=== PATIENT | male | born 1955 | race African-American/Black ===

== ENCOUNTER 2024-12-20 08:18 | Outpatient (CLI) | payer MEDICARE, SELFPAY ==
--- OUTSIDE RECORDS SUMMARY | 2024-12-20 08:31 | XMS_ITS | Data Portability ---
Author Organization [facility] Address [address] [place] [address] Assessment Encounter Date Assessment Date Assessment LastModified by Organization Details LastModified Time 05/16/2024 05/16/2024 His weight loss is concerning. oajao Not available 05/16/2024 16:42:51 11/17/2024 11/17/2024 He will benefit from a walker with wheels and a seat to accomplish his ADLS in his home oajao Not available 11/17/2024 19:17:34 Plan of Treatment Reminders Order Date Submit Date Provider Last Modified By Organization Details Last Modified Time Details Appointments ANY 15 2024 09:00A Tino Castillo MD Not available Not available Not available Lab hepatitis C virus RNA, quant, PCR, serum or plasma 2022 023 DALLIN [facility], [address], [place], [address], 01/28/2023 19:08:52 TSH, ultra-sen sitive, serum 2023 024 DALLIN [facility], [address], [place], [address], 11/05/2024 08:28:13 unlisted lab - [id number] drug-scr 2023 024 [facility], [address], [place], [address], 12/16/2024 09:10:12 CBC w/ auto diff 2023 024 DALLIN [facility], [address], [place], [address], 11/05/2024 08:28:14 urinalysi s, dipstick 2023 024 divine Mojica, [address], [place], [address], 12/16/2024 09:09:59 CMP, serum or plasma 2023 024 DALLIN [facility]ighann, [address], [place], [address], 11/05/2024 08:28:12 lipid panel, serum 2023 024 DALLINALHAJI Mojica, [address], [place], [address], 11/05/2024 08:28:10 hepatitis C virus RNA, quant, PCR, serum or plasma 2023 024 [facility] [address], [place], [address], 12/19/2024 09:08:22 PSA, total, serum or plasma 2023 024 DALLIN Mojica, [address], [place], [address], 11/05/2024 08:28:16 TSH, ultra-sen sitive, serum 2024 025 DALLIN Mojica, [address], [place], [address], 11/18/2024 08:26:19 CBC w/ auto diff 2024 025 DALLIN Mojica, [address], [place], [address], 11/18/2024 08:26:20 basic metabolic 1998 panel, serum or plasma 2024 025 [facility], [address], [place], [address], 11/18/2024 08:26:18 cobalamin and folate panel, serum 2024 025 oajao [facility], [address], [place], [address], 12/16/2024 09:09:45 Referral pulmonolo gist referral - COPD 2024 025 [facility], [address] [facility], [address], [place], [address], 12/15/2024 13:47:57 cardiolog ist referral 2024 025 [facility], [address], [place], [address], 12/02/2024 10:08:48 orthopedi c surgeon referral 2024 025 [facility], [address] [facility], [place], [address], 12/15/2024 13:21:58 Procedures None recorded. Surgeries None recorded. Imaging US, liver - Chronic Hep C , s/p treatment 2022 023 [facility] ([facility]), [address] [place], [address], 09/08/2023 15:19:09 CT, abdomen + pelvis, w/ contrast - 27 lb weight loss 2023 024 [facility] ([facility] Sched[facility]), [address], [address], 06/03/2024 13:26:47 LDCT, chest, for lung cancer screening 2023 024 [facility] ([facility] Call Scheduling), [address] [place], [address], 06/03/2024 11:45:34 MRI, brain, w/o contrast - Balance impairmen t, recent fall 2024 025 [facility] (Imaging), [address] [place] [address], [phone], 12/10/2024 10:28:45 US, duplex, carotid artery - Chronic cerebral ischemia, old cerebral infarcts 2024 025 [facility] (Imaging), [address] [place] [address], [phone], 12/15/2024 11:37:52 XR, shoulder - Bilateral shoulder pain 2024 025 [facility] (Imaging), [address] [place] [address], [phone], 12/15/2024 11:45:07 Medication Orders albuterol sulfate HFA 90 mcg/actua tion aerosol inhaler 2022 023 [facility][id number], [address], [place], [id number], 12/17/2022 09:40:08 Debrox 6.5 % ear drops 2022 023 [facility], [address], [place], [id number], 01/27/2023 14:51:09 Viagra 100 mg tablet 2022 023 [facility], [address], [place], [id number], 01/26/2024 10:26:53 Symbicort 160 mcg-4.5 mcg/actua tion HFA aerosol inhaler 2023 024 oayulio [facility] #65511, [address], [place], [id number], 05/16/2024 16:38:37 albuterol sulfate HFA 90 mcg/actua tion aerosol inhaler 2023 024 [facility] #19175, [address], [place], [id number], 05/16/2024 16:00:42 Viagra 100 mg tablet 2023 024 [facility], [address], [place], [id number], 10/10/2024 16:27:00 nicotine 21 mg/24 hr daily transderm al patch 2023 025 [facility] #32484, [address], [place], [id number], 11/17/2024 15:02:46 nicotine 14 mg/24 hr daily transderm al patch 2023 025 [facility] #10009, [address], [place], [id number], 11/17/2024 15:02:40 nicotine 7 mg/24 hr daily transderm al patch 2023 025 [facility] #37815, [address], [place], [id number], 11/17/2024 15:02:40 prednison e 20 mg tablet 2024 025 [facility] #19500, [address], [place], [id number], 12/15/2024 10:51:48 Zithromax Z-Samm 250 mg tablet 2024 025 [facility] #05124, [address], [place], [id number], 12/15/2024 10:52:04 benzonata te 100 mg capsule 2024 025 [facility] #30725, [address], [place], [id number], 12/15/2024 10:51:31 budesonid e-formote rol HFA 160 mcg-4.5 mcg/actua tion aerosol inhaler 2024 025 [facility] #45853, [address], [place], [id number], 11/17/2024 15:25:04 albuterol sulfate 2.5 mg/3 mL (0.083 %) solution for nebulizat ion 2024 025 [facility] #95350, [address], [place], [id number], 11/17/2024 15:30:40 Incruse Ellipta 62.5 mcg/actua tion powder for inhalatio n 2024 025 [facility] #18231, [address], [place], [id number], 11/17/2024 15:33:16 albuterol sulfate HFA 90 mcg/actua tion aerosol inhaler 2024 025 [facility] #78421, [address], [place], [id number], 11/17/2024 19:10:26 Debrox 6.5 % ear drops 2024 025 [facility] #05110, [address], [place], [id number], 12/15/2024 11:21:15 rosuvasta tin 5 mg tablet 2024 025 [facility], [address] [place] [address], [id number], 12/15/2024 11:21:15 aspirin 81 mg tablet,de layed release 2024 025 [facility] #66025, [address] [place] [address], [id number], 12/15/2024 11:19:33 Incruse Ellipta 62.5 mcg/actua tion powder for inhalatio n 2024 025 [facility] #39673, [address] [place] [address], [id number], 12/15/2024 11:13:54 albuterol sulfate 2.5 mg/3 mL (0.083 %) solution for nebulizat ion 2024 025 [id number], [address] [place] [address], [id number], 12/15/2024 11:13:55 Patient TargetsNo targets recorded. Patient Instructions Encounter Date Encounter Id Patient Instructions Last Modified By Organization Details Last Modified Time 12/17/2022 [id number] Quitting Tobacco : Care Instructions oajao Not available 12/17/2022 09:44:57 chronic obstructive pulmonary disease (COPD): care instructions oajao Not available 12/17/2022 09:40:02 complete PFT w/ post bronchodilator spirometry* - Emphysema hdoverma Not available 03/18/2023 17:41:21 PFTS Albuterol, side effects were discussed Debrox Bivalent COVID vaccine in January 2023 GI as referred Smoking cessation Follow up in 6 weeks (Post PFTS) oajao Not available 12/17/2022 09:45:34 01/27/2023 [id number] Quitting Tobacco : Care Instructions oajao Not available 01/27/2023 14:57:38 GI as previously referred or please refer him to a different group. Liver US. Bivalent COVID booster. Labs Follow up in 6 months and PRN oajao Not available 01/27/2023 14:59:02 05/16/2024 [id number] chronic obstructive pulmonary disease (COPD): care instructions oajao Not available 05/16/2024 15:58:34 learning about copd and how to prevent lung infections oajao Not available 05/16/2024 15:58:[address] A&P LDCT Colonoscopy report from [facility] EGD and colonoscopy reports from the [place] Symbicort Continue Albuterol Nicotine patch Follow up in 4 weeks oajao Not available 05/16/2024 16:43:13 11/17/2024 [id number] complete PFT w/ post bronchodilator spirometry* ATHENAFAX Not available 12/15/2024 10:56:09 constipation: ca re instructions oajao Not available 11/17/2024 19:11:08 Labs (Old and ne w orders) PFTS Restart Symbicort Start Incruse Azithromycin MRI brain ER report from [facility] Walker Rollator Infection Prevention Practitioner to see ER if his symptoms worsen Colonoscopy report from [facility] Follow up in 4-6 weeks oajao Not available 11/17/2024 15:33:03 Detailed visit oajao Not available 0 11/17/2024 19:16:27 12/15/2024 [id number] shoulder pain: care instructions oajao Not available 12/15/2024 11:19:26 US carotids Colonoscopy report from [facility] Labs (New and as previously ordered on 05/16/2024) Start Rosuvastatin and Incruse Continue Aspirin Xrays Orthopedics Follow up in 6-8 weeks oajao Not available 12/15/2024 11:25:42 Reason for Referral Infection Prevention Practitioner Referral for C hronic obstructive pulmonary disease COPD COPD Referring Physician: Johnnie Castillo, Internal Medicine, Encounter Date: 11/17/2024 Embedded Engineer Referral for Ca lcification of coronary artery Coronary artery calcifications Referring Physician: Johnnie Castillo, Internal Medicine, Encounter Date: 11/17/2024 Orthopedic Surgeon Referral for Shoulder pain L>R shoulder pain Referring Physician: Johnnie Castillo, Internal Medicine, Encounter Date: 12/15/2024 Results Created Date Observation Date Name Description Value Unit Range Abnormal Flag Note LastModifiedBy Organization Detail LastModifiedTime 12/17/19 23 12/17/2022 LIPID PANEL cholesterol, total 130.9 mg/dL 140.0- 200.0 below low normal Not Available [facility] Department [address] [place] [address], [address], 12/18/2022 06:14:12/17/19 23 12/17/2022 LIPID PANEL triglyceride s 40 mg/dL <=150 Not Available [facility] Department [address] [place] [address], [address], 12/18/2022 06:14:12/17/19 23 12/17/2022 LIPID PANEL HDL cholesterol 67.2 mg/dL 40.0-1 00.0 Not Available [facility] Department [address] [place] [address], [address], 12/18/2022 06:14:12/17/19 23 12/17/2022 LIPID PANEL VLDL cholesterol nicole 8.00 mg/dL 5.00-4 0.00 Not Available [facility] Department [address] [place] [address], [address], 12/18/2022 06:14:12/17/1912/17/2022 LIPID PANEL LDL chol calc ([facility]) 53.7 Not Available [facility] Department [address] [place] [address], [address], 12/18/2022 06:14:12/17/1912/17/2022 COMP. METAB OLIC PANEL (14) glucose 85 mg/dL 65-99 ANION GP 16.0 mmol/ L N OSMOL 287.0 mOsM/ L N REFER ENCE RANGE : 275.0 -301. 0 Not Available [facility] Department [address] [place] [address], [address], 12/18/2022 06:14:12/17/19 23 12/17/2022 COMP. METAB OLIC PANEL (14) BUN 14 mg/dL 8-26 Not Available [facility] Department [address] [place], [address], 12/18/2022 06:14:12/17/19 23 12/17/2022 COMP. METAB OLIC PANEL (14) creatinine 0.87 mg/dL 0.50-1 .40 Not Available [facility] Department [address] [place], [address], 12/18/2022 06:14:12/17/19 23 12/17/2022 COMP. METAB OLIC PANEL (14) eGFR 94 mL/mi n/1.7 3 >=60 Not Available [facility] Department [address] [place] [address], [address], 12/18/2022 06:14:12/17/19 23 12/17/2022 COMP. METAB OLIC PANEL (14) BUN/creatini ne ratio 15.7 Not Available [facility] Department [address] [place], [address], 12/18/2022 06:14:12/17/19 23 12/17/2022 COMP. METAB OLIC PANEL (14) sodium 144.3 mmol/ L 136.0- 144.0 above high normal Not Available [facility] Department [address] [place], [address], 12/18/2022 06:14:12/17/19 23 12/17/2022 COMP. METAB OLIC PANEL (14) potassium 4.1 mmol/ L 3.5-5. 3 Not Available [facility] Department [address] [place], [address], 12/18/2022 06:14:12/17/19 23 12/17/2022 COMP. METAB OLIC PANEL (14) chloride 104 mmol/ L 101-11 1 Not Available [facility] Department [address] [place], [address], 12/18/2022 06:14:12/17/19 23 12/17/2022 COMP. METAB OLIC PANEL (14) carbon dioxide, total 28.1 mmol/ L 21.0-3 2.0 Not Available [facility] Department [address] [place], [address], 12/18/2022 06:14:12/17/19 23 12/17/2022 COMP. METAB OLIC PANEL (14) calcium 9.6 mg/dL 8.2-10 .0 Not Available [facility] Department [address] [place], [address], 12/18/2022 06:14:12/17/19 23 12/17/2022 COMP. METAB OLIC PANEL (14) protein, total 7.5 g/dL 6.7-8. 2 Not Available [facility] Department [address] [place], [address], 12/18/2022 06:14:12/17/19 23 12/17/2022 COMP. METAB OLIC PANEL (14) albumin 4.8 g/dL 3.5-5. 5 Not Available [facility] Department [address] [place], [address], 12/18/2022 06:14:12/17/19 23 12/17/2022 COMP. METAB OLIC PANEL (14) globulin, total 2.7 g/dL 1.5-4. 5 Not Available [facility] Department [address] [place], [address], 12/18/2022 06:14:12/17/19 23 12/17/2022 COMP. METAB OLIC PANEL (14) A/G ratio 1.8 Not Available [facility] Department [address] [place], [address], 12/18/2022 06:14:12/17/19 23 12/17/2022 COMP. METAB OLIC PANEL (14) bilirubin, total 0.6 mg/dL 0.0-1. 2 Not Available [facility] Department [address] [place], [address], 12/18/2022 06:14:12/17/19 23 12/17/2022 COMP. METAB OLIC PANEL (14) alkaline phosphatase 41.7 IU/L 42.0-1 21.0 below low normal Not Available [facility] Department [address] [place], [address], 12/18/2022 06:14:12/17/1912/17/2022 COMP. METAB OLIC PANEL (14) AST (SGOT) 18.5 U/L 10.0-4 2.0 Not Available [facility] Department [address] [place], [address], 12/18/2022 06:14:12/17/19 23 12/17/2022 COMP. METAB OLIC PANEL (14) ALT (SGPT) 14.3 U/L 10.0-6 0.0 Not Available [facility] Department [address] [place], [address], 12/18/2022 06:14:12/17/1912/17/2022 URINA LYSIS , ROUTI NE specific gravity 1.020 1.001- 1.035 Not Available [facility] Department [address] [place], [address], 12/18/2022 06:14:12/17/1912/17/2022 URINA LYSIS , ROUTI NE pH 7.5 5.0-7. 0 above high normal Not Available [facility] Department [address] [place], [address], 12/18/2022 06:14:12/17/1912/17/2022 URINA LYSIS , ROUTI NE urine-color YELLOW yellow Not Available [facility] Department [address], [place], [address], 12/18/2022 06:14:12/17/1912/17/2022 URINA LYSIS , ROUTI NE appearance CLEAR Not Available [facility] Department [address], [place], [address], 12/18/2022 06:14:12/17/19 23 12/17/2022 URINA LYSIS , ROUTI NE WBC esterase COMMEN T NEGAT KAITLYN Not Available [facility] Department [address], [place], [address], 12/18/2022 06:14:12/17/19 23 12/17/2022 URINA LYSIS , ROUTI NE protein COMMEN T NEGAT KAITLYN Not Available [facility] Department [address], [place], [address], 12/18/2022 06:14:12/17/19 23 12/17/2022 URINA LYSIS , ROUTI NE glucose COMMEN T NEGAT KAITLYN Not Available [facility] Department [address], [place], [address], 12/18/2022 06:14:12/17/1912/17/2022 URINA LYSIS , ROUTI NE ketones COMMEN T NEGAT KAITLYN Not Available [facility] Department [address], [place], [address], 12/18/2022 06:14:12/17/19 23 12/17/2022 URINA LYSIS , ROUTI NE occult blood COMMEN T NEGAT KAITLYN Not Available [facility] Department [address] [place], [address], 12/18/2022 06:14:12/17/19 23 12/17/2022 URINA LYSIS , ROUTI NE bilirubin COMMEN T NEGAT KAITLYN Not Available [facility] Department [address] [place], [address], 12/18/2022 06:14:12/17/1912/17/2022 URINA LYSIS , ROUTI NE urobilinogen ,semi-qn 0.2 eu/dL <=1.0 Not Available [facility] Department [address], [place], [address], 12/18/2022 06:14:12/17/1912/17/2022 URINA LYSIS , ROUTI NE nitrite, urine COMMEN T negati ve NEGAT KAITLYN Not Available [facility] Department [address] [place], [address], 12/18/2022 06:14:12/17/1912/17/2022 CBC WITH DIFFE RENTI AL/PL ATELE T WBC 7.1 K/uL 3.4-10 .8 Not Available [facility] Department [address] [facility], [place], [address], 12/18/2022 06:14:12/17/1912/17/2022 CBC WITH DIFFE RENTI AL/PL ATELE T RBC 4.6 M/uL 4.5-6. 3 Not Available [facility] Department [address] [facility], [place], [address], 12/18/2022 06:14:12/17/1912/17/2022 CBC WITH DIFFE RENTI AL/PL ATELE T hemoglobin 13.5 g/dL 13.5-1 7.5 Not Available [facility] Department [address] [place], [address], 12/18/2022 06:14:12/17/1912/17/2022 CBC WITH DIFFE RENTI AL/PL ATELE T hematocrit 41.8 % 40.0-5 2.0 Not Available [facility] Department [address] [place], [address], 12/18/2022 06:14:10 12/17/19 23 12/17/2022 CBC WITH DIFFE RENTI AL/PL ATELE T MCV 91 fL 80-95 Not Available [facility] Department [address] [place], [address], 12/18/2022 06:14:10 12/17/19 23 12/17/2022 CBC WITH DIFFE RENTI AL/PL ATELE T MCH 30 pg 27-32 Not Available [facility] Department [address] [place], [address], 12/18/2022 06:14:10 12/17/1912/17/2022 CBC WITH DIFFE RENTI AL/PL ATELE T MCHC 32 g/dL 32-36 Not Available [facility] Department [address] [place], [address], 12/18/2022 06:14:10 12/17/1912/17/2022 CBC WITH DIFFE RENTI AL/PL ATELE T RDW 18.3 % 11.5-1 4.5 above high normal Not Available [facility] Department [address] [place], [address], 12/18/2022 06:14:10 12/17/1912/17/2022 CBC WITH DIFFE RENTI AL/PL ATELE T platelets 217 K/uL 155-37 9 MPV 11.4 FL 8.9-1 2.7 N Not Available [facility] Department [address] [place], [address], 12/18/2022 06:14:10 12/17/1912/17/2022 CBC WITH DIFFE RENTI AL/PL ATELE T neutrophils 61.0 % 40.0-7 4.0 Not Available [facility] Department [address] [place], [address], 12/18/2022 06:14:10 12/17/1912/17/2022 CBC WITH DIFFE RENTI AL/PL ATELE T lymphs 26.4 % 14.0-4 6.0 Not Available [facility] Department [address] [place], [address], 12/18/2022 06:14:10 12/17/19 23 12/17/2022 CBC WITH DIFFE RENTI AL/PL ATELE T monocytes 8.8 % 4.0-12 .0 Not Available [facility] Department [address] [place], [address], 12/18/2022 06:14:10 12/17/1912/17/2022 CBC WITH DIFFE RENTI AL/PL ATELE T eos 2 % 0-5 Not Available [facility] Department [address] [place], [address], 12/18/2022 06:14:10 12/17/1912/17/2022 CBC WITH DIFFE RENTI AL/PL ATELE T basos 1.4 % 0.0-1. 0 above high normal Not Available [facility] Department [address] [place], [address], 12/18/2022 06:14:10 12/17/1912/17/2022 CBC WITH DIFFE RENTI AL/PL ATELE T neutrophils (absolute) 4.3 K/uL 1.4-7. 0 Not Available [facility] Department [address] [place] [address], [address], 12/18/2022 06:14:10 12/17/1912/17/2022 CBC WITH DIFFE RENTI AL/PL ATELE T lymphs (absolute) 1.9 K/uL 0.7-3. 1 Not Available [facility] Department [address] [place], [address], 12/18/2022 06:14:10 12/17/1912/17/2022 CBC WITH DIFFE RENTI AL/PL ATELE T monocytes(ab solute) 0.6 K/uL 0.1-0. 9 Not Available [facility] Department [address] [place], [address], 12/18/2022 06:14:10 12/17/1912/17/2022 CBC WITH DIFFE RENTI AL/PL ATELE T eos (absolute) 0.2 K/uL 0.0-0. 4 Not Available [facility] Department [address] [place], [address], 12/18/2022 06:14:10 12/17/1912/17/2022 CBC WITH DIFFE RENTI AL/PL ATELE T baso (absolute) 0.1 K/uL 0.0-0. 3 Not Available [facility] Department [address] [place], [address], 12/18/2022 06:14:10 12/17/1912/17/2022 CBC WITH DIFFE RENTI AL/PL ATELE T immature granulocytes 0.3 % Not Available [facility] Department [address] [place], [address], 12/18/2022 06:14:10 12/17/1912/17/2022 CBC WITH DIFFE RENTI AL/PL ATELE T immature grans (abs) 0.0 K/uL Not Available [facility] Department [address] [place], [address], 12/18/2022 06:14:10 12/17/1912/17/2022 CBC WITH DIFFE RENTI AL/PL ATELE T NRBC 0 % Not Available [facility] Department [address] [place], [address], 12/18/2022 06:14:10 12/17/1912/18/2022 HCV ANTIB WM hep C virus Ab >11.0 s/co_ ratio 0.0-0. 9 above high normal Negat kaitlyn: < 0.8 Indet ermin ate: 0.8 - 0.9 Posit kaitlyn: > 0.9 HCV antib wm alone does not diffe renti ate betwe en previ ous resol irma infec tion and activ e infec tion. The CDC and curre nt clini nicole guide lines recom mend that a posit kaitlyn HCV antib wm resul t be follo wed up with an HCV RNA test to suppo rt the diagn osis of acute HCV infec tion. [facility] offer s Hepat itis C Virus (HCV) RNA, Diagn osis, ROSAMARIA (5820 70) and Hepat itis C Virus (HCV) Antib wm with refle x to Quant itati ve Real- time PCR (4610 50). Not Available [facility] ([facility]) [address] [facility], [place], [address], 12/18/2022 08:16:09 12/17/19 23 12/18/2022 PROST ATE-S PECIF IC AG prostate specific Ag 1.5 NG/mL 0.0-4. 0 Janusz ECLIA metho dolog y. Accor ding to the Ameri can Urolo gical Assoc iatio n, Serum PSA shoul d decre ase and remai n at undet ectab le level s after radic al prost atect hadley. The AUA defin es bioch emica l recur rence as an initi al PSA value 0.2 ng/mL or great er follo wed by a subse quent confi rmato ry PSA value 0.2 ng/mL or great er. Value s obtai derrick with diffe rent assay metho ds or kits canno t be used inter mccullough nataly . Resul ts canno t be inter prete d as absol isiah evide nce of the prese nce or absen ce of otilia dubose se. Not Available [facility] ([facility]) [address] [facility], [place], [address], 12/18/2022 08:16:10 12/17/19 23 12/18/2022 HIV AB/P2 4 AG WITH REFLE X HIV Ab/P24 Ag screen NON REACTI VE nonrea ctive HIV Negat kaitlyn HIV-1 /HIV- 2 antib odies and HIV-1 p24 antig en were NOT detec jeanine. There is no labor atory evide nce of HIV infec tion. Not Available [facility] ([facility]) [address] [facility], [place], [address], 12/18/2022 08:16:11 12/17/19 23 12/17/2022 SLIDE REVIE W slide review COMMEN T RBCMO RP ABNOR MAL N PLATE LETS ELOY L N ANISO OCCAS IONAL N OVALC YT RARE N POIKC Y 1+ N TARCE LL 1+ N SCHCY TE RARE N ACANT HOCYT E(RUBIN NTHO) RARE N Not Available [facility] Department [address] [place], [address], 12/18/2022 06:14:08 01/28/20 23 01/27/2023 HCV RNA BY PCR, QN RFX MONTEZ test information: COMMEN T The quant itati ve range of this assay is 15 IU/mL to 100 sven on IU/mL . Not Available [facility] ([facility]) [address] [facility], [place], [address], 01/28/2023 19:08:52 01/28/20 23 01/28/2023 HCV RNA BY PCR, QN RFX MONTEZ hepatitis C quantitation HCV NOT DETECT ED Not Available [facility] ([facility]) [address] [facility], [place], [address], 01/28/2023 19:08:52 01/28/20 23 01/28/2023 HCV RNA BY PCR, QN RFX MONTEZ HCV log10 TNP log10 _IU/m L Unabl e to calcu late resul t since non-n umeri c resul t obtai derrick for compo nent test. Not Available [facility] ([facility]) [address] [facility], [place], [address], 01/28/2023 19:08:52 01/28/20 23 01/28/2023 HCV RNA BY PCR, QN RFX MONTEZ HCV genotype TNP Not indic ated Not Available [facility] ([facility]) [address] [facility], [place], [address], 01/28/2023 19:08:52 11/04/20 24 11/05/2024 LIPID PANEL cholesterol, total 134 mg/dL 100-19 9 Not Available [facility] ([facility]) [address] [place], [address], 11/05/2024 08:28:10 11/04/20 24 11/05/2024 LIPID PANEL triglyceride s 45 mg/dL 0-149 Not Available [facility] ([facility]) [address] [place], [address], 11/05/2024 08:28:10 11/04/20 24 11/05/2024 LIPID PANEL HDL cholesterol 58 mg/dL >39 Not Available [facility] ([facility]) [address] [place], [address], 11/05/2024 08:28:10 11/04/20 24 11/05/2024 LIPID PANEL VLDL cholesterol nicole 11 mg/dL 5-40 Not Available [facility] ([facility]) [address] [place], [address], 11/05/2024 08:28:10 11/04/20 24 11/05/2024 LIPID PANEL LDL chol calc ([facility]) 65 mg/dL 0-99 Not Available [facility] ([facility]) [address] [place], [address], 11/05/2024 08:28:10 11/04/20 24 11/05/2024 COMP. METAB OLIC PANEL (14) glucose 80 mg/dL 70-99 Not Available [facility] ([facility]) [address] [place], [address], 11/05/2024 08:28:12 11/04/20 24 11/05/2024 COMP. METAB OLIC PANEL (14) BUN 12 mg/dL 8-27 Not Available [facility] ([facility]) [address] [place], [address], 11/05/2024 08:28:12 11/04/20 24 11/05/2024 COMP. METAB OLIC PANEL (14) creatinine 0.89 mg/dL 0.76-1 .27 Not Available [facility] ([facility]) [address] [place], [address], 11/05/2024 08:28:12 11/04/20 24 11/05/2024 COMP. METAB OLIC PANEL (14) eGFR 93 mL/mi n/1.7 3 >59 Not Available [facility] ([facility]) [address] [place], [address], 11/05/2024 08:28:12 11/04/20 24 11/05/2024 COMP. METAB OLIC PANEL (14) BUN/creatini ne ratio 13 10-24 Not Available [facility] ([facility]) [address] [place], [address], 11/05/2024 08:28:12 11/04/20 24 11/05/2024 COMP. METAB OLIC PANEL (14) sodium 138 mmol/ L 134-14 4 Not Available [facility] ([facility]) [address] [place], [address], 11/05/2024 08:28:12 11/04/20 24 11/05/2024 COMP. METAB OLIC PANEL (14) potassium 4.2 mmol/ L 3.5-5. 2 Not Available [facility] ([facility]) [address] [place], [address], 11/05/2024 08:28:12 11/04/20 24 11/05/2024 COMP. METAB OLIC PANEL (14) chloride 97 mmol/ L 96-106 Not Available [facility] ([facility]) [address] [facility] [place], [address], 11/05/2024 08:28:12 11/04/20 24 11/05/2024 COMP. METAB OLIC PANEL (14) carbon dioxide, total 26 mmol/ L Not Available [facility] ([facility]) [address] [facility], [place], [address], 11/05/2024 08:28:12 11/04/20 24 11/05/2024 COMP. METAB OLIC PANEL (14) calcium 9.4 mg/dL 8.6-10 .2 Not Available [facility] ([facility]) [address] [place], [address], 11/05/2024 08:28:12 11/04/20 24 11/05/2024 COMP. METAB OLIC PANEL (14) protein, total 7.4 g/dL 6.0-8. 5 Not Available [facility] ([facility]) [address] [place], [address], 11/05/2024 08:28:12 11/04/20 24 11/05/2024 COMP. METAB OLIC PANEL (14) albumin 4.6 g/dL 3.9-4. 9 Not Available [facility] ([facility]) [address] [place], [address], 11/05/2024 08:28:12 11/04/20 24 11/05/2024 COMP. METAB OLIC PANEL (14) globulin, total 2.8 g/dL 1.5-4. 5 Not Available [facility] ([facility]) [address] [place], [address], 11/05/2024 08:28:12 11/04/20 24 11/05/2024 COMP. METAB OLIC PANEL (14) bilirubin, total 0.4 mg/dL 0.0-1. 2 Not Available [facility] ([facility]) [address] [place], [address], 11/05/2024 08:28:12 11/04/20 24 11/05/2024 COMP. METAB OLIC PANEL (14) alkaline phosphatase 49 IU/L 44-121 Not Available [facility] ([facility]) [address] [place], [address], 11/05/2024 08:28:12 11/04/20 24 11/05/2024 COMP. METAB OLIC PANEL (14) AST (SGOT) 29 IU/L 0-40 Not Available [facility] ([facility]) [address] [place], [address], 11/05/2024 08:28:12 11/04/20 24 11/05/2024 COMP. METAB OLIC PANEL (14) ALT (SGPT) 31 IU/L 0-44 Not Available [facility] ([facility]) [address] [facility], [place], [address], 11/05/2024 08:28:12 11/04/20 24 11/04/2024 UNABL E TO VOID unable to void COMMEN T Patie nt unabl e to void. Urine to be colle cted at a later date. Not Available [facility] ([facility]) [address] [facility], [place], [address], 11/05/2024 08:28:13 11/04/20 24 11/05/2024 TSH TSH 4.430 uIU/m L 0.450- 4.500 Not Available [facility] ([facility]) [address] [place], [address], 11/05/2024 08:28:13 11/04/20 24 11/05/2024 CBC WITH DIFFE RENTI AL/PL ATELE T WBC 8.9 x10e3 /uL 3.4-10 .8 Not Available [facility] ([facility]) [address] [place], [address], 11/05/2024 08:28:14 12/20/11/05/2024 CBC WITH DIFFE RENTI AL/PL ATELE T RBC 4.81 x10e6 /uL 4.14-5 .80 Not Available [facility] ([facility]) [address] [facility], [place], [address], 11/05/2024 08:28:14 11/04/20 24 11/05/2024 CBC WITH DIFFE RENTI AL/PL ATELE T hemoglobin 14.4 g/dL 13.0-1 7.7 Not Available [facility] ([facility]) [address] [place], [address], 11/05/2024 08:28:14 11/04/20 24 11/05/2024 CBC WITH DIFFE RENTI AL/PL ATELE T hematocrit 44.5 % 37.5-5 1.0 Not Available [facility] ([facility]) [address] [place], [address], 11/05/2024 08:28:14 11/04/20 24 11/05/2024 CBC WITH DIFFE RENTI AL/PL ATELE T MCV 93 fL 79-97 Not Available [facility] ([facility]) [address] [place], [address], 11/05/2024 08:28:14 11/04/20 24 11/05/2024 CBC WITH DIFFE RENTI AL/PL ATELE T MCH 29.9 pg 26.6-3 3.0 Not Available [facility] ([facility]) [address] [place], [address], 11/05/2024 08:28:14 11/04/20 24 11/05/2024 CBC WITH DIFFE RENTI AL/PL ATELE T MCHC 32.4 g/dL 31.5-3 5.7 Not Available [facility] ([facility]) [address] [place], [address], 11/05/2024 08:28:14 11/04/20 24 11/05/2024 CBC WITH DIFFE RENTI AL/PL ATELE T RDW 17.6 % 11.6-1 5.4 above high normal Not Available [facility] ([facility]) [address] [facility], [place], [address], 11/05/2024 08:28:14 11/04/20 24 11/05/2024 CBC WITH DIFFE RENTI AL/PL ATELE T platelets 253 x10e3 /uL 150-45 0 Not Available [facility] ([facility]) [address] [facility], [place], [address], 11/05/2024 08:28:14 11/04/20 24 11/05/2024 CBC WITH DIFFE RENTI AL/PL ATELE T neutrophils 53 % notest ab. Not Available [facility] ([facility]) [address] [facility], [place], [address], 11/05/2024 08:28:14 11/04/20 24 11/05/2024 CBC WITH DIFFE RENTI AL/PL ATELE T lymphs 30 % notest ab. Not Available [facility] ([facility]) [address] [facility], [place], [address], 11/05/2024 08:28:14 11/04/20 24 11/05/2024 CBC WITH DIFFE RENTI AL/PL ATELE T monocytes 8 % notest ab. Not Available [facility] ([facility]) [address] [facility], [place], [address], 11/05/2024 08:28:14 11/04/20 24 11/05/2024 CBC WITH DIFFE RENTI AL/PL ATELE T eos 6 % notest ab. Not Available [facility] ([facility]) [address] [facility], [place], [address], 11/05/2024 08:28:14 11/04/20 24 11/05/2024 CBC WITH DIFFE RENTI AL/PL ATELE T basos 2 % notest ab. Not Available [facility] ([facility]) [address] [facility], [place], [address], 11/05/2024 08:28:14 11/04/20 24 11/05/2024 CBC WITH DIFFE RENTI AL/PL ATELE T neutrophils (absolute) 4.9 x10e3 /uL 1.4-7. 0 Not Available [facility] ([facility]) [address] [facility], [place], [address], 11/05/2024 08:28:14 11/04/20 24 11/05/2024 CBC WITH DIFFE RENTI AL/PL ATELE T lymphs (absolute) 2.6 x10e3 /uL 0.7-3. 1 Not Available [facility] ([facility]) [address] [facility], [place], [address], 11/05/2024 08:28:14 11/04/20 24 11/05/2024 CBC WITH DIFFE RENTI AL/PL ATELE T monocytes(ab solute) 0.7 x10e3 /uL 0.1-0. 9 Not Available [facility] ([facility]) [address] [facility], [place], [address], 11/05/2024 08:28:14 11/04/20 24 11/05/2024 CBC WITH DIFFE RENTI AL/PL ATELE T eos (absolute) 0.5 x10e3 /uL 0.0-0. 4 above high normal Not Available [facility] ([facility]) [address] [place], [address], 11/05/2024 08:28:14 11/04/20 24 11/05/2024 CBC WITH DIFFE RENTI AL/PL ATELE T baso (absolute) 0.1 x10e3 /uL 0.0-0. 2 Not Available [facility] ([facility]) [address] [place], [address], 11/05/2024 08:28:14 11/04/20 24 11/05/2024 CBC WITH DIFFE RENTI AL/PL ATELE T immature granulocytes 1 % notest ab. Not Available [facility] ([facility]) [address] [facility], [place], [address], 11/05/2024 08:28:14 11/04/20 24 11/05/2024 CBC WITH DIFFE RENTI AL/PL ATELE T immature grans (abs) 0.1 x10e3 /uL 0.0-0. 1 Not Available [facility] ([facility]) [address] [facility], [place], [address], 11/05/2024 08:28:14 11/04/20 24 11/05/2024 PROST ATE-S PECIF IC AG prostate specific Ag 1.7 NG/mL 0.0-4. 0 Janusz ECLIA metho dolog y. Accor ding to the Ameri can [employer] g[employer] iatio n, Serum PSA shoul d decre ase and remai n at undet ectab le level s after radic al prost atect hadley. The AUA defin es bioch emica l recur rence as an initi al PSA value 0.2 ng/mL or great er follo wed by a subse quent confi rmato ry PSA value 0.2 ng/mL or great er. Value s obtai derrick with diffe rent assay metho ds or kits canno t be used inter mccullough eay . Resul ts canno t be inter prete d as absol isiah evide nce of the prese nce or absen ce of otilia dubose se. Not Available [facility] ([facility]) [address] [facility], [place], [address], 11/05/2024 08:28:16 11/17/1911/18/2024 BASIC METAB OLIC PANEL (7) glucose 78 mg/dL 70-99 Not Available [facility] ([facility]) [address] [facility], [place], [address], 11/18/2024 08:26:18 11/17/19 25 11/18/2024 BASIC METAB OLIC PANEL (7) BUN 16 mg/dL 8-27 Not Available [facility] ([facility]) [address] [place], [address], 11/18/2024 08:26:18 11/17/19 25 11/18/2024 BASIC METAB OLIC PANEL (7) creatinine 0.92 mg/dL 0.76-1 .27 Not Available [facility] ([facility]) [address] [place], [address], 11/18/2024 08:26:18 11/17/19 25 11/18/2024 BASIC METAB OLIC PANEL (7) eGFR 89 mL/mi n/1.7 3 >59 Not Available [facility] ([facility]) [address] [place], [address], 11/18/2024 08:26:18 11/17/19 25 11/18/2024 BASIC METAB OLIC PANEL (7) BUN/creatini ne ratio 17 10-24 Not Available [facility] ([facility]) [address] [place], [address], 11/18/2024 08:26:18 11/17/19 25 11/18/2024 BASIC METAB OLIC PANEL (7) sodium 144 mmol/ L 134-14 4 Not Available [facility] ([facility]) [address] [place], [address], 11/18/2024 08:26:18 11/17/19 25 11/18/2024 BASIC METAB OLIC PANEL (7) potassium 4.2 mmol/ L 3.5-5. 2 Not Available [facility] ([facility]) [address] [place], [address], 11/18/2024 08:26:18 11/17/19 25 11/18/2024 BASIC METAB OLIC PANEL (7) chloride 103 mmol/ L 96-106 Not Available [facility] ([facility]) [address] [place], [address], 11/18/2024 08:26:18 11/17/19 25 11/18/2024 BASIC METAB OLIC PANEL (7) carbon dioxide, total 26 mmol/ L 20-29 Not Available [facility] ([facility]) [address] [place], [address], 11/18/2024 08:26:18 11/17/19 25 11/18/2024 TSH TSH 2.430 uIU/m L 0.450- 4.500 Not Available [facility] ([facility]) [address] [place], [address], 11/18/2024 08:26:19 11/17/19 25 11/18/2024 CBC WITH DIFFE RENTI AL/PL ATELE T WBC 8.5 x10e3 /uL 3.4-10 .8 Not Available [facility] ([facility]) [address] [facility], [place], [address], 11/18/2024 08:26:20 11/17/19 25 11/18/2024 CBC WITH DIFFE RENTI AL/PL ATELE T RBC 4.49 x10e6 /uL 4.14-5 .80 Not Available [facility] ([facility]) [address] [place], [address], 11/18/2024 08:26:20 11/17/19 25 11/18/2024 CBC WITH DIFFE RENTI AL/PL ATELE T hemoglobin 13.5 g/dL 13.0-1 7.7 Not Available [facility] ([facility]) [address] [place], [address], 11/18/2024 08:26:20 11/17/19 25 11/18/2024 CBC WITH DIFFE RENTI AL/PL ATELE T hematocrit 40.5 % 37.5-5 1.0 Not Available [facility] ([facility]) [address] [place], [address], 11/18/2024 08:26:20 11/17/19 25 11/18/2024 CBC WITH DIFFE RENTI AL/PL ATELE T MCV 90 fL 79-97 Not Available [facility] ([facility]) [address] [facility], [place], [address], 11/18/2024 08:26:20 11/17/19 25 11/18/2024 CBC WITH DIFFE RENTI AL/PL ATELE T MCH 30.1 pg 26.6-3 3.0 Not Available [facility] ([facility]) [address] [place], [address], 11/18/2024 08:26:20 11/17/19 25 11/18/2024 CBC WITH DIFFE RENTI AL/PL ATELE T MCHC 33.3 g/dL 31.5-3 5.7 Not Available [facility] ([facility]) [address] [facility], [place], [address], 11/18/2024 08:26:20 11/17/19 25 11/18/2024 CBC WITH DIFFE RENTI AL/PL ATELE T RDW 17.4 % 11.6-1 5.4 above high normal Not Available [facility] ([facility]) [address] [place], [address], 11/18/2024 08:26:20 11/17/19 25 11/18/2024 CBC WITH DIFFE RENTI AL/PL ATELE T platelets 241 x10e3 /uL 150-45 0 Not Available [facility] ([facility]) [address] [place], [address], 11/18/2024 08:26:20 11/17/19 25 11/18/2024 CBC WITH DIFFE RENTI AL/PL ATELE T neutrophils 65 % notest ab. Not Available [facility] ([facility]) [address] [place], [address], 11/18/2024 08:26:20 11/17/19 25 11/18/2024 CBC WITH DIFFE RENTI AL/PL ATELE T lymphs 21 % notest ab. Not Available [facility] ([facility]) [address] [facility], [place], [address], 11/18/2024 08:26:20 11/17/19 25 11/18/2024 CBC WITH DIFFE RENTI AL/PL ATELE T monocytes 7 % notest ab. Not Available [facility] ([facility]) [address] [facility], [place], [address], 11/18/2024 08:26:20 11/17/19 25 11/18/2024 CBC WITH DIFFE RENTI AL/PL ATELE T eos 5 % notest ab. Not Available [facility] ([facility]) [address] [facility], [place], [address], 11/18/2024 08:26:20 11/17/19 25 11/18/2024 CBC WITH DIFFE RENTI AL/PL ATELE T basos 2 % notest ab. Not Available [facility] ([facility]) [address] [facility], [place], [address], 11/18/2024 08:26:20 11/17/19 25 11/18/2024 CBC WITH DIFFE RENTI AL/PL ATELE T neutrophils (absolute) 5.5 x10e3 /uL 1.4-7. 0 Not Available [facility] ([facility]) [address] [facility], [place], [address], 11/18/2024 08:26:20 11/17/19 25 11/18/2024 CBC WITH DIFFE RENTI AL/PL ATELE T lymphs (absolute) 1.8 x10e3 /uL 0.7-3. 1 Not Available [facility] ([facility]) [address] [facility], [place], [address], 11/18/2024 08:26:20 11/17/19 25 11/18/2024 CBC WITH DIFFE RENTI AL/PL ATELE T monocytes(ab solute) 0.6 x10e3 /uL 0.1-0. 9 Not Available [facility] ([facility]) [address] [facility], [place], [address], 11/18/2024 08:26:20 11/17/19 25 11/18/2024 CBC WITH DIFFE RENTI AL/PL ATELE T eos (absolute) 0.4 x10e3 /uL 0.0-0. 4 Not Available [facility] ([facility]) [address] [facility], [place], [address], 11/18/2024 08:26:20 11/17/19 25 11/18/2024 CBC WITH DIFFE RENTI AL/PL ATELE T baso (absolute) 0.1 x10e3 /uL 0.0-0. 2 Not Available [facility] ([facility]) [address] [facility], [place], [address], 11/18/2024 08:26:20 11/17/19 25 11/18/2024 CBC WITH DIFFE RENTI AL/PL ATELE T immature granulocytes 0 % notest ab. Not Available [facility] ([facility]) [address] [facility], [place], [address], 11/18/2024 08:26:20 11/17/19 25 11/18/2024 CBC WITH DIFFE RENTI AL/PL ATELE T immature grans (abs) 0.0 x10e3 /uL 0.0-0. 1 Not Available [facility] ([facility]) [address] [facility], [place], [address], 11/18/2024 08:26:20 12/13/19 23 12/12/2022 LDCT, chest , for lung cance r ruth jauregui No observ ation record ed. [facility] [address] [facility], [address], 01/27/2023 14:56:36 06/03/20 24 06/03/2024 LDCT, chest , for lung cance r scree shania No observ ation record ed. [facility] [address] [place], [address], 11/17/2024 14:53:15 06/03/20 24 06/03/2024 CT, abdom en + pelvi s, w/ contr ast No observ ation record ed. [facility] [address] [facility], [place], [address], 11/17/2024 14:53:15 12/10/19 25 12/10/2024 MRI, brain , w/o contr ast No observ ation record ed. [facility] [address], [place], [address], 12/19/2024 11:00:13 Result Notes None recorded. Problems Name Problem SNOMED Code Status Onset Date Resolution Date Notes Provider Name and Address Organization Details Recorded Time Impacted cerumen of bilateral ears 2524143661435 108 Active 2022 Johnnie Castillo MD Attn: Bob garner,[address] [place], [address], [facility] 3 19:07:35 Nicotine dependence 06094861 Active 2022 Johnnie Castillo MD Attn: Bob garner,[address] [facility], [place], [address], [facility] 3 19:07:48 Blind left eye 176824769 Active 2022 Johnnie Castillo MD Attn: Bob garner,[address] [facility], [place], [address], [facility] 3 19:08:12 History of head injury 003336249 Active 2022 Johnnie Castillo MD Attn: Bob garner,[address] [facility], [place], [address], [place] [facility] 3 19:08:13 Hearing loss 05893747 Active 2022 Johnnie Castillo MD Attn: Accountin g,[address] [facility], [place], [address], [place] [facility] 3 19:08:15 Primary erectile dysfunction 562302227 Active 2022 Johnnie Castillo MD Attn: Accountin g,[address] [facility], [place], [address], [place] [facility] 3 19:08:17 History of SARS-CoV-2 8991987366400 33758 Active 2022 Johnnie Castillo MD Attn: Accountin g,[address] [facility], [place], [address], [place] [facility] 3 19:08:39 Calcificati on of coronary artery 587089901 Active 2022 Johnnie Castillo MD Attn: Accountin g,[address] [facility], [place], [address], [place] [facility] 3 10:51:51 Hepatitis C antibody detected 443777694 Active 2022 Johnnie Castillo MD Attn: Accountin g,[address] [facility], [place], [address], [place] [facility] 3 14:48:59 Chronic hepatitis C 819607703 Active 2022 Johnnie Castillo MD Attn: Accountin g,[address] [facility], [place], [address], [place] [facility] 3 14:52:55 SARS-CoV-2 vaccination declined 9620622968 Active 2023 Johnnie Castillo MD Attn: Accountin g,[address] 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 Procedures Surgical History Date Name Laterality Status Provider Name and Address Organization Details Recorded Time Cerumen Removal completed Johnnie Castillo MD Attn: Accounting,[address] [facility], [place], [address], [facility] 12/02/2022 19:07:18 Imaging Results Imaging Date Name Status LastModified by Organiz ation Details LastModified Time 12/12/2022 LDCT, chest, for lung cancer screening completed [facility] [address] [place], [address], 01/27/2023 14:56:36 06/03/2024 LDCT, chest, for lung cancer screening completed [facility] [address] [place], [address], 11/17/2024 14:53:15 06/03/2024 CT, abdomen + pelvis, w/ contrast completed [facility] [address] [place], [address], 11/17/2024 14:53:15 12/10/2024 MRI, brain, w/o contrast completed [address] [place] [address], [address], 12/19/2024 11:00:13 Procedure Notes None recorded. Medical Equipment None Reported. Allergies Allergen ID Allergen Name Allergen Category Reaction Reaction Severity Criticality Documentation Date Start Date Code Code System Note Provider Name and Address Organization Details Recorded Time 900689 Product containin g penicilli n and antibioti c (product) medicatio n Not available Not available Not available 12/02/2022 25525 05 SNOMED Knot jeanine up my veins when I was a kid Not Available Not Available Not Available Medications Name Sig Start Date Stop Date Status Note LastModified by Organization Details LastModified Time nicotine 14 mg/24 hr daily transdermal patch Apply 1 patch every day by transderm al route as directed for 14 days. 11/17 completed Not Available Not Available Not Available clindamycin HCl 300 mg capsule TAKE ONE CAPSULE BY MOUTH EVERY 8 HOURS FOR 10 DAYS 03/16 completed Not Available Not Available Not Available albuterol sulfate 2.5 mg/3 mL (0.083 %) solution for nebulizatio n Inhale 3 mL 3 times a day by nebulizat ion route as needed for 30 days, for COPD. 2024 active Not Available Not Available Not Avai lable azithromyci n 250 mg tablet 12/15 completed Not Available Not Available Not Available ofloxacin 0.3 % eye drops INSTILL 1 DROP INTO EYE EVERY 2 HOURS WHILE AWAKE X2DAYS AND THEN 2 DROPS FOUR TIMES DAILY X5 DAYS 11/17 completed Not Available Not Available Not Available prednisone 20 mg tablet 12/15 completed Not Available Not Available Not Available Debrox 6.5 % ear drops INSTILL 5 DROPS INTO AFFECTED EAR(S) BY OTIC ROUTE 2 TIMES PER DAY 2024 active Not Available Not Available Not Avai lable aspirin 81 mg tablet,braxton yed release Take 1 tablet every day by oral route around the clock for 90 days, for Blood thinner. 2024 active Not Available Not Available Not Avai lable benzonatate 100 mg capsule Take 1 capsule 3 times a day by oral route as directed for 5 days, for Cough. 12/15 completed Not Available Not Available Not Available Viagra 100 mg tablet Take 0.5 tablets every day by oral route as needed for 30 days, for ED. 2023 active Not Available Not Available Not Avai lable albuterol sulfate HFA 90 mcg/actuati on aerosol inhaler Inhale 2 puffs every 6 hours by inhalatio n route as needed for 30 days, for Emphysema . active Not Available Not Available No t Available nicotine 7 mg/24 hr daily transdermal patch Apply 1 patch every day by transderm al route around the clock for 14 days. 11/17 completed Not Available Not Available Not Available rosuvastati n 5 mg tablet Take 1 tablet every day by oral route at bedtime for 90 days, for Prevent strokes. 2024 active Not Available Not Available Not Avai lable multivitami n active Not Available Not Available Not Available Symbicort 160 mcg-4.5 mcg/actuati on HFA aerosol inhaler Inhale 2 puffs twice a day by inhalatio n route as directed for 30 days, for Emphysema . 2024 active Not Available Not Available Not Avai lable Incruse Ellipta 62.5 mcg/actuati on powder for inhalation Inhale 1 puff every day by inhalatio n route as directed for 30 days, for COPD. 2024 active Not Available Not Available Not Avai lable Paxlovid 300 mg (150 mg x 2)-100 mg tablets in a dose pack TAKE 1 DOSE PACK BY MOUTH DIRECTED 12/02 completed Not Available Not Available Not Available Vitals Date Recorded Body height Body mass index (BMI) Body weight Oxygen saturation Oxygen saturation in Arterial blood by Pulse oximetry Respiratory rate Heart rate Systolic blood pressure Diastolic blood pressure Provider Name and Address Organization Details Last Updated DateTime 3 179.07 cm 22.1 kg/m2 15041.4 1 g 97 % 97 % 16 /min 72 /min 136 mm[Hg] 80 mm[Hg] Elizabeth Cannon MA [place] [facility] 3 09:31:05 Date Recorded Body height Body mass index (BMI) Body weight Heart rate Oxygen saturation Oxygen saturation in Arterial blood by Pulse oximetry Respiratory rate Systolic blood pressure Diastolic blood pressure Provider Name and Address Organization Details Last Updated DateTime 3 179.07 cm 23.1 kg/m2 15108.5 6 g 68 /min 97 % 97 % 16 /min 136 mm[Hg] 84 mm[Hg] Elizabeth Cannon MA [place] [facility] 3 14:40:19 Date Recorded Body height Body mass index (BMI) Body weight Heart rate Oxygen saturation Oxygen saturation in Arterial blood by Pulse oximetry Respiratory rate Body temperature Systolic blood pressure Diastolic blood pressure Provider Name and Address Organization Details Last Updated DateTime 4 179.07 cm 19.3 kg/m2 40846.7 2 g 78 /min 95 % 95 % 18 /min 98.4 [degF] 136 mm[Hg] 84 mm[Hg] Elizabeth Cannon [place] [facility] 4 15:46:06 Date Recorded Body height Body mass index (BMI) Body weight Heart rate Oxygen saturation Oxygen saturation in Arterial blood by Pulse oximetry Respiratory rate Systolic blood pressure Diastolic blood pressure Provider Name and Address Organization Details Last Updated DateTime 5 179.07 cm 21.4 kg/m2 68327.4 5 g 76 /min 96 % 96 % 18 /min 120 mm[Hg] 76 mm[Hg] Elizabeth Cannon MA [facility] 5 14:50:26 Date Recorded Body height Body mass index (BMI) Body weight Oxygen saturation Oxygen saturation in Arterial blood by Pulse oximetry Heart rate Respiratory rate Systolic blood pressure Diastolic blood pressure Provider Name and Address Organization Details Last Updated DateTime 5 179.07 cm 22.6 kg/m2 91423.7 8 g 98 % 98 % 66 /min 16 /min 116 mm[Hg] 80 mm[Hg] Elizabeth Cannon MA [facility] 5 10:53:36 Social History Question Answer Notes LastModified by Organizat ion Details LastModified Time Tobacco Smoking Status Former Smoker has not smoked for a month now Elizabeth Cannon MA null, [place] [facility] 11/17/2024 14:48:44 What Is Your Level Of Alcohol Consumption? Occasional Information not available 12/02/2022 How Many Years Have You Consumed Alcohol? 20 Information not available 05/16/2024 Are You Blind Or Do You Have Difficulty Seeing? No Information not available 12/02/2022 What Is Your Level Of Caffeine Consumption? Heavy Coffee Information not available 12/02/2022 Are You Deaf Or Do You Have Serious Difficulty Hearing? Yes Hard Of Hearing Information not available 12/02/2022 What Type Of Diet Are You Following? REGULAR Information not available 12/02/2022 What Was The Date Of Your Most Recent Tobacco Screening? 12/15/2024 Information not available 12/15/2024 What Is Your Current Pack Years? 30ormorepackye ars Information not available 01/27/2023 Do You Use Your Seat Belt Or Car Seat Routinely? Yes Information not available 12/02/2022 At What Age Did You Start Smoking Tobacco? 20 Information not available 12/02/2022 How Much Tobacco Do You Smoke? 1 PPD Information not available 05/16/2024 Has Tobacco Cessation Counseling Been Provided? Yes Information not available 12/02/2022 On What Date Was Tobacco Cessation Counseling Provided? 05/16/2024 Information not available 05/16/2024 How Many Years Have You Smoked Tobacco? 50 Information not available 12/02/2022 Do You Or Have You Ever Used Any Other Forms Of Tobacco Or Nicotine? No Information not available 01/27/2023 Sex: Unknown Functional Status Question Answer Note LastModified by Organization D etails LastModified Time Are you able to care for yourself? Yes Information n ot available 12/02/2022 Mental Status None recorded. Family History Nothing Reported. Medical History Condition Response Coronary Artery Disease N Other N High Blood Pressure N Atrial Fibrillation N Kidney or Bladder Problems N Thyroid Problems N GI Problems N Depression N COPD N Blood Clots N Skin Problems N Anemia N Heart Attack (MS) N Anxiety Disorder N Diabetes N Muscle, Joint, or Bone Problems N Seizures/Epilepsy N Acid Reflux (GERD) N Cancer N Stroke N Asthma N Allergies N High Cholesterol N Hepatitis N Liver Disease N Headaches N Heart Failure N Osteoporosis N Immunizations Vaccine Type Date Status Note Provider Nam e and Address Organization Details Recorded Time Tdap 3 completed Johnnie Castillo MD Attn: Accounting[address] [place], [address], [facility] 12/02/2022 18:54:59 Pneumococcal conjugate PCV20, polysaccharide [id number] conjugate, adjuvant, PF 3 completed Johnnie Castillo MD Attn: Accounting[address] [place], [address], [facility] 12/02/2022 18:54:59 Past Encounters Encounter ID Performer Location Encounter Start Date Encounter Closed Date Diagnosis/Indication Diagnosis SNOMED-CT Code Diagnosis ICD10 Code Diagnosis Note [id number] [facility] [address] [place] [id number] 0 12/02/2022 13:25:54 12/04/2022 09:05:24 Administration of diphtheria, pertussis, and tetanus vaccine 061846060 Z23 General ex amination of patient 153814653 Z00.01 Screening for malignant neoplasm of colon 074409328 Z12.11 Screening for malignant neoplasm of prostate 179696987 Z12.5 Administra tion of pneumococcal vaccine 13498060 Z23 Nicotine dependence 5629 4008 Z87.891 Impacted c erumen of bilateral ears 3494544063 623843 H61.23 Blind left eye 115782894 H54.62 History of head injury 792424042 Z87.828 Hearing loss 89749133 H9 1.92 Primary er ectile dysfunction 994319086 N52.9 History of SARS-CoV-2 29 26627544 42545296 Z86.16 Influenza vaccination declined 741017046 Z28.21 [id number] [facility] [address] [place] [address] [id number] 12/17/2022 08:32:18 12/22/2022 11:55:17 Pulmonary emphysema 13584429 J43.9 Impacted c erumen of bilateral ears 1168938528 939154 H61.23 Immunization advised 310 173331 Z71.9 Calcificat ion of coronary artery 713171739 I25.84 Nicotine dependence 5629 4008 Z87.891 History of SARS-CoV-2 29 64564686 10242938 Z86.16 10/2022 [id number] MD Ninfa Zarate (Adult Med) [address] [place] [address] [phone] 01/27/2023 14:28:09 01/28/2023 09:03:06 Chronic hepatitis C 565032392 B18.2 Immunization advised 310 868154 Z71.9 Influenza vaccination declined 676360932 Z28.21 Nicotine dependence 5629 4008 Z87.891 Primary er ectile dysfunction 131732963 N52.9 [id number] Johnnie Castillo MD [facility] (Adult Med) [address] [place] [id number] 05/16/2024 15:31:30 05/17/2024 10:15:30 Chronic hepatitis C 252599274 B18.2 Nicotine dependence 5629 4008 Z87.891 He should not smoke when the patch is on and he should take the patch off at bed time. General ex amination of patient 798509206 Z00.01 Chronic ob structive pulmonary disease 74833486 J44.9 Start Symbicort, he should rinse his mouth after each useContinu e Albuterol Unexplaine d weight loss 634391679 R63.4 NL PSA 2022LDCT 12/12/2022E [place] & [place] at the [place]?Colonos copy at [facility]? Screening for malignant neoplasm of prostate 276042153 Z12.5 Primary er ectile dysfunction 586936758 N52.9 SARS-CoV-2 vaccination declined 2437524465 Z28.21 [id number] Johnnie Castillo MD [facility] (Adult Med) [address] [place] [phone] 11/17/2024 14:31:38 11/21/2024 15:48:02 Unexplained weight loss 133069117 R63.4 He has gained back [address] A&P do not explain his weight lossColono scopy report needed OV 05/16/2024NL PSA 2022LDCT 12/12/2022[place] at [facility]? Chronic hepatitis C 1283 54838 B18.2 Labs Chronic ob structive pulmonary disease 89718454 J44.9 Restart SymbicortS tart IncruseAlb uterol PRN OV 05/16/2024St art Symbicort, he should rinse his mouth after each useContinu e Albuterol Acute exac erbation of chronic obstructive pulmonary disease 014430056 J44.1 Weakness present 8854547 07 M62.81 Impairment of balance 38 8987508 R26.89 History of fall 31863358 9 Z91.81 Calcificat ion of coronary artery 545411196 I25.84 He denies chest pain, but he has multiple RF with SOBOE Constipation 30809614 K5 9.00 [id number] Johnnie Castillo MD [facility] (Adult Med) [address] [place] [address] 12/15/2024 10:40:53 12/15/2024 11:36:36 Chronic cerebral ischemia 019068358 I67.82 Noted on the MRI.Discus sedContinu e AspirinSta rt Rosuvastat in, side effects were discussed including but not limited to MSK pain Chronic ob structive pulmonary disease 68108974 J44.9 Start Incruse as previously prescribed OV 12/15/2024R estart SymbicortS tart IncruseAlb uterol PRN OV 05/16/2024St art Symbicort, he should rinse his mouth after each useContinu e Albuterol Shoulder pain 72715096 M 25.519 History of cerebrovascular accident without residual deficits 358916379 Z86.73 Impacted c erumen of bilateral ears 7286477085 861227 H61.23 Numbness of finger 93857 6001 R20.0 Health Concerns Section Related Observation LastModified by Organization Detai ls LastModified Time None Recorded Concern Status LastModified by Organization Details LastModified Time None Recorded Advance Directives Directive None Recorded Payers Encounter Date Sequence Insurance Name Policy Number Policy Wang Covered Member ID Wang Member ID Guarantor Name 12/17/2022 1 [facility] (MEDICARE REPLACEMENT HMO) William Hackett [id number] William Hackett 01/27/2023 1 [facility] (MEDICARE REPLACEMENT HMO) William Hackett [id number] William Hackett 05/16/2024 2 [place]IC[place] REPLACEMENT PRIMARY) William Hackett [id number] William Hackett 05/16/2024 1 [place] William Hackett [id number] William Hackett 11/17/2024 2 [place]PLACEMENT [place] William Hackett [id number] William Hackett 11/17/2024 3 *SELF PAY* Mi atif Hackett 12/15/2024 2 [place]IC[place] REPLACEMENT [place]IMARY) William Hackett [id number] William Hackett 12/15/2024 1 [facility] (MEDICARE REPLACEMENT/AD VANTAGE - HMO) [id number] William Hackett [id number] William Hackett Notes Date Note Type Note Provider Name and Address Organization Details Recorded Time 12/17/2022 text/html DyspneaReported bypatient.Quality:dysp lio Severity:mild Duration:for 2 months Onset/Timing:daily Context:with activity Alleviating Factors:nothing gives relief Aggravating Factors:activity Associated Symptoms:no chest pain; no palpitations; no orthopnea; no PND; no fever; no chills; no dietary indiscretion; no sputum production; no hemoptysis; no weight gain; no dyspepsia; no decrease in exercise capacity; wheezing I don't breath as well as I used to since I had this COVID Johnnie Castillo MD Attn: Accounting[address] [place], [address], [facility] 12/17/2022 10:52:24 01/27/2023 text/html I had it, I too k that Monte[place] I had an appointment I kept calling, they won't answer the phone Mr Hackett is doing well, he is unable to get his colonoscopy scheduled. He was previously trated for Hep C. Johnnie Castillo MD Attn: Accounting,[address] [place], [address], [facility] 01/27/2023 19:18:44 05/16/2024 text/html Medicare Annual Wellness VisitReported bypatient.Diet and Nutrition:healthy diet Fracture Risk:no history of fractures; no recent explained fracture; no sudden unexplained fractures; no previous musculoskeletal injuries Physical Activity:exercises on a regular basis; recent increase in physical activity; good physical condition Depression Risk:never feels sad, empty, or tearful; no loss of interest in activities; no significant changes in weight; no sleep disturbances or insomnia; no agitation; no loss of energy; no feelings of worthlessness or guilt; no thoughts of suicide; no history of depression; no history of mood disorders Orientation:no disorientation to time; no disorientation to date; no disorientation to place Concentration and Memory:no decreased concentrating ability; no memory lapses or loss; does not forget words Speech/Motor difficulties:no speech difficulties; no difficulty expressing formulated concepts; no difficulty with fine manipulative tasks; no difficulty writing/copying; no slowed reaction time; does not knock things over when trying to pick them up Hearing:no loss of hearing Vision:worse both distance and near Activities of Daily Living:able to bathe with limited or no assistance; able to contol urination and bowels; able to dress with limited or no assistance; able to feed self with limited or no assistance; able to get out of chair or bed with limited or no assistance; able to groom with limited or no assistance; able to toilet with limited or no assistance Instrumental Activities of Daily Living:able to do house work with limited or no assistance; able to grocery shop with limited or no assistance; able to manage medications with limited or no assistance; able to manage money with limited or no assistance; able to prepare meals with limited or no assistance; able to use the phone with limited or no assistance Falls Risk Assessment:no frequent falls while walking; no fall in the past year; no fall since last visit; no dizziness/vertigo Home Safety:no unsafe olivia hazzards; no unsafe stairs; no unsafe gas appliances; working smoke/CO detectors; wears protective head gear for biking/high velocity; use of seatbelts; no vision or hearing loss while driving; no fire arms; has hand bars in the bathroom/shower; good lighting in the home Ever since June, I have to use that inhaler I be drinking more than I usually do, this summer heat got me Mr Hackett has no major complaints except the need to use his rescue inhaler more often. He denies any nausea, abdominal pain or vomiting and he had a colonoscopy at [facility] in the last 10 years and an [place] the [place]. He never had his US done and he admits to an increase in his alcohol use. He is very active and still does a significant amount of yard work. Johnnie Castillo MD Attn: Accounting,[address] [facility], [place], [address], [place] [facility] 05/16/2024 16:44:18 11/17/2024 text/html Here with his so n and daughter I had fell and injured my leg My breathing got worse I have a bowel movement once every three days My balance It was green Mr Hackett returns, for the last month he has been having difficulty breathing, he has had a cough, wheezing and SOB. His sputum was green but remains productive, and he has been to two different ERs lately. He fell injuring his left knee after becoming rather SOB on 10/17/2024, there was no improvement and went to a different ER on 10/21/2024. He is not worse but he is not back to his baseline and he complains of weakness, poor balance and MSK pain.He still has SOBOE, but he denies any chest pain, he has been without his Symbicort for a few months, as he was told by the pharmacist, that he could not get it filled. [place] [facility]20[facility] on 10/17/2024 He is constipated and has since stopped smoking, his last colonoscopy was at [facility], he is unsure about an EGD. Johnnie Castillo MD Attn: Accounting,[address] [place], [address], [facility] 11/17/2024 19:17:40 12/15/2024 text/html ShoulderReported bypatient.Hand Dominance:right Location:bilateral (L>R) Quality:aching Severity:moderate Duration:months Timing:chronic Context:cannot identify Alleviating Factors:position change Aggravating Factors:ROM Associated Symptoms:no weakness; no numbness; no tingling; no swelling; no redness; no warmth; no ecchymosis; no catching/locking; no popping/clicking; no buckling; no grinding; no instability; no radiation down arm; no drainage; no fever; no chills; no weight loss; no change in bowel/bladder habits Previous Surgery:none Prior Imaging:none Previous Injections:none Previous PT:none Work Related:no Here with his daughter and son. When I had my injury, I still have fluid leakage from my neck I got pain in my arm and numbness in my finger tips Mr Hackett was just seen by the front office coordinator, Dr Arvin Howe this morning. He complains of chronic bilateral shoulder pain. He is right handed and cannot recall any trauma, his symptoms are worse on the left side and he feels that it all started after his last admission. He also describes constant bilateral fingertip numbness. He has a history of a head injury while he was at work several years ago and he still has clear drainage from the right ear. Johnnie Castillo MD Attn: Accounting,[address] [facility], [place], [address], [facility] 12/15/2024 13:13:27
--- OUTSIDE RECORDS SUMMARY | 2024-12-20 08:31 | XMS_ITS | Continuity of Care Document ---
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 It does not include entries that were removed or entered in error. Problem Status Onset Date Problem Type Date of Resolution Comments Source Benign essential hypertension (SNOMED CT 3889485) Active Condition [facility] Closed fracture of phalanx or phalanges of hand (ICD-9-CM 816.00) Active Condition [facility] Cocaine-Related Disorder NOS Active Condition [facility] CONSTIPATION, unspecified (ICD-9-CM 564.00) Active Condition [facility] Elevated Liver Function Tests (ICD-9-CM 794.8) Active Condition [facility] FB IN POSTERIOR WALL Active Condition [facility] Hearing Loss, Partial * (ICD-9-CM 389.9) Active Condition [facility] Hepatitis C (SNOMED CT 72860901) Active Condition [facility] Hyperlipidemia (SNOMED CT 47016644) Active Condition [facility] Hypokalemia * (ICD-9-CM 276.8) Active Condition [facility] 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 [facility] Tobacco dependence, continuous (SNOMED CT 377235451) Active Condition [facility] Unresolved Active Condition [facility] Upper GI bleeding (ICD-9-CM 578.9) Active Condition [facility] Diagnosis: ICD-10-CM B34.9 Viral infection, unspecified Active Diagnosis [facility] Medications Combined list of outpatient medications from [facility] and [facility] facilities.Medications provided include 1) outpatient medications from the last 15 months, and 2) patient-reported medications. Medication Details Route Status Patient Instructions Prescription Expires Prescription Number Last Dispense Date Ordering Provider Order Date Order Qty Source ASCORBIC ACID 500MG TAB TAKE ONE TABLET BY MOUTH ONCE A DAY [facility] CYANOCOBALA MIN 1000MCG TAB TAKE ONE TABLET BY MOUTH ONCE A DAY [facility] GINKGO EXT 60MG TAB TAKE TWO TABLETS BY MOUTH ORAL ACTIVE [facility] GINSENG CAP/TAB TAKE 1 CAP/TAB BY MOUTH ORAL ACTIVE [facility] L-ARGININE 500MG TAB TAKE ONE TABLET BY MOUTH ONCE A DAY [facility]AL [facility] LYCOPENE CAP/TAB TAKE 1 CAP/TAB BY MOUTH ONCE A DAY [facility]AL [facility] MULTIVITAMI NS W/MINERALS CAP/TAB TAKE ONE TABLET BY MOUTH ONCE A DAY ORAL ACTIVE [facility]2008 [facility] SENNOSIDES 8.6MG TAB TAKE ONE TABLET BY MOUTH ONCE A DAY ORAL ACTIVE [facility] VITAMIN E 400UNT CAP TAKE 1 CAPSULE BY MOUTH ORAL ACTIVE [facility]2008 [facility] Allergies, Adverse Reactions, Alerts Combined list of allergies from [facility] facilities. It does not include entries that were removed or entered in error. Substance Category Reaction Severity Reaction type Status Date Reported Comments Source PENICILLIN Propensity to adverse reactions to drug (finding) active 8 [facility] Immunizations Combined list of available immunizations from the Department of Defense and [facility] facilities. Immunization Series Date Given Administered By Site Reaction Lot Number CVX Code Drug Piping Engineer Status Comments Source HEP A-HEP B 2008 104 complet ed [facility] HEP A-HEP B 2008 104 complet ed [facility] PNEUMOCOCCAL, UNSPECIFIED FORMULATION 2008 109 complet ed [facility] TDAP 2005 115 complet ed [facility] Results Combined list of recent chemistry, hematology and other laboratory results from [facility] and [facility], ranging from 15 months to all on record, depending upon the facility. Order Name Results Value Reference Range Date Interpretation Specimen Comments Source URINALYS IS W/ CX REFLEX (STL-PB) COLOR OF URINE Light-Ye llow 10/21 Specimen Type: URINE No comment entered. Ordering Provider: NIRANJAN WADE Report Released Date/Time: Oct 21, 2024 08:43 PM Reporting Lab: [place] [address] Performing Lab: [place] [phone] URINALYS IS W/ CX REFLEX (STL-PB) BILIRUBIN. TOTAL [PRESENCE] IN URINE BY TEST STRIP Negative mg/dL 10/21 Specimen Type: URINE No comment entered. Ordering Provider: NIRANJAN WADE Report Released Date/Time: Oct 21, 2024 08:43 PM Reporting Lab: [place] [phone] Performing Lab: [address] [phone] URINALYS IS W/ CX REFLEX (STL-PB) PH OF URINE BY TEST STRIP 7.0 5.0 - 8.0 10/21 Specimen Type: URINE No comment entered. Ordering Provider: NIRANJAN WADE Report Released Date/Time: Oct 21, 2024 08:43 PM Reporting Lab: [place] [phone] Performing Lab: [phone] URINALYS IS W/ CX REFLEX (STL-PB) LEUKOCYTES [#/AREA] IN URINE SEDIMENT BY MICROSCOPY HIGH POWER FIELD <1/[HPF] 0 - 5 10/21 Specimen Type: URINE No comment entered. Ordering Provider: NIRANJAN WADE Report Released Date/Time: Oct 21, 2024 08:43 PM Reporting Lab: [place] [phone] Performing Lab: [place] [phone] URINALYS IS W/ CX REFLEX (STL-PB) ERYTHROCYT ES [#/VOLUME] IN URINE SEDIMENT BY MICROSCOPY HIGH POWER FIELD 5 /[HPF] 0 - 5 10/21 Specimen Type: URINE No comment entered. Ordering Provider: NIRANJAN WADE Report Released Date/Time: Oct 21, 2024 08:43 PM Reporting Lab: [place] [address] Performing Lab: [place] [phone] URINALYS IS W/ CX REFLEX (STL-PB) APPEARANCE OF URINE Clear 10/21 Specimen Type: URINE No comment entered. Ordering Provider: NIRANJAN WADE Report Released Date/Time: Oct 21, 2024 08:43 PM Reporting Lab: [place] [phone] Performing Lab: [place] [phone] URINALYS IS W/ CX REFLEX (STL-PB) NITRITE [PRESENCE] IN URINE BY TEST STRIP Negative mg/dL 10/21 Specimen Type: URINE No comment entered. Ordering Provider: NIRANJAN WADE Report Released Date/Time: Oct 21, 2024 08:43 PM Reporting Lab: [place] [address] Performing Lab: [place] [phone] URINALYS IS W/ CX REFLEX (STL-PB) EPITHELIAL CELLS [#/AREA] IN URINE SEDIMENT BY MICROSCOPY LOW POWER FIELD <1/[HPF] 0 - 5 10/21 Specimen Type: URINE No comment entered. Ordering Provider: NIRANJAN WADE Report Released Date/Time: Oct 21, 2024 08:43 PM Reporting Lab: [place] [address] Performing Lab: [address] URINALYS IS W/ CX REFLEX (STL-PB) MUCUS [PRESENCE] IN URINE SEDIMENT BY LIGHT MICROSCOPY RARE/[LP F] 10/21 Specimen Type: URINE No comment entered. Ordering Provider: NIRANJAN WADE Report Released Date/Time: Oct 21, 2024 08:43 PM Reporting Lab: [place] [phone] Performing Lab: [phone] [place] [address] URINALYS IS W/ CX REFLEX (STL-PB) GLUCOSE [MASS/VOLU ME] IN URINE BY TEST STRIP Normalmg /dL 10/21 Specimen Type: URINE No comment entered. Ordering Provider: NIRANJAN WADE Report Released Date/Time: Oct 21, 2024 08:43 PM Reporting Lab: [place] [phone] Performing Lab: [phone] [place] [address] URINALYS IS W/ CX REFLEX (STL-PB) PROTEIN [MASS/VOLU ME] IN URINE BY TEST STRIP 20 mg/dL 10/21 H Specimen Type: URINE No comment entered. Ordering Provider: NIRANJAN WADE Report Released Date/Time: Oct 21, 2024 08:43 PM Reporting Lab: [place] [address] [place] [address] Performing Lab: [address] URINALYS IS W/ CX REFLEX (STL-PB) URN.UROBIL INOGEN Normalmg /dL 10/21 Specimen Type: URINE No comment entered. Ordering Provider: NIRANJAN WADE Report Released Date/Time: Oct 21, 2024 08:43 PM Reporting Lab: [place] [address] [place] [address] Performing Lab: [place] [address] URINALYS IS W/ CX REFLEX (STL-PB) HEMOGLOBIN [MASS/VOLU ME] IN URINE BY TEST STRIP Negative mg/dL 10/21 Specimen Type: URINE No comment entered. Ordering Provider: NIRANJAN WADE Report Released Date/Time: Oct 21, 2024 08:43 PM Reporting Lab: [place] [address] [place] [address] Performing Lab: [place] [address] [facility] [phone] URINALYS IS W/ CX REFLEX (STL-PB) KETONES [MASS/VOLU ME] IN URINE BY TEST STRIP Negative mg/dL 10/21 Specimen Type: URINE No comment entered. Ordering Provider: NIRANJAN WADE Report Released Date/Time: Oct 21, 2024 08:43 PM Reporting Lab: [place] [address] [place] [address] Performing Lab: [place] [phone] URINALYS IS W/ CX REFLEX (STL-PB) URN.LEUK.E ST. Negative mg/dL 10/21 Specimen Type: URINE No comment entered. Ordering Provider: NIRANJAN WADE Report Released Date/Time: Oct 21, 2024 08:43 PM Reporting Lab: [place] [address] Performing Lab: [address] URINALYS IS W/ CX REFLEX (STL-PB) SPECIFIC GRAVITY OF URINE 1.025 10/21 Specimen Type: URINE No comment entered. Ordering Provider: NIRANJAN WADE Report Released Date/Time: Oct 21, 2024 08:43 PM Reporting Lab: [place] [address] Performing Lab: [address] RESPIRAT ORY PCR PANEL ADENOVIRUS DNA [PRESENCE] IN NASOPHARYN X BY ROSAMARIA WITH NON-PROBE DETECTION Not Detected 10/21 Specimen Type: NASOPHARYNX Comment: The [employer] RP Panel combines nested multiplex PCR and DNA melting analysis for the simultaneou s qualitative detection and identificat ion of multiple respiratory viral and bacterial nucleic acids. A negative result does not preclude infection with the agent(s) tested and should not be used as the sole basis for treatment or other patient management decisions. Detection of organism target(s) does not imply that the correspondi ng organisms are infectious or are the causative agents for clinical symptoms. Results from this test must be correlated with the clinical history, epidemiolog ical data, and other data available to the clinician evaluating the patient. Shakeel VELASCO, ([phone]) Ordering Provider: NIRANJAN WADE Report Released Date/Time: Oct 21, 2024 08:00 PM Reporting Lab: [address] [place] [address] Performing Lab: [place] [phone] RESPIRAT ORY PCR PANEL HUMAN CORONAVIRU S HKU1 RNA [PRESENCE] IN NASOPHARYN X BY ROSAMARIA WITH NON-PROBE DETECTION Not Detected 10/21 Specimen Type: NASOPHARYNX Comment: The [employer] RP Panel combines nested multiplex PCR and DNA melting analysis for the simultaneou s qualitative detection and identificat ion of multiple respiratory viral and bacterial nucleic acids. A negative result does not preclude infection with the agent(s) tested and should not be used as the sole basis for treatment or other patient management decisions. Detection of organism target(s) does not imply that the correspondi ng organisms are infectious or are the causative agents for clinical symptoms. Results from this test must be correlated with the clinical history, epidemiolog ical data, and other data available to the clinician evaluating the patient. Cmune Deondre, ([phone]) Ordering Provider: NIRANJAN WADE Report Released Date/Time: Oct 21, 2024 08:00 PM Reporting Lab: [place] [address] Performing Lab: [address] RESPIRAT ORY PCR PANEL HUMAN CORONAVIRU S NL63 RNA [PRESENCE] IN NASOPHARYN X BY ROSAMARIA WITH NON-PROBE DETECTION Not Detected 10/21 Specimen Type: NASOPHARYNX Comment: The [employer] RP Panel combines nested multiplex PCR and DNA melting analysis for the simultaneou s qualitative detection and identificat ion of multiple respiratory viral and bacterial nucleic acids. A negative result does not preclude infection with the agent(s) tested and should not be used as the sole basis for treatment or other patient management decisions. Detection of organism target(s) does not imply that the correspondi ng organisms are infectious or are the causative agents for clinical symptoms. Results from this test must be correlated with the clinical history, epidemiolog ical data, and other data available to the clinician evaluating the patient. Cmune Deondre, ([phone]) Ordering Provider: NIRANJAN WADE Report Released Date/Time: Oct 21, 2024 08:00 PM Reporting Lab: [place] [address] [facility] [phone] Performing Lab: [place] [address] [facility] [address] [facility] RESPIRAT ORY PCR PANEL HUMAN CORONAVIRU S 229E RNA [PRESENCE] IN NASOPHARYN X BY ROSAMARIA WITH NON-PROBE DETECTION Not Detected 10/21 Specimen Type: NASOPHARYNX Comment: The [employer] RP Panel combines nested multiplex PCR and DNA melting analysis for the simultaneou s qualitative detection and identificat ion of multiple respiratory viral and bacterial nucleic acids. A negative result does not preclude infection with the agent(s) tested and should not be used as the sole basis for treatment or other patient management decisions. Detection of organism target(s) does not imply that the correspondi ng organisms are infectious or are the causative agents for clinical symptoms. Results from this test must be correlated with the clinical history, epidemiolog ical data, and other data available to the clinician evaluating the patient. Shakeel VELASCO, ([phone]) Ordering Provider: NIARNJAN WADE Report Released Date/Time: Oct 21, 2024 08:00 PM Reporting Lab: [place] [address] [facility] [address] Performing Lab: [address] [phone] [facility] RESPIRAT ORY PCR PANEL HUMAN CORONAVIRU S OC43 RNA [PRESENCE] IN NASOPHARYN X BY ROSAMARIA WITH NON-PROBE DETECTION Not Detected 10/21 Specimen Type: NASOPHARYNX Comment: The [employer] RP Panel combines nested multiplex PCR and DNA melting analysis for the simultaneou s qualitative detection and identificat ion of multiple respiratory viral and bacterial nucleic acids. A negative result does not preclude infection with the agent(s) tested and should not be used as the sole basis for treatment or other patient management decisions. Detection of organism target(s) does not imply that the correspondi ng organisms are infectious or are the causative agents for clinical symptoms. Results from this test must be correlated with the clinical history, epidemiolog ical data, and other data available to the clinician evaluating the patient. Nanomed PharameceuticalsShakeel Pace, ([phone]) Ordering Provider: NIRANJAN WADE Report Released Date/Time: Oct 21, 2024 08:00 PM Reporting Lab: [place] [address] [facility] [address] Performing Lab: [address] [phone] [facility] RESPIRAT ORY PCR PANEL HUMAN METAPNEUMO VIRUS RNA [PRESENCE] IN NASOPHARYN X BY ROSAMARIA WITH NON-PROBE DETECTION Not Detected 10/21 Specimen Type: NASOPHARYNX Comment: The [employer] RP Panel combines nested multiplex PCR and DNA melting analysis for the simultaneou s qualitative detection and identificat ion of multiple respiratory viral and bacterial nucleic acids. A negative result does not preclude infection with the agent(s) tested and should not be used as the sole basis for treatment or other patient management decisions. Detection of organism target(s) does not imply that the correspondi ng organisms are infectious or are the causative agents for clinical symptoms. Results from this test must be correlated with the clinical history, epidemiolog ical data, and other data available to the clinician evaluating the patient. Nanomed PharameceuticalsShakeel Pace, ([phone]) Ordering Provider: NIRANJAN WADE Report Released Date/Time: Oct 21, 2024 08:00 PM Reporting Lab: [address] [phone] Performing Lab: [place] [address] [facility] [address] [facility] RESPIRAT ORY PCR PANEL RHINOVIRUS +ENTEROVIR US RNA [PRESENCE] IN NASOPHARYN X BY ROSAMARIA WITH NON-PROBE DETECTION Not Detected 10/21 Specimen Type: NASOPHARYNX Comment: The [employer] RP Panel combines nested multiplex PCR and DNA melting analysis for the simultaneou s qualitative detection and identificat ion of multiple respiratory viral and bacterial nucleic acids. A negative result does not preclude infection with the agent(s) tested and should not be used as the sole basis for treatment or other patient management decisions. Detection of organism target(s) does not imply that the correspondi ng organisms are infectious or are the causative agents for clinical symptoms. Results from this test must be correlated with the clinical history, epidemiolog ical data, and other data available to the clinician evaluating the patient. [facility] [employer] Deondre, ([phone]) Ordering Provider: NIRANJAN WADE Report Released Date/Time: Oct 21, 2024 08:00 PM Reporting Lab: [facility] [address] [address] Performing Lab: [place] [address] [facility] [address] [facility] RESPIRAT ORY PCR PANEL INFLUENZA VIRUS A RNA [PRESENCE] IN NASOPHARYN X BY ROSAMARIA WITH NON-PROBE DETECTION Not Detected 10/21 Specimen Type: NASOPHARYNX Comment: The [employer] RP Panel combines nested multiplex PCR and DNA melting analysis for the simultaneou s qualitative detection and identificat ion of multiple respiratory viral and bacterial nucleic acids. A negative result does not preclude infection with the agent(s) tested and should not be used as the sole basis for treatment or other patient management decisions. Detection of organism target(s) does not imply that the correspondi ng organisms are infectious or are the causative agents for clinical symptoms. Results from this test must be correlated with the clinical history, epidemiolog ical data, and other data available to the clinician evaluating the patient. ScivantageCatherine Mendosa, ([phone]) Ordering Provider: NIRANJAN WADE Report Released Date/Time: Oct 21, 2024 08:00 PM Reporting Lab: [facility] [address] [address] Performing Lab: [facility] [address] [facility] [address] [facility] RESPIRAT ORY PCR PANEL INFLUENZA VIRUS B RNA [PRESENCE] IN NASOPHARYN X BY ROSAMARIA WITH NON-PROBE DETECTION Not Detected 10/21 Specimen Type: NASOPHARYNX Comment: The [employer] RP Panel combines nested multiplex PCR and DNA melting analysis for the simultaneou s qualitative detection and identificat ion of multiple respiratory viral and bacterial nucleic acids. A negative result does not preclude infection with the agent(s) tested and should not be used as the sole basis for treatment or other patient management decisions. Detection of organism target(s) does not imply that the correspondi ng organisms are infectious or are the causative agents for clinical symptoms. Results from this test must be correlated with the clinical history, epidemiolog ical data, and other data available to the clinician evaluating the patient. [employer], ([phone]) Ordering Provider: NIRANJAN WADE Report Released Date/Time: Oct 21, 2024 08:00 PM Reporting Lab: [place] [address] [facility] [address] Performing Lab: [place] [address] [facility] [address] [facility] RESPIRAT ORY PCR PANEL PARAINFLUE NZA VIRUS 1 RNA [PRESENCE] IN NASOPHARYN X BY ROSAMARIA WITH NON-PROBE DETECTION Not Detected 10/21 Specimen Type: NASOPHARYNX Comment: The [employer] RP Panel combines nested multiplex PCR and DNA melting analysis for the simultaneou s qualitative detection and identificat ion of multiple respiratory viral and bacterial nucleic acids. A negative result does not preclude infection with the agent(s) tested and should not be used as the sole basis for treatment or other patient management decisions. Detection of organism target(s) does not imply that the correspondi ng organisms are infectious or are the causative agents for clinical symptoms. Results from this test must be correlated with the clinical history, epidemiolog ical data, and other data available to the clinician evaluating the patient. Cmune Deondre, ([phone]) Ordering Provider: NIRANJAN WADE Report Released Date/Time: Oct 21, 2024 08:00 PM Reporting Lab: [facility] [address] [address] Performing Lab: [place] [address] [facility] [address] [facility] RESPIRAT ORY PCR PANEL PARAINFLUE NZA VIRUS 2 RNA [PRESENCE] IN NASOPHARYN X BY ROSAMARIA WITH NON-PROBE DETECTION Not Detected 10/21 Specimen Type: NASOPHARYNX Comment: The [employer] RP Panel combines nested multiplex PCR and DNA melting analysis for the simultaneou s qualitative detection and identificat ion of multiple respiratory viral and bacterial nucleic acids. A negative result does not preclude infection with the agent(s) tested and should not be used as the sole basis for treatment or other patient management decisions. Detection of organism target(s) does not imply that the correspondi ng organisms are infectious or are the causative agents for clinical symptoms. Results from this test must be correlated with the clinical history, epidemiolog ical data, and other data available to the clinician evaluating the patient. VitasoftShakeel LEWIS, ([phone]) Ordering Provider: NIRANJAN WADE Report Released Date/Time: Oct 21, 2024 08:00 PM Reporting Lab: [place] [address] Performing Lab: [address] [phone] [facility] RESPIRAT ORY PCR PANEL PARAINFLUE NZA VIRUS 3 RNA [PRESENCE] IN NASOPHARYN X BY ROSAMARIA WITH NON-PROBE DETECTION Not Detected 10/21 Specimen Type: NASOPHARYNX Comment: The [employer] RP Panel combines nested multiplex PCR and DNA melting analysis for the simultaneou s qualitative detection and identificat ion of multiple respiratory viral and bacterial nucleic acids. A negative result does not preclude infection with the agent(s) tested and should not be used as the sole basis for treatment or other patient management decisions. Detection of organism target(s) does not imply that the correspondi ng organisms are infectious or are the causative agents for clinical symptoms. Results from this test must be correlated with the clinical history, epidemiolog ical data, and other data available to the clinician evaluating the patient. VitasoftShakeel LEWIS, ([phone]) Ordering Provider: NIRANJAN WADE Report Released Date/Time: Oct 21, 2024 08:00 PM Reporting Lab: [address] [address] Performing Lab: [address] [address] [facility] RESPIRAT ORY PCR PANEL PARAINFLUE NZA VIRUS 4 RNA [PRESENCE] IN NASOPHARYN X BY ROSAMARIA WITH NON-PROBE DETECTION Not Detected 10/21 Specimen Type: NASOPHARYNX Comment: The [employer] RP Panel combines nested multiplex PCR and DNA melting analysis for the simultaneou s qualitative detection and identificat ion of multiple respiratory viral and bacterial nucleic acids. A negative result does not preclude infection with the agent(s) tested and should not be used as the sole basis for treatment or other patient management decisions. Detection of organism target(s) does not imply that the correspondi ng organisms are infectious or are the causative agents for clinical symptoms. Results from this test must be correlated with the clinical history, epidemiolog ical data, and other data available to the clinician evaluating the patient. Cmun[facility] Deondre, ([phone]) Ordering Provider: NIRANJAN WADE Report Released Date/Time: Oct 21, 2024 08:00 PM Reporting Lab: [place] [phone] Performing Lab: [place] [id number] RESPIRAT ORY PCR PANEL RESPIRATOR Y SYNCYTIAL VIRUS RNA [PRESENCE] IN NASOPHARYN X BY ROSAMARIA WITH NON-PROBE DETECTION Not Detected 10/21 Specimen Type: NASOPHARYNX Comment: The FilmArray RP Panel combines nested multiplex PCR and DNA melting analysis for the simultaneou s qualitative detection and identificat ion of multiple respiratory viral and bacterial nucleic acids. A negative result does not preclude infection with the agent(s) tested and should not be used as the sole basis for treatment or other patient management decisions. Detection of organism target(s) does not imply that the correspondi ng organisms are infectious or are the causative agents for clinical symptoms. Results from this test must be correlated with the clinical history, epidemiolog ical data, and other data available to the clinician evaluating the patient. [facility] [employer] Deondre, ([phone]) Ordering Provider: NIRANJAN WADE Report Released Date/Time: Oct 21, 2024 08:00 PM Reporting Lab: [place] [address] [facility] [phone] Performing Lab: [place] [address] [facility] [phone] [facility] RESPIRAT ORY PCR PANEL BORDETELLA PERTUSSIS. PERTUSSIS TOXIN PROMOTER REGION [PRESENCE] IN NASOPHARYN X BY ROSAMARIA WITH NON-PROBE DETECTION Not Detected 10/21 Specimen Type: NASOPHARYNX Comment: The UpOutArray RP Panel combines nested multiplex PCR and DNA melting analysis for the simultaneou s qualitative detection and identificat ion of multiple respiratory viral and bacterial nucleic acids. A negative result does not preclude infection with the agent(s) tested and should not be used as the sole basis for treatment or other patient management decisions. Detection of organism target(s) does not imply that the correspondi ng organisms are infectious or are the causative agents for clinical symptoms. Results from this test must be correlated with the clinical history, epidemiolog ical data, and other data available to the clinician evaluating the patient. [facility], ([phone]) Ordering Provider: NIRANJAN WADE Report Released Date/Time: Oct 21, 2024 08:00 PM Reporting Lab: [place] [address] [facility] [phone] Performing Lab: [place] [address] [facility] [phone] [facility] RESPIRAT ORY PCR PANEL CHLAMYDOPH ADRIEN PNEUMONIAE DNA [PRESENCE] IN NASOPHARYN X BY ROSAMARIA WITH NON-PROBE DETECTION Not Detected 10/21 Specimen Type: NASOPHARYNX Comment: The UpOutArray RP Panel combines nested multiplex PCR and DNA melting analysis for the simultaneou s qualitative detection and identificat ion of multiple respiratory viral and bacterial nucleic acids. A negative result does not preclude infection with the agent(s) tested and should not be used as the sole basis for treatment or other patient management decisions. Detection of organism target(s) does not imply that the correspondi ng organisms are infectious or are the causative agents for clinical symptoms. Results from this test must be correlated with the clinical history, epidemiolog ical data, and other data available to the clinician evaluating the patient. [employer] Deondre, ([phone]) Ordering Provider: NIRANJAN WADE Report Released Date/Time: Oct 21, 2024 08:00 PM Reporting Lab: [facility] [address] [facility] [phone] Performing Lab: [facility] [address] [place] [phone] [facility] RESPIRAT ORY PCR PANEL MYCOPLASMA PNEUMONIAE DNA [PRESENCE] IN NASOPHARYN X BY ROSAMARIA WITH NON-PROBE DETECTION Not Detected 10/21 Specimen Type: NASOPHARYNX Comment: The FilmArray RP Panel combines nested multiplex PCR and DNA melting analysis for the simultaneou s qualitative detection and identificat ion of multiple respiratory viral and bacterial nucleic acids. A negative result does not preclude infection with the agent(s) tested and should not be used as the sole basis for treatment or other patient management decisions. Detection of organism target(s) does not imply that the correspondi ng organisms are infectious or are the causative agents for clinical symptoms. Results from this test must be correlated with the clinical history, epidemiolog ical data, and other data available to the clinician evaluating the patient. [facility] Deondre, ([phone]) Ordering Provider: NIRANJAN WADE Report Released Date/Time: Oct 21, 2024 08:00 PM Reporting Lab: [address] [phone] Performing Lab: [address] [phone] [facility] RESPIRAT ORY PCR PANEL BORDETELLA PARAPERTUS SIS [id number] DNA [PRESENCE] IN NASOPHARYN X BY ROSAMARIA WITH NON-PROBE DETECTION Not Detected 10/21 Specimen Type: NASOPHARYNX Comment: The FilmArray RP Panel combines nested multiplex PCR and DNA melting analysis for the simultaneou s qualitative detection and identificat ion of multiple respiratory viral and bacterial nucleic acids. A negative result does not preclude infection with the agent(s) tested and should not be used as the sole basis for treatment or other patient management decisions. Detection of organism target(s) does not imply that the correspondi ng organisms are infectious or are the causative agents for clinical symptoms. Results from this test must be correlated with the clinical history, epidemiolog ical data, and other data available to the clinician evaluating the patient. Shakeel VELASCO, ([phone]) Ordering Provider: NIRANJAN WADE Report Released Date/Time: Oct 21, 2024 08:00 PM Reporting Lab: [facility] [address] [facility] [phone] Performing Lab: [facility] [address] [facility] [phone] [facility] RESPIRAT ORY PCR PANEL SARS-COV-2 (COVID-19) RNA [PRESENCE] IN NASOPHARYN X BY ROSAMARIA WITH NON-PROBE DETECTION Not Detected 10/21 Specimen Type: NASOPHARYNX Comment: The [employer] RP Panel combines nested multiplex PCR and DNA melting analysis for the simultaneou s qualitative detection and identificat ion of multiple respiratory viral and bacterial nucleic acids. A negative result does not preclude infection with the agent(s) tested and should not be used as the sole basis for treatment or other patient management decisions. Detection of organism target(s) does not imply that the correspondi ng organisms are infectious or are the causative agents for clinical symptoms. Results from this test must be correlated with the clinical history, epidemiolog ical data, and other data available to the clinician evaluating the patient. Shakeel VELASCO, ([phone]) Ordering Provider: NIRANJAN WADE Report Released Date/Time: Oct 21, 2024 08:00 PM Reporting Lab: [facility] [address] [facility] [phone] Performing Lab: [facility] [address] [facility] [address] [facility] Vital Signs Combined list of inpatient and outpatient Vital Signs from Department of Defense and Veterans Affairs, ranging from 12 months to all on record, depending upon the facility. Vital Sign Value Date Comments Source SYSTOLIC BLOOD PRESSURE 195 10/21/2024 18:26:00 [facility] DIASTOLIC BLOOD PRESSURE 91 10/21/2024 18:26:00 [facility] PAIN 8 10/21/2024 18:26:00 [facility] TEMPERATURE 98 10/21/2024 18:26:00 [facility] PULSE 59 10/21/2024 18:26:00 [facility] RESPIRATION 17 10/21/2024 18:26:00 [facility] Encounters Combined list of: 1) Encounters from Department of Veterans Affairs facilities going back up to thelast 18 months. 2) Encounters from the Department of [facility] facilities going back up to 280 months. Location Location Details Encounter Type Encounter Number Reason For Visit Attending Provider ADM Date DC Date Status Disposition Source [facility] Outpatient Encounter [id number] 07/14 [facility] N [facility] Outpatient Encounter [id number] [facility] ED K 10/21 [facility] EMERGENCY DEPT VISIT MOD MDM [id number] Diagnos is: ICD-10- CM B34.9 Viral infecti on, unspeci fied
[place], ED K 10/21 [facility] N [facility] Outpatient Encounter [id number] [facility] ED K 10/21 [facility] Social History Combined list of available smoking, tobacco, and other social history from Department of [facility] and [facility] facilities. Social History Type Response Date Comment Sourc e Tobacco smoking status NHIS TOBACCO OFFERRED PT MEDS (PROVIDER) 04/29/2017 [facility] History of tobacco use CURRENT TOBACCO USER 04/29/2017 [facility] History of tobacco use TOBACCO OFFERRED PT MEDS (PROVIDER) 10/25/2009 [facility] History of tobacco use CURRENT TOBACCO USER 12/25/2008 Melisa Hawk [facility] History of tobacco use TOBACCO OFFERED STOP [facility]MOKING CLINIC 12/10/2008 [facility] History of tobacco use CURRENT TOBACCO USER 12/05/2008 Melisa Hawk [facility]
--- OUTSIDE RECORDS SUMMARY | 2024-12-20 08:32 | XMS_ITS | Data Portability ---
Author Organization [place] - [employer], Main Office Address [address] [place] [address] Assessment Encounter Date Assessment Date Assessment LastModified by Organization Details LastModified Time 12/15/2024 12/15/2024 Assessment: Nicotine smoke: 2 ppd [id number] = 80 pack years Cough Dyspnea Bibasilar atelectasis BLL bronchiectasis Plan: The following were reviewed and explained to the patient: primary care/referral note Chest CT 12/12/22 emphysema, bibasilar atelectasis, BLL bronchiectasis Chest CT 06/03/24 emphysema, bibasilar atelectasis Incentive spirometer x 5 minutes every 2 hours while awake to reverse and prevent further atelectasis. Cough/Dyspnea workup will be done as follows: Respiratory allergen panel for [facility] Serum IgE Serum total IgG, IgG1, IgG2, IgG3, IgG4 Mlkge-[id number]-rcvlybfxan n phenotype and level TB stimulated gamma interferon B-type natriuretic peptide (BNP) Eosinophil count Complete pulmonary function testing (PFT) Advised to continue not to smoke. Minimize Albuterol nebs as needed. Continue Albuterol HFA as needed. Continue Symbicort HFA 160/4.5 mcg 2 puffs BID. Gargle after use. Incruse Ellipta 62.5 mcg 1 puff daily. He has not started this yet. The patient does not know how to accurately administer the inhalers. Today, the patient was shown how to take these medications. The proper technique for delivering these medications was instructed. The patient expressed a clear understanding and demonstrated back how to use these medications. Without the proper technique, the patient will not reap the benefits of these medications as the contents will not reach the lower airways as intended to be. Adherence to therapy is advocated. Nonadherence may lead to treatment failure, further progression of the condition, and other complications. Hospitals admissions are often the result of individuals not taking prescription medications accurately. Alternatively, greater adherence to medication regimens have shown to lower rates of hospitalization and decrease total medical costs in patients with chronic medical conditions. Advocated influenza vaccination annually and pneumonia vaccination SRINIVASA. Advocated weight loss through diet and exercise. Patient's ideal body weight according to height and gender is up to Encouraged patient to adjust caloric intake to maintain/achieve ideal body weight, emphasizing on fruits, vegetables, whole grains, and fat-free or low-fat products. These include lean meats, poultry, fish, beans, eggs, and nuts and foods that are low in saturated fats, trans-fats, cholesterol, salt (sodium), and glycemic index. Stressed the importance of regular exercise up to the patient's capacity limits. In this case, we recommend 20 min daily walking, 2 days a week of resistance training. Patient to monitor BP daily and bring records to PCP for further management. Follow-up: 1 week after PFT [facility] Not available 12/15/2024 10:04:01 Plan of Treatment Reminders Order Date Submit Date Provider Last Modified By Organization Details Last Modified Time Details Appointments None recorded. Lab alpha-1-ant itrypsin (aat) phenotype, serum [address] (Lab), [address] [place], [address], 5 10:04:08 BNP (B-type natriuretic peptide), serum or [facility] [address] [place], [address], 5 16:16:26 ige, total, serum [address] (Lab), [address] [place], [address], 5 10:04:09 tb (M tuberculosi s), ifn-gamma sanjay, blood [address] (Lab), [address] [place], [address], 5 10:04:08 igg subclasses 1+2+3+4, serum [address] (Lab), [address] [place], [address], 5 10:04:09 respiratory allergen panel, [facility] A, serum [address] (Lab), [address] [place], [address], 5 10:04:09 respiratory allergen panel - [facility] b [address] (Lab), [address] [place], [address], 5 10:04:09 eosinophils , quant, blood [address] (Lab), [address] [place], [address], 5 10:04:09 Referral None recorded. Procedures None recorded. Surgeries None recorded. Imaging None recorded. Medication Orders None recorded. Patient TargetsNo targets recorded. Patient Instructions Encounter Date Encounter Id Patient Instructions Last Modified By Organization Details Last Modified Time 12/15/2024 [id number] complete PFT w/ post bronchodilator spirometry* - Please call patient to schedule. [facility]SI [id number] per [facility] payor portal, ref #[id number]. [facility] Not available 12/19/2024 17:05:26 Reason for Referral None Reported. Results Created Date Observation Date Name Description Value Unit Range Abnormal Flag Note LastModifiedBy Organization Detail LastModifiedTime 12/12/19 25 06/03/2024 LDCT, chest , for lung cance r scree shania No observ ation record ed. [facility] Not Available 2024 13:17:28 12/12/19 25 12/12/2022 LDCT, chest , for lung cance r scree shania No observ ation record ed. [facility] Not Available 2024 11:34:56 Result Notes None recorded. 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 Procedures Surgical History None recorded. Imaging Results Imaging Date Name Status LastModified by Organiz ation Details LastModified Time 06/03/2024 LDCT, chest, for lung cancer screening completed Information not available 12/12/2024 13:17:28 12/12/2022 LDCT, chest, for lung cancer screening completed [facility] Information not available 12/12/2024 11:34:56 Procedure Notes None recorded. Medical Equipment None Reported. Allergies Allergen ID Allergen Name Allergen Category Reaction Reaction Severity Criticality Documentation Date Start Date Code Code System Note Provider Name and Address Organization Details Recorded Time 45628 Product containin g penicilli n and antibioti c (product) medicatio n Not available Not available Not available 12/09/2024 69545 05 SNOMED Arvin Howe MD [address] [address], [place], [address], [facility] [employer] [facility] [employer] 5 14:53:48 Medications Name Sig Start Date Stop Date Status Note LastModified by Organization Details LastModified Time albuterol sulfate 2.5 mg/3 mL (0.083 %) solution for nebulizatio n USE 3 ML VIA NEBULIZER THREE TIMES DAILY NEEDED FOR COPD active Not Available Not Available No t Available azithromyci n 250 mg tablet 12/15 completed Not Available Not Available Not Available ofloxacin 0.3 % eye drops INSTILL 1 DROP INTO EYE EVERY 2 HOURS WHILE AWAKE X2DAYS AND THEN 2 DROPS FOUR TIMES DAILY X5 DAYS 12/15 completed Not Available Not Available Not Available prednisone 20 mg tablet TAKE 2 TABLETS BY MOUTH EVERY DAY AROUND THE CLOCK FOR 5 DAYS FOR COPD FLARE 12/15 completed Not Available Not Available Not Available sildenafil 100 mg tablet Take 1 TABLET BY MOUTH 1 HOUR PRIOR TO SEXUAL ACTIVITY DIRECTED, NOT TO EXCEED 1 IN 24 HOURS. active Not Available Not Available No t Available benzonatate 100 mg capsule TAKE 1 CAPSULE BY MOUTH THREE TIMES DAILY FOR 5 DAYS DIRECTED FOR COUGH 12/15 completed Not Available Not Available Not Available albuterol sulfate HFA 90 mcg/actuati on aerosol inhaler INHALE 2 PUFFS BY MOUTH EVERY 6 HOURS NEEDED active Not Available Not Available No t Available Symbicort 160 mcg-4.5 mcg/actuati on HFA aerosol inhaler INHALE 2 PUFFS BY MOUTH TWICE DAILY DIRECTED FOR COPD active Not Available Not Available No t Available Incruse Ellipta 62.5 mcg/actuati on powder for inhalation INHALE 1 PUFF BY MOUTH ONCE DAILY active Not Available Not Available No t Available Vitals Date Recorded Body weight Body mass index (BMI) Body height Body temperature Heart rate Oxygen saturation Oxygen saturation in Arterial blood by Pulse oximetry Systolic blood pressure Diastolic blood pressure Provider Name and Address Organization Details Last Updated DateTime 34933.3 7 g 21.8 kg/m2 182.88 cm 97.3 [degF] 64 /min 95 % 95 % 120 mm[Hg] 68 mm[Hg] Neema Morrell MA [employer] 09:32:35 Date Recorded Heart rate Respiratory rate Provider N shaun and Address Organization Details Last Updated DateTime 12/15/2024 64 /min 15 /min Arvin Howe MD [address] [facility], [facility] [address], [place], [address], [employer] [facility] [employer] 12/15/2024 09:47:10 Social History Question Answer Notes LastModified by Organizat ion Details LastModified Time Tobacco Smoking Status Former Smoker Neema Morrell MA null, [employer] 12/15/2024 09:27:45 What Is Your Level Of Alcohol Consumption? None Information not available 12/15/2024 What Is Your Level Of Caffeine Consumption? Moderate Information not available 12/15/2024 In The 14 Days Before Symptom Onset, Have You Had Close Contact With A Laboratory-confirm ed COVID-19 While That Case Was Ill? No Information n ot available 12/15/2024 In The 14 Days Before Symptom Onset, Have You Had Close Contact With A Person Who Is Under Investigation For COVID-19 While That Person Was Ill? No Information not available 12/15/2024 Are You Currently Employed? No Information not available 12/15/2024 Do You Have An Electrostatic Air Filter? Yes Information not available 12/15/2024 When Did You Quit Smoking? 1-5yearssince lastcigarette Information not available 12/15/2024 Do You Have A Humidifier? No Information not available 12/15/2024 Do You Have Moisture Problems In Your Home? No Information not available 12/15/2024 What Was The Date Of Your Most Recent Tobacco Screening? 12/15/2024 Information not available 12/15/2024 Do You Have Any Pets? Yes Information not available 12/15/2024 Do You Use Your Seat Belt Or Car Seat Routinely? Yes Information not available 12/15/2024 Do You Have Smoke And Carbon Monoxide Detectors In Your Home? Yes Information not available 12/15/2024 Are You Passively Exposed To Smoke? Yes Information no t available 12/15/2024 Do You Feel Stressed (tense, Restless, Nervous, Or Anxious, Or Unable To Sleep At Night)? [id number] Information not available 12/15/2024 Do You Use Any Illicit Or Recreational Drugs? No Information not available 12/15/2024 Do You Use Sunscreen Routinely? No Information not available 12/15/2024 Have You Recently Traveled Abroad? No Information not available 12/15/2024 Sex: Unknown Functional Status None recorded. Mental Status None recorded. Family History Relationship Description Onset Age of this Age Resolved Age Notes LastModified by Organization Details LastModified Time Father Tuberculosis Not availab le 12/15/2024 10:09:59 Son Obesity Not available 10:11:03 Son Diabetes mellitus Not available 2024 10:11:11 Daughter Diabetes mellitus Not available 2024 10:11:28 Medical History No medical history recorded. Past Encounters Encounter ID Performer Location Encounter Start Date Encounter Closed Date Diagnosis/Indication Diagnosis SNOMED-CT Code Diagnosis ICD10 Code Diagnosis Note [id number] Arvin Howe MD [facility] [address] [place] [address] 12/15/2024 08:55:41 12/15/2024 10:45:20 Dyspnea on exertion 68698289 R06.09 R05.3 D89.9 T78.40XA [employer] 24868575 J98 .11 Health Concerns Section Related Observation LastModified by Organization Detai ls LastModified Time None Recorded Concern Status LastModified by Organization Details LastModified Time None Recorded Advance Directives Directive None Recorded Payers Encounter Date Sequence Insurance Name Policy Number Policy Wang Covered Member ID Wang Member ID Guarantor Name 12/15/2024 2 MEDICAID-[place]: [facility] William Hackett [id number] William Hackett 12/15/2024 1 [facility] (MEDICARE REPLACEMENT/A DVANTAGE - PPO) [id number] William Hackett [id number] William Hackett Notes Date Note Type Note Provider Name and Address Organization Details Recorded Time text/html Primary care/Referring provider: Jhonnie Castillo MD CC: I alternate between my Symbicort HFA and my albuterol HFA. Patient is here to go over shortness of breath evaluation/management. Initial development of shortness of breath: uration of shortness of breath: 1 yearCondition of shortness of breath: stableTiming of shortness of breath: noneFrequency: up to 3 times a dayLimits activities: yesAggravating factors: walking, foot pedaling exerciseAlleviating factors: rest Modified Medical [employer] [place] (mMRC) Dyspnea Scale - Grade 2Grade 0 ? I only get breathless with strenuous exercise? .Grade 1 ? I get short of breath when hurrying on the level or walking up a slight hill? .Grade 2 ? I walk slower than people of the same age on the level because of breathlessness or have to stop for breath when walking at my own pace on the level? .Grade 3 ? I stop for breath after walking about 100 yards or after a few minutes on the level? .Grade 4 ? I am too breathless to leave the house? or ? I am breathless when dressing? . Treatment history: Albuterol nebs as needed since lbuterol HFA as needed since 2023 Symbicort HFA 160/4.5 mcg 2 puffs BID since 2023 Incruse Ellipta 62.5 mcg 1 puff daily not filled yet Other symptoms:Drooling: noDysarthria: noNeck pain: noOdynophagia: noDysphagia: noWeak mastication: noFacial weakness: noNasal speech: noProtruding tongue: noProductive cough: noWheezing: yesChest tightness: yesOrthopnea: 3-pillow habit due to neck painFrequent throat clearing or swallowing: noPalpitations: noHeartburn: noEdema: no Environmental exposures:Nicotine smoke: 2 ppd 4394-6605 = 80 pack yearsPaint: noDye: noDust mites: yesMold: yesDamp basement: noWood burning stove: noAnimal dander: dogsCockroaches: noPollen: yesArsenic: noAsbestos: noBeryllium: noCadmium: noChromium: noCoal smoke: noDiesel fumes: noNickel: noSilica: noSoot: no EPWORTH SLEEPINESS SCALE (ESS) CHANCE OF DOZING SCORE0 = would never doze1 = slight chance of dozing2 = moderate chance of dozing3 = high chance of dozing SITUATION AND CHANCE OF DOZINGSitting and reading - 1Watching television - 3Sitting inactive in a public place (e.g. a theater or meeting) - 0As a passenger in a car for an hour without a break - 0Lying down to rest in the afternoon when circumstances permit - 3Sitting and talking to someone - 0Sitting quietly after lunch without alcohol - 0In a car, while stopped for a few minutes in the traffic - 0TOTAL SCORE 7Subjectively, patient has a slight chance of dozing. Arvin Howe MD [address] [place] [address] [place], [address], [place] - [facility] 12/15/2024 11:55:27
--- OUTSIDE RECORDS SUMMARY | 2024-12-20 08:32 | XMS_ITS | CONTINUITY OF CARE DOCUMENT ---
Author Name yesica robert Address Unknown Organization [facility] Address [address] [place] [address] Phone [phone] Care Team Providers Care [employer] Services Supervisor Name Role Phone Dave PAZ, Jose Unavailable [phone] ANISH CHIU MD Unavailable INSURANCE PROVIDERS Payer name Policy type / Coverage type [place] red green party ID AARP MEDICARE ADVANTAGE ([facility] COMPLETE PPO) Other [id number]
--- NOTE | 2024-12-20 17:54 | WPDPFTINT ---
PFT Procedure Performed PFT Procedure Performed Spirometry with Pre/Post Bronchodilator Plethysmography (Lung Vol) Diffusing Cap (DLCO) Flow Vol Loop PFT Interpretation This is a pulmonary function test with pre and post-bronchodilator spirometry, plethysmography and diffusing capacity. The test was performed and results interpreted in accordance with the 2019 and 2005 ATS/ERS Task Force guidelines respectively using the Global Lung Function Initiative-2012 reference equations. Patient demonstrated good effort and cooperation. Reproducibility criteria were met. The quality of the pre bronchodilator spirometry maneuver was Grade A and post bronchodilator spirometry maneuver was Grade A. Findings: Spirometry: There is decreased maximal expiratory airflow at all lung volumes with concave expiratory flow tracing. The contour the inspiratory flow tracing is normal. The pre bronchodilator FVC is 3.26 L, 85% predicted. The pre bronchodilator FEV1 is 1.47 L, 50% predicted. The pre bronchodilator FEV1: FVC ratio is 45%. The post bronchodilator FVC is 3.68 L, representing a 13% increase. The post bronchodilator FEV1 is 1.60 L, representing a 9% increase. The post bronchodilator FEV1: FVC ratio is 43%. Plethysmography: The total lung capacity is 7.51 L, 115% predicted. The functional residual capacity is 5.13 L, 139% predicted. The residual volume is 4.23 L, 178% predicted. The residual volume: Total lung capacity ratio is 56%. Diffusing capacity: The diffusing capacity unadjusted for hemoglobin and carboxyhemoglobin is 13.4, 50% predicted. The diffusing capacity adjusted for alveolar volume is 2.81, 74% predicted. Impression: There is a moderately severe obstructive abnormality. There is significant improvement after inhaling a single dose of albuterol. The increase in residual volume to total lung volume ratio is consistent with hyperinflation from an obstructive abnormality. The diffusing capacity unadjusted for hemoglobin and carboxyhemoglobin is moderately decreased and normalizes when adjusted for alveolar volume. There are no prior studies for comparison
== END 2024-12-20 08:19 | disposition home or self-care (01) ==
PROVIDERS: PCP Internal Medicine Infectious Disease; Visit Provider Internal Medicine Infectious Disease
DX: J44.9 Chronic obstructive pulmonary disease, unspecified (principal); R94.2 Abnormal results of pulmonary function studies
CPT/HCPCS: 94060; 94726; 94729

== ENCOUNTER 2025-03-02 19:03 | Inpatient (IN) | payer MEDICARE, MEDICAID, SELFPAY ==
[2025-03-02] VITALS (19 sets, daily range): BP systolic 117–164; BP diastolic 66–97; PULSE 65–87; RESP 16–30; TEMP 36.6–36.9; O2SAT 97–100; BMI 21.3
--- NOTE | ~2025-03-02 | US_ITS ---
EXAMINATION: US carotid duplex BI DATE: 03/06/2025 16:53 INDICATION: Dizziness TECHNIQUE: Grayscale, color Doppler, and pulsed Doppler images of the cervical carotid arteries were obtained. The degree of vessel stenosis is placed in one of the following categories: normal, <50%, 5 0-69%, >=70% but less than near-occlusion, near-occlusion, or total occlusion. Note that percent sten osis relative to normal distal artery lumen diameter is indirectly measured from velocity measurement s as described by Greg, et al. Radiology 2003; 229:[id number]. COMPARISON: None. FINDINGS: RIGHT: The right common carotid artery (CCA) peak systolic velocity (PSV) is 106 cm/s. The right internal ca rotid artery (ICA) PSV is 92 cm/s. The right ICA end-diastolic velocity (EDV) is 32 cm/s. The right I CA/CCA PSV ratio is 0.9. Grayscale and color Doppler images yield an estimate of <50% diameter reduct ion from plaque in the ICA. The external carotid artery (ECA) PSV is 113 cm/s. There is antegrade lito w in the right vertebral artery. LEFT: The left CCA PSV is 98 cm/s. The left ICA PSV is 162 cm/s. The left ICA EDV is 32 cm/s. The left ICA/ CCA PSV ratio is 1.7. Grayscale and color Doppler images yield an estimate of 50-69% diameter reducti on from plaque in the ICA. The ECA PSV is 103 cm/s. There is antegrade flow in the left vertebral art reuben. IMPRESSION: 1. <50% stenosis in the right internal carotid artery. 2. 50-69% stenosis in the left internal carotid artery. 3. Cardiac arrhythmia is present. Correlate with EKG. Reviewed, dictated and finalized at location A.
--- NOTE | ~2025-03-02 | XR_ITS ---
XR shoulder LT min 2V 03/05/2025 13:09 Indication: Left shoulder pain Procedure: 3 views left shoulder Comparison: No prior studies for comparison. Findings: There is moderate-severe glenohumeral joint osteoarthritis. No fracture, subluxation or dis location. Normal mineralization. Impression: 1: Moderate-severe left glenohumeral joint osteoarthritis. Reviewed, dictated and finalized at location A. Impression: 1: Moderate-severe left glenohumeral joint osteoarthritis.
--- NOTE | ~2025-03-02 | CT_ITS ---
CT diagnostic chest wo con Ordering provider: John Arce MD History: 69 years Male with . Abnormal chest x-ray . Comparison: None. Technique: CT chest without IV contrast.Radiation reduction technique utilized. The dose-length produ ct was 254.48 mGy-cm. FINDINGS: VISUALIZED THORACIC INLET: Normal. MEDIASTINUM: Aorta/coronary arteries: Mild atheromatous disease. Ascending aorta measuring 3.6 cm. Heart/other: The heart is not enlarged. Lymph nodes: No mediastinal or hilar adenopathy. LUNGS: Emphysematous changes of the lungs. Minimal fibrotic changes in the right lung base with bronc hiectasis and atelectatic changes. Subsegmental atelectasis in the left lung base. No pulmonary nodul es or masses. No infiltrates or effusions. No pneumothorax. VISUALIZED UPPER ABDOMEN: the visualized upper abdomen is normal. MUSCULOSKELETAL: Soft tissues: The superficial soft tissues are normal. Bones: Age appropriate degenerative changes of the spine. IMPRESSION: 1. No acute cardiopulmonary pathology. 2. Emphysematous changes of the lungs. 3. Atelectatic changes with bronchiectasis in the right lung base medially. Reviewed, dictated and finalized at location A.
--- NOTE | ~2025-03-02 | XR_ITS ---
XR chest 1V portable Ordering provider: Bob Sanders MD History: 69 years Male with . sob . Comparison: None. FINDINGS: MEDIASTINUM: The cardiac silhouette is not enlarged. LUNGS: No infiltrates, effusions or pneumothorax. OTHER: No free air under the diaphragm. Prominent interstitial thickening. pneumonitis versus fibroti c changes cannot be excluded. Follow-up and clinical correlation advised. IMPRESSION: Prominent interstitial thickening bilaterally which may indicate pneumonitis. Fibrotic changes are no t excluded. Reviewed, dictated and finalized at location A. IMPRESSION: Prominent interstitial thickening bilaterally which may indicate pneumonitis. F ibrotic changes are not excluded.
--- NOTE | ~2025-03-02 | XR_ITS ---
XR_CERV2-3V_CR 03/05/2025 13:09 Indication: Neck pain. Left arm pain. No trauma. Procedure: 3 views cervical spine Comparison: No prior studies for comparison. Findings: There is disc narrowing at C4-5, C5-6 and C6-7. There is multilevel facet hypertrophy. Lung apices are normal. Odontoid process is unremarkable soft tissue swelling. There is wedge-shaped appe arance to C5 and C6, likely chronic. Impression: 1: Severe cervical spondylosis. Reviewed, dictated and finalized at location A. Impression: 1: Severe cervical spondylosis.
--- NOTE | 2025-03-02 19:16 | ECG_ITS ---
Test Date: 2025-03-02 19:14:14 Measurements Intervals Beecher Rate: 81 P: 77 PA: 136 QRS: 58 QRSD: 82 T: 32 QT: 337 QTc: 393 Interpretive Statements SINUS RHYTHM LEFT VENTRICULAR HYPERTROPHY WITH ST-T CHANGE BORDERLINE ST-T WAVE ABNORMALITY- INF/HIGH LAT LEADS BASELINE ARTIFACT- I, II, III, AVR, AVL, AVF, V1-V6 BORDERLINE ECG No previous ECG available for comparison Electronically Signed On 03-02-2025 20:05:11 CDT by Rudolph Burgos D.O.
[2025-03-02 19:33] LABS: Basophils Absolute Auto 0.1 K/mm3 (0.0-0.1); Basophils Percent Auto 0.7 % (0.2-1.2); Eosinophils Absolute Auto 0.2 K/mm3 (0-0.3); Eosinophils Percent Auto 1.1 % (0-4.4); Hematocrit 41.5 % (42.0-52.0); Hemoglobin 13.1 g/dL (14.0-18.0); Immature Granulocyte Absolute 0.08 K/mm3 (0.00-0.031); Immature Granulocyte Percent A 0.6 % (0-0.5); Lymphocytes Absolute Auto 2.28 K/mm3 (0.9-3.2); Lymphocytes Percent Auto 16.2 % (18.3-44.2); Mean Corpuscular HGB Conc 31.6 g/dl (32-36); Mean Corpuscular Hemoglobin 28.9 pg (26-34); Mean Corpuscular Volume 91.6 fl (80-100); Mean Platelet Volume 10.4 fl (7.4-10.4); Monocytes Absolute Auto 0.9 K/mm3 (0.1-0.6); Monocytes Percent Auto 6.6 % (2.6-8.5); Neutrophils Absolute Auto 10.5 K/mm3 (1.3-6.7); Neutrophils Percent Auto 74.8 % (45.5-73.1); Nucleated Red Blood Cells Perc 0.2 % (0.0-0.2); Platelet Count Result 234 k/mm3 (150-375); Red Blood Count 4.53 M/mm3 (4.6-6.20); Red Cell Distribution Width 22.5 % (11.5-14.5)
[2025-03-02 19:45] LABS: Alanine Aminotransferase 24 U/L (6-50); Albumin Level 5.1 g/dL (3.5-5.1); Alkaline Phosphatase 53 U/L (38-126); Anion Gap 11 mmol/L (4-12); Aspartate Amino Transferase 26 U/L (17-59); Bilirubin,Total 0.6 mg/dL (0.2-1.3); Blood Urea Nitrogen 21 mg/dL (9-20); Calcium 9.1 mg/dL (8.4-10.2); Carbon Dioxide 29 mmol/L (22-30); Chloride 102 mmol/L (98-107); Estimated CRCL calculation 86 ml/min; Estimated Glomerular Filt Rate > 60; Glucose 149 mg/dL (65-110); Potassium 3.6 mmol/L (3.4-5.0); Sodium 142 mmol/L (137-145)
[2025-03-02 19:55] LABS: Anisocytosis 1+; Ovalocytes 1+; Platelet Estimate Adequate (Adequate); Schistocytes None Seen; Target Cells 1+
--- OUTSIDE RECORDS SUMMARY | 2025-03-02 19:55 | XMS_ITS | Referral Summary ---
Author Organization [facility] at the [facility] Address [address] [place], [place] [address] Care Team Providers Care Stack Supervisor Name Role Phone Johnnie Castillo MD Primary Care Provider Encounters Date Type Department Care Team Description 02/08/2025 9:03 AM CDT - 02/08/2025 11:59 PM CDT Hospital Encounter [facility] [address] [place] [id number] Cerebral ischemia Discharge Disposition: Discharge to home or self care from Last 3 Months Social History Tobacco Use Types Packs/Day Years Used Date Smoking Tobacco: Never Assessed Sex and Gender Information Value Date Recorded Sex Assigned at Not on file Legal Sex Male 4:20 PM [employer] Gender Identity Not on file Sexual Orientation Not on file Plan of Treatment Not on file Procedures Procedure Name Priority Date/Time Associated Diagnosis Comments US CAROTIDS DUPLEX BILATERAL Schedule Routine, Read Routine (OP Routine) 02/08/2025 9:35 AM CDT Cerebral ischemia from Last 3 Months Results * US Carotids Duplex Bilateral (02/08/2025 9:35 AM CDT) Anatomical Region Laterality Modality Vascular Bilateral Ultrasound 02/10/2025 10:0 4 PM CDT Narrative 02/10/2025 10:05 PM CDT EXAM DESCRIPTION: US CAROTIDS DUPLEX BILATERAL REASON FOR STUDY: Cerebral ischemia. TECHNIQUE: Grullon scale, color Doppler and spectral Doppler imaging were performed. Velocity criteria are extrapolated from diameter as defined by the Society of Radiologists in Ultrasound Consensus Conference. All velocity measurements are in cm/sec. COMPARISON: None available. FINDINGS: Right: Atherosclerotic plaque at the carotid bifurcation and proximal cervical internal carotid artery. Distal CCA Peak Systolic Velocity: 90 Distal CCA End Diastolic Velocity: 17 Peak ICA Systolic Velocity: 116 ICA End Diastolic Velocity: 12 Peak ICA/CCA Systolic Ratio: 1.3 Right Vertebral Artery: Antegrade direction of flow. Left: Atherosclerotic plaque at the carotid bifurcation and proximal cervical internal carotid artery. Distal CCA Peak Systolic Velocity: 77 Distal CCA End Diastolic Velocity: 18 Peak ICA Systolic Velocity: 107 ICA End Diastolic Velocity: 29 Peak ICA/CCA Systolic Ratio: 1.4 Left Vertebral Artery: Antegrade direction of flow. IMPRESSION: Velocities correspond to a less than 50 percent diameter stenosis of the right ICA. Velocities correspond to a less than 50 percent diameter stenosis of the left ICA. Antegrade direction of flow of the bilateral vertebral arteries. Note made of cardiac arrhythmia. REFERENCE: Consensus Panel Grullon-Scale and Doppler US Criteria for Diagnosis of ICA Stenosis. No stenosis: ICA PSV <125*, 0 percent plaque, ICA/CCA PSV Ratio <2.0, ICA EDV <40*. <50 percent stenosis: ICA PSV <125*, <50 percent plaque, ICA/CCA PSV Ratio <2.0, ICA EDV <40*. 50-69 percent stenosis: ICA PSV 125-230*, >=50 percent plaque, ICA/CCA PSV Ratio 2.0-4.0, ICA EDV 40-100*. >=70 percent but less than near occlusion >230, >=50 percent plaque, ICA/CAA PSV Ratio >4.0, ICA EDV >100*. *cm/sec Plaque estimate (diameter reduction) with grullon-scale and color Doppler US. RSNA 2003 THIS IS AN ELECTRONICALLY VERIFIED FINAL REPORT 02/10/2025 10:05 PM - Electronically signed by Sesar Coombs D.O. AP: MILIND Report ID: [id number] Reading Location: [id number] Procedure Note Sesar Coombs, DO - 02/10/2025 EXAM DESCRIPTION: US CAROTIDS DUPLEX BILATERAL REASON FOR STUDY: Cerebral ischemia. TECHNIQUE: Grullon scale, color Doppler and spectral Doppler imaging were performed. Velocity criteria are extrapolated from diameter as defined bythe Society of Radiologists in Ultrasound Consensus Conference. All velocity measurements are in cm/sec. COMPARISON: None available. FINDINGS: Right: Atherosclerotic plaque at the carotid bifurcation and proximal cervical internal carotid artery. Distal CCA Peak Systolic Velocity: 90 Distal CCA End Diastolic Velocity: 17 Peak ICA Systolic Velocity: 116 ICA End Diastolic Velocity: 12 Peak ICA/CCA Systolic Ratio: 1.3 Right Vertebral Artery: Antegrade direction of flow. Left: Atherosclerotic plaque at the carotid bifurcation and proximalcervical internal carotid artery. Distal CCA Peak Systolic Velocity: 77 Distal CCA End Diastolic Velocity: 18 Peak ICA Systolic Velocity: 107 ICA End Diastolic Velocity: 29 Peak ICA/CCA Systolic Ratio: 1.4 Left Vertebral Artery: Antegrade direction of flow. IMPRESSION: Velocities correspond to a less than 50 percent diameter stenosis ofthe right ICA. Velocities correspond to a less than 50 percent diameter stenosis ofthe left ICA. Antegrade direction of flow of the bilateral vertebral arteries. Note made of cardiac arrhythmia. REFERENCE: Consensus Panel Grullon-Scale and Doppler US Criteria forDiagnosis of ICA Stenosis. No stenosis: ICA PSV <125*, 0 percent plaque, ICA/CCA PSV Ratio <2.0, ICAEDV <40*. <50 percent stenosis: ICA PSV <125*, <50 percent plaque, ICA/CCA PSV Ratio <2.0, ICA EDV <40*. 50-69 percent stenosis: ICA PSV 125-230*, >=50 percent plaque, ICA/CCA PSV Ratio 2.0-4.0, ICA EDV 40-100*. >=70 percent but less than near occlusion >230, >=50 percent plaque,ICA/CAA PSV Ratio >4.0, ICA EDV >100*. *cm/sec Plaque estimate (diameter reduction) with grullon-scale and color DopplerUS. RSNA 2002 THIS IS AN ELECTRONICALLY VERIFIED FINAL REPORT 02/10/2025 10:05 PM - Electronically signed by Sesar Coombs D.O. AP: MILIND Report ID: [id number] Reading Location: [place] [address] us Johnnie Castillo MD IM US PROCEDURES Final Result from Last 3 Months Insurance [facility] MEDICARE ADVANTAGE IDPA Care Teams Stack Supervisor Relationship Specialty Start Date End Date Johnnie Castillo MD [address] [place] [id number] PCP - General Internal Medicine 01/03/25
--- OUTSIDE RECORDS SUMMARY | 2025-03-02 19:55 | XMS_ITS | Clinical Summary ---
Author Organization [facility] at the [facility] Address [address] [place] [address] Care Team Providers Care Rehabilitation Services Manager Name Role Phone Johnnie Castillo MD Primary Care Provider Encounters Date Type Department Care Team Description 02/08/2025 9:03 AM CDT - 02/08/2025 11:59 PM CDT Hospital Encounter [facility] [address] [place] [id number] Cerebral ischemia Discharge Disposition: Discharge to home or self care from Last 3 Months Social History Tobacco Use Types Packs/Day Years Used Date Smoking Tobacco: Never Assessed Sex and Gender Information Value Date Recorded Sex Assigned at Not on file Legal Sex Male 4:20 PM [employer] Gender Identity Not on file Sexual Orientation Not on file Plan of Treatment Health Maintenance Due Date Last Done Comments Colon Cancer Screening-Colonoscopy 1954 Depression Screening 1954 Fall Risk Assessment 1954 Hepatitis C Screening 1954 Prostate Cancer Screening-PSA 1954 Zoster Vaccine (1 of 2) 2004 Abdominal Aortic Aneurysm (AAA) Screen 2019 Well Visit 65+ 2019 Influenza Vaccine (Season Ended) 2025 DTaP/Tdap/Td Vaccine (3 - Td or Tdap) 12/02/2032, 05/22/2006 Hepatitis B Screening Completed 04/11/2009, 009 Pneumococcal vaccine 65+ Completed 12/02/2022, 0407/2009 Procedures Procedure Name Priority Date/Time Associated Diagnosis [...] with grullon-scale and color Doppler US. RSNA 2002 THIS IS AN ELECTRONICALLY VERIFIED FINAL REPORT 02/10/2025 10:05 PM - Electronically signed by Sesar Coombs D.O. AP: MILIND Report ID: [id number] Reading Location: [place] [address] Procedure Note Sesar Coombs, DO - 02/10/2025 [...] Sesar Coombs D.O. AP: MILIND Report ID: [id number] Reading Location: [place] [address] us Johnnie Castillo MD G US PROCEDURES Final Result from Last 3 Months Insurance [facility] MEDICARE ADVANT[employer] [facility] MED[facility] Address: [address] [address] [place] [address] IDPA Care Teams Rehabilitation Services Manager Relationship Specialty Start Date End Date Johnnie Castillo MD [address] [place] [id number] PCP - General Internal Medicine 01/03/25
[2025-03-02 19:56] LABS: Alveolar/Arterial O2 Gradient 68.9 mmHg; Carboxyhemoglobin 0.7 % THb (0-2.0); Fractional Inspired Oxygen 25 %; HCO3 ABG 26.2 mEq/l (22.0-26.0); Methemoglobin ABG 0.3 %THb (0-1.5); Oxygen Content ABG 16.6 %vol (16.0-22.0); PCO2 ABG 48.8 mmHg (35.0-45.0); PO2 ABG 51.4 mmHg (80.0-100.0); PO2 FiO2 Ratio Arterial Blood 2.06 %; Reduced Hemoglobin 16.4 %THb (0-5.0); Total Hemoglobin 14.3 g/dL (12.0-18.0); pH ABG 7.348 (7.350-7.450)
--- OUTSIDE RECORDS SUMMARY | 2025-03-02 19:56 | XMS_ITS | Data Portability ---
Author Organization [facility] CHRISTINESoumya Address [address] [place] [address] Assessment Encounter Date Assessment Date Assessment LastModified [...] Modified Time Details Appointments ANY 15 2024 02:15P Tino Castillo MD Not available Not available Not available Lab cobalamin and folate panel, serum 2024 025 [facility], [address], [place], [address], 12/16/2024 09:09:45 TSH, ultra-sen sitive, serum 2024 025 [place] [facility], [address], [place], [address], 11/18/2024 08:26:19 CBC w/ auto diff 2024 025 [place] [facility], [address], [place], [address], 11/18/2024 08:26:20 basic metabolic 1998 panel, serum or plasma 2024 025 [place] [facility], [address], [place], [address], 11/18/2024 08:26:18 TSH, ultra-sen sitive, serum 2023 024 [facility], [address], [place], [address], 11/05/2024 08:28:13 unlisted lab - [id number] 5 drug-scr 2023 024 [facility], [address], [place], [address], 12/16/2024 09:10:12 CBC w/ auto diff 2023 024 [facility], [address], [place], [address], 11/05/2024 08:28:14 urinalysi s, dipstick 2023 024 [facility], [address], [place], [address], 12/16/2024 09:09:59 CMP, serum or plasma 2023 024 [facility], [address], [place], [address], 11/05/2024 08:28:12 lipid panel, serum 2023 024 [facility], [address], [place], [address], 11/05/2024 08:28:10 hepatitis C virus RNA, quant, PCR, serum or plasma 2023 024 [facility], [address], [place], [address], 12/19/2024 09:08:22 PSA, total, serum or plasma 2023 024 [place] [facility], [address], [place], [address], 11/05/2024 08:28:16 hepatitis C virus RNA, quant, PCR, serum or plasma 2022 023 [place] [facility], [address], [place], [address], 01/28/2023 19:08:52 Referral orthopedi c surgeon referral 2024 025 [facility], [address] [facility], [place], [address], 01/09/2025 12:20:28 pulmonolo gist referral - COPD 2024 025 [facility], [address] [facility], [place], [address], 12/15/2024 13:47:57 cardiolog ist referral [address] [facility], [address] [facility], [address], [place], [address], 03/01/2025 08:47:22 Procedures None recorded. Surgeries None recorded. 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 Dept[facility] [address] [facility] , [place], [address], 02/11/2025 08:10:30 XR, shoulder - Bilateral shoulder pain 2024 025 [facility] (Imaging), [address], [place], [address], 02/22/2025 17:26:20 MRI, brain, w/o contrast - Balance impairmen t, recent fall 2024 025 [facility] (Imaging), [address], [place], [address], 12/10/2024 10:28:45 CT, abdomen + pelvis, w/ contrast - 27 lb weight loss 2023 024 [facility] ([facility]), [address] [place], [address], 06/03/2024 13:26:47 LDCT, chest, for lung cancer screening 2023 024 [facility] ([facility]), [address] [place], [address], 06/03/2024 11:45:34 US, liver - Chronic Hep C , s/p treatment 2022 023 [facility] ([facility]), [address] [place], [address], 09/08/2023 15:19:09 Medication Orders Viagra 100 mg tablet 2024 025 [place] [facility], [address], [place], [id number], 02/14/2025 10:52:42 atorvasta tin 10 mg tablet 2024 025 [facility]19, [address], [place], [id number], 02/14/2025 10:25:27 Debrox 6.5 % ear drops 2024 025 [facility] #86971, [address], [place], [id number], 02/14/2025 10:56:19 rosuvasta tin 5 mg tablet 2024 025 [facility] #80231, [address], [place], [id number], 02/14/2025 10:26:01 aspirin 81 mg tablet,de layed release 2024 025 [facility] #56222, [address], [place], [id number], 12/15/2024 11:19:33 Incruse Ellipta 62.5 mcg/actua tion powder for inhalatio n 2024 025 [facility] #15858, [address], [place], [id number], 12/15/2024 11:13:54 albuterol sulfate 2.5 mg/3 mL (0.083 %) solution for nebulizat ion 2024 025 [facility] #36322, [address], [place], [id number], 12/15/2024 11:13:55 prednison e 20 mg tablet 2024 025 [facility] #05505, [address], [place], [id number], 12/15/2024 10:51:48 Zithromax Z-Samm 250 mg tablet 2024 025 [facility] #81834, [address], [place], [id number], 12/15/2024 10:52:04 benzonata te 100 mg capsule 2024 025 [facility] #77798, [address], [place], [id number], 12/15/2024 10:51:31 budesonid e-formote rol HFA 160 mcg-4.5 mcg/actua tion aerosol inhaler 2024 025 [facility] #59917, [address], [place], [id number], 11/17/2024 15:25:04 albuterol sulfate 2.5 mg/3 mL (0.083 %) solution for nebulizat ion 2024 025 [facility] #41165, [address], [place], [id number], 11/17/2024 15:30:40 Incruse Ellipta 62.5 mcg/actua tion powder for inhalatio n 2024 025 [facility] #56191, [address], [place], [id number], 11/17/2024 15:33:16 albuterol sulfate HFA 90 mcg/actua tion aerosol inhaler 2024 025 [facility] #31242, [address], [place], [id number], 11/17/2024 19:10:26 Symbicort 160 mcg-4.5 mcg/actua tion HFA aerosol inhaler 2023 024 oajao [facility]28727, [address], [place], [id number], 05/16/2024 16:38:37 albuterol sulfate HFA 90 mcg/actua tion aerosol inhaler 2023 024 [facility] #74091, [address], [place], [id number], 05/16/2024 16:00:42 Viagra 100 mg tablet 2023 024 [facility], [address] [place] [address], [id number], 10/10/2024 16:27:00 nicotine 21 mg/24 hr daily transderm al patch 2023 025 [facility] #57468, [address], [place], [id number], 11/17/2024 15:02:46 nicotine 14 mg/24 hr daily transderm al patch 2023 025 [facility] #50916, [address], [place], [id number], 11/17/2024 15:02:40 nicotine 7 mg/24 hr daily transderm al patch 2023 025 [facility] #00194, [address] [place] [address], [id number], 11/17/2024 15:02:40 Viagra 100 mg tablet 2022 023 [facility], [address] [place] [address], [id number], 01/26/2024 10:26:53 Patient TargetsNo targets recorded. Patient Instructions Encounter Date Encounter Id Patient Instructions Last Modified By Organization Details Last Modified Time 01/27/2023 [id number] Quitting Tobacco : Care Instructions oajao Not available 01/27/2023 14:57:38 GI as previously referred or please refer him to a different group. Liver US. Bivalent COVID booster. Labs Follow up in 6 months and PRN oajao Not available 01/27/2023 14:59:02 05/16/2024 [id number] chronic obstructive pulmonary disease (COPD): care instructions oajao Not available 05/16/2024 15:58:34 learning about copd and how to prevent lung infections oajao Not available 05/16/2024 15:58:[address] A&P LDCT Colonoscopy report from [facility] Symbicort Continue Albuterol Nicotine patch Follow up in 4 weeks oajao Not available 05/16/2024 16:43:13 11/17/2024 [id number] complete PFT w/ post bronchodilator spirometry* [place] Not available 12/20/2024 20:30:25 constipation: ca re instructions oajao Not available 11/17/2024 19:11:08 Labs (Old and ne w orders) PFTS Restart Symbicort Start Incruse Azithromycin MRI brain ER report from [facility] Ivan Rothman [employer] [facility] to see ER if his symptoms worsen Colonoscopy report from [facility] Follow up in 4-6 weeks oajao Not available 11/17/2024 15:33:03 Detailed visit oajao Not available 0 11/17/2024 19:16:27 12/15/2024 [id number] shoulder pain: care instructions oajao Not available 12/15/2024 11:19:26 US carotids Colonoscopy report from [facility] Labs (New and as previously ordered on 05/16/2024) Start Rosuvastatin and Incruse Continue Aspirin Xrays Orthopedics Follow up in 6-8 weeks oajao Not available 12/15/2024 11:25:42 02/14/2025 [id number] B12 QOD Atorvastatin CXR Follow up in 6 months and PRN oajao Not available 02/14/2025 10:27:22 Reason for Referral [facility] Referral for C hronic obstructive pulmonary disease COPD COPD Referring Physician: Johnnie Castillo, Internal Medicine, Encounter Date: 11/17/2024 Pad Tufter Referral for Ca lcification of coronary artery Coronary artery calcifications Referring Physician: Johnnie Castillo, Internal Medicine, Encounter Date: 11/17/2024 Orthopedic Surgeon Referral for Shoulder pain L>R shoulder pain Referring Physician: Johnnie Castillo, Internal Medicine, Encounter Date: 12/15/2024 Results Created Date Observation Date Name Description Value Unit Range Abnormal Flag Note LastModifiedBy Organization Detail LastModifiedTime 01/28/2001/27/2023 HCV RNA BY PCR, QN RFX MONTEZ test information: COMMEN T The quant itati ve range of this assay is 15 IU/mL to 100 sevn on IU/mL . Not Available [facility] ([facility]) [address], [place], [address], 01/28/2023 19:08:52 01/28/20 23 01/28/2023 HCV RNA BY PCR, QN RFX MONTEZ hepatitis C quantitation HCV NOT DETECT ED Not Available [facility] ([facility]) [address], [place], [place], [address], 01/28/2023 19:08:52 01/28/20 23 01/28/2023 HCV RNA BY PCR, QN RFX MONTEZ HCV log10 TNP log10 _IU/m L Unabl e to calcu late resul t since non-n umeri c resul t obtai derrick for compo nent test. Not Available [facility] ([facility]) [address], [place], [place], [address], 01/28/2023 19:08:52 01/28/20 23 01/28/2023 HCV RNA BY PCR, QN RFX MONTEZ HCV genotype TNP Not indic ated Not Available [facility] ([facility]) [address], [place], [place], [address], 01/28/2023 19:08:52 11/04/20 24 11/05/2024 LIPID PANEL cholesterol, total 134 mg/dL 100-19 9 Not Available [facility] ([facility]) [address], [place], [place], [address], 11/05/2024 08:28:10 11/04/20 24 11/05/2024 LIPID PANEL triglyceride s 45 mg/dL 0-149 Not Available [facility] ([facility]) [address], [place], [place], [address], 11/05/2024 08:28:10 11/04/20 24 11/05/2024 LIPID PANEL HDL cholesterol 58 mg/dL >39 Not Available [facility]) [address] [place], [address], 11/05/2024 08:28:10 11/04/20 24 11/05/2024 LIPID PANEL VLDL cholesterol nicole 11 mg/dL 5-40 Not Available [facility]) [address], [place], [place], [address], 11/05/2024 08:28:10 11/04/20 24 11/05/2024 LIPID PANEL LDL chol calc ([facility]) 65 mg/dL 0-99 Not Available [facility]) [address] [place], [address], 11/05/2024 08:28:10 11/04/20 24 11/05/2024 COMP. METAB OLIC PANEL (14) glucose 80 mg/dL 70-99 Not Available [facility] ([facility]) [address] [place], [address], 11/05/2024 08:28:12 11/04/20 24 11/05/2024 COMP. METAB OLIC PANEL (14) BUN 12 mg/dL 8-27 Not Available [facility] ([facility]) [address] [place], [address], 11/05/2024 08:28:12 11/04/20 24 11/05/2024 COMP. METAB OLIC PANEL (14) creatinine 0.89 mg/dL 0.76-1 .27 Not Available [facility] ([facility]) [address] [place], [address], 11/05/2024 08:28:12 11/04/20 24 11/05/2024 COMP. METAB OLIC PANEL (14) eGFR 93 mL/mi n/1.7 3 >59 Not Available [facility] ([facility]) [address] [facility] [place], [address], 11/05/2024 08:28:12 11/04/20 24 11/05/2024 COMP. METAB OLIC PANEL (14) BUN/creatini ne ratio 13 10-24 Not Available [facility] ([facility]) [address], [place], [place], [address], 11/05/2024 08:28:12 11/04/20 24 11/05/2024 COMP. METAB OLIC PANEL (14) sodium 138 mmol/ L 134-14 4 Not Available [facility] ([facility]) [address], [place], [place], [address], 11/05/2024 08:28:12 11/04/20 24 11/05/2024 COMP. METAB OLIC PANEL (14) potassium 4.2 mmol/ L 3.5-5. 2 Not Available [facility] ([facility]) [address], [place], [place], [address], 11/05/2024 08:28:12 11/04/20 24 11/05/2024 COMP. METAB OLIC PANEL (14) chloride 97 mmol/ L 96-106 Not Available [facility] ([facility]) [address], [place], [place], [address], 11/05/2024 08:28:12 11/04/20 24 11/05/2024 COMP. METAB OLIC PANEL (14) carbon dioxide, total 26 mmol/ L 20-29 Not Available [facility] ([facility]) [address], [place], [place], [address], 11/05/2024 08:28:12 11/04/20 24 11/05/2024 COMP. METAB OLIC PANEL (14) calcium 9.4 mg/dL 8.6-10 .2 Not Available [facility] ([facility]) [address], [place], [place], [address], 11/05/2024 08:28:12 11/04/20 24 11/05/2024 COMP. METAB OLIC PANEL (14) protein, total 7.4 g/dL 6.0-8. 5 Not Available [facility] ([facility]) [address], [place], [place], [address], 11/05/2024 08:28:12 11/04/20 24 11/05/2024 COMP. METAB OLIC PANEL (14) albumin 4.6 g/dL 3.9-4. 9 Not Available [facility] ([facility]) [address], [place], [place], [address], 11/05/2024 08:28:12 11/04/20 24 11/05/2024 COMP. METAB OLIC PANEL (14) globulin, total 2.8 g/dL 1.5-4. 5 Not Available [facility] ([facility]) [address], [place], [place], [address], 11/05/2024 08:28:12 11/04/20 24 11/05/2024 COMP. METAB OLIC PANEL (14) bilirubin, total 0.4 mg/dL 0.0-1. 2 Not Available [facility] ([facility]) [address], [place], [place], [address], 11/05/2024 08:28:12 11/04/20 24 11/05/2024 COMP. METAB OLIC PANEL (14) alkaline phosphatase 49 IU/L 44-121 Not Available [facility]) [address], [place], [place], [address], 11/05/2024 08:28:12 11/04/20 24 11/05/2024 COMP. METAB OLIC PANEL (14) AST (SGOT) 29 IU/L 0-40 Not Available [facility] ([facility]) [address], [place], [place], [address], 11/05/2024 08:28:12 11/04/20 24 11/05/2024 COMP. METAB OLIC PANEL (14) ALT (SGPT) 31 IU/L 0-44 Not Available [facility] ([facility]) [address], [place], [place], [address], 11/05/2024 08:28:12 11/04/20 24 11/04/2024 UNABL E TO VOID unable to void COMMEN T Patie nt unabl e to void. Urine to be colle cted at a later date. Not Available [facility] ([facility]) [address], [place], [place], [address], 11/05/2024 08:28:13 11/04/2011/05/2024 TSH TSH 4.430 uIU/m L 0.450- 4.500 Not Available [facility] ([facility]) [address] [place], [address], 11/05/2024 08:28:13 11/04/20 24 11/05/2024 CBC WITH DIFFE RENTI AL/PL ATELE T WBC 8.9 x10e3 /uL 3.4-10 .8 Not Available [facility] ([facility]) [address] [place], [address], 11/05/2024 08:28:14 11/04/20 24 11/05/2024 CBC WITH DIFFE RENTI AL/PL ATELE T RBC 4.81 x10e6 /uL 4.14-5 .80 Not Available [facility] ([facility]) [address] [place], [address], 11/05/2024 08:28:14 11/04/20 24 11/05/2024 CBC WITH DIFFE RENTI AL/PL ATELE T hemoglobin 14.4 g/dL 13.0-1 7.7 Not Available [facility] ([facility]) [address] [place], [address], 11/05/2024 08:28:14 11/04/20 24 11/05/2024 CBC WITH DIFFE RENTI AL/PL ATELE T hematocrit 44.5 % 37.5-5 1.0 Not Available [facility] ([facility]) [address] [place], [address], 11/05/2024 08:28:14 11/04/20 24 11/05/2024 CBC WITH DIFFE RENTI AL/PL ATELE T MCV 93 fL 79-97 Not Available [facility] ([facility]) [address] [place], [address], 11/05/2024 08:28:14 11/04/20 24 11/05/2024 CBC WITH DIFFE RENTI AL/PL ATELE T MCH 29.9 pg 26.6-3 3.0 Not Available [facility] ([facility]) [address] [place], [address], 11/05/2024 08:28:14 11/04/20 24 11/05/2024 CBC WITH DIFFE RENTI AL/PL ATELE T MCHC 32.4 g/dL 31.5-3 5.7 Not Available [facility] ([facility]) [address] [place], [address], 11/05/2024 08:28:14 11/04/20 24 11/05/2024 CBC WITH DIFFE RENTI AL/PL ATELE T RDW 17.6 % 11.6-1 5.4 above high normal Not Available [facility] ([facility]) [address] [place], [address], 11/05/2024 08:28:14 11/04/20 24 11/05/2024 CBC WITH DIFFE RENTI AL/PL ATELE T platelets 253 x10e3 /uL 150-45 0 Not Available [facility] ([facility]) [address] [place], [address], 11/05/2024 08:28:14 11/04/20 24 11/05/2024 CBC WITH DIFFE RENTI AL/PL ATELE T neutrophils 53 % notest ab. Not Available [facility] ([facility]) [address], [place], [place], [address], 11/05/2024 08:28:14 11/04/20 24 11/05/2024 CBC WITH DIFFE RENTI AL/PL ATELE T lymphs 30 % notest ab. Not Available [facility] ([facility]) [address], [place], [place], [address], 11/05/2024 08:28:14 11/04/20 24 11/05/2024 CBC WITH DIFFE RENTI AL/PL ATELE T monocytes 8 % notest ab. Not Available [facility] ([facility]) [address], [place], [place], [address], 11/05/2024 08:28:14 11/04/20 24 11/05/2024 CBC WITH DIFFE RENTI AL/PL ATELE T eos 6 % notest ab. Not Available [facility] ([facility]) [address], [place], [place], [address], 11/05/2024 08:28:14 11/04/20 24 11/05/2024 CBC WITH DIFFE RENTI AL/PL ATELE T basos 2 % notest ab. Not Available [facility] ([facility]) [address], [place], [place], [address], 11/05/2024 08:28:14 11/04/20 24 11/05/2024 CBC WITH DIFFE RENTI AL/PL ATELE T neutrophils (absolute) 4.9 x10e3 /uL 1.4-7. 0 Not Available [facility] ([facility]) [address], [place], [place], [address], 11/05/2024 08:28:14 11/04/20 24 11/05/2024 CBC WITH DIFFE RENTI AL/PL ATELE T lymphs (absolute) 2.6 x10e3 /uL 0.7-3. 1 Not Available [facility] ([facility]) [address], [place], [place], [address], 11/05/2024 08:28:14 11/04/20 24 11/05/2024 CBC WITH DIFFE RENTI AL/PL ATELE T monocytes(ab solute) 0.7 x10e3 /uL 0.1-0. 9 Not Available [facility] ([facility]) [address], [place], [place], [address], 11/05/2024 08:28:14 11/04/20 24 11/05/2024 CBC WITH DIFFE RENTI AL/PL ATELE T eos (absolute) 0.5 x10e3 /uL 0.0-0. 4 above high normal Not Available [facility] ([facility]) [address], [place], [place], [address], 11/05/2024 08:28:14 11/04/20 24 11/05/2024 CBC WITH DIFFE RENTI AL/PL ATELE T baso (absolute) 0.1 x10e3 /uL 0.0-0. 2 Not Available [facility] ([facility]) [address], [place], [place], [address], 11/05/2024 08:28:14 11/04/20 24 11/05/2024 CBC WITH DIFFE RENTI AL/PL ATELE T immature granulocytes 1 % notest ab. Not Available [facility] ([facility]) [address], [place], [place], [address], 11/05/2024 08:28:14 11/04/20 24 11/05/2024 CBC WITH DIFFE RENTI AL/PL ATELE T immature grans (abs) 0.1 x10e3 /uL 0.0-0. 1 Not Available [facility] ([facility]) [address], [place], [place], [address], 11/05/2024 08:28:14 11/04/20 24 11/05/2024 PROST ATE-S [...] kits canno t be used inter mccullough ealori . Resul ts canno t be inter prete d as absol isiah evide nce of the prese nce or absen ce of otilia dubose se. Not Available [facility] ([facility]) [address] [place], [address], 11/05/2024 08:28:16 11/17/19 25 11/18/2024 BASIC METAB OLIC PANEL (7) glucose 78 mg/dL 70-99 Not Available [facility] ([facility]) [address] [place], [address], 11/18/2024 08:26:18 11/17/19 25 11/18/2024 BASIC METAB OLIC PANEL (7) BUN 16 mg/dL 8-27 Not Available [facility] ([facility]) [address] [place], [address], 11/18/2024 08:26:18 11/17/19 25 11/18/2024 BASIC METAB OLIC PANEL (7) creatinine 0.92 mg/dL 0.76-1 .27 Not Available [facility] ([facility]) [address] [place], [address], 11/18/2024 08:26:18 11/17/19 25 11/18/2024 BASIC METAB OLIC PANEL (7) eGFR 89 mL/mi n/1.7 3 >59 Not Available [facility] ([facility]) [address] [place], [address], 11/18/2024 08:26:18 11/17/19 25 11/18/2024 BASIC METAB OLIC PANEL (7) BUN/creatini ne ratio 17 10-24 Not Available [facility] ([facility]) [address] [place], [address], 11/18/2024 08:26:18 11/17/19 25 11/18/2024 BASIC METAB OLIC PANEL (7) sodium 144 mmol/ L 134-14 4 Not Available [facility] ([facility]) [address], [place], [address], 11/18/2024 08:26:18 11/17/19 25 11/18/2024 BASIC METAB OLIC PANEL (7) potassium 4.2 mmol/ L 3.5-5. 2 Not Available [facility] ([facility]) [address] [place], [address], 11/18/2024 08:26:18 11/17/19 25 11/18/2024 BASIC METAB OLIC PANEL (7) chloride 103 mmol/ L 96-106 Not Available [facility] ([facility]) [address], [place], [address], 11/18/2024 08:26:18 11/17/19 25 11/18/2024 BASIC METAB OLIC PANEL (7) carbon dioxide, total 26 mmol/ L 20-29 Not Available [facility] ([facility]) [address], [place], [address], 11/18/2024 08:26:18 11/17/19 25 11/18/2024 TSH TSH 2.430 uIU/m L 0.450- 4.500 Not Available [facility] ([facility]) [address], [place], [address], 11/18/2024 08:26:19 11/17/19 25 11/18/2024 CBC WITH DIFFE RENTI AL/PL ATELE T WBC 8.5 x10e3 /uL 3.4-10 .8 Not Available [facility] ([facility]) [address], [place], [place], [address], 11/18/2024 08:26:20 11/17/19 25 11/18/2024 CBC WITH DIFFE RENTI AL/PL ATELE T RBC 4.49 x10e6 /uL 4.14-5 .80 Not Available [facility] ([facility]) [address] [place], [address], 11/18/2024 08:26:20 11/17/19 25 11/18/2024 CBC WITH DIFFE RENTI AL/PL ATELE T hemoglobin 13.5 g/dL 13.0-1 7.7 Not Available [facility] ([facility]) [address], [place], [place], [address], 11/18/2024 08:26:20 11/17/19 25 11/18/2024 CBC WITH DIFFE RENTI AL/PL ATELE T hematocrit 40.5 % 37.5-5 1.0 Not Available [facility] ([facility]) [address] [place], [address], 11/18/2024 08:26:20 11/17/19 25 11/18/2024 CBC WITH DIFFE RENTI AL/PL ATELE T MCV 90 fL 79-97 Not Available [facility] ([facility]) [address] [place], [address], 11/18/2024 08:26:20 11/17/19 25 11/18/2024 CBC WITH DIFFE RENTI AL/PL ATELE T MCH 30.1 pg 26.6-3 3.0 Not Available [facility] ([facility]) [address] [place], [address], 11/18/2024 08:26:20 11/17/19 25 11/18/2024 CBC WITH DIFFE RENTI AL/PL ATELE T MCHC 33.3 g/dL 31.5-3 5.7 Not Available [facility] ([facility]) [address], [place], [place], [address], 11/18/2024 08:26:20 11/17/19 25 11/18/2024 CBC WITH DIFFE RENTI AL/PL ATELE T RDW 17.4 % 11.6-1 5.4 above high normal Not Available [facility] ([facility]) [address], [place], [place], [address], 11/18/2024 08:26:20 11/17/19 25 11/18/2024 CBC WITH DIFFE RENTI AL/PL ATELE T platelets 241 x10e3 /uL 150-45 0 Not Available [facility] ([facility]) [address], [place], [place], [address], 11/18/2024 08:26:20 11/17/19 25 11/18/2024 CBC WITH DIFFE RENTI AL/PL ATELE T neutrophils 65 % notest ab. Not Available [facility] ([facility]) [address], [place], [place], [address], 11/18/2024 08:26:20 11/17/19 25 11/18/2024 CBC WITH DIFFE RENTI AL/PL ATELE T lymphs 21 % notest ab. Not Available [facility] ([facility]) [address], [place], [place], [address], 11/18/2024 08:26:20 11/17/19 25 11/18/2024 CBC WITH DIFFE RENTI AL/PL ATELE T monocytes 7 % notest ab. Not Available [facility] ([facility]) [address], [place], [place], [address], 11/18/2024 08:26:20 11/17/19 25 11/18/2024 CBC WITH DIFFE RENTI AL/PL ATELE T eos 5 % notest ab. Not Available [facility] ([facility]) [address] [place], [address], 11/18/2024 08:26:20 11/17/19 25 11/18/2024 CBC WITH DIFFE RENTI AL/PL ATELE T basos 2 % notest ab. Not Available [facility] ([facility]) [address], [place], [place], [address], 11/18/2024 08:26:20 11/17/19 25 11/18/2024 CBC WITH DIFFE RENTI AL/PL ATELE T neutrophils (absolute) 5.5 x10e3 /uL 1.4-7. 0 Not Available [facility] ([facility]) [address] [place], [address], 11/18/2024 08:26:20 11/17/19 25 11/18/2024 CBC WITH DIFFE RENTI AL/PL ATELE T lymphs (absolute) 1.8 x10e3 /uL 0.7-3. 1 Not Available [facility] ([facility]) [address] [place], [address], 11/18/2024 08:26:20 11/17/19 25 11/18/2024 CBC WITH DIFFE RENTI AL/PL ATELE T monocytes(ab solute) 0.6 x10e3 /uL 0.1-0. 9 Not Available [facility] ([facility]) [address] [place], [address], 11/18/2024 08:26:20 11/17/19 25 11/18/2024 CBC WITH DIFFE RENTI AL/PL ATELE T eos (absolute) 0.4 x10e3 /uL 0.0-0. 4 Not Available [facility] ([facility]) [address] [place], [address], 11/18/2024 08:26:20 11/17/19 25 11/18/2024 CBC WITH DIFFE RENTI AL/PL ATELE T baso (absolute) 0.1 x10e3 /uL 0.0-0. 2 Not Available [facility] ([facility]) [address], [place], [place], [address], 11/18/2024 08:26:20 11/17/19 25 11/18/2024 CBC WITH DIFFE RENTI AL/PL ATELE T immature granulocytes 0 % notest ab. Not Available [facility] ([facility]) [address], [place], [place], [address], 11/18/2024 08:26:20 11/17/19 25 11/18/2024 CBC WITH DIFFE RENTI AL/PL ATELE T immature grans (abs) 0.0 x10e3 /uL 0.0-0. 1 Not Available [facility] ([facility]) [address], [place], [place], [address], 11/18/2024 08:26:20 12/15/19 25 12/15/2024 Drugs ident ified in Urine by Scree n metho d amphetamines [presence] in urine NEGATI VE normal Not Available Not Available 21:07:55 12/15/19 25 12/15/2024 Drugs ident ified in Urine by Scree n metho d barbiturates [presence] in urine NEGATI VE normal Not Available Not Available 21:07:55 12/15/19 25 12/15/2024 Drugs ident ified in Urine by Scree n metho d benzodiazepi rosi [presence] in urine NEGATI VE normal Not Available Not Available 21:07:55 12/15/19 25 12/15/2024 Drugs ident ified in Urine by Scree n metho d cocaine [presence] in urine NEGATI VE normal Not Available Not Available 21:07:55 12/15/19 25 12/15/2024 Drugs ident ified in Urine by Scree n metho d fentanyl NEGATI VE normal Not Available Not Available 21:07:55 12/15/19 25 12/15/2024 Drugs ident ified in Urine by Scree n metho d methadone [presence] in urine NEGATI VE normal Not Available Not Available 21:07:55 12/15/19 25 12/15/2024 Drugs ident ified in Urine by Scree n metho d opiates [presence] in urine NEGATI VE normal Not Available Not Available 21:07:55 12/15/19 25 12/15/2024 Drugs ident ified in Urine by Scree n metho d oxycodone [presence] in urine NEGATI VE normal Not Available Not Available 21:07:55 12/15/19 25 12/15/2024 Drugs ident ified in Urine by Scree n metho d phencyclidin e [presence] in urine NEGATI VE normal Not Available Not Available 21:07:55 12/15/19 25 12/15/2024 Drugs ident ified in Urine by Scree n metho d cannabinoids [presence] in urine NEGATI VE normal Not Available Not Available 21:07:55 12/15/19 25 12/15/2024 Folat e [Mass /volu me] in Serum or Plasm a folate [mass/volume ] in serum or plasma 19.7 NG/mL low: 2.76NG /mLhig h: 20NG/m L normal Not Available Not Available 01/01/2025 21:07:55 12/15/19 25 12/15/2024 Cobal lozano (Aruna min B12) [Mass /volu me] in Serum or Plasm a cobalamin (vitamin B12) [mass/volume ] in serum or plasma 950 pg/mL low: 239pg/ mLhigh : 931pg/ mL high Not Available Not Available 01/01/2025 21:07:55 12/15/19 25 12/15/2024 Natri ureti c pepti de B [Mass /volu me] in Blood natriuretic peptide B [mass/volume ] in blood &LT;5. 0 low: 4pg/mL high: 125pg/ mL normal Not Available Not Available 01/01/2025 21:07:55 12/15/19 25 12/15/2024 Urina lysis dipst ick W Refle x Micro scopi c panel - Urine color of urine by auto COLOR OF URINE normal Not Available Not Available 21:07:55 12/15/19 25 12/15/2024 Urina lysis dipst ick W Refle x Micro scopi c panel - Urine appearance of urine URINE SPECIM EN normal Not Available Not Available 21:07:55 12/15/19 25 12/15/2024 Urina lysis dipst ick W Refle x Micro scopi c panel - Urine specific gravity of urine by test strip 1.025 1 low: 1.001h igh: 1.03 normal Not Available Not Available 01/01/2025 21:07:55 12/15/19 25 12/15/2024 Urina lysis dipst ick W Refle x Micro scopi c panel - Urine pH of urine by test strip 5 pH_un its low: 5pH unitsh igh: 9pH units normal Not Available Not Available 01/01/2025 21:07:55 12/15/19 25 12/15/2024 Urina lysis dipst ick W Refle x Micro scopi c panel - Urine leukocytes [#/volume] in urine by test strip LEUKOC YTE ESTERA SE MEASUR EMENT text: negati ve normal Not Available Not Available 01/01/2025 21:07:55 12/15/19 25 12/15/2024 Urina lysis dipst ick W Refle x Micro scopi c panel - Urine nitrite [presence] in urine by test strip LABORA TORY TEST FINDIN G text: negati ve normal Not Available Not Available 01/01/2025 21:07:55 12/15/19 25 12/15/2024 Urina lysis dipst ick W Refle x Micro scopi c panel - Urine protein [mass/volume ] in urine by test strip URINE FINDIN G text: negati ve normal Not Available Not Available 01/01/2025 21:07:55 12/15/19 25 12/15/2024 Urina lysis dipst ick W Refle x Micro scopi c panel - Urine glucose [moles/volum e] in urine by test strip LABORA TORY TEST FINDIN G text: normal normal Not Available Not Available 01/01/2025 21:07:55 12/15/19 25 12/15/2024 Urina lysis dipst ick W Refle x Micro scopi c panel - Urine ketones [moles/volum e] in urine by test strip LABORA TORY TEST FINDIN G text: negati ve normal Not Available Not Available 01/01/2025 21:07:55 12/15/19 25 12/15/2024 Urina lysis dipst ick W Refle x Micro scopi c panel - Urine urobilinogen [mass/volume ] in urine by test strip UROBIL INOGEN MEASUR EMENT, URINE text: normal normal Not Available Not Available 01/01/2025 21:07:55 12/15/19 25 12/15/2024 Urina lysis dipst ick W Refle x Micro scopi c panel - Urine bilirubin.to randy [mass/volume ] in urine by test strip URINE DIPSTI CK FOR BILIRU BIN text: negati ve normal Not Available Not Available 01/01/2025 21:07:55 12/15/19 25 12/15/2024 Urina lysis dipst ick W Refle x Micro scopi c panel - Urine erythrocytes [#/volume] in urine by test strip URINE DIPSTI CK FOR BLOOD text: negati ve normal Not Available Not Available 01/01/2025 21:07:55 12/15/19 25 12/15/2024 Urina lysis dipst ick W Refle x Micro scopi c panel - Urine leukocytes [#/area] in urine sediment by automated count LEUKOC YTES IN URINE low: 0/[hpf ]high: 8/[hpf ] normal Not Available Not Available 01/01/2025 21:07:55 12/15/19 25 12/15/2024 Urina lysis dipst ick W Refle x Micro scopi c panel - Urine erythrocytes [#/area] in urine sediment by automated count BLOOD IN URINE low: 0/[hpf ]high: 4/[hpf ] normal Not Available Not Available 01/01/2025 21:07:55 12/15/19 25 12/15/2024 Urina lysis dipst ick W Refle x Micro scopi c panel - Urine bacteria [presence] in urine by automated URINE FINDIN G normal Not Available Not Available 21:07:55 12/15/19 25 12/15/2024 Urina lysis dipst ick W Refle x Micro scopi c panel - Urine mucus [#/area] in urine sediment by automated count URINE FINDIN G Not Available Not Available 21:07:55 12/15/19 25 12/15/2024 Urina lysis dipst ick W Refle x Micro scopi c panel - Urine epithelial cells.squ[place] us [#/area] in urine sediment by automated count URINE FINDIN G Not Available Not Available 21:07:55 12/15/19 25 12/15/2024 Eosin ophil s [#/vo lume] in Blood eosinophils [#/volume] in blood 0.29 10*3/ uL low: 010*3/ uLhigh : 0.4510 *3/uL normal Not Available Not Available 01/01/2025 21:07:55 12/15/19 25 12/15/2024 IgG and IgG subcl ass panel [Mass /volu me] - Serum IgG [mass/volume ] in serum or plasma 1264 mg/dL text: 603-16 13 normal Not Available Not Available 01/01/2025 21:07:55 12/15/19 25 12/15/2024 IgG and IgG subcl ass panel [Mass /volu me] - Serum IgG subclass 1 [mass/volume ] in serum 655 mg/dL text: 248-81 0 normal Not Available Not Available 01/01/2025 21:07:55 12/15/19 25 12/15/2024 IgG and IgG subcl ass panel [Mass /volu me] - Serum IgG subclass 2 [mass/volume ] in serum 409 mg/dL text: 130-55 5 normal Not Available Not Available 01/01/2025 21:07:55 12/15/19 25 12/15/2024 IgG and IgG subcl ass panel [Mass /volu me] - Serum IgG subclass 3 [mass/volume ] in serum 96 mg/dL text: 15-102 normal Not Available Not Available 01/01/2025 21:07:55 12/15/19 25 12/15/2024 IgG and IgG subcl ass panel [Mass /volu me] - Serum IgG subclass 4 [mass/volume ] in serum 23 mg/dL text: 2-96 normal Not Available Not Available 01/01/2025 21:07:55 12/15/19 25 12/15/2024 Mycob acter ium tuber culos is stimu lated gamma inter feron [Inte rpret ation ] in Blood Quali tativ e referral lab test results COMMEN T normal Not Available Not Available 21:07:55 12/15/19 25 12/15/2024 Mycob acter ium tuber culos is stimu lated gamma inter feron [Inte rpret ation ] in Blood Quali tativ e service comment COMMEN T normal Not Available Not Available 21:07:55 12/15/19 25 12/15/2024 Mycob acter ium tuber culos is stimu lated gamma inter feron [Inte rpret ation ] in Blood Quali tativ e mycobacteriu m tuberculosis stimulated gamma interferon release by cd4+ T-cells [units/volum e] in blood 2.26 IU/mL normal Not Available Not Available 01/01/2025 21:07:55 12/15/19 25 12/15/2024 Mycob acter ium tuber culos is stimu lated gamma inter feron [Inte rpret ation ] in Blood Quali tativ e mycobacteriu m tuberculosis stimulated gamma interferon release by cd4+ and cd8+ T-cells [units/volum e] in blood 2.34 IU/mL normal Not Available Not Available 01/01/2025 21:07:55 12/15/19 25 12/15/2024 Mycob acter ium tuber culos is stimu lated gamma inter feron [Inte rpret ation ] in Blood Quali tativ e gamma interferon background [units/volum e] in blood by immunoassay 0.03 IU/mL normal Not Available Not Available 01/01/2025 21:07:55 12/15/19 25 12/15/2024 Mycob acter ium tuber culos is stimu lated gamma inter feron [Inte rpret ation ] in Blood Quali tativ e mitogen stimulated gamma interferon [units/volum e] in blood &GT;10 .00 normal Not Available Not Available 21:07:55 12/15/19 25 12/15/2024 Mycob acter ium tuber culos is stimu lated gamma inter feron [Inte rpret ation ] in Blood Quali tativ e mycobacteriu m tuberculosis stimulated gamma interferon [interpretat ion] in blood qualitative POSITI VE text: negati ve Not Available Not Available 01/01/2025 21:07:55 12/15/19 25 12/15/2024 Respi rator y aller gen panel , [facility] - Serum referral lab test results COMMEN T normal Not Available Not Available 21:07:55 12/15/19 25 12/15/2024 Respi rator y aller gen panel , [facility] - Serum house dust mite IgE Ab [units/volum e] in serum 0.12 kU/L text: class 0/I Not Available Not Available 01/01/2025 21:07:55 12/15/19 25 12/15/2024 Respi rator y aller gen panel , [facility] - Serum haitian house dust mite IgE Ab [units/volum e] in serum 0.1 kU/L text: class 0/I Not Available Not Available 01/01/2025 21:07:55 12/15/19 25 12/15/2024 Respi rator y aller gen panel , [facility] - Serum CAT dander IgE Ab [units/volum e] in serum &LT;0. 10 text: class 0 normal Not Available Not Available 01/01/2025 21:07:55 12/15/19 25 12/15/2024 Respi rator y aller gen panel , [facility] - Serum dog dander IgE Ab [units/volum e] in serum &LT;0. 10 text: class 0 normal Not Available Not Available 01/01/2025 21:07:55 12/15/19 25 12/15/2024 Respi rator y aller gen panel , [facility] - Serum cockroach IgE Ab [units/volum e] in serum 0.22 kU/L text: class 0/I Not Available Not Available 01/01/2025 21:07:55 12/15/19 25 12/15/2024 Respi rator y aller gen panel , [facility] - Serum bermuda grass IgE Ab [units/volum e] in serum &LT;0. 10 text: class 0 normal Not Available Not Available 01/01/2025 21:07:55 12/15/19 25 12/15/2024 Respi rator y aller gen panel , [facility] - Serum rui IgE Ab [units/volum e] in serum &LT;0. 10 text: class 0 normal Not Available Not Available 01/01/2025 21:07:55 12/15/19 25 12/15/2024 Respi rator y aller gen panel , [facility] - Serum penicillium notatum IgE Ab [units/volum e] in serum &LT;0. 10 text: class 0 normal Not Available Not Available 01/01/2025 21:07:55 12/15/19 25 12/15/2024 Respi rator y aller gen panel , [facility] - Serum cladosporium herbarum IgE Ab [units/volum e] in serum &LT;0. 10 text: class 0 normal Not Available Not Available 01/01/2025 21:07:55 12/15/19 25 12/15/2024 Respi rator y aller gen panel , [facility] - Serum aspergillus fumigatus IgE Ab [units/volum e] in serum &LT;0. 10 text: class 0 normal Not Available Not Available 01/01/2025 21:07:55 12/15/19 25 12/15/2024 Respi rator y aller gen panel , [facility] - Serum alternaria alternata IgE Ab [units/volum e] in serum &LT;0. 10 text: class 0 normal Not Available Not Available 01/01/2025 21:07:55 12/15/19 25 12/15/2024 Respi rator y aller gen panel , [facility] - Serum boxelder IgE Ab [units/volum e] in serum &LT;0. 10 text: class 0 normal Not Available Not Available 01/01/2025 21:07:55 12/15/19 25 12/15/2024 Respi rator y aller gen panel , [facility] - Serum mountain juniper IgE Ab [units/volum e] in serum &LT;0. 10 text: class 0 normal Not Available Not Available 01/01/2025 21:07:55 12/15/19 25 12/15/2024 Respi rator y aller gen panel , [facility] - Serum white oak IgE Ab [units/volum e] in serum &LT;0. 10 text: class 0 normal Not Available Not Available 01/01/2025 21:07:55 12/15/19 25 12/15/2024 Respi rator y aller gen panel , [facility] - Serum white elm IgE Ab [units/volum e] in serum &LT;0. 10 text: class 0 normal Not Available Not Available 01/01/2025 21:07:55 12/15/19 25 12/15/2024 Respi rator y aller gen panel , [facility] - Serum quezada plane IgE Ab [units/volum e] in serum &LT;0. 10 text: class 0 normal Not Available Not Available 01/01/2025 21:07:55 12/15/19 25 12/15/2024 Respi rator y aller gen panel , [facility] - Serum cottonwood IgE Ab [units/volum e] in serum &LT;0. 10 text: class 0 normal Not Available Not Available 01/01/2025 21:07:55 12/15/19 25 12/15/2024 Respi rator y aller gen panel , [facility] - Serum white bev IgE Ab [units/volum e] in serum &LT;0. 10 text: class 0 normal Not Available Not Available 01/01/2025 21:07:55 12/15/19 25 12/15/2024 Respi rator y aller gen panel , [facility] - Serum walnut IgE Ab [units/volum e] in serum &LT;0. 10 text: class 0 normal Not Available Not Available 01/01/2025 21:07:55 12/15/19 25 12/15/2024 Respi rator y aller gen panel , [facility] - Serum pecan or hickory tree IgE Ab [units/volum e] in serum &LT;0. 10 text: class 0 normal Not Available Not Available 01/01/2025 21:07:55 12/15/19 25 12/15/2024 Respi rator y aller gen panel , [facility] - Serum white mulberry IgE Ab [units/volum e] in serum &LT;0. 10 text: class 0 normal Not Available Not Available 01/01/2025 21:07:55 12/15/19 25 12/15/2024 Respi rator y aller gen panel , [facility] - Serum common ragweed IgE Ab [units/volum e] in serum &LT;0. 10 text: class 0 normal Not Available Not Available 01/01/2025 21:07:55 12/15/19 25 12/15/2024 Respi rator y aller gen panel , [facility] - Serum saltwort IgE Ab [units/volum e] in serum &LT;0. 10 text: class 0 normal Not Available Not Available 01/01/2025 21:07:55 12/15/19 25 12/15/2024 Respi rator y aller gen panel , [facility] - Serum common pigweed IgE Ab [units/volum e] in serum &LT;0. 10 text: class 0 normal Not Available Not Available 01/01/2025 21:07:55 12/15/19 25 12/15/2024 Respi rator y aller gen panel , [facility] - Serum rough jimenez elder IgE Ab [units/volum e] in serum &LT;0. 10 text: class 0 normal Not Available Not Available 01/01/2025 21:07:55 12/15/19 25 12/15/2024 Respi rator y aller gen panel , [facility] - Serum mouse urine proteins IgE Ab [units/volum e] in serum &LT;0. 10 text: class 0 normal Not Available Not Available 01/01/2025 21:07:55 12/15/19 25 12/15/2024 Respi rator y aller gen panel , [facility] - Serum IgE [units/volum e] in serum or plasma 169 IU/mL text: 6-495 normal Not Available Not Available 01/01/2025 21:07:55 12/15/19 25 12/15/2024 Alpha 1 antit rypsi n pheno type [Inte rpret ation ] in Serum or Plasm a alpha 1 antitrypsin [mass/volume ] in serum or plasma 110 mg/dL text: 101-18 7 normal Not Available Not Available 01/01/2025 21:07:55 12/15/19 25 12/15/2024 Alpha 1 antit rypsi n pheno type [Inte rpret ation ] in Serum or Plasm a alpha 1 antitrypsin phenotype [identifier] in serum or plasma by immunofixati on MM normal Not Available Not Available 12/17 21:07:55 12/15/19 25 12/15/2024 Hepat itis C virus RNA [Unit s/vol ume] (guille l load) in Serum or Plasm a by ROSAMARIA with probe detec tion hepatitis C virus RNA [units/volum e] (viral load) in serum or plasma by ROSAMARIA with probe detection COMMEN T normal Not Available Not Available 21:07:55 12/15/19 25 12/15/2024 Hepat itis C virus RNA [Unit s/vol ume] (guille l load) in Serum or Plasm a by ROSAMARIA with probe detec tion hepatitis C virus RNA [log units/volume ] (viral load) in serum or plasma by ROSAMARIA with probe detection normal Not Available Not Available 21:07:55 12/15/19 25 12/15/2024 Hepat itis C virus RNA [Unit s/vol ume] (guille l load) in Serum or Plasm a by ROSAMARIA with probe detec tion referral lab test results COMMEN T normal Not Available Not Available 21:07:55 06/03/20 24 06/03/2024 LDCT, chest , for lung cance r scree shania No observ ation record ed. [facility] [address], [place], [address], 11/17/2024 14:53:15 06/03/20 24 06/03/2024 CT, abdom en + pelvi s, w/ contr ast No observ ation record ed. [facility] [address], [place], [address], 11/17/2024 14:53:15 12/10/19 25 12/10/2024 MRI, brain , w/o contr ast No observ ation record ed. [address], [place], [address], 12/19/2024 11:00:13 12/20/19 25 12/20/2024 compl ete PFT w/ post [facility] hodil ator tony metry * No observ ation record ed. [address], [place], [address], 02/14/2025 10:17:09 01/28/20 25 01/22/2025 oxime try monit oring overn ight No observ ation record ed. [facility] [address], [place], [address], 02/14/2025 10:17:09 02/11/20 25 02/08/2025 US, sabine x, carot id arter y No observ ation record ed. [facility] [address] [facility] , [place], [address], 02/27/2025 18:05:03 Result Notes None recorded. Problems Name Problem SNOMED Code Status Onset Date Resolution Date Notes Provider Name and Address Organization Details Recorded Time Impacted cerumen of bilateral ears 6056373849987 108 Active 2022 Johnnie Castillo MD Attn: Bob g,[address] [facility], [place], [address], [facility] 3 19:07:35 Nicotine dependence 56792305 Active 2022 Johnnie Castillo MD Attn: Bob garner,[address] [facility], [place], [address], [place] [facility] 3 19:07:48 Blind left eye 765580742 Active 2022 Johnnie Castillo MD Attn: Bob garner,[address] [place], [address], [place] [facility] 3 19:08:12 History of head injury 598470544 Active 2022 Johnnie Castillo MD Attn: Bob garner,[address] [place], [address], [place] [facility] 3 19:08:13 Hearing loss 88985717 Active 2022 Johnnie Castillo MD Attn: Bob garner,[address] [place], [address], [place] [facility] 3 19:08:15 Primary erectile dysfunction 416404702 Active 2022 Johnnie Castillo MD Attn: Bob garner,[address] [place], [address], [place] [facility] 3 19:08:17 History of SARS-CoV-2 3505591377037 59794 Active 2022 Johnnie Castillo MD Attn: Bob garner,[address] [place], [address], [place] [facility] 3 19:08:39 Calcificati on of coronary artery 447163999 Active 2022 Johnnie Castillo MD Attn: Bob g,[address] [place], [address], [place] [facility] 3 10:51:51 Hepatitis C antibody detected 403785058 Active 2022 Johnnie Castillo MD Attn: Bob garner,[address] [place], [address], [place] [facility] 3 14:48:59 Chronic hepatitis C 393330199 Active 2022 Johnnie Castillo MD Attn: Bob garner,[address] [facility], [place], [address], [place] [facility] 3 14:52:55 SARS-CoV-2 vaccination declined 2815033369 Active 2023 Johnnie Castillo MD Attn: Bob garner,[address] [facility], [place], [address], [place] [facility] 4 16:17:19 Chronic cerebral ischemia 475727226 Active 2024 Johnnie Castillo MD Attn: Bob garner,[address] [facility], [place], [address], [place] [facility] 5 10:57:26 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 Procedures Surgical History Date Name Laterality Status Provider Name and Address Organization Details Recorded Time 3 Cerumen Removal completed Johnnie Castillo MD Attn: Accounting,[address] [facility], [place], [address], [place] [facility] 12/02/2022 19:07:18 Imaging Results Imaging Date Name Status LastModified by Organization Details LastModified Time 06/03/2024 LDCT, chest, for lung cancer screening completed [facility] [address] [place], [address], 11/17/2024 14:53:15 06/03/2024 CT, abdomen + pelvis, w/ contrast completed [facility] [address] [place], [address], 11/17/2024 14:53:15 12/10/2024 MRI, brain, w/o contrast completed [facility] [address] [facility] [address], [place], [address], 12/19/2024 11:00:13 12/20/2024 complete PFT w/ post bronchodilator spirometry* completed [facility] [address] [facility] [address], [place], [address], 02/14/2025 10:17:09 01/22/2025 oximetry monitoring overnight completed [facility] [address], [place], [address], 02/14/2025 10:17:09 02/08/2025 US, duplex, carotid artery active [address] , [place], [address], 02/27/2025 18:05:03 Procedure Notes None recorded. Medical Equipment None Reported. Allergies Allergen ID Allergen Name Allergen Category Reaction Reaction Severity Criticality Documentation Date Start Date Code Code System Note Provider Name and Address Organization Details Recorded Time 645416 Product containin g penicilli n (product) medicatio n Not available Not available Not available 12/02/2022 31948 8001 SNOMED Knot jeanine up my veins when [...] Not Available Not Available No t Available atorvastati n 10 mg tablet TAKE 1 TABLET BY MOUTH EVERY DAY AT BEDTIME active Not Available Not Available No t Available azithromyci n 250 mg tablet 12/15 completed Not Available Not Available Not Available ofloxacin 0.3 % eye drops INSTILL 1 DROP INTO EYE EVERY 2 HOURS WHILE AWAKE X2DAYS AND THEN 2 DROPS FOUR TIMES DAILY X5 DAYS 11/17 completed Not Available Not Available Not Available meloxicam 15 mg tablet TAKE 1 TABLET BY MOUTH EVERY DAY active Not Available Not Available No t Available prednisone 20 mg tablet 12/15 completed Not Available Not Available Not Available Debrox 6.5 % ear drops INSTILL 5 DROPS INTO AFFECTED EAR(S) BY OTIC ROUTE 2 TIMES PER DAY 02/14 completed Not Available Not Available Not Available aspirin 81 mg tablet,braxton yed release TAKE 1 TABLET BY MOUTH EVERY DAY AROUND THE CLOCK FOR BLOOD THINNER active Not Available Not Available No t Available sildenafil 100 mg tablet TAKE 1/2 TABLET BY MOUTH EVERY DAY NEEDED FOR ERECTILE DYSFUNCTI ON active Not Available Not Available No t Available benzonatate 100 mg capsule Take 1 capsule [...] Not Available rosuvastati n 5 mg tablet TAKE 1 TABLET BY MOUTH EVERY NIGHT AT BEDTIME 02/14 completed Not Available Not Available Not Available Vitamin C active Not Available Not Jessica ilable Not Available arginine (L-arginine ) active Not Available Not Available Not Available ginseng active Not Available Not Avail able Not Available vitamin E active Not Available Not Jessica ilable Not Available [place] 3 active Not Available Not Avail able Not Available multivitami n active Not Available Not Available Not Available Ginkoba active Not Available Not Avail able Not Available Symbicort 160 mcg-4.5 mcg/actuati on HFA aerosol inhaler INHALE 2 PUFFS BY MOUTH TWICE DAILY active Not Available Not Available No t Available Prostate Health active Not Available Not Available Not Available Incruse Ellipta 62.5 mcg/actuati on powder for inhalation INHALE 1 PUFF BY MOUTH ONCE DAILY active Not Available Not Available No t Available B12 Active 1,000 mcg chewable tablet Take by oral route. active Not Available Not Available No t Available Paxlovid 300 mg (150 mg x 2)-100 [...] Updated DateTime 3 179.07 cm 23.1 kg/m2 49108.5 6 g 68 /min 97 % 97 % 16 /min 136 mm[Hg] 84 mm[Hg] Elizabeth Cannon MA [facility] 3 14:40:19 Date Recorded Body height Body mass index (BMI) Body weight Heart rate Oxygen saturation Oxygen saturation in Arterial blood by Pulse oximetry Respiratory rate Body temperature Systolic blood pressure Diastolic blood pressure Provider Name and Address Organization Details Last Updated DateTime 4 179.07 cm 19.3 kg/m2 19564.7 2 g 78 /min 95 % 95 % 18 /min 98.4 [degF] 136 mm[Hg] 84 mm[Hg] Elizabeth Cannon MA [facility] SIF 4 15:46:06 Date Recorded Body height Body mass index (BMI) Body weight Heart rate Oxygen saturation Oxygen saturation in Arterial blood by Pulse oximetry Respiratory rate Systolic blood pressure Diastolic blood pressure Provider Name and Address Organization Details Last Updated DateTime 5 179.07 cm 21.4 kg/m2 48887.4 5 g 76 /min 96 % 96 % 18 /min 120 mm[Hg] 76 mm[Hg] Elizabeth Cannon MA ID - SIF 5 14:50:26 Date Recorded Body height Body mass index (BMI) Body weight Oxygen saturation Oxygen saturation in Arterial blood by Pulse oximetry Heart rate Respiratory rate Systolic blood pressure Diastolic blood pressure Provider Name and Address Organization Details Last Updated DateTime 5 179.07 cm 22.6 kg/m2 60892.7 8 g 98 % 98 % 66 /min 16 /min 116 mm[Hg] 80 mm[Hg] Elizabeth Cannon MA [facility] SI 5 10:53:36 Date Recorded Body height Body mass index (BMI) Body weight Oxygen saturation Oxygen saturation in Arterial blood by Pulse oximetry Heart rate Body temperature Systolic blood pressure Diastolic blood pressure Provider Name and Address Organization Details Last Updated DateTime 5 179.07 cm 23.3 kg/m2 14976.0 2 g 97 % 97 % 60 /min 97.8 [degF] 140 mm[Hg] 80 mm[Hg] Elizabeth Cannon MA [facility] SI 5 10:05:28 Social History Question Answer Notes LastModified by [employer] ion Details LastModified Time Tobacco Smoking Status Former Smoker has not smoked for a month now Elizabeth Cannon MA [facility], [facility] 11/17/2024 14:48:44 What Is Your Level [...] Date Of Your Most Recent Tobacco Screening? 02/14/2025 Information not available 02/14/2025 What Is Your Current Pack Years? 30ormorepackye [...] Response Coronary Artery Disease N Other N Atrial Fibrillation N High Blood Pressure N Kidney or Bladder Problems N Thyroid Problems N GI Problems N Depression N COPD N Blood Clots N Skin Problems N Anemia N Heart Attack (PA) N Anxiety Disorder N Diabetes N Muscle, [...] completed Johnnie Castillo MD Attn: Accounting,[address] [place], [address], [facility] 12/02/2022 18:54:59 Pneumococcal conjugate PCV20, polysaccharide [id number] conjugate, adjuvant, PF 3 completed Johnnie Castillo MD Attn: Accounting,[address] [place], [address], [facility] 12/02/2022 18:54:59 Past Encounters Encounter ID Performer Location Encounter Start Date Encounter Closed Date Diagnosis/Indication Diagnosis SNOMED-CT Code Diagnosis ICD10 Code Diagnosis Note [id number] Johnnie Castillo MD [facility] (Adult Med) [address] [place] [address] [id number] 12/02/2022 13:25:54 12/04/2022 09:05:24 Administration of diphtheria, pertussis, and tetanus vaccine 522240002 Z23 General ex amination of patient 666138658 Z00.01 Screening for malignant neoplasm of colon 405562610 Z12.11 Screening for malignant neoplasm of prostate 972706233 Z12.5 Administra tion of pneumococcal vaccine 49301180 Z23 Nicotine dependence 5629 4008 Z87.891 Impacted c erumen of bilateral ears 1475858430 482632 H61.23 Blind left eye 262300718 H54.62 History of head injury 429909908 Z87.828 Hearing loss 01841188 H9 1.92 Primary er ectile dysfunction 867303153 N52.9 History of SARS-CoV-2 29 35484039 81120464 Z86.16 Influenza vaccination declined 434827409 Z28.21 [id number] MD Ninfa Zarate (Adult Med) [address] [place] [address] [id number] 12/17/2022 08:32:18 12/22/2022 11:55:17 Pulmonary emphysema 48865194 J43.9 Impacted c erumen of bilateral ears 4001092222 358530 H61.23 Immunization advised 310 495258 Z71.9 Calcificat ion of coronary artery 211003931 I25.84 Nicotine dependence 5629 4008 Z87.891 History of SARS-CoV-2 29 36618285 85277192 Z86.16 10/2022 [id number] MD Ninfa Zarate (Adult Med) [address] [place] [address] [id number] 01/27/2023 14:28:09 01/28/2023 09:03:06 Chronic hepatitis C 779054844 B18.2 Immunization advised 310 615366 Z71.9 Influenza vaccination declined 951640701 Z28.21 Nicotine dependence 5629 4008 Z87.891 Primary er ectile dysfunction 332910568 N52.9 [id number] MD Ninfa Zarate (Adult Med) [address] [place] [address] [id number] 05/16/2024 15:31:30 05/17/2024 10:15:30 Chronic hepatitis C 177434896 B18.2 Nicotine dependence 5629 4008 Z87.891 He should not smoke when the patch is on and he should take the patch off at bed time. General ex amination of patient 429646341 Z00.01 Chronic ob structive pulmonary disease 42998583 J44.9 Start Symbicort, he should rinse his mouth after each useContinu e Albuterol Unexplaine d weight loss 193838349 R63.4 NL PSA 2022LDCT 12/12/2022E [facility] & [facility]?Colonos copy at [facility]? Screening for malignant neoplasm of prostate 270227492 Z12.5 Primary er ectile dysfunction 676837509 N52.9 SARS-CoV-2 vaccination declined 4724499595 Z28.21 [id number] MD Ninfa Zarate (Adult Med) [address] [place] [address] [id number] 11/17/2024 14:31:38 11/21/2024 15:48:02 Unexplained weight loss 184364978 R63.4 He has gained back [address] A&P do not explain his weight lossColono scopy report needed OV 05/16/2024NL PSA 2022LDCT 12/12/2022E [facility] & [facility]?Colonos copy at [facility]? Chronic hepatitis C 1283 88153 B18.2 Labs Chronic ob structive pulmonary disease 23666499 J44.9 Restart SymbicortS tart IncruseAlb uterol PRN OV 05/16/2024St art Symbicort, he should rinse his mouth after each useContinu e Albuterol Acute exac erbation of chronic obstructive pulmonary disease 697446100 J44.1 Weakness present 4951537 07 M62.81 Impairment of balance 38 5996423 R26.89 History of fall 21446921 9 Z91.81 Calcificat ion of coronary artery 108680610 I25.84 He denies chest pain, but he has multiple RF with SOBOE Constipation 33961323 K5 9.00 [id number] [facility] [address] [place] [address] [id number] 12/15/2024 10:40:53 12/21/2024 11:08:30 Chronic cerebral ischemia 968934188 I67.82 Noted on the MRI.Discus sedContinu e AspirinSta rt Rosuvastat in, side effects were discussed including but not limited to MSK pain Chronic ob structive pulmonary disease 16895781 J44.9 Start Incruse as previously prescribed OV 12/15/2024R estart SymbicortS tart IncruseAlb uterol PRN OV 05/16/2024St art Symbicort, he should rinse his mouth after each useContinu e Albuterol Shoulder pain 71832634 M 25.519 History of cerebrovascular accident without residual deficits 671990959 Z86.73 Impacted c erumen of bilateral ears 6127982594 596855 H61.23 Numbness of finger 74355 6001 R20.0 [id number] MD Ninfa Zarate (Adult Med) [address] [place] [address] [id number] 02/14/2025 09:50:48 02/16/2025 10:59:13 Body mass index 20-24 - normal 881104003 Z68.23 History of cerebrovascular accident without residual deficits 345961468 Z86.73 Try Atorvastat in, side effects were discussed Primary er ectile dysfunction 861702033 N52.9 Nonspecifi c tuberculin test reaction 391608432 R76.12 Health Concerns Section Related Observation LastModified by Organization Detai ls LastModified Time None Recorded Concern Status LastModified by Organization Details LastModified Time None Recorded Advance Directives Directive None Recorded Payers Encounter Date Sequence Insurance Name Policy Number Policy Wang Covered Member ID Wang Member ID Guarantor Name 01/27/2023 1 [facility] (MEDICARE REPLACEMENT HMO) William Hackett [id number] William Hackett 05/16/2024 2 [place] MEDIC[place]PLACEMENT [place]IMARY) William Hackett [id number] William Hackett 05/16/2024 1 [place] William Hackett [id number] William Hackett 11/17/2024 2 [place]) William Hackett [id number] William Hackett 11/17/2024 3 *SELF PAY* Mi atif Hackett 12/15/2024 2 [place]IC[place]PLACEMENT [place]) William Hackett [id number] William Hackett 12/15/2024 1 [facility] (MEDICARE REPLACEMENT/AD VANTAGE - HMO) [id number] William Hackett [id number] William Hackett 02/14/2025 2 [place] MEDIC[place] REPLACEMENT [place]IMARY) William Hackett [id number] William Hackett 02/14/2025 1 [facility] (MEDICARE REPLACEMENT/AD VANTAGE - HMO) [id number] William Hackett [id number] William Hackett Notes Date Note Type Note Provider Name and Address Organization Details Recorded Time 01/27/2023 text/html I had it, I too k that Paulo had an appointmentI kept calling, they won't answer the phone Mr Hackett is doing well, he is unable to get his colonoscopy scheduled. He was previously trated for Hep C. Johnnie Castillo MD Attn: Accounting,[address] [facility], [place], [address], [facility] 01/27/2023 19:18:44 05/16/2024 text/html Medicare Annual Wellness [...] since June, I have to use that inhalerI be drinking more than I usually do, this summer heat got me Mr Hackett has no major complaints except the need to use his rescue inhaler more often. He denies any nausea, abdominal pain or vomiting and he had a colonoscopy at [facility] in the last 10 years and an EGD [facility] the [facility]. He never had his US done and he admits to an increase in his alcohol use. He is very active and still does a significant amount of yard work. Johnnie Castillo MD Attn: Accounting,[address] [place], [address], [facility] 05/16/2024 16:44:18 11/17/2024 text/html Here with his so n and daughter I had fell and injured my legMy breathing got worseI have a bowel movement once every three daysMy balanceIt was green Mr Hackett returns, for the [...] that he could not get it filled. [facility]2024[facility] on 10/17/2024 He is constipated and has since stopped smoking, his last colonoscopy was at [facility], he is unsure about an EGD. Johnnie Castillo MD Attn: Accounting, [facility], [place], [address], [facility] 11/17/2024 19:17:40 12/15/2024 text/html ShoulderReported bypatient.Hand Dominance:right [...] I still have fluid leakage from my neckI got pain in my arm and numbness in my finger tips Mr Hackett was just seen by the creative intern, Dr Arvin Howe this morning. He complains [...] ear. Johnnie Castillo MD Attn: Accounting,[address] [facility], [place], [address], [facility] 12/15/2024 13:13:27 02/14/2025 text/html Here with his so n. That Crestor I cannot take it The Crestor made him constipated, gave him chest pain and a headache.In the interim, he has been following up with the creative intern and neurosurgeon. Johnnie Castillo MD Attn: Accounting, [address] [facility], [place], [address], [facility] 02/14/2025 10:58:56
--- OUTSIDE RECORDS SUMMARY | 2025-03-02 19:56 | XMS_ITS | CONTINUITY OF CARE DOCUMENT ---
Author Name cleoalexis cleoalexis Address Unknown Organization [facility] Address [address] [place] [address] Phone [phone] Care Team Providers Care Drapery Seamstress Name Role Phone Jose Acosta MD Unavailable [phone] ANISH CHIU MD Unavailable ANISH CHIU MD Unavailable PROBLEMS Condition Status Date Provider Notes COPD active Mckenzie Ventimiglia [employer] Hepatitis C, chronic active Mckenzie Ventimig mary [employer] Nicotine dependence active Mckenzie Ventimigl ia [employer] INS[employer] Shortness of breath active Mckenzie Ventimigl ia [employer] INS[employer]OR Elevated blood pressure active Mckenzie Venti miglia [employer] INSPECTOR Dizziness active Mckenzie Ventimiglia [employer] INSPECTOR ENCOUNTERS Date Type Provider Location Encounter Diag nosis - In-person encounter Office Visit Jose Acosta MD [facility] COPDHepatitis C, chronicNicotine dependenceShortness of breathElevated blood pressureDizziness VITAL SIGNS Date Observation Value Provider Body Mass Index (Ratio) 22.65 kg/m2 Kera Acosta MD blood pressure, diastolic 89 mm[Hg] Lina Price blood pressure, systolic 153 mm[Hg] Aurea Price oxygen saturation, oximetry 92 % Damaris Price pulse rate 72 /min Damaris Albert respiratory rate E&M 12 /min Damaris Price weight E&M 167 [lb_av] Damaris Albert height E&M 72 [in_i] Damaris Price blood pressure, cuff size regular Lina andrade Price ALLERGIES Allergy Name Onset Date Reaction Criticality Status PENICILLIN High Criticality active HISTORY OF MEDICATION USE Medication Status Instructions Dates Provider Indications Com ments aspirin 81 mg tablet,delayed release (DR/EC) active TAKE 1 TABLET BY MOUTH EVERY DAY AROUND THE CLOCK FOR BLOOD THINNER Damaris Price albuterol sulfate 90 mcg/actuation HFA aerosol inhaler active Damaris Price sildenafil 100 mg tablet active Take 1 TABLET BY MOUTH 1 HOUR PRIOR TO SEXUAL ACTIVITY DIRECTED, NOT TO EXCEED 1 IN 24 HOURS. Damaris Price azithromycin 250 mg tablet completed Take 1 tablet by mouth as directed Take 2 tablets on day one and then take one tablet daily x 4 days Dispense one Z-Pack - Mckenzie Hutnmiglia [facility] Incruse Ellipta 62.5 mcg/actuation blister with device active 1 puff as directed as needed as directed Damaris Price meloxicam 15 mg tablet active 1 tablet by mouth once a day Damaris Price Symbicort 160-4.5 mcg/actuation HFA aerosol inhaler active 1 puff as directed as needed as directed Damaris Price SOCIAL HISTORY Date Observation Value Provider personal history of marijuana use no Mckenzie Ventimiglia [facility] drug use no Mckenzie Ventimig mary [employer] INSPECTOR alcohol use no Mckenzie Ventimig mary [employer]AND INSPECTOR cigarette use yes Mckenzie Ventimi glia [employer]AND INSPECTOR smoking status Former smoker Mckenzie Venti miglia [facility] INSURANCE PROVIDERS Payer name Policy type / Coverage type Gans red democrat ID [facility] ADVANTAGE PLAN 2 (HMO-POS) Medicare [id number] ADVANCE DIRECTIVES Name Date DISCUSSED - NO DECISION MADE TREATMENT PLAN Date Name Performer Cardiology: H is updated medication list for this problem includes: Albuterol Sulfate 90 Mcg/actuation Hfa Aerosol Inhaler (Albuterol sulfate) Incruse Ellipta 62.5 Mcg/actuation Blister With Device (Umeclidinium) ..... 1 puff as directed as needed as directed Symbicort 160-4.5 Mcg/actuation Hfa Aerosol Inhaler (Budesonide-formoterol) ..... 1 puff as directed as needed as directed Mckenzie Mondragon [facility] Cardiology:continued cessation e ncouraged Mckenziesilvana Mondragon [facility] Cardiology:He notes dizziness with standing P er daughter had MRI of head and were told he has 'mini strokes' W ill do carotid duplex to r/o stenosis Mckenzie Giancarlo [facility] Cardiology:Elevated in office today h ave asked patient to monitor BP at home and bring readings to his upcoming follow up visit Mckenziesilvana Mondragon [facility] Cardiology:He notes SOB with minimal activity most likely r/t COPD W e will however, do echo to r/o any LV dysfunction or WMA H is updated medication list for this problem includes: Aspirin 81 Mg Tablet,delayed Release (dr/ec) (Aspirin) ..... Take 1 tablet by mouth every day around the clock for blood thinner Mckenzie Giancarlo [facility] Date Name Carotid Duplex Bilat eral Complete Echo
--- OUTSIDE RECORDS SUMMARY | 2025-03-02 19:56 | XMS_ITS | Continuity of Care Document ---
Author Name [facility] Organization [facility] Care Team Providers Care Pharmacy Aide Name Role Phone [facility] Unavailable Unavailable Problems Combined list of problems from Department of [facility] and [facility] facilities. It does not include entries that were removed or entered in error. Problem Status Onset Date Problem Type Date of Resolution Comments Source Benign essential hypertension (SNOMED CT 8015879) Active Condition [facility] Closed fracture of phalanx or phalanges of hand (ICD-9-CM 816.00) Active Condition [facility] Cocaine-Related Disorder NOS Active Condition [facility] CONSTIPATION, unspecified (ICD-9-CM 564.00) Active Condition [facility] Elevated Liver Function Tests (ICD-9-CM 794.8) Active Condition [facility] FB IN POSTERIOR WALL Active Condition 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 Tobacco dependence, continuous (SNOMED CT 401140037) Active Condition [facility] Unresolved Active Condition [facility] Upper GI bleeding (ICD-9-CM 578.9) Active Condition [facility] Diagnosis: ICD-10-CM B34.9 Viral infection, unspecified Active Diagnosis [facility] Medications Combined list of outpatient medications from [facility] and [facility] facilities.Medications provided include 1) outpatient medications from the last 15 months, and 2) patient-reported medications. Medication Details Route Status Patient Instructions Prescription Expires Prescription Number Last Dispense Date Ordering Provider Order Date Order Qty Source ASCORBIC ACID 500MG TAB TAKE ONE TABLET BY MOUTH ONCE A DAY [facility] CYANOCOBALA MIN 1000MCG TAB TAKE ONE TABLET BY MOUTH ONCE A DAY [facility] GINKGO EXT 60MG TAB TAKE TWO TABLETS BY MOUTH [facility] GINSENG CAP/TAB TAKE 1 CAP/TAB BY MOUTH [facility] L-ARGININE 500MG TAB TAKE ONE TABLET BY MOUTH ONCE A DAY [facility] LYCOPENE CAP/TAB TAKE 1 CAP/TAB BY MOUTH ONCE A DAY [facility] MULTIVITAMI NS W/MINERALS CAP/TAB TAKE ONE TABLET BY MOUTH ONCE A DAY [facility] SENNOSIDES 8.6MG TAB TAKE ONE TABLET BY MOUTH ONCE A DAY [facility] VITAMIN E 400UNT CAP TAKE 1 CAPSULE BY MOUTH [facility] Allergies, Adverse Reactions, Alerts Combined list of allergies from Department of [facility] and [facility] facilities. It does not include entries that were removed or entered in error. Substance Category Reaction Severity Reaction type Status Date Reported Comments Source PENICILLIN Propensity to adverse reactions to drug (finding) active 8 [facility] Immunizations Combined list of available immunizations from the Department of Defense and Veterans Affairs facilities. Immunization Series Date Given Administered By Site Reaction Lot Number CVX Code Drug Plumbing Manager Status Comments Source HEP A-HEP B 2008 104 complet ed [facility] HEP A-HEP B 2008 104 complet [facility] PNEUMOCOCCAL, UNSPECIFIED FORMULATION 2008 109 complet ed [facility] TDAP 2005 115 complet ed [facility] Results Combined list of recent [...] Oct 21, 2024 08:43 PM Reporting Lab: [place] [address] Performing Lab: [place] [phone] URINALYS IS W/ CX REFLEX (STL-PB) BILIRUBIN. TOTAL [PRESENCE] IN URINE BY TEST STRIP Negative mg/dL 10/21 Specimen Type: URINE No comment entered. Ordering Provider: NIRANJAN WADE Report Released Date/Time: Oct 21, 2024 08:43 PM Reporting Lab: [place] [phone] Performing Lab: [address] [phone] URINALYS IS W/ CX REFLEX (STL-PB) PH OF URINE BY TEST STRIP 7.0 5.0 - 8.0 10/21 Specimen Type: URINE No comment entered. Ordering Provider: NIRANJAN WADE Report Released Date/Time: Oct 21, 2024 08:43 PM Reporting Lab: [place] [phone] Performing Lab: [address] [phone] URINALYS IS W/ CX REFLEX (STL-PB) LEUKOCYTES [#/AREA] IN URINE SEDIMENT BY MICROSCOPY HIGH POWER FIELD <1/[HPF] 0 - 5 10/21 Specimen Type: URINE No comment entered. Ordering Provider: NIRANJAN WADE Report Released Date/Time: Oct 21, 2024 08:43 PM Reporting Lab: [place] [phone] Performing Lab: [place] [phone] URINALYS IS W/ CX REFLEX (STL-PB) ERYTHROCYT ES [#/VOLUME] IN URINE SEDIMENT BY MICROSCOPY HIGH POWER FIELD 5 /[HPF] 0 - 5 10/21 Specimen Type: URINE No comment entered. Ordering Provider: NIRANJAN WADE Report Released Date/Time: Oct 21, 2024 08:43 PM Reporting Lab: [place] [address] Performing Lab: [place] [phone] URINALYS IS W/ CX REFLEX (STL-PB) APPEARANCE OF URINE Clear 10/21 Specimen Type: URINE No comment entered. Ordering Provider: NIRANJAN WADE Report Released Date/Time: Oct 21, 2024 08:43 PM Reporting Lab: [place] [phone] Performing Lab: [place] [phone] URINALYS IS W/ CX REFLEX (STL-PB) NITRITE [PRESENCE] IN URINE BY TEST STRIP Negative mg/dL 10/21 Specimen Type: URINE No comment entered. Ordering Provider: NIRANJAN WADE Report Released Date/Time: Oct 21, 2024 08:43 PM Reporting Lab: [place] [address] Performing Lab: [place] [phone] URINALYS IS W/ CX REFLEX (STL-PB) EPITHELIAL CELLS [#/AREA] IN URINE SEDIMENT BY MICROSCOPY LOW POWER FIELD <1/[HPF] 0 - 5 10/21 Specimen Type: URINE No comment entered. Ordering Provider: NIRANJAN WADE Report Released Date/Time: Oct 21, 2024 08:43 PM Reporting Lab: [place] [address] Performing Lab: [address] URINALYS IS W/ CX REFLEX (STL-PB) MUCUS [PRESENCE] IN URINE SEDIMENT BY LIGHT MICROSCOPY RARE/[LP F] 10/21 Specimen Type: URINE No comment entered. Ordering Provider: NIRANJAN WADE Report Released Date/Time: Oct 21, 2024 08:43 PM Reporting Lab: [place] [phone] Performing Lab: [phone] [place] [address] URINALYS IS W/ CX REFLEX (STL-PB) GLUCOSE [MASS/VOLU ME] IN URINE BY TEST STRIP Normalmg /dL 10/21 Specimen Type: URINE No comment entered. Ordering Provider: NIRANJAN WADE Report Released Date/Time: Oct 21, 2024 08:43 PM Reporting Lab: [place] [phone] Performing Lab: [phone] [place] [address] URINALYS IS W/ CX REFLEX (STL-PB) PROTEIN [MASS/VOLU ME] IN URINE BY TEST STRIP 20 mg/dL 10/21 H Specimen Type: URINE No comment entered. Ordering Provider: NIRANJAN WADE Report Released Date/Time: Oct 21, 2024 08:43 PM Reporting Lab: [place] [address] [place] [address] Performing Lab: [address] URINALYS IS W/ CX REFLEX (STL-PB) URN.UROBIL INOGEN Normalmg /dL 10/21 Specimen Type: URINE No comment entered. Ordering Provider: NIRANJAN WADE Report Released Date/Time: Oct 21, 2024 08:43 PM Reporting Lab: [place] [address] [place] [address] Performing Lab: [place] [address] URINALYS IS W/ CX REFLEX (STL-PB) HEMOGLOBIN [MASS/VOLU ME] IN URINE BY TEST STRIP Negative mg/dL 10/21 Specimen Type: URINE No comment entered. Ordering Provider: NIRANJAN WADE Report Released Date/Time: Oct 21, 2024 08:43 PM Reporting Lab: [place] [address] [place] [address] Performing Lab: [place] [address] [facility] [phone] URINALYS IS W/ CX REFLEX (STL-PB) KETONES [MASS/VOLU ME] IN URINE BY TEST STRIP Negative mg/dL 10/21 Specimen Type: URINE No comment entered. Ordering Provider: NIRANJAN WADE Report Released Date/Time: Oct 21, 2024 08:43 PM Reporting Lab: [place] [address] [place] [address] Performing Lab: [place] [phone] URINALYS IS W/ CX REFLEX (STL-PB) URN.LEUK.E ST. Negative mg/dL 10/21 Specimen Type: URINE No comment entered. Ordering Provider: NIRANJAN WADE Report Released Date/Time: Oct 21, 2024 08:43 PM Reporting Lab: [place] [address] Performing Lab: [address] URINALYS IS W/ CX REFLEX (STL-PB) SPECIFIC GRAVITY OF URINE 1.025 10/21 Specimen Type: URINE No comment entered. Ordering Provider: NIRANJAN WADE Report Released Date/Time: Oct 21, 2024 08:43 PM Reporting Lab: [place] [address] Performing Lab: [address] RESPIRAT ORY PCR PANEL ADENOVIRUS DNA [PRESENCE] IN NASOPHARYN X BY ROSAMARIA WITH NON-PROBE DETECTION Not Detected 10/21 Specimen Type: NASOPHARYNX Comment: [employer] RP Panel combines nested multiplex PCR and [...] the clinician evaluating the patient. Shakeel VELASCO, ([phone]) Ordering Provider: NIRANJAN WADE Report Released Date/Time: Oct 21, 2024 08:00 PM Reporting Lab: [address] [place] [address] Performing Lab: [place] [phone] RESPIRAT ORY PCR PANEL HUMAN CORONAVIRU [...] available to the clinician evaluating the patient. [employer] Deondre, ([phone]) Ordering Provider: NIRANJAN WADE Report Released Date/Time: Oct 21, 2024 08:00 PM Reporting Lab: [place] [address] Performing Lab: [address] RESPIRAT ORY PCR PANEL HUMAN CORONAVIRU [...] available to the clinician evaluating the patient. [employer] Deondre, ([phone]) Ordering Provider: NIRANJAN WADE Report Released Date/Time: Oct 21, 2024 08:00 PM Reporting Lab: [place] [address] [facility] [address] Performing Lab: [place] [address] [facility] [address] [facility] RESPIRAT ORY PCR PANEL HUMAN CORONAVIRU S [...] the clinician evaluating the patient. Shakeel VELASCO, (170) Ordering Provider: NIRANJAN WADE Report Released Date/Time: Oct 21, 2024 08:00 PM Reporting Lab: [place] [address] [facility] [address] Performing Lab: [address] [address] [facility] RESPIRAT ORY PCR PANEL HUMAN CORONAVIRU S [...] available to the clinician evaluating the patient. Pretty SimpleShakeel Pace, ([phone]) Ordering Provider: NIRANJAN WADE Report Released Date/Time: Oct 21, 2024 08:00 PM Reporting Lab: [place] [address] [facility] [address] Performing Lab: [address] [phone] [facility] RESPIRAT ORY PCR PANEL HUMAN METAPNEUMO VIRUS [...] available to the clinician evaluating the patient. [employer] SimpleShakeel Pace, ([phone]) Ordering Provider: NIRANJAN WADE Report Released Date/Time: Oct 21, 2024 08:00 PM Reporting Lab: [address] [address] Performing Lab: [place] [address] [facility] [address] [facility] RESPIRAT ORY PCR PANEL RHINOVIRUS +ENTEROVIR US [...] available to the clinician evaluating the patient. [employer] Deondre, ([phone]) Ordering Provider: NIRANJAN WADE Report Released Date/Time: Oct 21, 2024 08:00 PM Reporting Lab: [facility] [address] [facility] [address] Performing Lab: [place] [address] [facility] [address] [facility] RESPIRAT ORY PCR PANEL INFLUENZA VIRUS A RNA [PRESENCE] IN NASOPHARYN X BY ROSAMARIA WITH NON-PROBE DETECTION Not Detected 10/21 Specimen Type: NASOPHARYNX Comment: [employer] RP Panel combines nested multiplex PCR and [...] available to the clinician evaluating the patient. Mc4Catherine Mendosa, ([phone]) Ordering Provider: NIRANJAN WADE Report Released Date/Time: Oct 21, 2024 08:00 PM Reporting Lab: [facility] [address] [facility] [address] Performing Lab: [facility] [address] [facility] [address] [facility] RESPIRAT ORY PCR PANEL INFLUENZA VIRUS B RNA [PRESENCE] IN NASOPHARYN X BY ROSAMARIA WITH NON-PROBE DETECTION Not Detected 10/21 Specimen Type: NASOPHARYNX Comment: [employer] RP Panel combines nested multiplex PCR and [...] available to the clinician evaluating the patient. [employer] Limitedsusu, ([phone]) Ordering Provider: NIRANJAN WADE Report Released Date/Time: Oct 21, 2024 08:00 PM Reporting Lab: [place] [address] [facility] [address] Performing Lab: [place] [address] [facility] [address] [facility] RESPIRAT ORY PCR PANEL PARAINFLUE NZA VIRUS 1 RNA [PRESENCE] IN NASOPHARYN X BY ROSAMARIA WITH NON-PROBE DETECTION Not Detected 10/21 Specimen Type: NASOPHARYNX Comment: [employer] RP Panel combines nested multiplex PCR and [...] available to the clinician evaluating the patient. [employer] Deondre, ([phone]) Ordering Provider: NIRANJAN WADE Report Released Date/Time: Oct 21, 2024 08:00 PM Reporting Lab: [facility] [address] [facility] [address] Performing Lab: [place] [address] [facility] [address] [facility] RESPIRAT ORY PCR PANEL PARAINFLUE NZA VIRUS [...] available to the clinician evaluating the patient. Secure SoftwareShakeel LEWIS, (453) Ordering Provider: NIRANJAN WADE Report Released Date/Time: Oct 21, 2024 08:00 PM Reporting Lab: [place] [address] Performing Lab: [address] [phone] [facility] RESPIRAT ORY PCR PANEL PARAINFLUE [...] available to the clinician evaluating the patient. Secure SoftwareShakeel LEWIS, (362) Ordering Provider: NIRANJAN WADE Report Released Date/Time: Oct 21, 2024 08:00 PM Reporting Lab: [address] [address] Performing Lab: [address] [address] [facility] RESPIRAT ORY PCR PANEL [place] NZA VIRUS [...] available to the clinician evaluating the patient. [employer] Deondre, (297) Ordering Provider: NIRANJAN WADE Report Released Date/Time: Oct 21, 2024 08:00 PM Reporting Lab: [place] [phone] Performing Lab: [place] [phone] RESPIRAT ORY PCR PANEL RESPIRATOR Y [...] available to the clinician evaluating the patient. [employer] Deondre, ([phone]) Ordering Provider: NIRANJAN WADE Report Released Date/Time: Oct 21, 2024 08:00 PM Reporting Lab: [place] [address] [facility] [address] Performing Lab: [place] [address] [facility] [address] [facility] RESPIRAT ORY PCR PANEL BORDETELLA PERTUSSIS. PERTUSSIS TOXIN PROMOTER REGION [PRESENCE] IN NASOPHARYN X BY ROSAMARIA WITH NON-PROBE DETECTION Not Detected 10/21 Specimen Type: NASOPHARYNX Comment: [employer] RP Panel combines nested multiplex PCR and [...] available to the clinician evaluating the patient. [employer] [facility], (295) Ordering Provider: NIRANJAN WADE Report Released Date/Time: Oct 21, 2024 08:00 PM Reporting Lab: [place] [address] [facility] [address] Performing Lab: [place] [address] [facility] [address] [facility] RESPIRAT ORY PCR PANEL CHLAMYDOPH ADRIEN PNEUMONIAE DNA [PRESENCE] IN NASOPHARYN X BY ROSAMARIA WITH NON-PROBE DETECTION Not Detected 10/21 Specimen Type: NASOPHARYNX Comment: [employer] RP Panel combines nested multiplex PCR and [...] available to the clinician evaluating the patient. [employer] Deondre, (711) Ordering Provider: NIRANJAN WADE Report Released Date/Time: Oct 21, 2024 08:00 PM Reporting Lab: [facility] [address] [facility] [address] Performing Lab: [facility] [address] [place] [address] [facility] RESPIRAT ORY PCR PANEL MYCOPLASMA PNEUMONIAE DNA [...] available to the clinician evaluating the patient. [employer] Deondre, ([phone]) Ordering Provider: NIRANJAN WADE Report Released Date/Time: Oct 21, 2024 08:00 PM Reporting Lab: [address] [address] Performing Lab: [address] [address] [facility] RESPIRAT ORY PCR PANEL BORDETELLA PARAPERTUS SIS [id number] DNA [PRESENCE] IN NASOPHARYN X BY ROSAMARIA [...] the clinician evaluating the patient. Shakeel VELASCO, ([phone]) Ordering Provider: NIRANJAN WADE Report Released Date/Time: Oct 21, 2024 08:00 PM Reporting Lab: [facility] [address] [facility] [address] Performing Lab: [facility] [address] [facility] [address] [facility] RESPIRAT ORY PCR PANEL SARS-COV-2 (COVID-19) RNA [PRESENCE] IN NASOPHARYN X BY ROSAMARIA WITH NON-PROBE DETECTION Not Detected 10/21 Specimen Type: NASOPHARYNX Comment: [employer] RP Panel combines nested multiplex PCR and [...] the clinician evaluating the patient. Shakeel VELASCO, ([phone]) Ordering Provider: NIRANJAN WADE Report Released Date/Time: Oct 21, 2024 08:00 PM Reporting Lab: [facility] [address] [facility] [address] Performing Lab: [facility] [address] [facility] [address] [facility] Vital Signs Combined list of inpatient and outpatient Vital Signs from Department of Defense and Veterans Affairs, ranging from 12 months to all on record, depending upon the facility. Vital Sign Value Date Comments Source SYSTOLIC BLOOD PRESSURE 195 10/21/2024 18:26:00 [facility] DIASTOLIC BLOOD PRESSURE 91 10/21/2024 18:26:00 [facility] PAIN 8 10/21/2024 18:26:00 [facility] TEMPERATURE 98 10/21/2024 18:26:00 [facility] PULSE 59 10/21/2024 18:26:00 [facility] RESPIRATION 17 10/21/2024 18:26:00 [facility] Encounters Combined list of: 1) Encounters from Department of Veterans Affairs facilities going backup to the last 18 months, not all [place] inpatient encounters are included; 2) Encounters from the Department of [facility] facilities going backup to 280 months. Location Location Details Encounter Type Encounter Number Reason For Visit Attending Provider ADM Date DC Date Status Disposition Source [facility] Outpatient Encounter [id number] [facility] Outpatient Encounter [id number] [place] ED K 10/21 [facility] EMERGENCY DEPT VISIT MOD MDM [id number] Diagnos is: ICD-10- CM B34.9 Viral infecti on, unspeci fied TRA[place],SY ED K 10/21 [facility] Outpatient Encounter [id number] [place] ED K 10/21 [facility] Social History Combined list of available smoking, tobacco, and other social history from Department of [facility] and [facility] facilities. Social History Type Response Date Comment Sourc e Tobacco smoking status NHIS TOBACCO OFFERRED PT MEDS (PROVIDER) 04/29/2017 [facility] History of tobacco use CURRENT TOBACCO USER 04/29/2017 [facility] History of tobacco use TOBACCO OFFERRED PT MEDS (PROVIDER) 10/25/2009 [facility] History of tobacco use CURRENT TOBACCO USER 12/25/2008 [facility] History of tobacco use TOBACCO OFFERED [facility]MOKING [facility] 12/10/2008 [facility] History of tobacco use CURRENT TOBACCO USER 12/05/2008 [facility]
--- OUTSIDE RECORDS SUMMARY | 2025-03-02 19:56 | XMS_ITS | Data Portability ---
Author Organization [place] [facility], Main Office Address [address] [place] [address] Care Team Providers Care Distance Education Director Name Role Phone JOHNNIE CHIU Primary Care Provider JOHNNIE CHIU Referring Provider Assessment Encounter Date Assessment Date Assessment LastModified by Organization Details LastModified Time 12/15/2024 12/15/2024 Assessment: Nicotine smoke: 2 ppd [id number] = 80 pack years Cough Dyspnea Bibasilar [...] done as follows: Respiratory allergen panel for [facility] Serum IgE Serum total IgG, IgG1, IgG2, IgG3, IgG4 Xmilf-1-workwpfuvc n phenotype and level TB stimulated gamma [...] further management. Follow-up: 1 week after PFT Not available 12/15/2024 10:04:01 01/09/2025 01/09/2025 69-year-old male presents for evaluation of his bilateral shoulders. This has been going on for several months, getting progressively worse over the past month. He has difficulty with lifting his left arm. He also reports numbness and tingling radiating into the hands and fingers on both sides. He currently rates the pain 7/10. He has not had any treatments yet. Review of systems per patient questionnaire Physical exam: He has positive Spurling's which recreates his numbness and tingling symptoms. his right shoulder does not bother him much today, his left shoulder is his main issue. He has tenderness over the anterolateral shoulder. He can actively elevate to 100 , passive to 140. Positive Neer and De Luna. He has weakness with resisted elevation. X-rays of the shoulders were reviewed, demonstrating moderate degenerative changes with joint space narrowing, osteophytes, sclerosis bilaterally. He has subacromial spurring and AC hypertrophy bilaterally. We discussed that he has a component of cervical radiculopathy in addition to his shoulder issues. We will send him for a spine referral. With regards to the shoulder we will begin with a course of conservative management with physical therapy and anti-inflammatorie s. We will see him back after the course of treatment. At that point, if he is having persistent symptoms we do a cortisone injection for the shoulder. He is in agreement with the plan. [email or web address] Not available 01/09/2025 12:17:29 Plan of Treatment Reminders Order Date Submit Date Provider Last Modified By Organization Details Last Modified Time Details Appointments Any 10 2024 01:00P Tino Garcia NP Not available Not available Not available Lab alpha-1-a ntitrypsi n (aat) phenotype , serum 2024 025 [facility] (Lab), [address] [place], [address], 01/01/2025 15:29:32 BNP (B-type natriuret ic peptide), serum or plasma 2024 025 [facility] (Lab), [address] [place], [address], 12/15/2024 16:16:26 ige, total, serum 2024 025 [facility] (Lab), [address] [place], [address], 01/04/2025 13:23:56 tb (M tuberculo sis), ifn-gamma sanjay, blood 2024 025 [facility] (Lab), [address] [place], [address], 01/04/2025 13:23:[address] 1+2+3+4, serum 2024 025 [facility] (Lab), [address] [place], [address], 01/04/2025 13:23:57 respirato ry allergen panel, [facility] A, serum 2024 025 [facility] (Lab), [address] [place], [address], 12/21/2024 14:05:23 respirato ry allergen panel - [facility] b 2024 025 [facility] (Lab), [address] [place], [address], 01/04/2025 13:23:57 eosinophi ls, quant, blood 2024 025 [facility] (Lab), [address] [place], [address], 01/04/2025 13:23:57 Referral physical therapist referral - Please contact pt to schedule apt for Pola shoulder. Thanks 2024 [facility] (Outpatient Physical Therapy), [address], [place], [address], 01/09/2025 14:55:23 orthopedi c spine surgeon referral - C-spine 2024 DALLIN Traore MD, [address] [facility] [address], [place], [address], 01/31/2025 16:50:34 Procedures None recorded. Surgeries None recorded. Imaging XR, shoulder, 2 or more view 2024 025 [facility], [address], [place], [address], 01/09/2025 12:50:07 Medication Orders Mobic 15 mg tablet 2024 025 [email or web address] [id number], [address], [place], [id number], 01/09/2025 10:57:01 Patient TargetsNo targets recorded. Patient Instructions Encounter Date Encounter Id Patient Instructions Last Modified By Organization Details Last Modified Time 12/15/2024 [id number] complete PFT w/ post bronchodilator spirometry* - Please call patient to schedule. DAYSI [id number] per [facility] payor portal, ref #[id number]. [email or web address] Not available 01/25/2025 15:43:53 Reason for Referral Physical Therapist Referral for Bilateral shoulder osteoarthritis Pola Shoulders Please contact pt to schedule apt for Pola shoulder. Thanks Referring Physician: [place], Orthopedic Surgery, Encounter Date: 01/09/2025 Orthopedic Spine Surgeon Ref erral for Bilateral shoulder osteoarthritis c-spine C-spine Referring Physician: [place], Orthopedic Surgery, Encounter Date: 01/09/2025 Results Created Date Observation Date Name Description Value Unit Range Abnormal Flag Note LastModifiedBy Organization Detail LastModifiedTime 12/12/19 25 06/03/2024 LDCT, chest , for lung cance r scree shania No observ ation record ed. Not Available 2024 13:17:28 12/12/19 25 12/12/2022 LDCT, chest , for lung cance r scree shania No observ ation record ed. BARCODE Not Available 2024 11:34:56 01/09/20 XR, shoul roshan, 2 or more view No observ ation record ed. [email or web address] [facility] [address] [facility], [place], [address], 01/09/2025 10:17:03 Result Notes None recorded. Problems Name Problem SNOMED Code Status Onset Date Resolution Date Notes Provider Name and Address Organization Details Recorded Time Atelectasis 76887774 Active 2024 Arvin Howe MD [address] [facility], [facility] [address], [place], [address], [employer] 5 09:10:20 Pain of right shoulder joint 2085063096261 9100 Active 2024 LANA Singh null, [employer] 5 10:16:16 Pain of left shoulder joint 5194169618052 9109 Active 2024 LANA Singh, [facility] 5 10:16:22 Bilateral shoulder osteoarthri tis 2699606480275 08 Active 2024 LANA Singh null, [facility] 5 10:16:56 Cervical radiculopat hy 22563722 Active 2024 New Dumont MD [address] [facility] [address], [place], [address] [place] [address] [facility] 12:16:59 Notes:[facility] Lab data 12/15/24 multiple environmental allergies, (+) Quantiferon TB Gold Medical History: Right Concepcion's palsy Left blindness Bilateral tinnitus L>R hearing loss COVID infection 11/2022 Rhinitis to multiple environmental allergens IgE 169 IU/mL Eosinophils 290/uL (+) Quantiferon TB Gold AAT PiMM 110 mg% Bibasilar atelectasis BLL bronchiectasis Chronic Hepatitis C ED Procedure History: Skull fracturte repair 1981 Left eye surgery 1981 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 Procedures Surgical History None recorded. Imaging Results Imaging Date Name Status LastModified by Organiz ation Details LastModified Time 06/03/2024 LDCT, chest, for lung cancer screening completed Information not available 12/12/2024 13:17:28 12/12/2022 LDCT, chest, for lung cancer screening completed BARCODE Information not available 12/12/2024 11:34:56 01/09/2025 XR, shoulder, 2 or more view completed [email or web address] [facility] [address] [place] [address], [place], [address], 01/09/2025 10:17:03 Procedure Notes None recorded. Medical Equipment None Reported. Allergies Allergen ID Allergen Name Allergen Category Reaction Reaction Severity Criticality Documentation Date Start Date Code Code System Note Provider Name and Address Organization Details Recorded Time 77545 Product containin g penicilli n (product) medicatio n Not available Not available Not available 12/09/2024 64257 8001 SNOMED Arvin Howe MD [address] [facility] [address], [place], [address] [place] [facility] 14:53:48 Medications Name Sig Start Date Stop [...] No t Available prednisone 20 mg tablet TAKE 2 TABLETS BY MOUTH EVERY DAY AROUND THE CLOCK FOR 5 DAYS FOR COPD FLARE 12/15 completed Not Available Not Available Not Available aspirin 81 mg tablet,braxton yed release TAKE 1 TABLET BY MOUTH EVERY DAY AROUND THE CLOCK FOR BLOOD THINNER active Not Available Not Available No t Available sildenafil 100 mg tablet Take 1 [...] Not Available Not Available No t Available rosuvastati n 5 mg tablet TAKE 1 TABLET BY MOUTH EVERY NIGHT AT BEDTIME active Not Available Not Available [...] and Address Organization Details Last Updated DateTime 29255.3 7 g 21.8 kg/m2 182.88 cm 97.3 [degF] 64 /min 95 % 95 % 120 mm[Hg] 68 mm[Hg] Neema Morrell MA [facility] [employer] [facility] 09:32:35 Date Recorded Heart rate Respiratory rate Provider N tita and Address Organization Details Last Updated DateTime 12/15/2024 64 /min 15 /min Arvin Howe MD [address] [facility], [facility] [address], [place], [address], [facility] [employer] [facility] 12/15/2024 09:47:10 Date Recorded Body height Body mass index (BMI) Body weight Pain severity - 0-10 verbal numeric rating [Score] - Reported Provider Name and Address Organization Details Last Updated DateTime 01/09/2025 182.88 cm 21.8 kg/m2 01472.37 g 6 Lyla Araya Fransico [facility] [employer] [facility] 01/09/2025 10:13:27 Social History Question Answer Notes LastModified by Organizat ion Details LastModified Time Tobacco Smoking Status Former Smoker Neema Morrell MA null, [facility] [employer] [facility] 12/15/2024 09:27:45 What Is Your Level Of [...] Date Of Your Most Recent Tobacco Screening? 01/09/2025 Information not available 01/09/2025 Do You Have Any Pets? Yes Information [...] Anxious, Or Unable To Sleep At Night)? [id number] Information not available 12/15/2024 Do You Use [...] mellitus Not available 2024 10:11:28 Medical History Condition Response LUNG DISEASE/DISORDER Y COPD Y STROKE/TIA Y Past Encounters Encounter ID Performer Location Encounter Start Date Encounter Closed Date Diagnosis/Indication Diagnosis SNOMED-CT Code Diagnosis ICD10 Code Diagnosis Note [id number] Arvin Howe MD [facility] [address] [address] 12/15/2024 08:55:41 12/15/2024 10:45:20 Dyspnea on exertion 59413508 R06.09 R05.3 D89.9 T78.40XA [employer] 27412894 J98 .11 [id number] New Dumont MD [facility] [address] [place] [address] 01/09/2025 09:49:31 01/09/2025 10:52:56 Pain of right shoulder joint 7757567744 3229085 M25.511 Pain of le ft shoulder joint 8502258476 2080218 M25.512 Bilateral shoulder osteoarthritis 2851463717 84488 M25.519 Cervical radiculopathy 83507738 M54.12 Health Concerns Section Related Observation LastModified by Organization Detai ls LastModified Time None Recorded Concern Status LastModified by Organization Details LastModified Time None Recorded Advance Directives Directive None Recorded Payers Encounter Date Sequence Insurance Name Policy Number Policy Wang Covered Member ID Wang Member ID Guarantor Name 12/15/2024 2 [place] [facility] PUBLIC AID William Hackett [id number] William Hackett 12/15/2024 1 [facility] (MEDICARE REPLACEMENT/A DVANTAGE - PPO) [id number] William Hackett [id number] William Hackett 01/09/2025 2 [place] [facility] OF PUBLIC AID William Hackett [id number] William Hackett 01/09/2025 1 [facility] (MEDICARE REPLACEMENT/A DVANTAGE - PPO) [id number] William Hackett [id number] William Hackett Notes Date Note Type Note Provider Name and Address Organization Details Recorded Time text/html Primary care/Referring provider: Johnnie Chiu MD CC: I alternate between my Symbicort HFA and my albuterol HFA. Patient is here to go over shortness of breath evaluation/management. Initial development of shortness of breath: uration of shortness of breath: 1 yearCondition of shortness of breath: stableTiming of shortness of breath: noneFrequency: up to 3 times a dayLimits activities: yesAggravating factors: walking, foot pedaling exerciseAlleviating factors: rest Modified [employer] (mMRC) Dyspnea Scale - Grade 2Grade 0 I only get breathless with strenuous exercise .Grade 1 I get short of breath when hurrying on the level or walking up a slight hill .Grade 2 I walk slower than people of the same age on the level because of breathlessness or have to stop for breath when walking at my own pace on the level .Grade 3 I stop for breath after walking about 100 yards or after a few minutes on the level .Grade 4 I am too breathless to leave the house or I am breathless when dressing . Treatment history: Albuterol nebs as needed [...] noEdema: no Environmental exposures:Nicotine smoke: 2 ppd [phone] = 80 pack yearsPaint: noDye: noDust mites: [...] slight chance of dozing. Arvin Howe MD [address] [place] [address], [place] [address], [place], [address], [facility] [employer] [facility] 12/15/2024 11:55:27
[2025-03-02 20:00] LABS: Oxygen Saturation ABG 84.3 % (95.0-100.0); Oxyhemoglobin 82.6 % THb (90.0-100.0)
[2025-03-02 20:01] LABS: Device BIPAP; Modified Allen's Test Pass; Site Drawn LEFT RADIAL
[2025-03-02 20:02] LABS: Expiratory Pressure 6 cmH2O; Inspiratory Pressure 12 cmH2O
--- NOTE | 2025-03-02 20:28 | ED.GENADULT ---
HPI - General Adult General Chief complaint: Shortness of Breath/Dyspnea Stated complaint: shortness of breath Time Seen by Provider: 03/02/25 19:16 History of Present Illness HPI narrative: Patient is a 6-year-old male who presents to the emergency department this evening complaining of shortness of breath. Patient presents via EMS and states that he woke up short of breath. Does have a history of COPD and does use inhalers at home. Per EMS report, patient was satting 82% on room air. Respiratory rate 40 breaths per minute. Patient does not use any home oxygen. He received 2 DuoNebs and 125 mg of IV Solu-Medrol. Patient also received 2 g of IV magnesium with improvement of his breathing. He was placed on BiPAP and was brought to our facility for further evaluation. Upon arrival, patient is speaking in full sentences, states that he feels much better after being placed on the BiPAP, alert and oriented to person, place, time and situation and denies any symptoms including any chest pain. Patient also denies any recent illness, fevers or chills. Related Data Home Medications ?Medication ?Instructions ?Recorded ?Confirmed ?Last Taken ?Type albuterol sulfate 2.5 mg/3 mL 2.5 mg inhalation Q4-6H PRN 01/26/25 01/26/25 Unknown History (0.083 %) solution for nebulization albuterol sulfate 90 mcg/actuation 1 inh inhalation Q4H PRN 01/26/25 01/26/25 Unknown History aerosol inhaler (Ventolin HFA) aspirin 81 mg tablet,delayed 81 mg PO DAILY 01/26/25 01/26/25 Unknown History release (Adult Aspirin Regimen) budesonide-formoterol HFA 160 2 puff inhalation Q12H 01/26/25 01/26/25 Unknown History mcg-4.5 mcg/actuation aerosol inhaler (Symbicort) meloxicam 15 mg tablet 15 mg PO DAILY 01/26/25 01/26/25 Unknown History rosuvastatin 5 mg tablet 5 mg PO DAILY 01/26/25 01/26/25 Unknown History sildenafil 100 mg tablet (Viagra) 100 mg PO DAILY PRN 01/26/25 01/26/25 Unknown History umeclidinium 62.5 mcg/actuation 1 inh inhalation DAILY 01/26/25 01/26/25 Unknown History blister powder for inhalation (Incruse Ellipta) Allergies Allergy/AdvReac Type Severity Reaction Status Date / Time Penicillins Allergy Mild Unknown Verified 01/26/25 09:04 Review of Systems Review of Systems: All systems are reviewed and are negative unless stated otherwise in the HPI. [facility] Past Medical History Medical History TIA (transient ischemic attack) Lung disease COPD (chronic obstructive pulmonary disease) Mild bibasilar atelectasis Erectile dysfunction Chronic hepatitis Hearing loss Bilateral tinnitus Blind left eye Right-sided Concepcion's palsy Surgical History Surgical History History of cranioplasty Social History Social History Smoking packs per day: 3 Smoking cigarettes per day: 60.0 Years smoked: 50 Smoking pack-years: 150.00 Smoking status: Former smoker Smoking end date: 07/15/24 Alcohol intake: former Substance use: former Do You Feel Safe in your Home?: Yes Lack of Transportation: No Lack of Food: Never True Current Housing: I Have Housing Concerned About Future Housing: No Difficulty Paying Gas/Electric Bills: No Difficulty Paying for Meds: No Currently Unemployed: YES Education: High School Diploma/GED Difficulty w/ Childcare or Family Care: No Exam Narrative: General: Alert, awake, afebrile, in no acute distress. HEENT: PERRL, no rhinorrhea, no post nasal drip, oropharynx clear. Neck: Trachea midline, no JVD, no lymphadenopathy. Cardiovascular: Regular rate and rhythm, no murmurs, rubs or gallops, no peripheral edema. Respiratory: Diminished breath sounds bilaterally with decreased air movement, tachypnea, mild respiratory distress. Abdomen: Soft, nontender, nondistended, no rebound, no guarding, no peritoneal signs. Musculoskeletal: No joint swelling or deformity, normal muscle tone. Skin: No rashes or petechia, no signs of infection. Psychiatric: Alert and oriented, normal behavior and judgment for situation. Neurological: Alert and oriented to person, place, and time. Follows all commands. No focal deficits, speech is clear and fluent. Course Vital Signs Vital signs: Vital Signs Temperature 98.5 F 03/02/25 19:01 Pulse Rate 86 03/02/25 19:01 Respiratory Rate 30 H 03/02/25 19:01 Blood Pressure 164/97 H 03/02/25 19:01 Pulse Oximetry 100 03/02/25 19:01 Oxygen Delivery BiPAP 03/02/25 19:01 Temperature 98.5 F 03/02/25 19:01 Pulse Rate 72 03/02/25 20:46 Respiratory Rate 17 03/02/25 20:46 Blood Pressure 117/79 03/02/25 20:46 Pulse Oximetry 97 03/02/25 20:46 Oxygen Delivery BiPAP 03/02/25 19:25 Fraction of Inspired Oxygen 40 03/02/25 19:13 Medical Decision Making MDM Narrative Medical decision making narrative: The patient was evaluated by myself in the emergency department. History is obtained from patient who is an independent historian and physical exam was performed. External medical records were reviewed at this time. IV was established and pertinent tests were ordered. Patient was administered an hour long DuoNeb breathing treatment. EKG was obtained which revealed sinus rhythm rate of 81 beats per minute, no evidence of acute ischemia. EKG was independently interpreted by me and is currently pending official cardiology read. Laboratory results obtained revealing a leukocytosis of 14, otherwise unremarkable. Venous blood gas was obtained revealing a pH of 7.34, CO2 of 48.8, PO2 of 51.4, bicarb 26.2, O2 saturation of 84.3, Oxy hemoglobin 80 2.6%. Imaging studies obtained included CXR which was independently interpreted by me revealin. Prominent interstitial thickening bilaterally which may indicate pneumonitis. Fibrotic changes are not excluded. At this time, patient was started on IV antibiotics with Rocephin and azithromycin to cover him for pneumonia. Differential diagnosis considerations include COPD exacerbation, infectious process such as pneumonia, acute viral syndrome. Comorbidities impacting this visit include history of COPD. I have evaluated and discussed social determinants of health with the patient that could potentially impact subsequent diagnosis and treatment plans. On repeat assessment of the patient, reevaluation revealed that the patient is doing well and is in no acute distress. Patient symptoms have improved since he arrived to our emergency department. Repeat vital signs were all reviewed and noted to be stable. Differential diagnosis and treatment plan were discussed with the patient at bedside. Patient agrees with discussion and after shared medical decision making agrees with admission. All questions were answered to the patient's satisfaction. Case was discussed with the on-call hospitalist Dr. Reddy at 2100 who accepted admission. Vital Signs Vital Signs: Vital Signs Temperature 98.5 F 03/02/25 19:01 Pulse Rate 86 03/02/25 19:01 Respiratory Rate 30 H 03/02/25 19:01 Blood Pressure 164/97 H 03/02/25 19:01 Pulse Oximetry 100 03/02/25 19:01 Oxygen Delivery BiPAP 03/02/25 19:01 Temperature 98.5 F 03/02/25 19:01 Pulse Rate 72 03/02/25 20:46 Respiratory Rate 17 03/02/25 20:46 Blood Pressure 117/79 03/02/25 20:46 Pulse Oximetry 97 03/02/25 20:46 Oxygen Delivery BiPAP 03/02/25 19:25 Fraction of Inspired Oxygen 40 03/02/25 19:13 Lab Data 03/02/25 19:27 03/02/25 19:27 Labs: Lab Results 03/02/25 03/02/25 Range/Units 19:27 19:51 WBC 14.0 H (4.5-10.0) K/mm3 RBC 4.53 L (4.6-6.20) M/mm3 Hgb 13.1 L (14.0-18.0) g/dL Hct 41.5 L (42.0-52.0) % MCV 91.6 (80-100) fl MCH 28.9 (26-34) pg MCHC 31.6 L (32-36) g/dl RDW 22.5 H (11.5-14.5) % Plt Count 234 (150-375) k/mm3 MPV 10.4 (7.4-10.4) fl Immature Gran % (Auto) 0.6 H (0-0.5) % Neut % (Auto) 74.8 H (45.5-73.1) % Lymph % (Auto) 16.2 L (18.3-44.2) % [place] % (Auto) 6.6 (2.6-8.5) % Eos % (Auto) 1.1 (0-4.4) % Baso % (Auto) 0.7 (0.2-1.2) % Lymph # (Auto) 2.28 (0.9-3.2) K/mm3 [place] # (Auto) 0.9 H (0.1-0.6) K/mm3 Eos # (Auto) 0.2 (0-0.3) K/mm3 Baso # (Auto) 0.1 (0.0-0.1) K/mm3 Abs Immat Gran (auto) 0.08 H (0.00-0.031) K/mm3 Absolute Neuts (auto) 10.5 H (1.3-6.7) K/mm3 Absolute Nucleated RBC 0.030 H (0.0-0.012) K/mm3 Band Neutrophils % Not Reportable Nucleated RBC % 0.2 (0.0-0.2) % Platelet Estimate Adequate (Adequate) Anisocytosis 1+ Target Cells 1+ Ovalocytes 1+ Schistocytes None seen Methemoglobin 0.3 (0-1.5) %THb Expiratory Pressure 6 cmH2O Inspiratory Pressure 12 cmH2O Sodium 142 (137-145) mmol/L Potassium 3.6 (3.4-5.0) mmol/L Chloride 102 (98-107) mmol/L Carbon Dioxide 29 (22-30) mmol/L Anion Gap 11 (4-12) mmol/L BUN 21 H (9-20) mg/dL Creatinine 0.76 (0.7-1.3) mg/dL Estim Creat Clear Calc 86 ml/min Estimated GFR > 60 (59 - ) Glucose 149 H (65-110) mg/dL Calcium 9.1 (8.4-10.2) mg/dL Total Bilirubin 0.6 (0.2-1.3) mg/dL AST 26 (17-59) U/L ALT 24 (6-50) U/L Alkaline Phosphatase 53 (38-126) U/L Total Protein 8.0 (6.3-8.2) g/dL Albumin 5.1 (3.5-5.1) g/dL ABG Data ABG results: 03/02/25 19:51 Puncture Site Left radial ABG pH 7.348 L ABG pCO2 48.8 H ABG pO2 51.4 L ABG PO2/FiO2 Ratio 2.06 ABG HCO3 26.2 H ABG O2 Saturation 84.3 L* ABG O2 Content 16.6 ABG Base Excess 0.0 A-a Gradient 68.9 Oxyhemoglobin 82.6 L* Carboxyhemoglobin 0.7 Reduced Hemoglobin 16.4 H Total Hemoglobin 14.3 O2 Delivery Device Bipap O2 Liters/Min [employer] 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 FiO2 25 Discharge Plan Discharge Clinical Impression: Acute hypoxic respiratory failure, COPD exacerbation Patient Disposition: Still a Patient Condition: Improved Patient Language: Croatian Prescriptions: No Action albuterol sulfate 2.5 mg /3 mL (0.083 %) solution for nebulization 2.5 mg inhalation Q4-6H PRN albuterol sulfate [Ventolin HFA] 90 mcg/actuation HFA aerosol inhaler 1 inh inhalation Q4H PRN aspirin [Adult Aspirin Regimen] 81 mg tablet,delayed release (DR/EC) 81 mg PO DAILY Incruse Ellipta 62.5 mcg/actuation blister with device 1 inh inhalation DAILY meloxicam 15 mg tablet 15 mg PO DAILY rosuvastatin 5 mg tablet 5 mg PO DAILY sildenafil [Viagra] 100 mg tablet 100 mg PO DAILY PRN Rx Instructions: administer 30 minutes to 4 hours before activity budesonide-formoterol [Symbicort] 160-4.5 mcg/actuation HFA aerosol inhaler 2 puff inhalation Q12H Follow-up/Referrals: Jonathan,Jessica Blair [Primary Care Provider] - Time of Disposition: 20:36
[2025-03-02] MEDS: ALBUTEROL SULFATE NEB 2.5 MG/3 ML INH 10 MG INHALATION (20:45)
[2025-03-02] MEDS: IPRATROPIUM BR 0.02% INH SOLN 0.5 MG/2.5 ML VIAL 2 MG INHALATION (20:45)
--- NOTE | 2025-03-02 21:14 | PC.NURSE ---
BEULAH from Dr. Sanders on no need for blood cultures prior to antibiotic administration.
[2025-03-02] MEDS: AZITHROMYCIN 500 MG/NS 250 ML 500 MG/250 ML BAG 250 MG IVPB (21:48)
--- NOTE | 2025-03-02 22:50 | ADMGEN ---
This patient, William Hackett, was admitted to IMU Room 213-01. Patient/family oriented to hospital policies and general routines including ID bracelet, bed and alarms, visiting hours, pain management, procedures, bathroom and other care routines, personal items, smoking policy, room service/diet, and visiting hours. Information on how to activate the Rapid Response Team has been discussed. Patient/Family are encouraged to report perceived risks to care and to ask questions if they do not understand what they are told or what they should do.
[2025-03-03] VITALS (24 sets, daily range): BP systolic 139–164; BP diastolic 75–92; PULSE 67–105; RESP 18–23; TEMP 36.9–37.1; O2SAT 93–99
--- NOTE | 2025-03-03 07:41 | P.HP_ITS ---
H&P: HPI History of Present Illness Date/Time: 03/03/25 07:41 Chief Complaint: Shortness of breath Narrative: Patient is a 69-year-old male who presents to the emergency department this evening complaining of shortness of breath. Patient presents via EMS and states that he woke up short of breath. Does have a history of COPD and does use inhalers at home. Per EMS report, patient was satting 82% on room air. Respiratory rate 40 breaths per minute. Patient does not use any home oxygen. He received 2 DuoNebs and 125 mg of IV Solu-Medrol. Patient also received 2 g of IV magnesium with improvement of his breathing. He was placed on BiPAP and was brought to our facility for further evaluation. Upon arrival, patient is speaking in full sentences, states that he feels much better after being placed on the BiPAP, alert and oriented to person, place, time and situation and denies any symptoms including any chest pain. Patient also denies any recent illness, fevers or chills. On ED evaluation he was afebrile blood pressure mildly elevated mildly tachypneic SpO2 100% on BiPAP. EKG with sinus rhythm and no acute ST-T changes. Laboratory workup revealed WBC of 14 K hemoglobin 13.1 platelet of 234 Chem panel was unremarkable. ABG 7.34/48/51/26 Chest x-ray showed prominent interstitial thickening bilaterally which may indicate pneumonitis. Fibrotic changes are not excluded. Patient has been placed on ceftriaxone azithromycin and admitted for further treatment Review of Systems Review of Systems: - CONSTITUTIONAL: Denies weight loss, fe bonnie and chills. - HEENT: Denies changes in vision and he aring - RESPIRATORY: Reports SOB and cough. - CV: Denies palpitations and CP. - GI: Denies abdominal pain, nausea, vom iting and diarrhea. - : Denies dysuria and urinary frequen cy. - MSK: Denies myalgia and joint pain. - SKIN: Denies rash and pruritus. - NEUROLOGICAL: Denies headache and sync ope. - PSYCHIATRIC: Denies recent changes in mood. Denies anxiety and depression. PMFSH Past Medical History Medical History TIA (transient ischemic attack) Lung disease COPD (chronic obstructive pulmonary disease) Mild bibasilar atelectasis Erectile dysfunction Chronic hepatitis Hearing loss Bilateral tinnitus Blind left eye Right-sided Concepcion's palsy Surgical History Surgical History History of cranioplasty Social History Social History Smoking packs per day: 3 Smoking cigarettes per day: 60.0 Years smoked: 50 Smoking pack-years: 150.00 Smoking status: Former smoker Smoking end date: 07/15/24 Alcohol intake: never Substance use: never Substance use type: does not use Do You Feel Safe in your Home?: Yes Lack of Transportation: No Lack of Food: Never True Current Housing: I Have Housing Concerned About Future Housing: No Difficulty Paying Gas/Electric Bills: No Difficulty Paying for Meds: No Currently Unemployed: No Education: High School Diploma/GED Difficulty w/ Childcare or Family Care: No Spiritual care concerns: No Meds Home Medications and Allergies Home Medications ?Medication ?Instructions ?Recorded ?Confirmed ?Type albuterol sulfate 2.5 mg/3 mL 2.5 mg inhalation Q4-6H PRN 01/26/25 03/02/25 History (0.083 %) solution for nebulization shortness of breath or wheezing albuterol sulfate 90 mcg/actuation 1 inh inhalation Q4H PRN shortness 01/26/25 03/02/25 History aerosol inhaler (Ventolin HFA) of breath or wheezing aspirin 81 mg tablet,delayed 81 mg PO DAILY 01/26/25 03/02/25 History release (Adult Aspirin Regimen) budesonide-formoterol HFA 160 2 puff inhalation Q12H 01/26/25 03/02/25 History mcg-4.5 mcg/actuation aerosol inhaler (Symbicort) meloxicam 15 mg tablet 15 mg PO DAILY 01/26/25 03/02/25 History sildenafil 100 mg tablet (Viagra) 100 mg PO DAILY PRN erectile 01/26/25 03/02/25 History dysfunction umeclidinium 62.5 mcg/actuation 1 inh inhalation DAILY 01/26/25 03/02/25 History blister powder for inhalation (Incruse Ellipta) atorvastatin 10 mg tablet 10 mg PO QPM 03/02/25 03/02/25 History Allergies Allergy/AdvReac Type Severity Reaction Status Date / Time Penicillins Allergy Mild Unknown Verified 03/02/25 21:18 atorvastatin AdvReac Intermediate Palpitation Verified 03/02/25 21:18 s Vital Signs Vital Signs - 24 hr 03/02/25 19:01 03/02/25 19:13 03/02/25 19:15 Temperature 98.5 F Pulse Rate 86 82 Respiratory Rate 30 H 24 H Blood Pressure 164/97 H 159/89 H Pulse Oximetry 100 100 100 Oxygen Delivery BiPAP BiPAP Fraction of Inspired Oxygen 40 03/02/25 19:25 03/02/25 19:45 03/02/25 19:57 Temperature Pulse Rate 80 77 76 Respiratory Rate 23 H 23 H 19 Blood Pressure 138/97 H Pulse Oximetry 99 99 99 Oxygen Delivery BiPAP Fraction of Inspired Oxygen 03/02/25 20:01 03/02/25 20:16 03/02/25 20:31 Temperature Pulse Rate 73 70 82 Respiratory Rate 16 18 22 H Blood Pressure 118/77 121/78 127/83 Pulse Oximetry 99 97 99 Oxygen Delivery Fraction of Inspired Oxygen 03/02/25 20:46 03/02/25 21:00 03/02/25 21:01 Temperature Pulse Rate 72 65 65 Respiratory Rate 17 18 19 Blood Pressure 117/79 132/76 Pulse Oximetry 97 99 99 Oxygen Delivery Fraction of Inspired Oxygen 03/02/25 21:15 03/02/25 21:47 03/02/25 22:01 Temperature Pulse Rate 75 79 81 Respiratory Rate 26 H 22 H Blood Pressure 128/66 129/82 Pulse Oximetry 100 98 Oxygen Delivery Fraction of Inspired Oxygen 03/02/25 22:15 03/02/25 22:45 03/02/25 23:19 Temperature 97.8 F Pulse Rate 80 87 67 Respiratory Rate 25 H 23 H 26 H Blood Pressure 133/94 H Pulse Oximetry 98 98 100 Oxygen Delivery BiPAP Fraction of Inspired Oxygen 03/02/25 23:36 03/02/25 23:36 03/03/25 02:00 Temperature Pulse Rate 68 68 70 Respiratory Rate 24 H Blood Pressure Pulse Oximetry 100 Oxygen Delivery BiPAP Fraction of Inspired Oxygen 03/03/25 02:10 03/03/25 04:00 03/03/25 04:00 Temperature 98.7 F Pulse Rate 72 70 71 Respiratory Rate 19 23 H 23 H Blood Pressure 139/75 Pulse Oximetry 99 93 96 Oxygen Delivery BiPAP BiPAP Fraction of Inspired Oxygen 40 03/03/25 04:00 03/03/25 05:26 Temperature Pulse Rate 71 74 Respiratory Rate Blood Pressure Pulse Oximetry Oxygen Delivery Fraction of Inspired Oxygen Exam Narrative: General: Alert, awake, afebrile, in no acute distress. HEENT: PERRL, no rhinorrhea, no post nasal drip, oropharynx clear. Neck: Trachea midline, no JVD, no lymphadenopathy. Cardiovascular: Regular rate and rhythm, no murmurs, rubs or gallops, no peripheral edema. Respiratory: Diminished breath sounds bilaterally with decreased air movement, no wheezes Abdomen: Soft, nontender, nondistended, no rebound, no guarding, no peritoneal signs. Musculoskeletal: No joint swelling or deformity, normal muscle tone. Skin: No rashes or petechia, no signs of infection. Psychiatric: Alert and oriented, normal behavior and judgment for situation. Neurological: Alert and oriented to person, place, and time. Follows all commands. No focal deficits, speech is clear and fluent. H&P: Results Labs Labs: Short CBC 03/02/25 Range/Units 19:27 WBC 14.0 H (4.5-10.0) K/mm3 Hgb 13.1 L (14.0-18.0) g/dL Hct 41.5 L (42.0-52.0) % Plt Count 234 (150-375) k/mm3 BMP 03/02/25 19:27 Sodium 142 Potassium 3.6 Chloride 102 Carbon Dioxide 29 BUN 21 H Creatinine 0.76 Glucose 149 H Calcium 9.1 Liver Function 03/02/25 Range/Units 19:27 Total Bilirubin 0.6 (0.2-1.3) mg/dL AST 26 (17-59) U/L ALT 24 (6-50) U/L Alkaline Phosphatase 53 (38-126) U/L Albumin 5.1 (3.5-5.1) g/dL Assessment and Plan Assessment and plan (1) Acute hypoxic respiratory failure: Code(s): J96.01 - Acute respiratory failure with hypoxia Status: Acute (2) COPD exacerbation: Code(s): J44.1 - Chronic obstructive pulmonary disease with (acute) exacerbation Status: Acute (3) Cervical spondylosis: Code(s): M47.812 - Spondylosis without myelopathy or radiculopathy, cervical region Status: Acute Plan Patient is a 69-year-old male who presents to the emergency department this evening complaining of shortness of breath. Patient presents via EMS and states that he woke up short of breath. Does have a history of COPD and does use inhalers at home. Per EMS report, patient was satting 82% on room air. Respiratory rate 40 breaths per minute. Patient does not use any home oxygen. He received 2 DuoNebs and 125 mg of IV Solu-Medrol. Patient also received 2 g of IV magnesium with improvement of his breathing. He was placed on BiPAP and was brought to our facility for further evaluation. Upon arrival, patient is speaking in full sentences, states that he feels much better after being placed on the BiPAP, alert and oriented to person, place, time and situation and denies any symptoms including any chest pain. Patient also denies any recent illness, fevers or chills. On ED evaluation he was afebrile blood pressure mildly elevated mildly tachypneic SpO2 100% on BiPAP. EKG with sinus rhythm and no acute ST-T changes. Laboratory workup revealed WBC of 14 K hemoglobin 13.1 platelet of 234 Chem panel was unremarkable. ABG 7.34/48/51/26 Chest x-ray showed prominent interstitial thickening bilaterally which may indicate pneumonitis. Fibrotic changes are not excluded. Patient has been placed on ceftriaxone azithromycin and admitted for further treatment Acute hypoxic respiratory failure needing BiPAP Possible COPD exacerbation start Solu-Medrol and DuoNeb scheduled Prominent interstitial thickening bilaterally possible pneumonitis on ceftriaxone and azithromycin. Will get CT chest to further evaluate these findings. Hypertension Hyperlipidemia Moderate COPD History of TIA Chronic hepatitis Right-sided Concepcion's palsy History of cranioplasty DVT prophylaxis Lovenox Code status full code Hospitalist [facility] Advance Care Plan I have confirmed that the patient's Advanced Care Plan is present, code status is documented, or surrogate decision maker is listed in patient medical record.: Yes Medication Reconciliation I have utilized all available resources to obtain, update and review the patients current medications (includes all prescriptions, OTC, herbals, cannabis, and nutritional supplements).: Yes
[2025-03-03] MEDS: ALBUTEROL SULFATE NEB 2.5 MG/3 ML INH INHALATION (08:23)
[2025-03-03] MEDS: UMECLIDINIUM BROMIDE 62.5 MCG ELLIPTA 1 PUFF INHALATION (08:28)
[2025-03-03] MEDS: FLUTICASONE/SALMETEROL 115-21 MCG INHALER 1 PUFF 2 PUFF INHALATION ×2 (08:29→21:18)
[2025-03-03] MEDS: ASPIRIN 81 MG ENTERIC TABLET PO (08:54)
[2025-03-03] MEDS: MELOXICAM 7.5 MG TABLET 15 MG PO (08:54)
--- NOTE | 2025-03-03 10:14 | PC.NURSE ---
On 03/03/25, the student, [Sandrine Rodriguez], provided care and completed [facility] documentation on this patient. I have reviewed the student's documentation and agree with the findings.
[2025-03-03] MEDS: IPRATROPIUM 0.5 MG/ALBUTEROL SULFATE 2.5 MG AMPUL.NEB 3 ML INHALATION ×2 (13:30→21:17)
[2025-03-03] MEDS: methylPREDNISolone SOD SUCC 125 MG VIAL 40 MG IV PUSH ×2 (13:54→20:50)
[2025-03-03 13:55] LABS: Troponin I < 0.012 ng/mL (0.000-0.034)
[2025-03-03] MEDS: ATORVASTATIN 10 MG TABLET PO (17:52)
[2025-03-03] MEDS: AZITHROMYCIN 500 MG/NS 250 ML 500 MG/250 ML BAG 250 MG IVPB (20:51)
[2025-03-04] VITALS (20 sets, daily range): BP systolic 130–147; BP diastolic 78–96; PULSE 70–89; RESP 16–24; TEMP 36.8–37; O2SAT 95–100
[2025-03-04] MEDS: IPRATROPIUM 0.5 MG/ALBUTEROL SULFATE 2.5 MG AMPUL.NEB 3 ML INHALATION ×4 (02:09→19:49)
[2025-03-04 04:31] LABS: Basophils Percent Auto 0.3 % (0.2-1.2); Hematocrit 35.9 % (42.0-52.0); Hemoglobin 11.5 g/dL (14.0-18.0); Immature Granulocyte Absolute 0.05 K/mm3 (0.00-0.031); Immature Granulocyte Percent A 0.5 % (0-0.5); Lymphocytes Absolute Auto 0.63 K/mm3 (0.9-3.2); Lymphocytes Percent Auto 6.7 % (18.3-44.2); Mean Corpuscular Volume 90.4 fl (80-100); Mean Platelet Volume 10.6 fl (7.4-10.4); Monocytes Absolute Auto 0.3 K/mm3 (0.1-0.6); Monocytes Percent Auto 3.4 % (2.6-8.5); Neutrophils Absolute Auto 8.3 K/mm3 (1.3-6.7); Neutrophils Percent Auto 89.1 % (45.5-73.1); Nucleated Red Blood Cells Perc 0.4 % (0.0-0.2); Platelet Count Result 206 k/mm3 (150-375); Red Blood Count 3.97 M/mm3 (4.6-6.20); White Blood Count 9.4 K/mm3 (4.5-10.0)
[2025-03-04 04:41] LABS: Alanine Aminotransferase 22 U/L (6-50); Albumin Level 4.4 g/dL (3.5-5.1); Alkaline Phosphatase 37 U/L (38-126); Anion Gap 12 mmol/L (4-12); Aspartate Amino Transferase 23 U/L (17-59); Bilirubin,Total 0.6 mg/dL (0.2-1.3); Blood Urea Nitrogen 22 mg/dL (9-20); Calcium 8.7 mg/dL (8.4-10.2); Carbon Dioxide 24 mmol/L (22-30); Chloride 105 mmol/L (98-107); Estimated CRCL calculation 93 ml/min; Estimated Glomerular Filt Rate > 60; Glucose 127 mg/dL (65-110); Magnesium 1.9 mg/dL (1.6-2.3); Potassium 3.8 mmol/L (3.4-5.0); Sodium 141 mmol/L (137-145)
[2025-03-04] MEDS: methylPREDNISolone SOD SUCC 125 MG VIAL 40 MG IV PUSH (05:30)
[2025-03-04] MEDS: FLUTICASONE/SALMETEROL 115-21 MCG INHALER 1 PUFF 2 PUFF INHALATION ×2 (08:24→19:52)
[2025-03-04] MEDS: UMECLIDINIUM BROMIDE 62.5 MCG ELLIPTA 1 PUFF INHALATION (08:24)
[2025-03-04] MEDS: ASPIRIN 81 MG ENTERIC TABLET PO (08:34)
[2025-03-04] MEDS: MELOXICAM 7.5 MG TABLET 15 MG PO (08:35)
--- NOTE | 2025-03-04 13:45 | PM.IMPN ---
Progress Note: A&P Assessment and Plan (1) Acute hypoxic respiratory failure: Code(s): J96.01 - Acute respiratory failure with hypoxia Status: Acute (2) COPD exacerbation: Code(s): J44.1 - Chronic obstructive pulmonary disease with (acute) exacerbation Status: Acute (3) Cervical spondylosis: Code(s): M47.812 - Spondylosis without myelopathy or radiculopathy, cervical region Status: Acute Plan Patient is a 69-year-old male who presents to the emergency department this evening complaining of shortness of breath. Patient presents via EMS and states that he woke up short of breath. Does have a history of COPD and does use inhalers at home. Per EMS report, patient was satting 82% on room air. Respiratory rate 40 breaths per minute. Patient does not use any home oxygen. He received 2 DuoNebs and 125 mg of IV Solu-Medrol. Patient also received 2 g of IV magnesium with improvement of his breathing. He was placed on BiPAP and was brought to our facility for further evaluation. Upon arrival, patient is speaking in full sentences, states that he feels much better after being placed on the BiPAP, alert and oriented to person, place, time and situation and denies any symptoms including any chest pain. Patient also denies any recent illness, fevers or chills. On ED evaluation he was afebrile blood pressure mildly elevated mildly tachypneic SpO2 100% on BiPAP. EKG with sinus rhythm and no acute ST-T changes. Laboratory workup revealed WBC of 14 K hemoglobin 13.1 platelet of 234 Chem panel was unremarkable. ABG 7.34/48/51/26 Chest x-ray showed prominent interstitial thickening bilaterally which may indicate pneumonitis. Fibrotic changes are not excluded. Patient has been placed on ceftriaxone azithromycin and admitted for further treatment Acute hypoxic respiratory failure needing BiPAP. Will stop BiPAP Possible COPD exacerbation start Solu-Medrol and DuoNeb scheduled. Switched to oral prednisone Prominent interstitial thickening bilaterally possible pneumonitis on ceftriaxone and azithromycin. Will get CT chest to further evaluate these findings which is still pending Hypertension Hyperlipidemia Moderate COPD History of TIA Chronic hepatitis Right-sided Concepcion's palsy History of cranioplasty DVT prophylaxis Lovenox Code status full code Subjective Date/time seen: 03/04/25 13:45 Interval history: Feels better. Use BiPAP overnight. Getting breathing treatment. CT chest still pending. Review of Systems Review of Systems: All systems reviewed & are unremarkable except as noted in HPI and below Exam Narrative: General: Alert, awake, afebrile, in no acute distress. HEENT: PERRL, no rhinorrhea, no post nasal drip, oropharynx clear. Neck: Trachea midline, no JVD, no lymphadenopathy. Cardiovascular: Regular rate and rhythm, no murmurs, rubs or gallops, no peripheral edema. Respiratory: Diminished breath sounds bilaterally with decreased air movement, no wheezes Abdomen: Soft, nontender, nondistended, no rebound, no guarding, no peritoneal signs. Musculoskeletal: No joint swelling or deformity, normal muscle tone. Skin: No rashes or petechia, no signs of infection. Psychiatric: Alert and oriented, normal behavior and judgment for situation. Neurological: Alert and oriented to person, place, and time. Follows all commands. No focal deficits, speech is clear and fluent. Objective Data Vital Signs Vital Signs: Vital Signs - 24 hr 03/03/25 14:00 03/03/25 16:00 03/03/25 16:00 Temperature Pulse Rate 85 105 H Respiratory Rate Blood Pressure Pulse Oximetry 98 Oxygen Delivery Room Air Fraction of Inspired Oxygen 03/03/25 16:02 03/03/25 18:00 03/03/25 19:22 Temperature 98.4 F 98.5 F Pulse Rate 80 79 79 Respiratory Rate 20 20 Blood Pressure 164/86 H 158/91 H Pulse Oximetry 97 98 Oxygen Delivery Fraction of Inspired Oxygen 03/03/25 20:00 03/03/25 20:00 03/03/25 21:21 Temperature Pulse Rate 84 84 Respiratory Rate 20 Blood Pressure Pulse Oximetry 98 96 Oxygen Delivery Room Air Autopap Fraction of Inspired Oxygen 40 03/03/25 21:21 03/03/25 21:30 03/03/25 22:00 Temperature Pulse Rate 76 77 88 Respiratory Rate 18 18 Blood Pressure Pulse Oximetry Oxygen Delivery Fraction of Inspired Oxygen 03/04/25 00:00 03/04/25 00:00 03/04/25 00:00 Temperature 98.3 F Pulse Rate 81 84 84 Respiratory Rate 18 18 Blood Pressure 130/78 Pulse Oximetry 100 100 Oxygen Delivery Autopap Fraction of Inspired Oxygen 40 03/04/25 00:25 03/04/25 02:00 03/04/25 02:10 Temperature Pulse Rate 82 80 Respiratory Rate 21 H 20 Blood Pressure Pulse Oximetry 96 Oxygen Delivery BiPAP BiPAP Fraction of Inspired Oxygen 03/04/25 02:12 03/04/25 03:45 03/04/25 03:45 Temperature Pulse Rate 80 82 82 Respiratory Rate 20 20 Blood Pressure Pulse Oximetry 96 Oxygen Delivery BiPAP Fraction of Inspired Oxygen 40 03/04/25 04:00 03/04/25 05:45 03/04/25 07:54 Temperature 98.3 F 98.2 F Pulse Rate 77 74 71 Respiratory Rate 24 H 20 Blood Pressure 139/96 H 141/86 H Pulse Oximetry 100 100 Oxygen Delivery Fraction of Inspired Oxygen 03/04/25 08:00 03/04/25 08:00 03/04/25 08:25 Temperature Pulse Rate 80 Respiratory Rate Blood Pressure Pulse Oximetry 95 Oxygen Delivery Room Air Room Air Fraction of Inspired Oxygen 03/04/25 08:25 03/04/25 10:00 03/04/25 11:38 Temperature 98.4 F Pulse Rate 85 77 89 Respiratory Rate 16 16 Blood Pressure 146/88 H Pulse Oximetry 98 Oxygen Delivery Fraction of Inspired Oxygen 03/04/25 12:00 03/04/25 12:00 Temperature Pulse Rate 84 Respiratory Rate Blood Pressure Pulse Oximetry Oxygen Delivery Room Air Fraction of Inspired Oxygen Intake/Output Intake/Output: Intake & Output 03/01/25 03/02/25 03/03/25 03/04/25 23:59 23:59 23:59 23:59 Intake Total 300 1480 390 Output Total 550 650 Balance 300 930 -260 Meds/Results Medications: Active Medications Generic Name Dose Route Start Last Admin Trade Name Freq PRN Reason Stop Dose Admin Albuterol 2.5 mg 03/03/25 08:02 03/03/25 08:23 Albuterol Sulfate Neb 2.5 Mg/3 Ml Inh INHALATION 2.5 mg Q4-6H PRN Administration shortness of breath or wheezing Albuterol/Ipratropium 3 ml 03/03/25 14:00 03/04/25 08:24 Ipratropium 0.5 Mg/Albuterol Sulfate 2.5 Mg Ampul.Neb 3 Ml INHALATION 3 ml Q6HRT PAGE Administration Aspirin 81 mg 03/03/25 09:00 03/04/25 08:34 Aspirin 81 Mg Enteric Tablet PO 81 mg DAILY PAGE Administration Atorvastatin Calcium 10 mg 03/03/25 18:00 03/03/25 17:52 Atorvastatin 10 Mg Tablet PO 10 mg QPM PAGE Administration Ceftriaxone Sodium 1 gm in 50 mls @ 100 mls/hr 03/03/25 21:00 03/03/25 21:20 Rocephin 1 Gm/Ns 50 Ml IVPB Infused Q24H PAGE Infusion Azithromycin 500 mg in 250 mls @ 250 mls/hr 03/03/25 22:00 03/03/25 21:50 Zithromax IVPB Infused Q24H PAGE Infusion Meloxicam 15 mg 03/03/25 09:00 03/04/25 08:35 Meloxicam 7.5 Mg Tablet PO 15 mg QAM PAGE Administration Methylprednisolone Sodium Succinate 40 mg 03/03/25 14:00 03/04/25 05:30 Methylprednisolone Sod Succ 125 Mg Vial IV PUSH 40 mg Q8HR PAGE Administration Fluticasone/Salmeterol 2 puff 03/03/25 20:00 03/04/25 08:24 Fluticasone/Salmeterol 115-21 Mcg Inhaler 1 Puff INHALATION 2 puff Q12HRT PAGE Administration Umeclidinium [place] 1 puff 03/03/25 09:00 03/04/25 08:24 Umeclidinium [place] 62.5 Mcg Ellipta INHALATION 1 puff DAILY PAGE Administration Radiology Results: ITS Impressions Chest X-Ray 03/02/25 19:54 IMPRESSION: Prominent interstitial thickening bilaterally which may indicate pneumonitis. Fibrotic changes are not excluded. Labs Labs: Laboratory Results - last 24 hr 03/03/25 03/04/25 13:29 03:56 WBC 9.4 RBC 3.97 L Hgb 11.5 L Hct 35.9 L MCV 90.4 MCH 29.0 MCHC 32.0 RDW 22.0 H Plt Count 206 MPV 10.6 H Immature Gran % (Auto) 0.5 Neut % (Auto) 89.1 H Lymph % (Auto) 6.7 L [place] % (Auto) 3.4 Eos % (Auto) 0.0 Baso % (Auto) 0.3 Lymph # (Auto) 0.63 L [place] # (Auto) 0.3 Eos # (Auto) 0.0 Baso # (Auto) 0.0 Abs Immat Gran (auto) 0.05 H Absolute Neuts (auto) 8.3 H Absolute Nucleated RBC 0.040 H Nucleated RBC % 0.4 H Sodium 141 Potassium 3.8 Chloride 105 Carbon Dioxide 24 Anion Gap 12 BUN 22 H Creatinine 0.66 L Estim Creat Clear Calc 93 Estimated GFR > 60 Glucose 127 H Calcium 8.7 Magnesium 1.9 Total Bilirubin 0.6 AST 23 ALT 22 Alkaline Phosphatase 37 L Troponin I < 0.012 Total Protein 7.0 Albumin 4.4
[2025-03-04 15:51] LABS: Influenza A QL RT-PCR Negative (Negative); Influenza B QL RT-PCR Negative (Negative); RSV RNA, RT-PCR Negative (Negative); SARS-CoV-2 RNA PCR Negative (Negative)
[2025-03-04] MEDS: ATORVASTATIN 10 MG TABLET PO (17:35)
[2025-03-04] MEDS: AZITHROMYCIN 500 MG/NS 250 ML 500 MG/250 ML BAG 250 MG IVPB (21:58)
[2025-03-05] VITALS (13 sets, daily range): BP systolic 125–152; BP diastolic 72–82; PULSE 66–122; RESP 12–20; TEMP 36.5–36.9; O2SAT 96–100
[2025-03-05] MEDS: IPRATROPIUM 0.5 MG/ALBUTEROL SULFATE 2.5 MG AMPUL.NEB 3 ML INHALATION ×4 (01:32→19:51)
[2025-03-05 06:07] LABS: Basophils Absolute Auto 0.1 K/mm3 (0.0-0.1); Basophils Percent Auto 0.8 % (0.2-1.2); Eosinophils Absolute Auto 0.1 K/mm3 (0-0.3); Eosinophils Percent Auto 0.6 % (0-4.4); Hematocrit 36.2 % (42.0-52.0); Hemoglobin 11.9 g/dL (14.0-18.0); Immature Granulocyte Absolute 0.03 K/mm3 (0.00-0.031); Immature Granulocyte Percent A 0.3 % (0-0.5); Lymphocytes Absolute Auto 2.69 K/mm3 (0.9-3.2); Lymphocytes Percent Auto 31.1 % (18.3-44.2); Mean Corpuscular HGB Conc 32.9 g/dl (32-36); Mean Corpuscular Volume 88.3 fl (80-100); Mean Platelet Volume 10.2 fl (7.4-10.4); Monocytes Absolute Auto 0.8 K/mm3 (0.1-0.6); Monocytes Percent Auto 9.5 % (2.6-8.5); Neutrophils Percent Auto 57.7 % (45.5-73.1); Nucleated Red Blood Cells Perc 0.2 % (0.0-0.2); Platelet Count Result 205 k/mm3 (150-375); Red Cell Distribution Width 21.9 % (11.5-14.5); White Blood Count 8.7 K/mm3 (4.5-10.0)
[2025-03-05 06:17] LABS: Alanine Aminotransferase 23 U/L (6-50); Alkaline Phosphatase 36 U/L (38-126); Anion Gap 9 mmol/L (4-12); Aspartate Amino Transferase 25 U/L (17-59); Bilirubin,Total 0.7 mg/dL (0.2-1.3); Blood Urea Nitrogen 21 mg/dL (9-20); Calcium 8.5 mg/dL (8.4-10.2); Carbon Dioxide 30 mmol/L (22-30); Chloride 103 mmol/L (98-107); Estimated CRCL calculation 85 ml/min; Estimated Glomerular Filt Rate > 60; Glucose 83 mg/dL (65-110); Potassium 3.3 mmol/L (3.4-5.0); Sodium 142 mmol/L (137-145)
[2025-03-05] MEDS: predniSONE 20 MG TABLET 40 MG PO (08:17)
[2025-03-05] MEDS: MELOXICAM 7.5 MG TABLET 15 MG PO (08:17)
[2025-03-05] MEDS: FLUTICASONE/SALMETEROL 115-21 MCG INHALER 1 PUFF 2 PUFF INHALATION ×2 (08:17→19:52)
[2025-03-05] MEDS: ASPIRIN 81 MG ENTERIC TABLET PO (08:17)
[2025-03-05] MEDS: UMECLIDINIUM BROMIDE 62.5 MCG ELLIPTA 1 PUFF INHALATION (08:24)
--- NOTE | 2025-03-05 08:44 | PCRCNOTE ---
RT answered patient's call light. Pt states he can't catch his breath despite just having his 2 inhalers and neb tx. RT assessed patient and breathsounds posterior are left side diminished with slight coarseness and right side coarse. SpO2 on room air was 96% with HR at 83 and RR 28. RT called DEEPALI Muñoz in room and BP was taken as well which was 172/141. RN is currently on the phone with Dr. Arce.
--- NOTE | 2025-03-05 08:48 | ECG_ITS ---
Test Date: 2025-03-05 09:00:15 Measurements Intervals [place] Rate: 96 P: 68 CA: 138 QRS: 44 QRSD: 77 T: 92 QT: 324 QTc: 410 Interpretive Statements SINUS RHYTHM WITH SINUS ARRHYTHMIA POSSIBLE LEFT ATRIAL ENLARGEMENT EARLY PRECORDIAL R/S TRANSITION LEFT VENTRICULAR HYPERTROPHY AND ST-T CHANGE BORDERLINE ST-T WAVE ABNORMALITY- INFERIOR LEADS BASELINE ARTIFACT- I, II, III, AVR, AVL, AVF, V1-V6 BORDERLINE ECG Compared to ECG 03/02/2025 19:14:14 No significant changes Electronically Signed On 03-05-2025 11:50:07 CDT by Rudolph Burgos D.O.
[2025-03-05] MEDS: MORPHINE SULFATE (*CRX) 2 MG/ML INJ IV PUSH (08:59)
[2025-03-05 09:44] LABS: Troponin I < 0.012 ng/mL (0.000-0.034)
[2025-03-05] MEDS: POTASSIUM CHLORIDE 20 MEQ ER TABLET 40 MEQ PO (10:14)
--- NOTE | 2025-03-05 12:42 | PM.IMPN ---
Progress Note: A&P Assessment and Plan (1) Acute hypoxic respiratory failure: Code(s): J96.01 - Acute respiratory failure with hypoxia Status: Acute (2) COPD exacerbation: Code(s): J44.1 - Chronic obstructive pulmonary disease with (acute) exacerbation Status: Acute (3) Cervical spondylosis: Code(s): M47.812 - Spondylosis without myelopathy or radiculopathy, cervical region Status: Acute Plan Patient is a 69-year-old male who presents to the emergency department this evening complaining of shortness of breath. Patient presents via EMS and states that he woke up short of breath. Does have a history of COPD and does use inhalers at home. Per EMS report, patient was satting 82% on room air. Respiratory rate 40 breaths per minute. Patient does not use any home oxygen. He received 2 DuoNebs and 125 mg of IV Solu-Medrol. Patient also received 2 g of IV magnesium with improvement of his breathing. He was placed on BiPAP and was brought to our facility for further evaluation. Upon arrival, patient is speaking in full sentences, states that he feels much better after being placed on the BiPAP, alert and oriented to person, place, time and situation and denies any symptoms including any chest pain. Patient also denies any recent illness, fevers or chills. On ED evaluation he was afebrile blood pressure mildly elevated mildly tachypneic SpO2 100% on BiPAP. EKG with sinus rhythm and no acute ST-T changes. Laboratory workup revealed WBC of 14 K hemoglobin 13.1 platelet of 234 Chem panel was unremarkable. ABG 7.34/48/51/26 Chest x-ray showed prominent interstitial thickening bilaterally which may indicate pneumonitis. Fibrotic changes are not excluded. Patient has been placed on ceftriaxone azithromycin and admitted for further treatment Acute hypoxic respiratory failure needing BiPAP. Will stop BiPAP Possible COPD exacerbation start Solu-Medrol and DuoNeb scheduled. Switched to oral prednisone Prominent interstitial thickening bilaterally possible pneumonitis on ceftriaxone and azithromycin. CT chest with findings of COPD with no pneumonia. Left shoulder pain that radiates down left arm. Will get shoulder x-ray and neck x-ray. Suspect this related to neck or shoulder problem. EKG with nonspecific ST-T changes unchanged from prior EKGs. Initial troponin was negative. Will do serial. Will also get echocardiogram Hypertension Hyperlipidemia Moderate COPD History of TIA Chronic hepatitis Right-sided Concepcion's palsy History of cranioplasty DVT prophylaxis Lovenox Code status full code Subjective Date/time seen: 03/05/25 12:42 Interval history: No overnight events however this morning he started having pain and is shoulder in the back area that radiated down his right with left arm. Also felt short of breath at the same time. No wheezing or hypoxia EKG with nonspecific ST-T changes unchanged from previous. Troponin was negative. Review of Systems Review of Systems: All systems reviewed & are unremarkable except as noted in HPI and below Exam Narrative: General: Alert, awake, afebrile, in no acute distress. HEENT: PERRL, no rhinorrhea, no post nasal drip, oropharynx clear. Neck: Trachea midline, no JVD, no lymphadenopathy. Cardiovascular: Regular rate and rhythm, no murmurs, rubs or gallops, no peripheral edema. Respiratory: Diminished breath sounds bilaterally with decreased air movement, no wheezes Abdomen: Soft, nontender, nondistended, no rebound, no guarding, no peritoneal signs. Musculoskeletal: No joint swelling or deformity, normal muscle tone. Restricted range of motion on left shoulder tender to touch no erythema or swelling noted. Skin: No rashes or petechia, no signs of infection. Psychiatric: Alert and oriented, normal behavior and judgment for situation. Neurological: Alert and oriented to person, place, and time. Follows all commands. No focal deficits, speech is clear and fluent. Objective Data Vital Signs Vital Signs: Vital Signs - 24 hr 03/04/25 14:25 03/04/25 14:32 03/04/25 14:50 Temperature Pulse Rate 86 70 Respiratory Rate 16 16 Blood Pressure Pulse Oximetry Oxygen Delivery Room Air Fraction of Inspired Oxygen 03/04/25 16:00 03/04/25 19:49 03/04/25 19:49 Temperature Pulse Rate 70 71 Respiratory Rate 16 16 Blood Pressure Pulse Oximetry 98 95 Oxygen Delivery Room Air Room Air Fraction of Inspired Oxygen 40 21 03/04/25 20:01 03/04/25 21:05 03/05/25 01:32 Temperature 98.6 F Pulse Rate 70 74 80 Respiratory Rate 16 16 16 Blood Pressure 147/82 H Pulse Oximetry 100 Oxygen Delivery Fraction of Inspired Oxygen 03/05/25 01:41 03/05/25 05:30 03/05/25 08:04 Temperature 98.4 F Pulse Rate 77 70 Respiratory Rate 16 16 Blood Pressure 127/80 Pulse Oximetry 96 96 Oxygen Delivery Room Air Fraction of Inspired Oxygen 21 03/05/25 08:04 03/05/25 08:17 03/05/25 09:00 Temperature Pulse Rate 100 98 86 Respiratory Rate 20 20 Blood Pressure 125/72 Pulse Oximetry 98 Oxygen Delivery Fraction of Inspired Oxygen 03/05/25 09:00 Temperature Pulse Rate Respiratory Rate Blood Pressure Pulse Oximetry Oxygen Delivery Room Air Fraction of Inspired Oxygen Intake/Output Intake/Output: Intake & Output 03/02/25 03/03/25 03/04/25 03/05/25 23:59 23:59 23:59 23:59 Intake Total 300 1480 1180 340 Output Total 550 650 400 Balance 300 930 530 -60 Meds/Results Medications: Active Medications Generic Name Dose Route Start Last Admin Trade Name Freq PRN Reason Stop Dose Admin Albuterol 2.5 mg 03/03/25 08:02 03/03/25 08:23 Albuterol Sulfate Neb 2.5 Mg/3 Ml Inh INHALATION 2.5 mg Q4-6H PRN Administration shortness of breath or wheezing Albuterol/Ipratropium 3 ml 03/03/25 14:00 03/05/25 08:04 Ipratropium 0.5 Mg/Albuterol Sulfate 2.5 Mg Ampul.Neb 3 Ml INHALATION 3 ml Q6HRT PAGE Administration Aspirin 81 mg 03/03/25 09:00 03/05/25 08:17 Aspirin 81 Mg Enteric Tablet PO 81 mg DAILY PAGE Administration Atorvastatin Calcium 10 mg 03/03/25 18:00 03/04/25 17:35 Atorvastatin 10 Mg Tablet PO 10 mg QPM PAGE Administration Ceftriaxone Sodium 1 gm in 50 mls @ 100 mls/hr 03/03/25 21:00 03/04/25 21:24 Rocephin 1 Gm/Ns 50 Ml IVPB 100 mls/hr Q24H PAGE Administration Azithromycin 500 mg in 250 mls @ 250 mls/hr 03/03/25 22:00 03/04/25 21:58 Zithromax IVPB 250 mls/hr Q24H PAGE Administration Meloxicam 15 mg 03/03/25 09:00 03/05/25 08:17 Meloxicam 7.5 Mg Tablet PO 15 mg QAM PAGE Administration Prednisone 40 mg 03/05/25 08:00 03/05/25 08:17 Prednisone 20 Mg Tablet PO 40 mg DAILY@0800 PAGE Administration Fluticasone/Salmeterol 2 puff 03/03/25 20:00 03/05/25 08:17 Fluticasone/Salmeterol 115-21 Mcg Inhaler 1 Puff INHALATION 2 puff Q12HRT PAGE Administration Umeclidinium [place] 1 puff 03/03/25 09:00 03/05/25 08:24 Umeclidinium [place] 62.5 Mcg Ellipta INHALATION 1 puff DAILY PAGE Administration Radiology Results: ITS Impressions Chest X-Ray 03/02/25 19:54 IMPRESSION: Prominent interstitial thickening bilaterally which may indicate pneumonitis. Fibrotic changes are not excluded. Chest CT 03/04/25 19:39 IMPRESSION: 1. No acute cardiopulmonary pathology. 2. Emphysematous changes of the lungs. 3. Atelectatic changes with bronchiectasis in the right lung base medially. Labs Labs: Laboratory Results - last 24 hr 03/04/25 03/05/25 03/05/25 15:07 05:43 09:18 WBC 8.7 RBC 4.10 L Hgb 11.9 L Hct 36.2 L MCV 88.3 MCH 29.0 MCHC 32.9 RDW 21.9 H Plt Count 205 MPV 10.2 Immature Gran % (Auto) 0.3 Neut % (Auto) 57.7 Lymph % (Auto) 31.1 [place] % (Auto) 9.5 H Eos % (Auto) 0.6 Baso % (Auto) 0.8 Lymph # (Auto) 2.69 [place] # (Auto) 0.8 H Eos # (Auto) 0.1 Baso # (Auto) 0.1 Abs Immat Gran (auto) 0.03 Absolute Neuts (auto) 5.0 Absolute Nucleated RBC 0.020 H Nucleated RBC % 0.2 Sodium 142 Potassium 3.3 L Chloride 103 Carbon Dioxide 30 Anion Gap 9 BUN 21 H Creatinine 0.76 Estim Creat Clear Calc 85 Estimated GFR > 60 Glucose 83 Calcium 8.5 Magnesium 2.0 Total Bilirubin 0.7 AST 25 ALT 23 Alkaline Phosphatase 36 L Troponin I < 0.012 Total Protein 7.0 Albumin 4.0 Influenza A (RT-PCR) Negative Influenza B (RT-PCR) Negative RSV (RT-PCR) Negative SARS-CoV-2 RNA (RT-PCR) Negative
[2025-03-05 13:35] LABS: Troponin I < 0.012 ng/mL (0.000-0.034)
[2025-03-05 16:43] LABS: Troponin I < 0.012 ng/mL (0.000-0.034)
[2025-03-05] MEDS: ATORVASTATIN 10 MG TABLET PO (17:11)
[2025-03-05] MEDS: AZITHROMYCIN 500 MG/NS 250 ML 500 MG/250 ML BAG 250 MG IVPB (21:19)
[2025-03-06] VITALS (11 sets, daily range): BP systolic 135–148; BP diastolic 81–90; PULSE 69–86; RESP 16–20; TEMP 36.7–37.1; O2SAT 95–100
--- NOTE | 2025-03-06 | ECHO_ITS ---
Patient Info Name: William Hackett Age: 69 years : 1955 Gender: Male Ht: 73 in Wt: 167 lbs BSA: 1.97 m2 HR: 72 bpm BP: 135 / 90 mmHg Heart Rhythm: Sinus Rhythm Technical Quality: Fair Exam Date: 03/06/2025 2:02 PM Exam Location: Echo Lab Patient Status: Inpatient Admit Date: 03/02/2025 Staff Ordering Physician: John Arce MD Technology Sales Specialist: Sheron Shah RDCS Attending Provider: Alyssa Reddy DO Exam Type: CA echo dop color flow w con Study Info Indications R07.9 - Chest pain, unspecified Complete two-dimensional, color flow and Doppler transthoracic echocardiogram is performed with contrast to opacify the left ventricle and to improve the deliniation of the left ventricle endocardial borders. Contrast/Agitated Saline Contrast/Ag. Saline: Definity Amount: 2.00 ml Administered By: Sheron Shah RDCS Existing IV Access: Yes IV Access Condition: patent with no signs of infiltration Summary 1. Left ventricular chamber dimension is normal. 2. Left ventricular systolic function is normal, estimated at 60-65%. 3. There is mildly increased left ventricular wall thickness. 4. The left ventricular diastolic function is grade I diastolic dysfunction. 5. Right ventricular systolic function is normal. 6. No significant valvular disease. Left Ventricle Left ventricular chamber dimension is normal. Left ventricular systolic function is normal, estimated at 60-65%. There is mildly increased left ventricular wall thickness. The left ventricular diastolic function is grade I diastolic dysfunction. Right Ventricle Right ventricular chamber dimension is normal. Right ventricular systolic function is normal. Left Atria Left atrial chamber dimension is normal. Right Atria Right atrial chamber dimension is normal. Atrial Septum Intact interatrial septum visualized by color flow imaging. Aortic Valve There is no aortic valve stenosis. There is no aortic valve regurgitation. Pulmonic Valve The pulmonic valve is not well visualized. Mitral Valve There is trace mitral valve regurgitation. Tricuspid Valve There is trace tricuspid valve regurgitation. Pericardium/Pleural The pericardium appears epicardial fat pad. There is no pericardial effusion. Inferior Vena Cava Inferior vena cava is not well visualized. Aorta The aortic root size at the sinus of Valsalva is normal. Left Ventricular Outflow Tract Name Value Normal LVOT 2D LVOT Diameter 1.98 cm LVOT Doppler LVOT Peak Gradient 3 mmHg LVOT Mean Gradient 1 mmHg LVOT VTI 17.58 cm LVOT VTI/AV VTI Ratio 0.65 LVOT Stroke Volume 54.33 ml LVOT CO 3.77 l/min LVOT CI 1.91 L/min/m2 Mitral Valve Name Value Normal MV Doppler MV Decel Br[place] 229.25 cm/s2 MV PHT 0 s MV Area (PHT) 3.19 cm2 4.00-5.00 MV Diastolic Function MV E Peak Velocity 54.60 cm/s MV A Peak Velocity 61.97 cm/s MV E/A 0.88 MV Decel Time 0 s MV Annular TDI MV E/e' (Septal) 7.14 <=8.00 MV E/e' (Lateral) 5.00 <=8.00 MV E/e' (Average) 6.07 Aortic Valve Name Value Normal AV Doppler AV Peak Velocity 191.10 cm/s AV Peak Gradient 15 mmHg AV Mean Gradient 7 mmHg AV VTI 27.26 cm AV Area (Cont Eq VTI) 1.99 cm2 >=3.00 AV Area (Cont Eq Robert) 1.37 cm2 AV Regurgitation 2D LVOT Area 3.09 cm2 Ventricles Name Value Normal LV Dimensions 2D/MM IVS Diastolic Thickness (2D) 1.06 cm 0.60-1.00 LVID Diastole (2D) 4.95 cm 4.20-5.80 LVIW Diastolic Thickness (2D) 0.93 cm 0.60-1.00 LVID Systole (2D) 2.89 cm 2.50-4.00 LVOT Diameter 1.98 cm LV Mass (2D Cubed) 178.01 g 88.00-224.00 LV Mass Index (2D Cubed) 0.01 g/cm2 0.00-0.01 Relative Wall Thickness (2D) 0.38 LV Fractional Shortening/Ejection Fraction 2D/MM LV Fractional Shortening (2D) 42 % 25-43 LV EF (2D Teicholz) 72 % 52-72 LV Diastolic Volume (4C MOD) 67.60 ml LV EF (4C MOD) 70 % LV Diastolic Volume (2C MOD) 34.51 ml LV EF (2C MOD) 62 % LV Diastolic Volume (BP MOD) 51.05 ml 62.00-150.00 LV Diastolic Volume Index (BP MOD) 0.03 l/m2 0.03-0.07 LV Systolic Volume (BP MOD) 16.95 ml 21.00-61.00 LV Systolic Volume Index (BP MOD) 0.01 l/m2 0.01-0.03 LV EF (BP MOD) 67 % 52-72 LV Diastolic Length (4C) 7.86 cm LV Systolic Length (4C) 6.42 cm LV Stroke Volume (4C MOD) 47.58 ml Atria Name Value Normal LA Dimensions LA Volume (4C A-L) 41.63 ml LA Volume (BP A-L) 49.94 ml RA Dimensions RA Area (4C) 14.80 cm2 <=18.00 Report Signatures
[2025-03-06] MEDS: IPRATROPIUM 0.5 MG/ALBUTEROL SULFATE 2.5 MG AMPUL.NEB 3 ML INHALATION ×4 (01:54→19:45)
[2025-03-06 06:08] LABS: Basophils Absolute Auto 0.1 K/mm3 (0.0-0.1); Basophils Percent Auto 0.7 % (0.2-1.2); Eosinophils Absolute Auto 0.1 K/mm3 (0-0.3); Eosinophils Percent Auto 0.7 % (0-4.4); Hematocrit 34.8 % (42.0-52.0); Hemoglobin 11.4 g/dL (14.0-18.0); Immature Granulocyte Absolute 0.05 K/mm3 (0.00-0.031); Immature Granulocyte Percent A 0.6 % (0-0.5); Lymphocytes Absolute Auto 2.84 K/mm3 (0.9-3.2); Mean Corpuscular HGB Conc 32.8 g/dl (32-36); Mean Corpuscular Hemoglobin 29.1 pg (26-34); Mean Corpuscular Volume 88.8 fl (80-100); Mean Platelet Volume 9.5 fl (7.4-10.4); Monocytes Absolute Auto 0.8 K/mm3 (0.1-0.6); Monocytes Percent Auto 8.8 % (2.6-8.5); Neutrophils Absolute Auto 5.1 K/mm3 (1.3-6.7); Neutrophils Percent Auto 57.2 % (45.5-73.1); Platelet Count Result 196 k/mm3 (150-375); Red Blood Count 3.92 M/mm3 (4.6-6.20); Red Cell Distribution Width 22.1 % (11.5-14.5); White Blood Count 8.9 K/mm3 (4.5-10.0)
[2025-03-06 06:13] LABS: Alanine Aminotransferase 30 U/L (6-50); Albumin Level 3.7 g/dL (3.5-5.1); Alkaline Phosphatase 40 U/L (38-126); Anion Gap 6 mmol/L (4-12); Aspartate Amino Transferase 25 U/L (17-59); Bilirubin,Total 0.5 mg/dL (0.2-1.3); Blood Urea Nitrogen 17 mg/dL (9-20); Calcium 8.2 mg/dL (8.4-10.2); Carbon Dioxide 29 mmol/L (22-30); Chloride 105 mmol/L (98-107); Estimated CRCL calculation 95 ml/min; Estimated Glomerular Filt Rate > 60; Glucose 89 mg/dL (65-110); Magnesium 2.1 mg/dL (1.6-2.3); Potassium 3.3 mmol/L (3.4-5.0); Sodium 140 mmol/L (137-145)
[2025-03-06] MEDS: ASPIRIN 81 MG ENTERIC TABLET PO (08:15)
[2025-03-06] MEDS: MELOXICAM 7.5 MG TABLET 15 MG PO (08:15)
[2025-03-06] MEDS: predniSONE 20 MG TABLET 40 MG PO (08:16)
[2025-03-06] MEDS: UMECLIDINIUM BROMIDE 62.5 MCG ELLIPTA 1 PUFF INHALATION (08:24)
[2025-03-06] MEDS: FLUTICASONE/SALMETEROL 115-21 MCG INHALER 1 PUFF 2 PUFF INHALATION ×2 (08:25→19:45)
--- NOTE | 2025-03-06 11:26 | PM.IMPN ---
Progress Note: A&P Assessment and Plan (1) Acute hypoxic respiratory failure: Code(s): J96.01 - Acute respiratory failure with hypoxia Status: Acute (2) COPD exacerbation: Code(s): J44.1 - Chronic obstructive pulmonary disease with (acute) exacerbation Status: Acute (3) Cervical spondylosis: Code(s): M47.812 - Spondylosis without myelopathy or radiculopathy, cervical region Status: Acute Plan Patient is a 69-year-old male who presents to the emergency department this evening complaining of shortness of breath. Patient presents via EMS and states that he woke up short of breath. Does have a history of COPD and does use inhalers at home. Per EMS report, patient was satting 82% on room air. Respiratory rate 40 breaths per minute. Patient does not use any home oxygen. He received 2 DuoNebs and 125 mg of IV Solu-Medrol. Patient also received 2 g of IV magnesium with improvement of his breathing. He was placed on BiPAP and was brought to our facility for further evaluation. Upon arrival, patient is speaking in full sentences, states that he feels much better after being placed on the BiPAP, alert and oriented to person, place, time and situation and denies any symptoms including any chest pain. Patient also denies any recent illness, fevers or chills. On ED evaluation he was afebrile blood pressure mildly elevated mildly tachypneic SpO2 100% on BiPAP. EKG with sinus rhythm and no acute ST-T changes. Laboratory workup revealed WBC of 14 K hemoglobin 13.1 platelet of 234 Chem panel was unremarkable. ABG 7.34/48/51/26 Chest x-ray showed prominent interstitial thickening bilaterally which may indicate pneumonitis. Fibrotic changes are not excluded. Patient has been placed on ceftriaxone azithromycin and admitted for further treatment Acute hypoxic respiratory failure needing BiPAP. Will stop BiPAP Possible COPD exacerbation start Solu-Medrol and DuoNeb scheduled. Switched to oral prednisone Prominent interstitial thickening bilaterally possible pneumonitis on ceftriaxone and azithromycin. CT chest with findings of COPD with no pneumonia. Left shoulder pain that radiates down left arm. X-ray with severe shoulder arthritis also has severe cervical spondylosis.. Suspect this related to neck or shoulder problem. EKG with nonspecific ST-T changes unchanged from prior EKGs. Initial troponin was negative. Serial negative. Echo pending Intermittent dizziness carotid Doppler ordered Hypertension Hyperlipidemia Moderate COPD History of TIA Chronic hepatitis Right-sided Concepcion's palsy History of cranioplasty DVT prophylaxis Lovenox Code status full code Subjective Date/time seen: 03/06/25 11:26 Interval history: No overnight events. Left arm pain is better. He reports chronic problem that starts from neck. X-ray findings reviewed with the patient. Review of Systems Review of Systems: All systems reviewed & are unremarkable except as noted in HPI and below Exam Narrative: General: Alert, awake, afebrile, in no acute distress. HEENT: PERRL, no rhinorrhea, no post nasal drip, oropharynx clear. Neck: Trachea midline, no JVD, no lymphadenopathy. Cardiovascular: Regular rate and rhythm, no murmurs, rubs or gallops, no peripheral edema. Respiratory: Diminished breath sounds bilaterally with decreased air movement, no wheezes Abdomen: Soft, nontender, nondistended, no rebound, no guarding, no peritoneal signs. Musculoskeletal: No joint swelling or deformity, normal muscle tone. Restricted range of motion on left shoulder tender to touch no erythema or swelling noted. Skin: No rashes or petechia, no signs of infection. Psychiatric: Alert and oriented, normal behavior and judgment for situation. Neurological: Alert and oriented to person, place, and time. Follows all commands. No focal deficits, speech is clear and fluent. Objective Data Vital Signs Vital Signs: Vital Signs - 24 hr 03/05/25 14:00 03/05/25 14:47 03/05/25 14:47 Temperature 97.7 F Pulse Rate 79 67 Respiratory Rate 18 20 Blood Pressure 137/81 Pulse Oximetry 98 97 Oxygen Delivery Room Air Fraction of Inspired Oxygen 03/05/25 14:54 03/05/25 19:51 03/05/25 20:06 Temperature Pulse Rate 72 66 66 Respiratory Rate 20 12 12 Blood Pressure Pulse Oximetry Oxygen Delivery Fraction of Inspired Oxygen 03/05/25 20:33 03/05/25 21:07 03/06/25 01:54 Temperature 97.9 F Pulse Rate 122 H 69 Respiratory Rate 16 16 Blood Pressure 152/82 H Pulse Oximetry 96 100 Oxygen Delivery Room Air Fraction of Inspired Oxygen 03/06/25 02:04 03/06/25 05:45 03/06/25 08:00 Temperature 98.0 F Pulse Rate 69 72 Respiratory Rate 16 18 Blood Pressure 135/90 Pulse Oximetry 98 Oxygen Delivery Room Air Fraction of Inspired Oxygen 03/06/25 08:26 03/06/25 08:26 03/06/25 08:36 Temperature Pulse Rate 86 72 Respiratory Rate 20 20 Blood Pressure Pulse Oximetry 98 Oxygen Delivery Room Air Fraction of Inspired Oxygen Intake/Output Intake/Output: Intake & Output 03/03/25 03/04/25 03/05/25 03/06/25 23:59 23:59 23:59 23:59 Intake Total 1480 1480 820 400 Output Total 550 650 400 600 Balance 930 830 420 -200 Meds/Results Medications: Active Medications Generic Name Dose Route Start Last Admin Trade Name Freq PRN Reason Stop Dose Admin Albuterol 2.5 mg 03/03/25 08:02 03/03/25 08:23 Albuterol Sulfate Neb 2.5 Mg/3 Ml Inh INHALATION 2.5 mg Q4-6H PRN Administration shortness of breath or wheezing Albuterol/Ipratropium 3 ml 03/03/25 14:00 03/06/25 08:24 Ipratropium 0.5 Mg/Albuterol Sulfate 2.5 Mg Ampul.Neb 3 Ml INHALATION 3 ml Q6HRT PAGE Administration Aspirin 81 mg 03/03/25 09:00 03/06/25 08:15 Aspirin 81 Mg Enteric Tablet PO 81 mg DAILY PAGE Administration Atorvastatin Calcium 10 mg 03/03/25 18:00 03/05/25 17:11 Atorvastatin 10 Mg Tablet PO 10 mg QPM PAGE Administration Ceftriaxone Sodium 1 gm in 50 mls @ 100 mls/hr 03/03/25 21:00 03/05/25 20:33 Rocephin 1 Gm/Ns 50 Ml IVPB 100 mls/hr Q24H PAGE Administration Azithromycin 500 mg in 250 mls @ 250 mls/hr 03/03/25 22:00 03/05/25 21:19 Zithromax IVPB 250 mls/hr Q24H PAGE Administration Meloxicam 15 mg 03/03/25 09:00 03/06/25 08:15 Meloxicam 7.5 Mg Tablet PO 15 mg QAM PAGE Administration Perflutren Lipid Microsphere 0 ml 03/05/25 12:44 Perflutren Lipid Microspheres 1.5 Ml Vial Diluted To 10 Ml Total Volume IV PUSH 03/08/25 12:44 ONCE PRN adequate visualization Protocol Prednisone 40 mg 03/05/25 08:00 03/06/25 08:16 Prednisone 20 Mg Tablet PO 40 mg DAILY@0800 PAGE Administration Fluticasone/Salmeterol 2 puff 03/03/25 20:00 03/05/25 19:52 Fluticasone/Salmeterol 115-21 Mcg Inhaler 1 Puff INHALATION 2 puff Q12HRT PAGE Administration Umeclidinium [place] 1 puff 03/03/25 09:00 03/06/25 08:24 Umeclidinium [place] 62.5 Mcg Ellipta INHALATION 1 puff DAILY PAGE Administration Radiology Results: ITS Impressions Chest X-Ray 03/02/25 19:54 IMPRESSION: Prominent interstitial thickening bilaterally which may indicate pneumonitis. Fibrotic changes are not excluded. Chest CT 03/04/25 19:39 IMPRESSION: 1. No acute cardiopulmonary pathology. 2. Emphysematous changes of the lungs. 3. Atelectatic changes with bronchiectasis in the right lung base medially. Shoulder X-Ray 03/05/25 13:30 Impression: 1: Moderate-severe left glenohumeral joint osteoarthritis. Cervical Spine X-Ray 03/05/25 13:31 Impression: 1: Severe cervical spondylosis. Labs Labs: Laboratory Results - last 24 hr 03/05/25 03/05/25 03/06/25 13:09 15:58 05:36 WBC 8.9 RBC 3.92 L Hgb 11.4 L Hct 34.8 L MCV 88.8 MCH 29.1 MCHC 32.8 RDW 22.1 H Plt Count 196 MPV 9.5 Immature Gran % (Auto) 0.6 H Neut % (Auto) 57.2 Lymph % (Auto) 32.0 [place] % (Auto) 8.8 H Eos % (Auto) 0.7 Baso % (Auto) 0.7 Lymph # (Auto) 2.84 [place] # (Auto) 0.8 H Eos # (Auto) 0.1 Baso # (Auto) 0.1 Abs Immat Gran (auto) 0.05 H Absolute Neuts (auto) 5.1 Absolute Nucleated RBC 0.000 Nucleated RBC % 0.0 Sodium 140 Potassium 3.3 L Chloride 105 Carbon Dioxide 29 Anion Gap 6 BUN 17 Creatinine 0.67 L Estim Creat Clear Calc 95 Estimated GFR > 60 Glucose 89 Calcium 8.2 L Magnesium 2.1 Total Bilirubin 0.5 AST 25 ALT 30 Alkaline Phosphatase 40 Troponin I < 0.012 < 0.012 Total Protein 6.0 L Albumin 3.7
[2025-03-06] MEDS: POTASSIUM CHLORIDE 20 MEQ ER TABLET 40 MEQ PO (12:14)
[2025-03-06] MEDS: PERFLUTREN LIPID MICROSPHERES 1.5 ML VIAL DILUTED TO 10 ML TOTAL VOLUME IV PUSH (14:19)
--- NOTE | 2025-03-06 15:44 | IVDEFINITY ---
Prior to administration of IV Definity the patient was educated on the risks and benefits of the imaging enhancing agent including potential adverse side effects. The patient verbalized understanding. Allergies were verified. No exclusion criteria were identified and at least one of the following inclusion criteria were met: 1) physician request, 2) patient technically difficult to image (per the [place] [employer] guidelines of two or more segments not discernable within the apical view), or 3) questionable left ventricular function. ?
[2025-03-06] MEDS: ATORVASTATIN 10 MG TABLET PO (17:32)
[2025-03-06] MEDS: cefuroxime axetiL 250 MG TABLET 500 MG PO (20:42)
[2025-03-06] MEDS: AZITHROMYCIN 250 MG TABLET 500 MG PO (20:42)
[2025-03-07 02:29] VITALS: PULSE 81; RESP 20
[2025-03-07] MEDS: IPRATROPIUM 0.5 MG/ALBUTEROL SULFATE 2.5 MG AMPUL.NEB 3 ML INHALATION ×2 (02:29→07:47)
[2025-03-07 02:35] VITALS: PULSE 69; RESP 20
[2025-03-07 05:54] VITALS: BP 147/80; PULSE 76; RESP 14; TEMP 36.9; O2SAT 96
[2025-03-07 07:47] VITALS: PULSE 78; RESP 20; O2SAT 95
[2025-03-07] MEDS: FLUTICASONE/SALMETEROL 115-21 MCG INHALER 1 PUFF 2 PUFF INHALATION (07:47)
[2025-03-07] MEDS: UMECLIDINIUM BROMIDE 62.5 MCG ELLIPTA 1 PUFF INHALATION (07:47)
[2025-03-07 08:01] VITALS: PULSE 70; RESP 20
[2025-03-07] MEDS: MELOXICAM 7.5 MG TABLET 15 MG PO (08:27)
[2025-03-07] MEDS: ASPIRIN 81 MG ENTERIC TABLET PO (08:27)
[2025-03-07] MEDS: cefuroxime axetiL 250 MG TABLET 500 MG PO (08:27)
[2025-03-07] MEDS: predniSONE 20 MG TABLET 40 MG PO (08:27)
--- NOTE | 2025-03-07 13:01 | P.DS_ITS ---
DS: Admitting Diagnosis Discharge Date 03/07/2025 Admitting Diagnosis Shortness of breath DS: Discharge Diagnosis Discharge Diagnosis (1) Acute hypoxic respiratory failure: Code(s): J96.01 - Acute respiratory failure with hypoxia Status: Acute (2) COPD exacerbation: Code(s): J44.1 - Chronic obstructive pulmonary disease with (acute) exacerbation Status: Acute (3) Cervical spondylosis: Code(s): M47.812 - Spondylosis without myelopathy or radiculopathy, cervical region Status: Acute DS: Summary Hospital Course Hospital Course: Patient is a 69-year-old male who presents to the emergency department this evening complaining of shortness of breath. Patient presents via EMS and states that he woke up short of breath. Does have a history of COPD and does use inhalers at home. Per EMS report, patient was satting 82% on room air. Respiratory rate 40 breaths per minute. Patient does not use any home oxygen. He received 2 DuoNebs and 125 mg of IV Solu-Medrol. Patient also received 2 g of IV magnesium with improvement of his breathing. He was placed on BiPAP and was brought to our facility for further evaluation. Upon arrival, patient is speaking in full sentences, states that he feels much better after being placed on the BiPAP, alert and oriented to person, place, time and situation and denies any symptoms including any chest pain. Patient also denies any recent illness, fevers or chills. On ED evaluation he was afebrile blood pressure mildly elevated mildly tachypneic SpO2 100% on BiPAP. EKG with sinus rhythm and no acute ST-T changes. Laboratory workup revealed WBC of 14 K hemoglobin 13.1 platelet of 234 Chem panel was unremarkable. ABG 7.34/48/51/26 Chest x-ray showed prominent interstitial thickening bilaterally which may indicate pneumonitis. Fibrotic changes are not excluded. Patient has been placed on ceftriaxone azithromycin and admitted for further treatment Acute hypoxic respiratory failure needing BiPAP. Subsequently BiPAP was tapered off Possible COPD exacerbation start Solu-Medrol and DuoNeb scheduled. Switched to oral prednisone and finish 5 days course at discharge Prominent interstitial thickening bilaterally possible pneumonitis on ceftriaxone and azithromycin. CT chest with findings of COPD with no pneumonia. Finished antibiotics course during the hospital stay. Left shoulder pain that radiates down left arm. X-ray with severe shoulder arthritis also has severe cervical spondylosis.. Suspect this related to neck or shoulder problem. EKG with nonspecific ST-T changes unchanged from prior EKGs. Initial troponin was negative. Serial negative. Echo with noral ef and no valvular abnormalities. Grade 1 diastolic dysfunction Intermittent dizziness carotid Doppler with 50-69% stenosis in left internal carotid artery less than 50% in right internal carotid artery continue aspirin and statin Hypertension Hyperlipidemia Moderate COPD History of TIA Chronic hepatitis Right-sided Concepcion's palsy History of cranioplasty DVT prophylaxis Lovenox Code status full code Time Spent with Patient Time attestation: Total time spent providing and/or coordinating discharge services: 35 minutes Exam Narrative: General: Alert, awake, afebrile, in no acute distress. HEENT: PERRL, no rhinorrhea, no post nasal drip, oropharynx clear. Neck: Trachea midline, no JVD, no lymphadenopathy. Cardiovascular: Regular rate and rhythm, no murmurs, rubs or gallops, no peripheral edema. Respiratory: Diminished breath sounds bilaterally with decreased air movement, no wheezes Abdomen: Soft, nontender, nondistended, no rebound, no guarding, no peritoneal signs. Musculoskeletal: No joint swelling or deformity, normal muscle tone. Restricted range of motion on left shoulder tender to touch no erythema or swelling noted. Skin: No rashes or petechia, no signs of infection. Psychiatric: Alert and oriented, normal behavior and judgment for situation. Neurological: Alert and oriented to person, place, and time. Follows all commands. No focal deficits, speech is clear and fluent. DS: Data Data Completed and Pending Completed studies during hospitalization: Exam Type: CA echo dop color flow w con Study Info Indications R07.9 - Chest pain, unspecified Complete two-dimensional, color flow and Doppler transthoracic echocardiogram is performed with contrast to opacify the left ventricle and to improve the deliniation of the left ventricle endocardial borders. Contrast/Agitated Saline Contrast/Ag. Saline: Definity Amount: 2.00 ml Administered By: Sheron Shah RDCS Existing IV Access: Yes IV Access Condition: patent with no signs of infiltration Summary 1. Left ventricular chamber dimension is normal. 2. Left ventricular systolic function is normal, estimated at 60-65%. 3. There is mildly increased left ventricular wall thickness. 4. The left ventricular diastolic function is grade I diastolic dysfunction. 5. Right ventricular systolic function is normal. 6. No significant valvular disease. Left Ventricle Left ventricular chamber dimension is normal. Left ventricular systolic function is normal, estimated at 60-65%. There is mildly increased left ventricular wall thickness. The left ventricular diastolic function is grade I diastolic dysfunction. Right Ventricle Right ventricular chamber dimension is normal. Right ventricular systolic function is normal. Left Atria Left atrial chamber dimension is normal. Right Atria Right atrial chamber dimension is normal. Atrial Septum Intact interatrial septum visualized by color flow imaging. Aortic Valve There is no aortic valve stenosis. There is no aortic valve regurgitation. Pulmonic Valve The pulmonic valve is not well visualized. Mitral Valve There is trace mitral valve regurgitation. Tricuspid Valve There is trace tricuspid valve regurgitation. Pericardium/Pleural The pericardium appears epicardial fat pad. There is no pericardial effusion. Inferior Vena Cava Inferior vena cava is not well visualized. Aorta The aortic root size at the sinus of Valsalva is normal. Imaging Radiologist's impression: ITS Impressions Chest X-Ray 03/02/25 19:54 IMPRESSION: Prominent interstitial thickening bilaterally which may indicate pneumonitis. Fibrotic changes are not excluded. Chest CT 03/04/25 19:39 IMPRESSION: 1. No acute cardiopulmonary pathology. 2. Emphysematous changes of the lungs. 3. Atelectatic changes with bronchiectasis in the right lung base medially. Shoulder X-Ray 03/05/25 13:30 Impression: 1: Moderate-severe left glenohumeral joint osteoarthritis. Cervical Spine X-Ray 03/05/25 13:31 Impression: 1: Severe cervical spondylosis. Carotid Doppler Study 03/06/25 17:04 IMPRESSION: 1. <50% stenosis in the right internal carotid artery. 2. 50-69% stenosis in the left internal carotid artery. 3. Cardiac arrhythmia is present. Correlate with EKG. Discharge Plan Discharge Attending physician on discharge: John Arce Discharging Clinician: John Arce Anticipated Discharge Date/Time: 03/07/25 13:59 Patient Disposition: Home Activity: as tolerated Diet: heart healthy Patient Instructions: Antibiotic Form, COPD (Chronic Obstructive Pulmonary Disease) (GEN) Patient Language: Mauritian Stand Alone Forms: General Discharge Information Follow-up/Referrals: Kobi,Jessica Blair [Primary Care Provider] - 1 Week Discharge Medications: New prednisone 20 mg Tablet 40 mg PO DAILY@0800 Qty: 6 0RF Continued albuterol sulfate 2.5 mg /3 mL (0.083 %) solution for nebulization 2.5 mg inhalation Q4-6H PRN (Reason: shortness of breath or wheezing) albuterol sulfate [Ventolin HFA] 90 mcg/actuation HFA aerosol inhaler 1 inh inhalation Q4H PRN (Reason: shortness of breath or wheezing) aspirin [Adult Aspirin Regimen] 81 mg tablet,delayed release (DR/EC) 81 mg PO DAILY Incruse Ellipta 62.5 mcg/actuation blister with device 1 inh inhalation DAILY meloxicam 15 mg tablet 15 mg PO DAILY sildenafil [Viagra] 100 mg tablet 100 mg PO DAILY PRN (Reason: erectile dysfunction) Rx Instructions: administer 30 minutes to 4 hours before activity budesonide-formoterol [Symbicort] 160-4.5 mcg/actuation HFA aerosol inhaler 2 puff inhalation Q12H atorvastatin 10 mg tablet 10 mg PO QPM Date of admission: 03/02/25 21:04 Primary Care Provider: KobiJohnnie Admitting Provider: Alyssa Reddy Attending physician on admission: Alyssa Reddy Condition: Improved
[2025-03-07 13:59] VITALS: BP 145/80; PULSE 73; RESP 18; TEMP 37.3; O2SAT 100
--- NOTE | 2025-03-07 17:34 | PC.NURSE ---
All charting was done by BAO Morton. I have reviewed and agree with charting.
== END 2025-03-07 17:15 | disposition home or self-care (01) | DRG 192 ==
LOC: ANHED 20:36 → ANHIMU 22:06 → ANH3MEDSUR 03-06 16:43 → ANHIMU 03-09 11:38
PROVIDERS: Admitting Provider Internal Medicine; Emergency Provider Emergency Medicine; PCP Internal Medicine Infectious Disease; Visit Provider Internal Medicine
DX: J44.1 Chronic obstructive pulmonary disease with (acute) exacerbation (principal); M47.812 Spondylosis without myelopathy or radiculopathy, cervical region; J98.4 Other disorders of lung; E78.5 Hyperlipidemia, unspecified; K73.9 Chronic hepatitis, unspecified; M19.012 Primary osteoarthritis, left shoulder; I10 Essential (primary) hypertension; Z86.73 Personal history of transient ischemic attack (TIA), and cerebral infarction without residual deficits; Z87.891 Personal history of nicotine dependence
CPT/HCPCS: 36415; 36600; 71045; 71250; 72040; 73030; 80053; 82375; 82805; 83050; 83735; 84484; 85018; 85025; 87637; 93005; 93880; 94002; 94003; 94640; 99285; A9270; C8929; J0456; J0696; J2270; J2919; J7512; Q9957

== ENCOUNTER 2025-06-01 13:00 | Outpatient (RCR) | payer MEDICARE, MEDICAID, SELFPAY ==
--- NOTE | 2025-03-31 13:31 | OPREHPOC ---
Outpatient Therapy Plan of Care This is a Multidisciplinary Plan of Care that may contain components documented by all disciplines (PT, OT, and ST.) PT Problem 1 PT Problem #1 Knowledge Deficit PT Goal 1 Goal / Goal Update *independent with HEP Target Visit 8 PT Problem 2 PT Problem #2 Impaired Flexibility PT Goal 1 Goal / Goal Update increase shoulder active ROM to improve use of UE for self care tasks: R shoulder: 1* flexion 90' 2* abduction 80' 3* IR- reach behind back, palm to waist 4* ER- reach behind head, palm to back of head L shoulder 5* flexion 90' 6* abduction 80' 7* IR- reach behind back, palm to waist 8* ER- reach behind head, palm to back of head cervical rotation 9* R 45' 10* L 55' Target Visit 8 PT Problem 3 PT Problem #3 Impaired Strength PT Goal 1 Goal / Goal Update *increase strength of UE's, pt able to lift 5 reps through available ROM, in sitting: R shoulder 1* flexion 2* abduction 3* IR 4* ER L shoulder 5* flexion 6* abduction 7* IR 8* ER Target Visit 8
--- NOTE | 2025-03-31 13:31 | PTOPEVAL1 ---
Assessment and note entered by Belén Eason, PT Evaluation Information Assessment Status Evaluation ICD-10 Condition Codes (PT) Cervicalgia M54.2,Pain in right shoulder M25.511, Pain in left shoulder M25.512 Onset about 1 year ago Subjective Information gradual increase in pain, have history of shoulder and neck pain; x ray of L shoulder - moderate to severe arthritis ; cervical- spondylosis R handed; have not had any PT treatment activity: live with daughter due to not able to do home things; is able to do dressing and bathing- hard to reach his back and harder to bathe and dress; use cane or wheeled walker due to leg pain and weakness; does not go out into community for dr appt only; does not drive; Reported Pain Level Pain Score 8: Self Report Additional Pain Score Comments pain stays 8/10 in neck and both shoulders; R shoulder pain anterior and posterior shoulder;L shoulder over anterior,lateral and posterior shoulder; bilateral cervical and upper traps areas radicular pain into both arms, L > R, to all fingertips & thumb- constant cannot get head comfortable, use pillow and move around a lot; is not a good sleeper, past 20 years, sleep only 2 hours at time; take meloxicam; has not used heat- instruct on heating pad 10-15 minutes Assessment PT Clinical Summary William has the diagnosis of bilateral shoulder pain and cervical pain. Radicular pain into both UE to fingers. He reports problems with bathing, reaching to back and doing home tasks--lives with his daughter due to decrease in ability to care for himself. Quick DASH rating of 75% limitation in activity level. xray of cervical and L shoulder with moderate to severe changes. History includes head injury with head crushed and cranioplasty, with numbness L side of face. Uses cane for walking due to leg weakness. With the evaluation: decreased ROM and strength of both shoulders with poor posture of neck and shoulders; spasms and tightness over neck and both shoulders L>R; Skilled PT services are indicated for modalities for cervical and shoulder pain, therapeutic exercises to increase cervical and shoulder ROM and strength with education for HEP and posture/ body mechanics. Plan of Care Interventions Electrical Stimulation,Hot Pack/Cold Pack,Manual Therapy,Neuro Re-education,Patient/Caregiver Education,Therapeutic Activities,Therapeutic Exercise,Ultrasound,Other Other Interventions taping PT Services Indicated Yes Treatment Frequency and 1-2x/wk for 8 visits Duration These treatments will address the objective and functional deficits as defined above. The patient will be advanced safely and appropriately in order for the patient to progress towards his/her prior level of function. Additional exercises will be introduced and as well as a comprehensive home exercise program upon discharge, if needed, ?to ensure carryover of functional gains achieved in the clinic. This treatment plan has been reviewed and agreement upon by the patient.
--- NOTE | 2025-04-26 14:12 | OPREHPOC ---
Outpatient Therapy Plan of Care This is a Multidisciplinary Plan of Care that may contain components documented by all disciplines (PT, OT, and ST.) PT Problem 1 PT Problem #1 Knowledge Deficit PT Goal 1 Goal / Goal Update *independent with HEP 04-26-25 progress goal met continue to progress HEP and education Target Visit 16 PT Problem 2 PT Problem #2 Impaired Flexibility PT Goal 1 Goal / Goal Update increase shoulder active ROM to improve use of UE for self care tasks: R shoulder: 1* flexion 90' 2* abduction 80' 3* IR- reach behind back, palm to waist 4* ER- reach behind head, palm to back of head L shoulder 5* flexion 90' 6* abduction 80' 7* IR- reach behind back, palm to waist 8* ER- reach behind head, palm to back of head cervical rotation 9* R 45' 10* L 55' 04-26-25 progress goals1,2,3,9,10 met Target Visit 8 Progress Partially Met PT Goal 2 Goal / Goal Update 04-26-25 NEW GOALS: active R shoulder ROM: 1* flexion 120' 2* IR- reach behind back, palm to above waist active L shoulder ROM 3* flexion 95' 4* IR- reach behind back, palm to above waist cervical rotation active 5* R 65' 6* L 75' Target Visit 16 PT Problem 3 PT Problem #3 Impaired Strength PT Goal 1 Goal / Goal Update *increase strength of UE's, pt able to lift 5 reps through available ROM, in sitting: R shoulder 1* flexion 2* abduction 3* IR 4* ER L shoulder 5* flexion 6* abduction 7* IR 8* ER 04-26-25 progress goals met Target Visit 8 Progress Met PT Goal 2 Goal / Goal Update 04-26-25 NEW GOALS: 5 reps with hand weight 1* R shoulder flexion to 90' with 4# 2* L shoulder flexion to 90' with 3# Target Visit 16 PT Problem 4 PT Problem #4 Pain PT Goal 1 Goal / Goal Update 6-11-25 progress NEW GOAL: 1* pain rating at worst of shoulders and neck 02/23 Target Visit 16
--- NOTE | 2025-04-26 14:12 | PTOPPROG ---
Assessment and note entered by Belén Eason, PT Assessment Status Progress ICD-10 Condition Codes (PT) Cervicalgia M54.2,Pain in right shoulder M25.511, Pain in left shoulder M25.512 Onset about 1 year ago Subjective Information shoulders are better, not hurting as much and are stronger; want to continue with more threapy to get shoulders and neck better. PAIN: range in the past week-- staying 5/10 in both shoulders; neck also hurts. Assessment PT Clinical Summary William has received 8 PT sessions. Compared to the initial evaluation, he has improved in all areas: pain rating from staying all the time at 8 to 5/10; self assessment with Quick DASH from 75% to 64% limitation in activity level; increased ROM of R and L shoulder flexion, abduction, IR and ER motions and cervical rotation to R and L; Continues to have pain with all shoulder motions; cervical pain increases only with the extension motion. Continues to have muscle tightness and spasms over R and L cervical-thoracic and anterior shoulders. Education for HEP and posture. The goals were partially achieved. Continue PT treatment. Plan of Care Interventions Electrical Stimulation,Hot Pack/Cold Pack,Manual Therapy,Neuro Re-education,Patient/Caregiver Education,Therapeutic Activities,Therapeutic Exercise,Ultrasound,Other Other Interventions taping PT Services Indicated Yes Treatment Frequency and 1-2x/wk for 8 visits Duration These treatments will address the objective and functional deficits as defined above. The patient will be advanced safely and appropriately in order for the patient to progress towards his/her prior level of function. Additional exercises will be introduced and as well as a comprehensive home exercise program upon discharge, if needed, ?to ensure carryover of functional gains achieved in the clinic. This treatment plan has been reviewed and agreement upon by the patient.
--- NOTE | 2025-06-01 13:56 | OPREHPOC ---
Outpatient Therapy Plan of Care This is a Multidisciplinary Plan of Care that may contain components documented by all disciplines (PT, OT, and ST.) PT Problem 1 PT Problem #1 Knowledge Deficit PT Goal 1 Goal / Goal Update *independent with HEP Target Visit 16 Progress Met PT Problem 2 PT Problem #2 Impaired Flexibility PT Goal 1 Goal / Goal Update increase shoulder active ROM to improve use of UE for self care tasks: R shoulder: 1* flexion 90' 2* abduction 80' 3* IR- reach behind back, palm to waist 4* ER- reach behind head, palm to back of head L shoulder 5* flexion 90' 6* abduction 80' 7* IR- reach behind back, palm to waist 8* ER- reach behind head, palm to back of head cervical rotation 9* R 45' 10* L 55' Target Visit 8 Progress Met PT Goal 2 Goal / Goal Update 04-26-25 NEW GOALS: active R shoulder ROM: 1* flexion 120' 2* IR- reach behind back, palm to above waist active L shoulder ROM 3* flexion 95' 4* IR- reach behind back, palm to above waist cervical rotation active 5* R 65' 6* L 75' Target Visit 16 Progress Met PT Problem 3 PT Problem #3 Impaired Strength PT Goal 1 Goal / Goal Update *increase strength of UE's, pt able to lift 5 reps through available ROM, in sitting: R shoulder 1* flexion 2* abduction 3* IR 4* ER L shoulder 5* flexion 6* abduction 7* IR 8* ER Target Visit 8 Progress Met PT Goal 2 Goal / Goal Update 04-26-25 NEW GOALS: 5 reps with hand weight 1* R shoulder flexion to 90' with 4# 2* L shoulder flexion to 90' with 3# Target Visit 16 Progress Met PT Problem 4 PT Problem #4 Pain PT Goal 1 Goal / Goal Update 04-26-25 progress NEW GOAL: 1* pain rating at worst of shoulders and neck 02/23 Target Visit 16 Progress Met
--- NOTE | 2025-06-01 13:56 | PTOPDC ---
Assessment and note entered by Mynor Deras, PT Evaluation Information Assessment Status Discharge ICD-10 Condition Codes (PT) Cervicalgia M54.2,Pain in right shoulder M25.511, Pain in left shoulder M25.512 Onset about 1 year ago Subjective Information Patient reports overall that he feels he has seen functional improvement in shoulder motion and strength Still limited by stiffness which he attributes to arthritis. Feels comfortable with HEP and would like to be discharged at this time. Reported Pain Level Pain Score 2: Self Report Assessment PT Clinical Summary Patient has shown function improvement in ROM and strength of shoulders. He demonstrates understanding of exercises to continue to promote functional and will continue to perform them indecently. Suitable for discharge at this time. Plan of Care PT Services Indicated Yes
== END 2025-06-01 16:19 | disposition home or self-care (01) ==
LOC: ANHPT 13:00
PROVIDERS: PCP Internal Medicine Infectious Disease; Visit Provider Nurse Practitioner Family
DX: M25.519 Pain in unspecified shoulder (principal)
CPT/HCPCS: 97110; 97112; 97140; 97162; 97530

== ENCOUNTER 2025-09-12 13:33 | Outpatient (CLI) | payer MEDICARE, MEDICAID, SELFPAY ==
--- NOTE | 2025-09-12 15:00 | NEURO_ITS ---
Impression: # Complains of numbness of hands. ? 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 ? # Evolving bilateral Carpal Tunnel Syndrome. ? # Normal needle/EMG exam. Nerve Conduction Studies ?Stim Site NR Peak (ms) P-T Amp (?V) Site1 Site2 Delta-P (ms) Dist (cm) Robert (m/s) Left Median Anti Sensory (2-3nd Digit) Wrist ? 3.3 17.5 Wrist 2-3nd Digit 3.3 14.0 42 Wrist ? 3.5 17.2 Wrist 2-3nd Digit 3.3 14.0 42 Right Median Anti Sensory (2-3nd Digit) Wrist ? 4.2 15.4 Wrist 2-3nd Digit 4.2 14.0 33 Wrist ? 4.1 15.7 Wrist 2-3nd Digit 4.2 14.0 33 Left Radial Anti Sensory (Base 1st Digit) Wrist ? 2.4 14.9 Wrist Base 1st Digit 2.4 0.0 Right Radial Anti Sensory (Base 1st Digit) Wrist ? 3.0 24.3 Wrist Base 1st Digit 3.0 0.0 Left Ulnar Anti Sensory (5th Digit) Wrist ? 3.8 5.8 Wrist 5th Digit 3.8 14.0 37 Right Ulnar Anti Sensory (5th Digit) Wrist ? 4.1 11.5 Wrist 5th Digit 4.1 14.0 34 ?Stim Site NR Onset (ms) O-P Amp (mV) Site1 Site2 Delta-0 (ms) Dist (cm) Robert (m/s) Left Median Motor (Abd Poll Brev) Wrist ? 4.2 8.0 Elbow Wrist 5.4 28.0 52 Elbow ? 9.6 4.4 Right Median Motor (Abd Poll Brev) Wrist ? 4.5 7.0 Elbow Wrist 6.0 30.0 50 Elbow ? 10.5 6.2 Left Ulnar Motor (Abd Dig Minimi) Wrist ? 3.4 4.0 A Elbow Wrist 5.7 28.0 49 A Elbow ? 9.1 3.3 B Elbow Wrist 4.8 24.0 50 B Elbow ? 8.2 2.4 Right Ulnar Motor (Abd Dig Minimi) Wrist ? 3.4 5.9 A Elbow Wrist 6.4 32.0 50 A Elbow ? 9.8 5.0 B Elbow Wrist 5.0 26.0 52 B Elbow ? 8.4 5.3 F Wave Studies ?NR F-Lat (ms) L-R F-Lat (ms) Left Median (Mrkrs) (Abd Poll Brev) ? 30.61 1.31 Right Median (Mrkrs) (Abd Poll Brev) ? 29.30 1.31 Left Ulnar (Mrkrs) (Abd Dig Min) ? 33.16 1.46 Right Ulnar (Mrkrs) (Abd Dig Min) ? 34.62 1.46 Electromyography ?Side Muscle Nerve Root Ins Act Fibs Amp Dur Recrt Comment Right 1stDorInt Ulnar C8-T1 Nml Nml Nml Nml Nml Right Ext Indicis Radial (Post Int) C7-8 Nml Nml Nml Nml Nml Right Ext Digitorum Radial (Post Int) C7-8 Nml Nml Nml Nml Nml Right BrachioRad Radial C5-6 Nml Nml Nml Nml Nml Right PronatorTeres Median C6-7 Nml Nml Nml Nml Nml Right Abd Poll Brev Median C8-T1 Nml Nml Nml Nml Nml Right ABD Dig Min Ulnar C8-T1 Nml Nml Nml Nml Nml Right FlexPolLong Median (Ant Int) C7-8 Nml Nml Nml Nml Nml Right Abd Poll Long Radial (Post Int) C7-8 Nml Nml Nml Nml Nml Left 1stDorInt Ulnar C8-T1 Nml Nml Nml Nml Nml Left Ext Indicis Radial (Post Int) C7-8 Nml Nml Nml Nml Nml Left Ext Digitorum Radial (Post Int) C7-8 Nml Nml Nml Nml Nml Left BrachioRad Radial C5-6 Nml Nml Nml Nml Nml Left PronatorTeres Median C6-7 Nml Nml Nml Nml Nml Left Abd Poll Brev Median C8-T1 Nml Nml Nml Nml Nml Left ABD Dig Min Ulnar C8-T1 Nml Nml Nml Nml Nml Left FlexPolLong Median (Ant Int) C7-8 Nml Nml Nml Nml Nml Left Abd Poll Long Radial (Post Int) C7-8 Nml Nml Nml Nml Nml
--- OUTSIDE RECORDS SUMMARY | 2025-09-12 15:35 | XMS_ITS | Clinical Summary ---
Author Organization [facility] at the [facility] Address [address] [place] [address] Care Team Providers Care Finisher Plate Name Role Phone Johnnie Castillo MD Primary Care Provider Social History Tobacco Use Types Packs/Day Years Used Date Smoking Tobacco: Never Assessed Sex and Gender Information Value Date Recorded Sex Assigned at Not on file Legal Sex Male 4:20 PM [employer] Gender Identity Not on file Sexual Orientation Not on file Plan of Treatment Health Maintenance Due Date Last Done Comments Colon Cancer Screening-Colonoscopy 1954 Depression Screening 1954 Fall Risk Assessment 1954 Hepatitis C Screening 1954 Prostate Cancer Screening-PSA 1954 Zoster Vaccine (1 of 2) 2004 Abdominal Aortic Aneurysm (AAA) Screen 2019 Well Visit 65+ 2019 Influenza Vaccine (#1) 2025 DTaP/Tdap/Td Vaccine (3 - Td or Tdap) 12/02/2032, 05/22/2006 Hepatitis B Screening Completed 04/11/2009, 009 Pneumococcal vaccine 65+ Completed 12/02/2022, 04/07/2009 Insurance [facility] ADVANTAGE [facility] Address: [address] [address] [place] [address] [employer] Care Teams Finisher Plate Relationship Specialty [place] [address] [place] [id number] PCP - General Internal Medicine 01/03/25
== END 2025-09-12 13:34 | disposition home or self-care (01) ==
PROVIDERS: PCP Internal Medicine Infectious Disease; Visit Provider Internal Medicine Infectious Disease
DX: R20.0 Anesthesia of skin (principal); G56.03 Carpal tunnel syndrome, bilateral upper limbs
CPT/HCPCS: 95886; 95911

== ENCOUNTER 2025-11-06 19:07 | Observation (INO) | payer MEDICARE, MEDICAID, SELFPAY ==
[2025-11-06] VITALS (16 sets, daily range): BP systolic 115–140; BP diastolic 68–79; PULSE 73–88; RESP 15–29; TEMP 36.6–37.1; O2SAT 94–100
--- NOTE | ~2025-11-06 | XR_ITS ---
XR foot RT 2V 11/06/2025 22:43 Indication: Right foot pain Procedure: 2 views right foot Comparison: No prior studies for comparison. Findings: Moderate diffuse soft tissue swelling. Lisfranc joint intact. There is osteoarthritis of the first MTP joint. No erosive changes. No fracture or traumatic malalignment. There is a small degenerative calcaneal enthesophyte. Impression: 1: No acute bone or joint abnormality. Reviewed, dictated and finalized at location O. R CUTTER Impression: 1: No acute bone or joint abnormality.
--- NOTE | ~2025-11-06 | US_ITS ---
EXAMINATION: US venous doppler [facility] DATE: 11/07/2025 15:32 INDICATION: Bilateral lower limb edema. TECHNIQUE: Grayscale ultrasound images without and with compression and Doppler ultrasound images of the bilateral lower extremity veins were obtained. COMPARISON: None. FINDINGS: The visualized portions of right common femoral vein, profunda (deep) femoral vein, femoral vein, popliteal vein, peroneal veins, posterior tibial veins, and greater saphenous vein outflow are patent. The visualized portions of left common femoral vein, profunda femoral vein, femoral vein, popliteal vein, peroneal veins, posterior tibial veins, and greater saphenous vein outflow are patent. IMPRESSION: 1. No deep venous thrombosis. Reviewed, dictated and finalized at location E. PHONE INTERCEPTOR OPERATOR
--- NOTE | ~2025-11-06 | XR_ITS ---
XR foot LT 2V 11/06/2025 22:44 Indication: Left foot wound Procedure: 2 views left foot Comparison: No prior studies for comparison. Findings: Moderate diffuse soft tissue swelling. There is atherosclerosis. No fracture or traumatic malalignment. Lisfranc joint intact. There is advanced osteoarthritis of the first MTP joint. No foreign bodies. No evidence for resolution. Impression: 1: No acute bone or joint abnormality. Reviewed, dictated and finalized at location O. LER Impression: 1: No acute bone or joint abnormality.
--- NOTE | ~2025-11-06 | CT_ITS ---
EXAMINATION: CTA abd aorta runoff DATE: 11/07/2025 00:10 INDICATION: Lower extremity wounds. Vascular insufficiency. TECHNIQUE: Computed tomographic angiography (CTA) of the abdominal, pelvis, and both lower extremities was performed with 150 mL Omnipaque-350 intravenous contrast. Automated exposure control and iterative reconstruction technique were employed. The dose-length product was 1583.52 mGy-cm. Maximum intensity projection 3D-reconstructions of the arteries were created by the technologist on a separate workstation. COMPARISON: None. FINDINGS: ABDOMINAL AORTA AND ITS BRANCHES: There is no significant stenosis of celiac axis, superior mesenteric artery, renal arteries, or inferior mesenteric artery. PELVIC VASCULATURE: There is no significant stenosis of the common iliac arteries, internal iliac arteries, or external iliac arteries. RIGHT LOWER EXTREMITY VASCULATURE: There is no significant stenosis of right common femoral artery, profunda femoral artery, superficial femoral artery, or popliteal artery. The knee joint line and proximal calf are obscured by motion artifact. There is no significant stenosis of the visualized portions of anterior tibial artery, posterior tibial artery, or peroneal artery. LEFT LOWER EXTREMITY VASCULATURE: There is no significant stenosis of left common femoral artery, profunda femoral artery, superficial femoral artery, popliteal artery, anterior tibial artery, tibioperoneal trunk, peroneal artery, or posterior tibial artery. ADDITIONAL FINDINGS: The visualized portions of the lung bases demonstrate mild atelectasis. No pleural effusion. The heart size is normal. No pericardial effusion. The liver, gallbladder, spleen, pancreas, adrenal glands, and right kidney are normal. There is a 7 mm cyst in left kidney. The rectum is distended and stool-filled. There are no pathologically enlarged lymph nodes. There is no free intraperitoneal fluid. There are bilateral inguinal hernias containing fat. There is severe lumbar spondylosis. There is a chronic compression fracture of T12. There is diffuse edema of the lower limbs. IMPRESSION: 1. No significant arterial occlusive disease. The right knee joint line and proximal calf are obscured by motion artifact. Reviewed, dictated and finalized at location E. POINTER IMPRESSION: 1. No significant arterial occlusive disease. The right knee joint line and pr oximal calf are obscured by motion artifact.
--- OUTSIDE RECORDS SUMMARY | 2025-11-06 19:09 | XMS_ITS | Clinical Summary ---
Author Organization [facility] at the [facility] Address [address] [place] [id number] Care Team Providers Care Signaling Project Engineer Name Role Phone Johnnie Castillo MD Primary Care Provider Active Problems Problem Noted Date Diagnosed Date Spinal stenosis, cervical region 10/23/2025 Encounters Date Type Department Care Team Description [facility]20[facility] [address] [facility] 6th [place] [address] [place] [address] Sheron Pak 10/20/2025 [facility] [address] [place], [place] [id number] Sheron Pak from Last 3 Months Social History Tobacco Use Types Packs/Day Years Used Date Smoking Tobacco: Never Assessed Sex and Gender Information Value Date Recorded Sex Assigned at Not on file 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
--- OUTSIDE RECORDS SUMMARY | 2025-11-06 19:10 | XMS_ITS | Data Portability ---
Author Organization [facility] Address [address] [place] [address] Assessment No assessment recorded. Plan of Treatment Reminders Order Date Submit Date Provider Last Modified By Organization Details Last Modified Time Details Appointments ANY 15 2025 08:15A Tino Castillo MD Not available Not available Not available ANY 2025 11:00A Tino Castillo MD Not available Not available Not available Lab PSA, total, serum or plasma 2024 025 [facility], [address] [facility] [address], [place], [address], 10/04/2025 08:51:26 lipid panel, serum 2024 025 [facility], [address] [facility] [address], [place], [address], 10/04/2025 08:51:26 TSH, ultra-sen sitive, serum 2024 025 [facility], [address], [place], [address], 07/29/2025 08:35:15 vitamin B12, serum 2024 025 [facility], [address], [place], [address], 07/29/2025 08:35:13 CBC 2024 025 [facility], [address], [place], [address], 07/29/2025 08:35:15 CMP, serum or plasma 2024 025 [facility], [address], [place], [address], 07/29/2025 08:35:12 noninvasi ve colorecta l cancer DNA + occult blood screening , QL, stool 2024 025 [facility], [address], [address], [place], [address], 08/01/2025 10:12:42 magnesium , serum or plasma 2024 025 [facility], [address], [place], [address], 07/29/2025 08:35:14 Referral orthopedi c spine surgeon referral 2024 025 [facility], [address] [facility], [address], [place], [address], 10/30/2025 10:00:36 home health referral 2024 025 [facility], [address] [place], [address], 10/30/2025 14:21:18 physical therapist referral 2024 025 [facility], [address] [facility], [place], [address], 10/20/2025 16:46:01 Procedures nerve conductio n study/EMG , upper extremity (PROC) - Bilateral hand numbness, cervical spondylos is 2024 025 [facility] (Cardiology [facility] Em[facility]), [address], [place], [address], 09/13/2025 10:55:09 Surgeries None recorded. Imaging None recorded. Medication Orders albuterol sulfate HFA 90 mcg/actua tion aerosol inhaler 2024 [facility] #[id number], [address], [place], [id number], 10/26/2025 10:00:38 Viagra 100 mg tablet 2024 [facility], [address], [place], [id number], 08/25/2025 08:29:24 Debrox 6.5 % ear drops 2024 [facility] #[id number], [address], [place], [id number], 09/14/2025 11:12:43 gabapenti n 300 mg capsule 2024 [facility] #[id number], [address], [place], [id number], 08/16/2025 15:49:21 Patient TargetsNo targets recorded. Patient Instructions Encounter Date Encounter Id Patient Instructions Last Modified By Organization Details Last Modified Time 07/14/2025 [id number] Labs Cologuard Gabapentin EMG/NCS Follow up in 6 weeks for the MAWV oajao Not available 07/14/2025 10:43:19 08/16/2025 [id number] Debrox Follow up next for repeat irrigation oajao Not available 08/16/2025 16:00:44 08/24/2025 [id number] Viagra PRN Debrox oajao Not availab le 08/24/2025 13:48:43 09/14/2025 [id number] advance care planning: care instructions oajao Not available 09/14/2025 12:29:08 preventing falls : care instructions oajao Not available 09/14/2025 12:29:08 Quitting Tobacco : Care Instructions oajao Not available 09/14/2025 12:29:08 Medicare Wellnes s Preventive Checklist oajao Not available 09/14/2025 12:29:08 eating healthy foods: care instructions oajao Not available 09/14/2025 12:29:08 AD8 Dementia Screening Interview oajao Not available 09/14/2025 12:29:[address] Dumont for your Meloxicam refill Follow up in 6 months and PRN oajao Not available 09/14/2025 13:57:38 10/26/2025 [id number] D/C summary from the [facility] Spine surgeon Home health Follow up in 6 weeks [email or web address] Not available 10/26/2025 10:09:32 Reason for Referral Physical Therapist Referral for At increased risk for falls Hx of a previous CVA, with difficulty getting up after his fall. Bilateral carpal tunnel syndrome Referring Physician: Johnnie Castillo Internal Medicine, Encounter Date: 09/14/2025 Home Health Referral for Pos t-discharge follow-up Referring Physician: Johnnie Castillo Internal Medicine, Encounter Date: 10/26/2025 Orthopedic Spine Surgeon Ref erral for Spinal stenosis Cervical and lumbar spinal stenosis, recurrent falls. Hospital admission folllow up Referring Physician: Johnnie Castillo Internal Medicine, Encounter Date: 10/26/2025 Results Created Date Observation Date Name Description Value Unit Range Abnormal Flag Note LastModifiedBy Organization Detail LastModifiedTime 07/27/20 25 07/27/2025 COLOG UARD cologuard result reportable NEGATI VE negati ve normal The Colog uard (TM) test was perfo rmed on this speci men. NEGAT KAITLYN TEST RESUL T. A negat kaitlyn Colog uard resul t indic ates a low likel ihood that a color ectal cance r (CRC) or advan alesha adeno ma (bailey omato us polyp s with more advan alesha pre-m align ant featu res) is prese nt. The chanc e that a perso n with a negat kaitlyn Colog uard test has a color ectal cance r is less than 1 in 1500 (nega tive predi ctive value >99.9 %) or has an advan alesha adeno ma is less than 5.3% (nega tive predi ctive value 94.7% ). These data are based on a prosp ectiv e cross -sect ional study of 10,00 0 indiv idual s at [facility] risk for color ectal cance r who were scree derrick with both Colog uard and colon oscop y. (Saurabh Ng et al, N Engl J Med 2014; 370(1 4):12 86-12 97) The antonella l value (refe rence range ) for this assay is negat kaitlyn. COLOG UARD RE-SC REENI NG RECOM MENDA TION: Perio dic color ectal cance r scree shania is an impor tant part of preve ntive healt hcare for asymp tomat ic indiv idual s at [place] [facility] risk for color ectal cance r. Follo wing a negat kaitlyn Colog uard resul t, the Ameri can Cance r Socie ty and U.S. Multi -Soci ety Task Force scree shania guide lines recom mend a Colog uard re-sc reeni ng inter destinee of 3 years . Refer ences : Ameri can Cance r Socie ty Guide line for Color ectal Cance r Scree shania: https ://anant w.can cer.o rg/ca ncer/ colon -rect al-ca ncer/ detec tion- diagn osis- stagi ng/ac s-rec ommen datio ns.ht ml.; Lui SANCHEZ, Shashi yap CR, Jesús VegaK, Color ectal Cance r Scree shania: Recom menda tions for Physi cians and Patie nts from the U.S. Multi -Soci ety Task Force on Color ectal Cance r Scree shania , Vu macias y 2017; 112:1 016-1 030. TEST DESCR IPTIO N: [place] site algor ithmi c deshawn sis of stool DNA-b iomar kers with hemog lobin immun oassa y. Quant itati ve value s of indiv idual bioma rkers are not repor table and are not assoc iated with indiv idual bioma rker resul t refer ence range s. Colog uard is inten ded for color ectal cance r scree shania of adult s of eithe r sex, 45 years or older , who are at [facility] for color ectal cance r (CRC) . Colog uard has been appro irma for use by the U.S. FDA. The perfo rmanc e of Colog uard was estab lishe d in a cross secti onal study of [facility] adult s aged 50-84 . Colog uard perfo rmanc e in patie nts ages 45 to 49 years was estim ated by sub-g roup deshawn sis of near- age group s. Colon oscop ies perfo rmed for a posit kaitlyn resul t may find as the most clini jada signi fican t lesio n: color ectal cance r [4.0% ], advan alesha adeno ma (incl uding sessi le karin jeanine polyp s great er than or equal to 1cm diame ter) [20%] or non- advan alesha adeno ma [31%] ; or no color ectal neopl melanie [45%] . These estim ates are deriv ed from a prosp ectiv e cross -sect ional scree shania study of 10,00 0 indiv idual s at [facility] risk for color ectal cance r who were scree derrick with both Colog uard and colon oscop y. (Saurabh Ng et al, N Engl J Med 2014; 370(1 4):12 86-12 97.) Colog uard may produ ce a false negat kaitlyn or false posit kaitlyn resul t (no color ectal cance r or preca ncero us polyp prese nt at colon oscop y follo w up). A negat kaitlyn Colog uard test resul t does not guara ntee the absen ce of CRC or advan alesha adeno ma (pre- cance r). The curre nt Colog uard scree shania inter destinee is every 3 years . (Amer ican Cance r Socie ty and U.S. Multi -Soci ety Task Force ). Colog uard perfo rmanc e data in a 10,00 0 patie nt pivot al study using colon oscop y as the refer ence metho d can be acces sed at the follo wing locat ion: www.e xactl abs.c om/re spencer . Addit ional descr iptio n of the Colog uard test proce ss, warni ngs and preca ution s can be found at www.c mark serafin.c om. Not Available [facility] [address], [place], [address], 08/01/2025 10:12:42 07/28/2007/29/2025 CMP14 +EGFR glucose 84 mg/dL 70-99 Not Available [facility] ([facility]) [address] [facility], [place], [address], 07/29/2025 08:35:12 07/28/2007/29/2025 CMP14 +EGFR BUN 14 mg/dL 8-27 Not Available [facility] ([facility]) [address] [facility], [place], [address], 07/29/2025 08:35:12 07/28/2007/29/2025 CMP14 +EGFR creatinine 1.04 mg/dL 0.76-1 .27 Not Available [facility] ([facility]) [address] [facility], [place], [address], 07/29/2025 08:35:12 07/28/2007/29/2025 CMP14 +EGFR eGFR 77 mL/mi n/1.7 3 >59 Not Available [facility] ([facility]) [address] [facility], [place], [address], 07/29/2025 08:35:12 07/28/2007/29/2025 CMP14 +EGFR BUN/creatini ne ratio 13 -24 Not Available [facility] ([facility]) [address] [place], [address], 07/29/2025 08:35:12 07/28/2007/29/2025 CMP14 +EGFR sodium 141 mmol/ L 134-14 4 Not Available [facility] ([facility]) [address] [place], [address], 07/29/2025 08:35:12 07/28/20 25 07/29/2025 CMP14 +EGFR potassium 4.6 mmol/ L 3.5-5. 2 Not Available [facility] ([facility]) [address] [place], [address], 07/29/2025 08:35:12 07/28/2007/29/2025 CMP14 +EGFR chloride 99 mmol/ L 96-106 Not Available [facility] ([facility]) [address] [place], [address], 07/29/2025 08:35:12 07/28/2007/29/2025 CMP14 +EGFR carbon dioxide, total 24 mmol/ L 20-29 Not Available [facility] ([facility]) [address] [place], [address], 07/29/2025 08:35:12 07/28/2007/29/2025 CMP14 +EGFR calcium 9.5 mg/dL 8.6-10 .2 Not Available [facility] ([facility]) [address] [place], [address], 07/29/2025 08:35:12 07/28/2007/29/2025 CMP14 +EGFR protein, total 7.5 g/dL 6.0-8. 5 Not Available [facility] ([facility]) [address] [place], [address], 07/29/2025 08:35:12 07/28/20 25 07/29/2025 CMP14 +EGFR albumin 4.8 g/dL 3.9-4. 9 Not Available [facility] ([facility]) [address] [place], [address], 07/29/2025 08:35:12 07/28/2007/29/2025 CMP14 +EGFR globulin, total 2.7 g/dL 1.5-4. 5 Not Available [facility] ([facility]) [address] [place], [address], 07/29/2025 08:35:12 07/28/2007/29/2025 CMP14 +EGFR bilirubin, total 0.8 mg/dL 0.0-1. 2 Not Available [facility] ([facility]) [address] [place], [address], 07/29/2025 08:35:12 07/28/2007/29/2025 CMP14 +EGFR alkaline phosphatase 52 IU/L 44-121 Eff ectiv e Septe mber 2024 Alkal ine Phosp hatas e refer ence inter destinee will be mccullough ing to: Age Male Femal e 0 - 5 days 47 - 127 47 - 127 6 - 10 days 29 - 242 29 - 242 11 - 20 days 109 - 357 109 - 357 21 - 30 days 94 - 494 94 - 494 1 - 2 month s 149 - 539 149 - 539 3 - 6 month s 131 - 452 131 - 452 7 - 11 month s 117 - 401 117 - 401 12 month s - 6 years 158 - 369 158 - 369 7 - 12 years 150 - 409 150 - 409 13 years 156 - 435 78 - 227 14 years 114 - 375 64 - 161 15 years 88 - 279 56 - 134 16 years 74 - 207 51 - 121 17 years 63 - 161 47 - 113 18 - 20 years 51 - 125 42 - 106 21 - 50 years 47 - 123 41 - 116 51 - 80 years 49 - 135 51 - 125 >80 years 48 - 129 48 - 129 Not Available [facility] ([facility]) [address] [facility], [place], [address], 07/29/2025 08:35:12 07/28/2007/29/2025 CMP14 +EGFR AST (SGOT) 34 IU/L 0-40 Not Available [facility] ([facility]) [address] [facility], [place], [address], 07/29/2025 08:35:12 07/28/2007/29/2025 CMP14 +EGFR ALT (SGPT) 30 IU/L 0-44 Not Available [facility] ([facility]) [address] [facility], [place], [address], 07/29/2025 08:35:12 07/28/2007/29/2025 VITAM IN B12 vitamin B12 1050 pg/mL 232-12 45 Not Available [facility] ([facility]) [address] [facility], [place], [address], 07/29/2025 08:35:13 07/28/2007/29/2025 MAGNE SIUM magnesium 2.0 mg/dL 1.6-2. 3 Not Available [facility] ([facility]) [address] [facility], [place], [address], 07/29/2025 08:35:14 07/28/2007/29/2025 TSH TSH 3.030 uIU/m L 0.450- 4.500 Not Available [facility] ([facility]) [address] [facility], [place], [address], 07/29/2025 08:35:14 07/28/2007/29/2025 CBC, PLATE LET, NO DIFFE RENTI AL WBC 10.3 x10e3 /uL 3.4-10 .8 Not Available [facility] ([facility]) [address] [facility], [place], [address], 07/29/2025 08:35:15 07/28/2007/29/2025 CBC, PLATE LET, NO DIFFE RENTI AL RBC 4.61 x10e6 /uL 4.14-5 .80 Not Available [facility] ([facility]) [address] [facility], [place], [address], 07/29/2025 08:35:15 07/28/2007/29/2025 CBC, PLATE LET, NO DIFFE RENTI AL hemoglobin 13.6 g/dL 13.0-1 7.7 Not Available [facility] ([facility]) [address] [facility], [place], [address], 07/29/2025 08:35:15 07/28/2007/29/2025 CBC, PLATE LET, NO DIFFE RENTI AL hematocrit 42.3 % 37.5-5 1.0 Not Available [facility] ([facility]) [address] [place], [address], 07/29/2025 08:35:15 07/28/2007/29/2025 CBC, PLATE LET, NO DIFFE RENTI AL MCV 92 fL 79-97 Not Available [facility] ([facility]) [address] [facility], [place], [address], 07/29/2025 08:35:15 07/28/2007/29/2025 CBC, PLATE LET, NO DIFFE RENTI AL MCH 29.5 pg 26.6-3 3.0 Not Available [facility] ([facility]) [address] [facility], [place], [address], 07/29/2025 08:35:15 07/28/2007/29/2025 CBC, PLATE LET, NO DIFFE RENTI AL MCHC 32.2 g/dL 31.5-3 5.7 Not Available [facility] ([facility]) [address] [place], [address], 07/29/2025 08:35:15 07/28/2007/29/2025 CBC, PLATE LET, NO DIFFE RENTI AL RDW 19.9 % 11.6-1 5.4 above high normal Not Available [facility] ([facility]) [address] [place], [address], 07/29/2025 08:35:15 07/28/20 25 07/29/2025 CBC, PLATE LET, NO DIFFE RENTI AL platelets 251 x10e3 /uL 150-45 0 Not Available [facility] ([facility]) [address] [place], [address], 07/29/2025 08:35:15 10/03/20 25 10/04/2025 LIPID PANEL cholesterol, total 118 mg/dL 100-19 9 Not Available [facility] ([facility]) [address] [place], [address], 10/04/2025 08:51:25 10/03/20 25 10/04/2025 LIPID PANEL triglyceride s 31 mg/dL 0-149 Not Available [facility] ([facility]) [address] [place], [address], 10/04/2025 08:51:25 10/03/20 25 10/04/2025 LIPID PANEL HDL cholesterol 57 mg/dL >39 Not Available [facility]) [address] [place], [address], 10/04/2025 08:51:25 10/03/20 25 10/04/2025 LIPID PANEL VLDL cholesterol nicole 9 mg/dL 5-40 Not Available [facility] ([facility]) [address] [place], [address], 10/04/2025 08:51:25 10/03/20 25 10/04/2025 LIPID PANEL LDL chol calc ([facility]) 52 mg/dL 0-99 Not Available [facility] ([facility]) [address] [place], [address], 10/04/2025 08:51:25 10/03/20 25 10/04/2025 PROST ATE-S PECIF IC AG prostate specific Ag 1.6 NG/mL 0.0-4. 0 Janusz ECLIA metho dolog [...] kits canno t be used inter mccullough eably . Resul ts canno t be inter prete d as absol isiah evide nce of the prese nce or absen ce of [facility] se. Not Available [facility] ([facility]) [address] [facility], [place], [address], 10/04/2025 08:51:26 10/03/20 25 10/04/2025 VITAM IN B12 AND FOLAT E vitamin B12 1020 pg/mL 232-12 45 Not Available [facility] ([facility]) [address] [facility], [place], [address], 10/04/2025 08:51:30 10/03/2010/04/2025 VITAM IN B12 AND FOLAT E folate (folic acid), serum 17.9 NG/mL >3.0 A serum folat e pantera ntrat ion of less than 3.1 ng/mL is consi dered to repre sent clini nicole defic iency . Not Available [facility] ([facility]) [address] [facility], [place], [address], 10/04/2025 08:51:30 09/13/20 25 09/12/2025 nerve condu ction study /EMG, upper extre mity (PROC ) No observ ation record ed. [facility] [address], [place], [address], 09/27/2025 08:59:59 Result Notes None recorded. Problems Name Problem SNOMED Code Status Onset Date Resolution Date Notes Provider Name and Address Organization Details Recorded Time Impacted cerumen of bilateral ears 3096637725148 108 Active 2022 Johnnie Castillo MD Attn: Bob garner,[address] [facility], [place], [address], [place] [facility] 3 19:07:35 Nicotine dependence 43192400 Active 2022 Johnnie Castillo MD Attn: Bob garner,[address] [facility], [place], [address], [place] [facility] 3 19:07:48 Blind left eye 882397600 Active 2022 Johnnie Castillo MD Attn: Bob garner,[address] [place], [address] [facility] 3 19:08:12 History of head injury 636647055 Active 2022 Johnnie Castillo MD Attn: Bob garner,[address] [place], [address] [facility] 3 19:08:13 Hearing loss 57179165 Active 2022 Johnnie Castillo MD Attn: Bob garner,[address] [place], [address] [facility] 3 19:08:15 Primary erectile dysfunction 850429194 Active 2022 Johnnie Castillo MD Attn: Bob garner,[address] [place], [address] [facility] 3 19:08:17 History of SARS-CoV-2 0759292722317 04899 Active 2022 Johnnie Castillo MD Attn: Bob garner,[address] [place], [address] 19:08:39 Calcificati on of coronary artery 393160777 Active 2022 Johnnie Castillo MD Attn: Bob garner,[address] [place], [address], [place] [facility] 3 10:51:51 Hepatitis C antibody detected 327042907 Active 2022 Johnnie Castillo MD Attn: Calebshahid g,[address] [facility], [place], [address] [facility] 3 14:48:59 Chronic hepatitis C 300241778 Active 2022 Johnnie Castillo MD Attn: Accountin g,[address] [facility], [place], [address] [facility] 3 14:52:55 SARS-CoV-2 vaccination declined 3576637022 Active 2023 Johnnie Castillo MD Attn: Bob g,[address] [facility], [place], [address], [place] [facility] 4 16:17:19 Chronic cerebral ischemia 953116022 Active 2024 Johnnie Castillo MD Attn: Bob g,[address] [facility], [place], [address] [facility] 5 10:57:26 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 102476627 Active 2024 Johnnie Castillo MD Attn: Bob g,[address] [facility], [place], [address] [facility] 5 13:10:28 Diastolic dysfunction 1398521 Active 2024 Johnnie Castillo MD Attn: Calebin g,[address] [facility], [place], [address] [facility] 5 14:55:18 Cervical spondylosis without myelopathy 548181486 Active 2024 Johnnie Castillo MD Attn: Bob g,[address] [facility], [place], [address] [facility] 5 14:56:08 Ulnar neuropathy of left arm 0878509932269 07 Active 2024 Johnnie Castillo MD Attn: Bob patsy,[address] [facility], [place], [address] [facility] 5 11:08:45 Carpal tunnel syndrome of left wrist 2584729634288 02 Active 2024 Johnnie Castillo MD Attn: Calebshahid garner,[address] [facility], [place], [address] [facility] 5 11:08:46 Recurrent falls 665246166 Active 2024 Johnnie Castillo MD Attn: Calebshahid garner,[address] [place], [address] [facility] 14:21:59 Problem Notes None recorded. Procedures Surgical History Date Name Laterality Status Provider Name and Address Organization Details Recorded Time 5 Cerumen Removal completed Johnnie Castillo MD Attn: Accounting,[address] [place], [address], [place] [facility] 08/24/2025 13:52:53 5 Cerumen Removal completed Johnnie Castillo MD Attn: Accounting,[address] [place], [address], [place] [facility] 08/16/2025 19:01:40 3 Cerumen Removal completed Johnnie Castillo MD Attn: Accounting,[address] [place], [address], [place] [facility] 12/02/2022 19:07:18 Imaging Results None recorded. Procedure Notes None recorded. Medical Equipment None Reported. Allergies Allergen ID Allergen Name Allergen Category Reaction Reaction Severity Criticality Documentation Date Start Date Code Code System Note Provider Name and Address Organization Details Recorded Time 195197 Product containin g penicilli n (product) medicatio n Not available Not available Not available 12/02/2022 91647 8001 SNOMED Knot jeanine up my veins when I was a kid Johnnie Castillo MD Attn: Bob garner,[address] [place], [address], [place] [facility] 15:52:25 Medications Name Sig Start Date Stop Date Status Note LastModified by Organization Details LastModified Time nicotine 14 mg/24 hr daily transderm al patch Apply 1 patch every day by transder mal route as directed for 14 days. 11/17 completed Not Available Not Available Not Available clindamyc in HCl 300 mg capsule TAKE ONE CAPSULE BY MOUTH EVERY 8 HOURS FOR 10 DAYS 03/16 completed Not Available Not Available Not Available albuterol sulfate 2.5 mg/3 mL (0.083 %) solution for nebulizat ion USE 3 ML VIA NEBULIZE R THREE TIMES DAILY NEEDED FOR COPD active Not Available Not Available No t Available atorvasta tin 10 mg tablet TAKE 1 TABLET BY MOUTH EVERY DAY AT BEDTIME 10/26 completed Not Available Not Available Not Available azithromy giselle 250 mg tablet TAKE 2 TABLETS (500 MG) BY ORAL ROUTE ONCE DAILY FOR 1 DAY THEN 1 TABLET (250 MG) BY ORAL ROUTE ONCE DAILY FOR 4 DAYS 12/15 completed Not Available Not Available Not Available ofloxacin 0.3 % eye drops INSTILL 1 DROP INTO EYE EVERY 2 HOURS WHILE AWAKE X2DAYS AND THEN 2 DROPS FOUR TIMES DAILY X5 DAYS 11/17 completed Not Available Not Available Not Available meloxicam 15 mg tablet TAKE 1 TABLET BY MOUTH ONCE DAILY 09/14 completed Not Available Not Available Not Available prednison e 20 mg tablet TAKE 2 TABLETS BY MOUTH DAILY AT 8 AM 03/10 completed Not Available Not Available Not Available Debrox 6.5 % ear drops INSTILL 5 DROPS INTO AFFECTED EAR(S) BY OTIC ROUTE 2 TIMES PER DAY 09/14 completed Not Available Not Available Not Available aspirin 81 mg tablet,de layed release TAKE 1 TABLET BY MOUTH EVERY DAY AROUND THE CLOCK FOR BLOOD THINNER active Not Available Not Available No t Available baclofen 10 mg tablet Take 1 tablet 3 times a day by oral route. active Not Available Not Available No t Available benzonata te 100 mg capsule Take 1 capsule 3 times a day by oral route as directed for 5 days, for Cough. 12/15 completed Not Available Not Available Not Available nicotine 21 mg/24 hr daily transderm al patch Apply 1 patch every day by transder mal route as directed for 42 days. 11/17 completed Not Available Not Available Not Available gabapenti n 300 mg capsule TAKE 1 CAPSULE BY MOUTH once a day active Not Available Not Available No t Available Viagra 100 mg tablet Take 0.5 tablets every day by oral route as needed for 30 days, for ED. 2024 active Changed to Tadalafi l Not Available Not Available Not Available albuterol sulfate HFA 90 mcg/actua tion aerosol inhaler INHALE 2 PUFFS BY MOUTH EVERY 6 HOURS NEEDED active Not Available Not Available No t Available nicotine 7 mg/24 hr daily transderm al patch Apply 1 patch every day by transder mal route around the clock for 14 days. 11/17 completed Not Available Not Available Not Available rosuvasta tin 5 mg tablet TAKE 1 TABLET BY MOUTH EVERY NIGHT AT BEDTIME 02/14 completed Not Available Not Available Not Available tadalafil 20 mg tablet Take 1 TABLET BY MOUTH 1 HOUR PRIOR TO SEXUAL ACTIVITY DIRECTED , NOT TO EXCEED 1 IN 24 HOURS. active Not Available Not Available No t Available sennoside s 8.6 mg capsule Take 2 capsules every day by oral route. active Not Available Not Available No t Available duloxetin e 60 mg capsule,d elayed release Take 1 capsule every day by oral route. active Not Available Not Available No t Available Vitamin C active Not Available Not Jessica ilable Not Available arginine (L-argini ne) active Not Available Not Available Not Available ginseng active Not Available Not Avail able Not Available vitamin E active Not Available Not Jessica ilable Not Available Todd 3 active Not Available Not Avail able Not Available multivita min active Not Available Not Available Not Available Ginkoba active Not Available Not Avail able Not Available Symbicort 160 mcg-4.5 mcg/actua tion HFA aerosol inhaler INHALE 2 PUFFS BY MOUTH TWICE DAILY DIRECTED FOR COPD active Not Available Not Available No t Available oxycodone 10 mg tablet Take 1 tablet every 4 hours by oral route. active Not Available Not Available No t Available lidocaine 0.5 %-me.sali cyl 20 %-capsai 0.035 %-menth 5 % topical patch active Not Available Not Available Not Available Prostate Health 03/10 completed Not Available Not Available Not Available Incruse Ellipta 62.5 mcg/actua tion powder for inhalatio n INHALE 1 PUFF BY MOUTH ONCE DAILY [...] (BMI) Body weight Heart rate Oxygen saturation Respiratory rate Body temperature Systolic And Diastolic Provider Name and Address Organization Details Last Updated DateTime 5 179.07 cm 24.1 kg/m2 76855.1 4 g 68 /min 96 % 14 /min 98.3 [degF] 134/80 mm[Hg] Elizabeth Cannon MA [facility] 5 09:52:11 Date Recorded Body height Body mass index (BMI) Body weight Oxygen saturation Heart rate Respiratory rate Systolic And Diastolic Provider Name and Address Organization Details Last Updated DateTime 5 179.07 cm 24 kg/m2 19369.9 1 g 95 % 72 /min 16 /min 140/80 mm[Hg] Elizabeth Cannon MA [facility] 5 15:22:03 Date Recorded Body height Body mass index (BMI) Body weight Heart rate Oxygen saturation Respiratory rate Systolic And Diastolic Provider Name and Address Organization Details Last Updated DateTime 5 179.07 cm 24 kg/m2 17305.9 1 g 66 /min 96 % 16 /min 140/84 mm[Hg] Elizabeth Cannon MA [facility] 5 13:28:28 Date Recorded Body height Body mass index (BMI) Body weight Heart rate Oxygen saturation Respiratory rate Body temperature Systolic And Diastolic Provider Name and Address Organization Details Last Updated DateTime 5 179.07 cm 24 kg/m2 36854.9 1 g 84 /min 96 % 14 /min 97.8 [degF] 126/70 mm[Hg] Elizabeth Cannon MA [facility] 5 10:54:33 Date Recorded Systolic And Diastolic Provider Name and Address Organization Details Last Updated DateTime 10/26/2025 122/80 mm[Hg] Johnnie Castillo MD Attn: Accounting,[address] [facility], [place], [address], [place] - [facility] 10/26/2025 14:20:37 Date Recorded Body height Body mass index (BMI) Body weight Heart rate Respiratory rate Body temperature Oxygen saturation Systolic And Diastolic Provider Name and Address Organization Details Last Updated DateTime 179.07 cm 24 kg/m2 95671.7 g 64 /min 16 /min 97.3 [degF] 98 % 130/86 mm[Hg] Desirae Stanton MA [place] - [facility] 09:33:45 Social History Question Answer Notes LastModified by Organizat ion Details LastModified Time Tobacco Smoking Status Former Smoker has not smoked for a month now Elizabeth Cannon MA [facility], [place] - [facility] 11/17/2024 14:48:44 How Many Years Have You Consumed Alcohol? [...] Date Of Your Most Recent Tobacco Screening? 09/14/2025 Information not available 09/14/2025 What Is Your Current Pack Years? 30ormorepac kyears Information not available 01/27/2023 Do You Use [...] Smoked Tobacco? 50 Information not available 12/02/2022 Sex: Unknown Functional Status Question Answer Note LastModified by Organizat ion Details LastModified Time Do you or have you ever used any other forms of tobacco or nicotine? No Information not available 01/27/2023 What is your level of alcohol consumption? Occasional Information not available 12/02/2022 Are you able to care for yourself independently? Yes Information not available 12/02/2022 Mental Status None recorded. Family History Nothing Reported. Medical History Condition Response Coronary Artery Disease N Other N Atrial Fibrillation N High Blood Pressure N Thyroid Problems N Kidney or Bladder Problems N GI Problems N Depression N COPD N Blood Clots N Skin Problems N Anemia N Heart Attack (NH) N Diabetes N Anxiety Disorder N Muscle, Joint, or Bone Problems N Seizures/Epilepsy N Acid Reflux (GERD) N Cancer N Stroke Y Asthma N Allergies N High Cholesterol N Hepatitis N Liver Disease N Headaches N Osteoporosis N Heart Failure N Immunizations Vaccine Type Date Status Note Provider Nam e and Address Organization Details Recorded Time Tdap 3 completed Johnnie Castillo MD Attn: Accounting,[address] [place], [address], [facility] 12/02/2022 18:54:59 Pneumococcal conjugate PCV20, polysaccharide SKP300 conjugate, adjuvant, PF 3 completed Johnnie Castillo MD Attn: Accounting[address] [place], [address], [facility] 12/02/2022 18:54:59 Past Encounters Encounter ID Performer Location Encounter Start Date Encounter Closed Date Diagnosis/Indication Diagnosis SNOMED-CT Code Diagnosis ICD10 Code Diagnosis IMO Codes Diagnosis Note [id number] Johnnie Castillo MD [facility] (Adult Med) [facility] [place] [address] 12/02/2022 13:25:54 12/04/2022 09:05:24 Administration of diphtheria, pertussis, and tetanus vaccine 723439681 Z23 General ex amination of patient 911568154 Z00.01 Screening for malignant neoplasm of colon 689603299 Z12.11 Screening for malignant neoplasm of prostate 739598558 Z12.5 Administra tion of pneumococcal vaccine 05787998 Z23 Nicotine dependence 5629 4008 Z87.891 Impacted c erumen of bilateral ears 4429018546 413736 H61.23 Blind left eye 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 H54.62 History of head injury 627710737 Z87.828 Hearing loss 80516348 H9 1.92 Primary er ectile dysfunction 312317620 N52.9 History of SARS-CoV-2 29 87202053 09819298 Z86.16 Influenza vaccination declined 000809013 Z28.21 [id number] MD [facility] (Adult Med) [address] [place] [address] 12/17/2022 08:32:18 12/22/2022 11:55:17 Pulmonary emphysema 47858870 J43.9 Impacted c erumen of bilateral ears 4105672207 128235 H61.23 Immunization advised 310 145128 Z71.9 Calcificat ion of coronary artery 322268349 I25.84 Nicotine dependence 5629 4008 Z87.891 History of SARS-CoV-2 29 00749827 10024143 Z86.16 10/2022 [id number] Johnnie Castillo MD [facility] (Adult Med) [address] [place] [id number] 01/27/2023 14:28:09 01/28/2023 09:03:06 Chronic hepatitis C 620757708 B18.2 Immunization advised 310 472850 Z71.9 Influenza vaccination declined 921573849 Z28.21 Nicotine dependence 5629 4008 Z87.891 Primary er ectile dysfunction 652850179 N52.9 [id number] MD [facility]infa [facility]arate (Adult Med) [address] [place] [address] 05/16/2024 15:31:30 05/17/2024 10:15:30 Chronic hepatitis C 543122641 B18.2 Nicotine dependence 5629 4008 Z87.891 He should not smoke when the patch is on and he should take the patch off at bed time. General ex amination of patient 361878629 Z00.01 Chronic ob structive pulmonary disease 42656238 J44.9 Start Symbicort, he should rinse his mouth after each useContinu e Albuterol Unexplaine d weight loss 641002144 R63.4 NL PSA 2022LDCT 12/12/2022E [place] & [place] the [place]Col[place] copy at [facility]? Screening for malignant neoplasm of prostate 964292400 Z12.5 Primary er ectile dysfunction 661022756 N52.9 SARS-CoV-2 vaccination declined 6019366927 Z28.21 [id number] MD [facility]a [facility]arate (Adult Med) [address] [place] [address] 11/17/2024 14:31:38 11/21/2024 15:48:02 Unexplained weight loss 303358386 R63.4 He has gained back [address] A&P do not explain his weight lossColono scopy report needed OV 05/16/2024NL PSA 2022LDCT 12/12/2022E GD & [place]Col[place]os copy at [facility]? Chronic hepatitis C 1283 71110 B18.2 Labs Chronic ob structive pulmonary disease 11437997 J44.9 Restart SymbicortS tart IncruseAlb uterol PRN OV 05/16/2024St art Symbicort, he should rinse his mouth after each useContinu e Albuterol Acute exac erbation of chronic obstructive pulmonary disease 446237392 J44.1 Weakness present 0262184 07 M62.81 Impairment of balance 38 4354235 R26.89 History of fall 34468180 9 Z91.81 Calcificat ion of coronary artery 287870989 I25.84 He denies chest pain, but he has multiple RF with SOBOE Constipation 84293137 K5 9.00 [id number] MD [facility]a [facility] (Adult Med) [address] [place] [address] 12/15/2024 10:40:53 12/21/2024 11:08:30 Chronic cerebral ischemia 782054984 I67.82 Noted on the MRI.Discus sedContinu e AspirinSta rt Rosuvastat in, side effects were discussed including but not limited to MSK pain Chronic ob structive pulmonary disease 78798993 J44.9 Start Incruse as previously prescribed OV 12/15/2024R estart SymbicortS tart IncruseAlb uterol PRN OV 05/16/2024St art Symbicort, he should rinse his mouth after each useContinu e Albuterol Pain of sh oulder region 22504543 M25.519 History of cerebrovascular accident without residual deficits 571392092 Z86.73 Impacted c erumen of bilateral ears 8919712100 842081 H61.23 Numbness of finger 55391 6001 R20.0 [id number] MD [facility]a [facility] (Adult Med) [address] [place] [address] 02/14/2025 09:50:48 02/16/2025 10:59:13 Body mass index 20-24 - normal 175629648 Z68.23 History of cerebrovascular accident without residual deficits 799563403 Z86.73 Try Atorvastat in, side effects were discussed Primary er ectile dysfunction 271857277 N52.9 Nonspecifi c tuberculin test reaction 335862329 R76.12 [id number] MD [facility]a [facility] (Adult Med) [address] [place] [address] 03/10/2025 12:43:26 03/13/2025 11:28:43 Chronic obstructive pulmonary disease 98681899 J44.9 Continue the current regimen Previous OVStart Incruse as previously prescribed OV 12/15/2024R estart SymbicortS tart IncruseAlb uterol PRN OV 05/16/2024St art Symbicort, he should rinse his mouth after each useContinu e Albuterol Primary er ectile dysfunction 613781412 N52.9 Cervical s pondylosis without myelopathy 467236576 M47.748 0721337 Atheroscle rosis of left carotid artery 1982149705 49417 I65.22 9544819 Diastolic dysfunction 35 78308 I51.89 018526 Post-disch arge follow-up 265577768 Z09 038032 [id number] MD [facility]infa Zarate (Adult Med) [address] [place] [address] 07/14/2025 09:21:11 07/18/2025 13:33:43 Numbness of hand 553066934 R20.0 762890 He has cervical spondylosi s on the CT scan of the c spine done on 03/05/2025, the exam does not suggest a vascular etiology. I am of the opinion that this could be a radiculopa thy. Cramp 39525938 R25.2 08262 History of clinical finding in subject 890763311 Z87.616 8781364 Therapeuti c drug monitoring assay 49356749 Z51.81 262839 Screening for malignant neoplasm of colon 147930617 Z12.11 174976 [id number] MD [facility]a [facility] (Adult Med) [address] [place] [address] 08/16/2025 15:02:12 08/21/2025 14:48:48 Impacted cerumen of bilateral ears 9875481666 982008 H61.23 953838 [id number] MD Ninfa Zarate (Adult Med) [address] [place] [address] 08/24/2025 13:17:30 08/25/2025 15:47:07 Primary erectile dysfunction 812038805 N52.9 Change to brand name Viagra Impacted c erumen of bilateral ears 8007342302 770860 H61.23 496238 Successful irrigation (L)Debrox to the right [id number] MD Ninfa Zarate (Adult Med) [address] [place] [address] 09/14/2025 10:38:07 09/15/2025 14:13:21 Adult health examination 163764828 Z00.00 Health Risk Assessment collected and reviewed Ulnar neur opathy of left arm 3740769078 95408 G56.22 08408804 Pt education Bilateral carpal tunnel syndrome 0458790264 4725904 G56.03 071248 Pt education At [facility] risk for falls 537132151 Z91.81 1368443 Screening for malignant neoplasm of prostate 720459456 Z12.5 214159 History of cerebrovascular accident without residual deficits 357793815 Z86.73 Continue Atorvastat in 10 mg [id number] MD Ninfa Zarate (Adult Med) [address] [place] [address] 28874[address]283 0 10/26/2025 09:08:10 10/27/2025 12:07:39 Spinal stenosis 50849793 M48.00 [id number] Cervical and lumbar Recurrent falls 08888708 2 R29.6 0498083 Elevated blood-pressure reading without diagnosis of hypertension 654034443 R03.0 706651 Normal when rechecked Chronic ob structive pulmonary disease 53693444 J44.9 Continue the current regimen Previous OVStart Incruse as previously prescribed OV 12/15/2024R estart SymbicortS tart IncruseAlb uterol PRN OV 05/16/2024St art Symbicort, he should rinse his mouth after each useContinu e Albuterol Post-disch arge follow-up 423135972 Z51.89 635501 The discharge instructio ns include multifocal spinal stenosis at C3-4 and L4-5; AECOPD, mild PN; Double vision; 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 sided weakness. 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 80213521 G72.0 T46.6X5A 989660 Health Concerns Section Related Observation LastModified by Organization Detai ls LastModified Time None Recorded Concern Status LastModified by Organization Details LastModified Time None Recorded Advance Directives Directive None Recorded Payers Insurance Date Sequence Insurance Name Policy Number Policy Wang Covered Member ID Wang Member ID Guarantor Name 11/21/2024 3 *SELF PAY* Mi atif Hackett 07/14/2025 1 [facility] (MEDICARE REPLACEMENT/AD VANTAGE - PPO) [id number] William Hackett [id number] William Hackett 07/14/2025 1 [employer] [place] William Hackett [id number] William Hackett 10/25/2025 2 [place] WHEN MED[place]ARE OR MEDICARE REPLACEMENT PRIMARY) William Hackett [id number] William Hackett 07/14/2025 [place] [facility] William Hackett [id number] William Hackett 07/14/2025 1 [place] William Hackett [id number] William Hackett 10/25/2025 1 [facility] (MEDICARE REPLACEMENT/AD VANTAGE - HMO) [id number] William Hackett [id number] William Hackett 07/14/2025 1 [facility] (MEDICARE REPLACEMENT HMO) William Hackett [id number] William Hackett Notes Date Note Type Note Provider Name and Address Organization Details Recorded Time 07/14/2025 text/html ROS as noted in the HPI Here with his son They sent me a letterMy feet were swollenMy hands Mr Hackett received a letter from someone about some test that he needs to get done. He had swelling of his feet recently but that has resolved. He complains of numbness in his hands and generalized cramps Johnnie Castillo MD Attn: Accounting,[address] [place], [address], [facility] 07/14/2025 20:40:57 08/16/2025 text/html ROS as noted in the HPI They want me to get the wax out of my left ear Mr Hackett needs his ear canals irrigated, he has been using Hydrogen peroxide Johnnie Castillo MD Attn: Accounting,[address] [place], [address], [facility] 08/16/2025 19:02:30 08/24/2025 text/html ROS as noted in the HPI That Sildenafil don't work like it used to Mr Hackett is here for irrigation of his left ear, however his Sildenafil 50mg and 100 mg have been ineffective. Jonhnie Castillo MD Attn: Accounting,[address] [place], [address], [facility] 08/24/2025 14:03:18 09/14/2025 text/html MAW 2Reported by PatientSocial/Behavior al HistoryFor diet and nutrition, patient reportshealthy dietanddiscussed vitamin and supplement use. For fracture risk, patient reportsno history of fracturesandno sudden unexplained fractures.Mental Status:For speech/motor difficulties, patient reportsdifficulty with fine manipulative tasksandslowed reaction timebut reportsno speech difficulties,no difficulty expressing formulated concepts,no difficulty writing/copying, anddoes not knock things over when trying to pick them up. For concentration and memory, patient reportsno decreased concentrating ability,no memory lapses or loss, anddoes not forget words.Functional AbilityFor hearing, patient reportsgetting progressively worse([facility] For vision, patient reportsworse both distance and near. For activities of daily living, patient reportsable to bathe with limited or no assistance,able to contol urination and bowels,able to dress with limited or no assistance,able to feed self with limited or no assistance,able to get out of chair or bed with limited or no assistance,able to groom with limited or no assistance, andable to toilet with limited or no assistance. For instrumental activities of daily living, patient reportsable to do house work with limited or no assistance,able to grocery shop with limited or no assistance,able to manage medications with limited or no assistance,able to manage money with limited or no assistance,able to prepare meals with limited or no assistance, andable to use the phone with limited or no assistance. For falls risk assessment, patient reportsno frequent falls while walking,no dizziness/vertigo,fall (s) in the past year 2, andfall(s) since last visit2(i didn't fall, i slipped out of the bed, it was hard to get back up). For home safety, patient reportsno unsafe olivia hazzards,no unsafe stairs,working smoke/co detectors,practicing 'safer sex',no fire arms,has hand bars in the bathroom/shower, andgood lighting in the home.ROS as noted in the HPI Mr Hackett is here for his MAWV, he complains of intermittent numbness in both hands and in the interim, he had his EMG/NCS done. Johnnie Castillo MD Attn: Accounting,[address] [place], [address], [place] [facility] 09/14/2025 13:58:38 10/26/2025 text/html Hypertension F/UReported by PatientHPIFor associated symptoms, patient reportsno dizziness,no lightheadedness,no chest pain,no shortness of breath,no palpitations,no edema, andno calf pain with exertion. For lifestyle, patient reportsregular exerciseandlimiting/av oiding salt. For medications, patient reportstaking medications as directedandno side effects from medication.ROS as noted in the HPI Here with his son who provides most of the details. Because he kept fallingThe Atorvastatin was making him have spasms at night [facility] with recurrent falls, right lower extremity weakness, elevated blood pressure and muscle spasms. He was found to have severe spinal stenosis and he was referred to the spine surgeon, it is unclear if he has been seen. It was also felt that the Atorvastatin was the cause of his pain and this was stopped. The plan was a discharge to rehab, however the facilities are too far away and the family wanted him closer to home. 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 sided weakness. Johnnie Castillo MD Attn: Accounting,[address] [facility], [place], [address], [facility] 10/26/2025 14:27:22
--- OUTSIDE RECORDS SUMMARY | 2025-11-06 19:10 | XMS_ITS | Continuity of Care Document ---
Author Organization [facility] ([facility]ult [facility]) Address [address] [place] [address] Assessment No assessment recorded. Plan of Treatment Reminders Order Date Submit Date Provider Last Modified By Organization Details Last Modified Time Details Appointments ANY 15 2025 08:15A Tino Castillo MD Not available Not available Not available ANY 15 2025 11:00A Tino Castillo MD Not available Not available Not available Lab None recorded. Referral orthopedi c spine surgeon referral 2024 025 [facility] Care Physician Referral Management, [address] [facility] [address], [place], [address], 10/30/2025 10:00:36 home health referral 2024 025 [facility], [address] [place], [address], 10/30/2025 14:21:18 Procedures None recorded. Surgeries None recorded. Imaging None recorded. Medication Orders albuterol sulfate HFA 90 mcg/actua tion aerosol inhaler 2024 025 [id number], [address], [place], [id number], 10/26/2025 10:00:38 Patient TargetsNo targets recorded. Patient Instructions Encounter Date Encounter Id Patient Instructions Last Modified By Organization Details Last Modified Time 10/26/2025 [id number] D/C summary from the [facility] Spine surgeon Home health Follow up in 6 weeks [email or web address] Not available 10/26/2025 10:09:32 Reason for Referral Home Health Referral for Pos t-discharge follow-up Referring Physician: Johnnie Castillo, Internal Medicine, Encounter Date: 10/26/2025 Orthopedic Spine Surgeon Ref erral for Spinal stenosis Cervical and lumbar spinal stenosis, recurrent falls. Hospital admission folllow up Referring Physician: Johnnie Castillo, Internal Medicine, Encounter Date: 10/26/2025 Results Created Date Observation Date Name Description Value Unit Range Abnormal Flag Note LastModifiedBy Organization Detail LastModifiedTime 10/03/2010/04/2025 LIPID PANEL cholesterol, total 118 mg/dL 100-19 9 Not Available [facility] ([facility]) [address] [facility], [place], [address], 10/04/2025 08:51:25 10/03/2010/04/2025 LIPID PANEL triglyceride s 31 mg/dL 0-149 Not Available [facility] ([facility]) [address] [place], [address], 10/04/2025 08:51:25 10/03/20 25 10/04/2025 LIPID PANEL HDL cholesterol 57 mg/dL >39 Not Available [facility] ([facility]) [address] [place], [address], 10/04/2025 08:51:25 10/03/20 25 10/04/2025 LIPID PANEL VLDL cholesterol nicole 9 mg/dL 5-40 Not Available [facility] ([facility]) [address] [place], [address], 10/04/2025 08:51:25 10/03/20 25 10/04/2025 LIPID PANEL LDL chol calc ([facility]) 52 mg/dL 0-99 Not Available [facility] ([facility]) [address] [place], [address], 10/04/2025 08:51:25 10/03/20 25 10/04/2025 PROST ATE-S [...] the prese nce or absen ce of [facility] se. Not Available [facility] ([facility]) [address] [facility], [place], [address], 10/04/2025 08:51:26 10/03/20 25 10/04/2025 VITAM IN B12 AND FOLAT E vitamin B12 1020 pg/mL 232-12 45 Not Available [facility] ([facility]) [address] [place], [address], 10/04/2025 08:51:30 10/03/20 25 10/04/2025 VITAM IN B12 AND FOLAT E folate (folic acid), serum 17.9 NG/mL >3.0 A serum folat e pantera ntrat ion of less than 3.1 ng/mL is consi dered to repre sent clini nicole defic iency . Not Available [facility] ([facility]) [address] [place], [address], 10/04/2025 08:51:30 Result Notes None recorded. Problems Name Problem SNOMED Code Status Onset Date Resolution Date Notes Provider Name and Address Organization Details Recorded Time Impacted cerumen of bilateral ears 1256559536631 108 Active 2022 Johnnie Castillo MD Attn: Bob g,[address] [facility], [place], [address], [place] [facility] 3 19:07:35 Nicotine dependence 02779628 Active 2022 Johnnie Castillo MD Attn: Bob garner,[address] [facility], [place], [address], [place] [facility] 3 19:07:48 Blind left eye 766368489 Active 2022 Johnnie Castillo MD Attn: Accountshahid g,[address] [facility], [place], [address], [place] [facility] 3 19:08:12 History of head injury 171702185 Active 2022 Johnnie Castillo MD Attn: Accountin g,[address] [facility], [place], [address], [place] [facility] 3 19:08:13 Hearing loss 81916027 Active 2022 Johnnie Castillo MD Attn: Accountshahid g,[address] [facility], [place], [address], [place] [facility] 3 19:08:15 Primary erectile dysfunction 217710567 Active 2022 Johnnie Castillo MD Attn: Bob g,[address] [facility], [place], [address], [place] [facility] 3 19:08:17 History of SARS-CoV-2 3797124773167 50416 Active 2022 Johnnie Castillo MD Attn: Accountin g,[address] [facility], [place], [address], [place] [facility] 3 19:08:39 Calcificati on of coronary artery 292515804 Active 2022 Johnnie Castillo MD Attn: Accountin g,[address] [facility], [place], [address], [place] [facility] 3 10:51:51 Hepatitis C antibody detected 452819847 Active 2022 Johnnie Castillo MD Attn: Bob garner,[address] [facility], [place], [address], [place] [facility] 3 14:48:59 Chronic hepatitis C 952546405 Active 2022 Johnnie Castillo MD Attn: Bob garner,[address] [facility], [place], [address], [place] [facility] 3 14:52:55 SARS-CoV-2 vaccination declined 9846395195 Active 2023 Johnnie Castillo MD Attn: Bob garner,[address] [place], [address], [place] [facility] 4 16:17:19 Chronic cerebral ischemia 049830045 Active 2024 Johnnie Castillo MD Attn: Bob garner,[address] [place], [address], [place] [facility] 5 10:57:26 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 970706463 Active 2024 Johnnie Castillo MD Attn: Bob garner,[address] [place], [address], [place] [facility] 5 13:10:28 Diastolic dysfunction 3925762 Active 2024 Johnnie Castillo MD Attn: Bob garner,[address] [facility], [place], [address], [place] [facility] 5 14:55:18 Cervical spondylosis without myelopathy 169104381 Active 2024 Johnnie Castillo MD Attn: Bob garner,[address] [place], [address], [place] [facility] 5 14:56:08 Ulnar neuropathy of left arm 7315067033909 07 Active 2024 Johnnie Castillo MD Attn: Bob garner,[address] [facility], [place], [address], [place] [facility] 5 11:08:45 Carpal tunnel syndrome of left wrist 4044681259302 02 Active 2024 Johnnie Castillo MD Attn: Bob garner,[address] [facility], [place], [address], [place] [facility] 5 11:08:46 Recurrent falls 563099040 Active 2024 Johnnie Castillo MD Attn: Bob garner,[address] [facility], [place], [address], [place] [facility] 5 14:21:59 Problem Notes None recorded. Procedures Surgical History Date Name Laterality Status Provider Name and Address Organization Details Recorded Time 5 Cerumen Removal completed Johnnie Castillo MD Attn: Accounting,[address] [place], [address], [place] [facility] 08/24/2025 13:52:53 5 Cerumen Removal completed Johnnie Castillo MD Attn: Accounting,[address] [facility], [place], [address], [place] [facility] 08/16/2025 19:01:40 3 Cerumen Removal completed Johnnie Castillo MD Attn: Accounting,[address] [place], [address], [place] [facility] 12/02/2022 19:07:18 Imaging Results None recorded. Procedure Notes None recorded. Medical Equipment None Reported. Allergies Allergen ID Allergen Name Allergen Category Reaction Reaction Severity Criticality Documentation Date Start Date Code Code System Note Provider Name and Address Organization Details Recorded Time 199791 Product containin g penicilli n (product) medicatio n Not available Not available Not available 12/02/2022 17104 8001 SNOMED Knot jeanine up my veins when I was a kid Johnnie Castillo MD Attn: Bob garner,[address] [facility], [place], [address], [place] [facility] 4 15:52:25 Medications Name Sig Start Date Stop [...] Not Available Not Jessica ilable Not Available [place] 3 active Not Available Not Avail able [...] Not Available Not Available Vitals Date Recorded Systolic And Diastolic Provider Name and Address Organization Details Last Updated DateTime 10/26/2025 122/80 mm[Hg] Johnnie Castillo MD Attn: Accounting,[address] [facility], [place], [address], [facility] 10/26/2025 14:20:37 Date Recorded Body height Body mass index (BMI) Body weight Heart rate Respiratory rate Body temperature Oxygen saturation Systolic And Diastolic Provider Name and Address Organization Details Last Updated DateTime 179.07 cm 24 kg/m2 79199.7 g 64 /min 16 /min 97.3 [degF] 98 % 130/86 mm[Hg] Desirae Stanton MA [facility] 09:33:45 Social History Question Answer Notes LastModified by Organizat ion Details LastModified Time Tobacco Smoking Status Former Smoker has not smoked for a month now Elizabeth Cannon MA [facility] 11/17/2024 14:48:44 How Many Years Have You [...] Skin Problems N Anemia N Heart Attack ([place]) N Anxiety Disorder N Diabetes N Muscle, [...] completed Johnnie Castillo MD Attn: Accounting,[address] [place], [address], [facility] 12/02/2022 18:54:59 Pneumococcal conjugate PCV20, polysaccharide [id number] conjugate, adjuvant, PF 3 completed Johnnie Castillo MD Attn: Accounting,[address] [place], [address], [facility] 12/02/2022 18:54:59 Past Encounters Encounter ID Performer Location Encounter Start Date Encounter Closed Date Diagnosis/Indication Diagnosis SNOMED-CT Code Diagnosis ICD10 Code Diagnosis IMO Codes Diagnosis Note [id number] MD Ninfa Zarate (Adult Med) [address] [place] [address] 10/26/2025 09:08:10 10/27/2025 12:07:39 Spinal stenosis 10313402 M48.00 [id number] Cervical and lumbar Recurrent falls 62850049 2 R29.6 8322504 Elevated blood-pressure reading without diagnosis of hypertension 377969423 R03.0 080484 Normal when rechecked Chronic ob structive pulmonary disease 32460678 J44.9 Continue the current regimen Previous OVStart Incruse as previously prescribed OV 12/15/2024R estart SymbicortS tart IncruseAlb uterol PRN OV 05/16/2024St art Symbicort, he should rinse his mouth after each useContinu e Albuterol Post-disch arge follow-up 405349362 Z51.89 402503 The discharge instructio ns include multifocal spinal stenosis at C3-4 and L4-5; AECOPD, mild PN; Double vision; 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 sided weakness. 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 14501824 G72.0 T46.6X5A 170925 Health Concerns Section Related Observation LastModified by Organization Detai ls LastModified Time None Recorded Concern Status LastModified by Organization Details LastModified Time None Recorded Payers Encounter Date Sequence Insurance Name Policy Number Policy Wang Covered Member ID Wang Member ID Guarantor Name 10/26/2025 2 [place] WHEN MEDICARE OR MEDICARE REPLACEMENT PRIMARY) William Hackett [id number] William Hackett 10/26/2025 1 [facility] (MEDICARE REPLACEMENT/AD VANTAGE - HMO) [id number] William Hackett [id number] William Hackett Notes Date Note Type Note Provider Name and Address Organization Details Recorded Time 10/26/2025 text/html Hypertension F/UReported by PatientHPIFor associated symptoms, patient reportsno dizziness,no lightheadedness,no chest pain,no shortness of breath,no palpitations,no edema, andno calf pain with exertion. For lifestyle, patient reportsregular exerciseandlimiting/ avoiding salt. For medications, patient reportstaking medications as directedandno side effects from medication.ROS as noted in the HPI Here with his son who provides most of the details. Because he kept fallingThe Atorvastatin was making him have spasms at night [facility] with [facility] falls, right lower extremity weakness, [...] L. sided weakness. Johnnie Castillo MD Attn: Accounting,[address] [facility], [place], [address], [facility] 10/26/2025 14:27:22
--- OUTSIDE RECORDS SUMMARY | 2025-11-06 19:10 | XMS_ITS | Continuity of Care Document ---
Author Organization [facility] ([facility]ult [facility]) Address [address] [place] [address] Assessment No assessment recorded. Plan of Treatment Reminders Order Date Submit Date Provider Last Modified By Organization Details Last Modified Time Details Appointments ANY 15 2025 08:15A Tino Castillo MD Not available Not available Not available ANY 15 2025 11:00A Tino Castillo MD Not available Not available Not available Lab PSA, total, serum or plasma 2024 025 [facility], [address], [address], 10/04/2025 08:51:26 lipid panel, serum 2024 025 [facility], [address] [facility], [place], [address], 10/04/2025 08:51:26 Referral physical therapist referral 2024 025 [facility], [address] [place] [address], [place], [address], 10/20/2025 16:46:01 Procedures None recorded. Surgeries None recorded. Imaging None recorded. Medication Orders None recorded. Patient TargetsNo targets recorded. Patient Instructions Encounter Date Encounter Id Patient Instructions Last Modified By Organization Details Last Modified Time 09/14/2025 [id number] advance care planning: care instructions oajao Not [...] and PRN oajao Not available 09/14/2025 13:57:38 Reason for Referral Physical Therapist Referral for At increased risk for falls Hx of a previous CVA, with difficulty getting up after his fall. Bilateral carpal tunnel syndrome Referring Physician: Johnnie Castillo, Internal Medicine, Encounter Date: 09/14/2025 Results Created Date Observation Date Name Description Value Unit Range Abnormal Flag Note LastModifiedBy Organization Detail LastModifiedTime 10/03/2010/04/2025 LIPID PANEL cholesterol, total 118 mg/dL 100-19 9 Not Available [facility] ([facility]) [address] [facility], [place], [address], 10/04/2025 08:51:25 10/03/20 25 10/04/2025 LIPID PANEL triglyceride s 31 mg/dL 0-149 Not Available [facility] ([facility]) [address] [place], [address], 10/04/2025 08:51:25 10/03/20 25 10/04/2025 LIPID PANEL HDL cholesterol 57 mg/dL >39 Not Available [facility] ([facility]) [address] [place], [address], 10/04/2025 08:51:25 10/03/20 25 10/04/2025 LIPID PANEL VLDL cholesterol nicole 9 mg/dL 5-40 Not Available [facility] ([facility]) [address] [facility], [place], [address], 10/04/2025 08:51:25 10/03/20 25 10/04/2025 LIPID PANEL LDL chol calc ([facility]) 52 mg/dL 0-99 Not Available [facility] ([facility]) [address] [facility], [place], [address], 10/04/2025 08:51:25 10/03/20 25 10/04/2025 PROST ATE-S [...] of otilia dubose se. Not Available [facility] ([facility]) [address] [facility], [place], [address], 10/04/2025 08:51:26 09/13/20 25 09/12/2025 nerve condu ction study /EMG, upper extre mity (PROC ) No observ ation record ed. [facility] [address] [facility] [address], [place], [address], 09/27/2025 08:59:59 Result Notes None recorded. Problems Name Problem SNOMED Code Status Onset Date Resolution Date Notes Provider Name and Address Organization Details Recorded Time Impacted cerumen of bilateral ears 8212499423504 108 Active 2022 Johnnie Castillo MD Attn: Accountin g,[address] [facility], [place], [address], [facility] 3 19:07:35 Nicotine dependence 57162495 Active 2022 Johnnie Castillo MD Attn: Bob g,[address] [facility], [place], [address], [place] [facility] 3 19:07:48 Blind left eye 787807253 Active 2022 Johnnie Castillo MD Attn: Accountshahid g,[address] [facility], [place], [address], [place] [facility] 3 19:08:12 History of head injury 400314655 Active 2022 Johnnie Castillo MD Attn: Accountshahid g,[address] [place], [address], [place] [facility] 3 19:08:13 Hearing loss 33037912 Active 2022 Johnnie Castillo MD Attn: Bob garner,[address] [place], [address], [place] [facility] 3 19:08:15 Primary erectile dysfunction 745989350 Active 2022 Johnnie Castillo MD Attn: Bob g,[address] [place], [address], [place] [facility] 3 19:08:17 History of SARS-CoV-2 1657015105893 28846 Active 2022 Johnnie Castillo MD Attn: Accountshahid g,[address] [place], [address], [place] [facility] 3 19:08:39 Calcificati on of coronary artery 328205491 Active 2022 Johnnie Castillo MD Attn: Accountshahid g,[address] [place], [address], [place] [facility] 3 10:51:51 Hepatitis C antibody detected 522236444 Active 2022 Johnnie Castillo MD Attn: Bob g,[address] [place], [address], [place] [facility] 3 14:48:59 Chronic hepatitis C 549311300 Active 2022 Johnnie Castillo MD Attn: Bob garner,[address] [facility], [place], [address], [place] [facility] 3 14:52:55 SARS-CoV-2 vaccination declined 2041330364 Active 2023 Johnnie Castillo MD Attn: Bob g,[address] [facility], [place], [address], [place] [facility] 4 16:17:19 Chronic cerebral ischemia 411356302 Active 2024 Johnnie Castillo MD Attn: Bob garner,[address] [facility], [place], [address], [place] [facility] 5 10:57:26 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 747917152 Active 2024 Johnnie Castillo MD Attn: Bob garner,[address] [facility], [place], [address], [place] [facility] 5 13:10:28 Diastolic dysfunction 7955583 Active 2024 Johnnie Castillo MD Attn: Bob garner,[address] [facility], [place], [address], [place] [facility] 5 14:55:18 Cervical spondylosis without myelopathy 142185906 Active 2024 Johnnie Castillo MD Attn: Bob g,[address] [facility], [place], [address], [place] [facility] 5 14:56:08 Ulnar neuropathy of left arm 6361384908547 07 Active 2024 Johnnie Castillo MD Attn: Bob garner,[address] [facility], [place], [address], [place] [facility] 5 11:08:45 Carpal tunnel syndrome of left wrist 7712031180561 02 Active 2024 Johnnie Castillo MD Attn: Calebshahid garner,[address] [place], [address], [facility] 5 11:08:46 Recurrent falls 316748784 Active 2024 Johnnie Castillo MD Attn: Calebshahid garner,[address] [place], [address], [facility] 5 14:21:59 Problem Notes None recorded. Procedures Surgical History Date Name Laterality Status Provider Name and Address Organization Details Recorded Time 5 Cerumen Removal completed Johnnie Castillo MD Attn: Accounting,[address] [place], [place], [address] [place] [address], [facility] 08/24/2025 13:52:53 5 Cerumen Removal completed Johnnie Castillo MD Attn: Accounting,[address] [place], [place], [address] [place] [address], [facility] 08/16/2025 19:01:40 3 Cerumen Removal completed Johnnie Castillo MD Attn: Accounting,[address] [place], [place], [address] [place] [address], [facility] 12/02/2022 19:07:18 Imaging Results None recorded. Procedure Notes None recorded. Medical Equipment None Reported. Allergies Allergen ID Allergen Name Allergen Category Reaction Reaction Severity Criticality Documentation Date Start Date Code Code System Note Provider Name and Address Organization Details Recorded Time 999557 Product containin g penicilli n (product) medicatio n Not available Not available Not available 12/02/2022 66722 8001 SNOMED Knot jeanine up my veins when I was a kid Johnnie Castillo MD Attn: Bbo patsy,[address] [place], [address], [facility] 4 15:52:25 Medications Name Sig Start Date [...] Not Available Not Jessica ilable Not Available [place] 3 active Not Available Not Avail able [...] Last Updated DateTime 179.07 cm 24 kg/m2 78557.9 1 g 84 /min 96 % 14 /min 97.8 [degF] 126/70 mm[Hg] Elizabeth Cannon MA [facility] 10:54:33 Social History Question Answer Notes LastModified by Organizat ion Details LastModified Time Tobacco Smoking Status Former Smoker has not smoked for a month now Elizabeth Cannon MA null, [facility] 11/17/2024 14:48:44 How Many Years Have You [...] Problems N Kidney or Bladder Problems N Depression N COPD N Blood Clots N GI Problems N Skin Problems N Anemia N Heart Attack ([place]) N Diabetes N Anxiety Disorder N Muscle, Joint, or Bone Problems N Seizures/Epilepsy N Acid Reflux (GERD) N Cancer N Stroke Y Allergies N Asthma N High Cholesterol N Hepatitis N Liver Disease N Headaches N Osteoporosis N Heart Failure N Immunizations Vaccine Type Date Status Note Provider Nam e and Address Organization Details Recorded Time Tdap 3 completed Johnnie Castillo MD Attn: Accounting,[address] [place], [address], [facility] 12/02/2022 18:54:59 Pneumococcal conjugate PCV20, polysaccharide [id number] conjugate, adjuvant, PF 3 completed Johnnie Castillo MD Attn: Accounting,[address] [place], [address], [facility] 12/02/2022 18:54:59 Past Encounters Encounter ID Performer Location Encounter Start Date Encounter Closed Date Diagnosis/Indication Diagnosis SNOMED-CT Code Diagnosis ICD10 Code Diagnosis IMO Codes Diagnosis Note [id number] MD Ninfa Zarate (Adult Med) [address] [place] [address] 08/16/2025 15:02:12 08/21/2025 14:48:48 Impacted cerumen of bilateral ears 4068948980 738069 H61.23 277359 [id number] MD Ninfa Zarate (Adult Med) [address] [place] [address] 08/24/2025 13:17:30 08/25/2025 15:47:07 Primary erectile dysfunction 918003934 N52.9 Change to brand name Grant Esquivel c erumen of bilateral ears 3501850343 636689 H61.23 417175 Successful irrigation (L)Debrox to the right [id number] MD Ninfa Zarate (Adult Med) [address] [place] [address] 09/14/2025 10:38:07 09/15/2025 14:13:21 Adult health examination 060174218 Z00.00 Health Risk Assessment collected and reviewed Ulnar neur opathy of left arm 5222419252 19492 G56.22 06715318 Pt education Bilateral carpal tunnel syndrome 4159920821 5000943 G56.03 029176 Pt education At [facility] risk for falls 189348424 Z91.81 9295256 Screening for malignant neoplasm of prostate 717084267 Z12.5 384095 History of cerebrovascular accident without residual deficits 832136871 Z86.73 Continue Atorvastat in 10 mg Health Concerns Section Related Observation LastModified by Organization Detai ls LastModified Time None Recorded Concern Status LastModified by Organization Details LastModified Time None Recorded Payers Encounter Date Sequence Insurance Name Policy Number Policy Wang Covered Member ID Wang Member ID Guarantor Name 09/14/2025 2 [place] WHEN MEDICARE OR MEDICARE REPLACEMENT PRIMARY) William Hackett [id number] William Hackett 09/14/2025 1 [facility] (MEDICARE REPLACEMENT/AD VANTAGE - HMO) [id number] William Hackett [id number] William Hackett Notes Date Note Type Note Provider Name and Address Organization Details Recorded Time 09/14/2025 text/html MAW 2Reported by PatientSocial/Behavior al [...] done. Johnnie Castillo MD Attn: Accounting,[address] [facility], [place], [address], [facility] 09/14/2025 13:58:38
--- OUTSIDE RECORDS SUMMARY | 2025-11-06 19:10 | XMS_ITS | Continuity of Care Document ---
Author Organization [facility] Address [address] [place] [id number] Assessment No assessment recorded. Plan of Treatment Reminders Order Date Submit Date Provider Last Modified By Organization Details Last Modified Time Details Appointments ANY 15 2025 08:15A Tino Castillo MD Not available Not available Not available ANY 2025 11:00A Tino Castillo MD Not available Not available Not available Lab None recorded . Referral None recorded . Procedures None recorded . Surgeries None recorded . Imaging None recorded . Medication Orders Viagra 100 mg tablet 2024 [facility], [address] [place] [address], [phone], 08/25/2025 08:29:24 Patient TargetsNo targets recorded. Patient Instructions Encounter Date Encounter Id Patient Instructions Last Modified By Organization Details Last Modified Time 08/24/2025 [id number] Viagra PRN Debrox oajao Not availab le 08/24/2025 13:48:43 Reason for Referral None Reported. Results Created Date Observation Date Name Description Value Unit Range Abnormal Flag Note LastModifiedBy Organization Detail LastModifiedTime 07/27/2007/27/2025 COLOG UARD cologuard result reportable NEGATI VE [...] ant featu res) is prese nt. The [facility] [place] e that a perso n with a negat kaitlyn Colog uard test has a color ectal cance r is less than 1 in 1500 (nega tive predi ctive value >99.9 %) or has an advan alesha adeno ma is less than 5.3% (nega tive predi ctive value 94.7% ). These data are based on a prosp ectiv e cross -sect ional study of ,00 0 indiv idual s at [facility] [place] risk for color ectal cance r who were scree derrick with both Colog uard and colon oscop y. (Saurabh Ta. et al, N Engl J Med 2014; 370(1 4):12 86-12 97) The antonella l value (refe rence range ) for this assay is negat kaitlyn. COLOG UARD RE-SC REENI NG RECOM MENDA TION: Perio dic color ectal cance r scree shania is an impor tant part of preve ntive healt hcare for asymp tomat ic indiv idual s at [place] risk for color ectal cance r. Follo wing a negat kaitlyn Colog uard resul t, the Ameri can Cance r Socie ty and U.S. Multi -Soci ety Task Force scree shania guide lines recom mend a Colog uard re-sc reekrista ng inter destinee of 3 years . Refer ences : Ameri can Cance r Socie ty Guide line for Color ectal Cance r Scree shania: https ://anant w.can cer.o rg/ca ncer/ colon -rect al-ca ncer/ detec tion- diagn osis- stagi ng/ac s-rec ommen datio ns.ht ml.; Lui SANCHEZ, Shashi ADEN, Jesús CALL, Color ectal Cance r Scree shania: Recom menda tions for Physi cians and Patie nts from the U.S. Multi -Soci ety Task Force on Color ectal Cance r Scree shania , Vu beckhamnte rolog y 2017; 112:1 016-1 030. TEST DESCR IPTIO N: [place] [facility] algor ithmi c deshawn sis of [...] years or older , who are at [facility] for color ectal cance r (CRC) . Colog uard has been appro irma for use by the U.S. FDA. The perfo rmanc e of Colog uard was estab lishe d in a cross secti onal study of [facility] adult s aged 50-84 . Colog [...] cross -sect ional scree shania study of ,00 0 indiv idual s at [facility] risk for color ectal cance r who [...] absen ce of CRC or advan alesha hidalgo ma (pre- cance r). The curre nt Colog uard scree shania inter destinee is every 3 years . (Bakari denney Cance r Socie ty and U.S. Multi -Soci ety Task Force ). Colog uard perfo rmanc e data in a 10,00 0 patie nt pivot al study using colon oscop y as the refer ence metho d can be acces sed at the follo wing locat ion: www.e xactl abs.c om/re sults . Addit ional descr iptio n of the Colog uard test proce ss, warni ngs and preca ution s can be found at www.c mark serafin.c om. Not Available [facility] [address], [place], [address], 08/01/2025 10:12:42 07/28/2007/29/2025 CMP14 +EGFR glucose 84 mg/dL 70-99 Not Available [facility] ([facility]) [address] [facility], [place], [address], 07/29/2025 08:35:12 07/28/2007/29/2025 CMP14 +EGFR BUN 14 mg/dL 8-27 Not Available [facility] ([facility]) [address] [place], [address], 07/29/2025 08:35:12 07/28/2007/29/2025 CMP14 +EGFR creatinine 1.04 mg/dL 0.76-1 .27 Not Available [facility] ([facility]) [address] [facility], [place], [address], 07/29/2025 08:35:12 07/28/2007/29/2025 CMP14 +EGFR eGFR 77 mL/mi n/1.7 3 >59 Not Available [facility] ([facility]) [address] [place], [address], 07/29/2025 08:35:12 07/28/2007/29/2025 CMP14 +EGFR BUN/creatini ne ratio 13 10-24 Not Available [facility] ([facility]) [address] [facility] [place] [place], [address], 07/29/2025 08:35:12 07/28/2007/29/2025 CMP14 +EGFR sodium 141 mmol/ L 134-14 4 Not Available [facility] ([facility]) [address] [facility] [place] [place], [address], 07/29/2025 08:35:12 07/28/2007/29/2025 CMP14 +EGFR potassium 4.6 mmol/ L 3.5-5. 2 Not Available [facility] ([facility]) [address] [facility], [place], [address], 07/29/2025 08:35:12 07/28/2007/29/2025 CMP14 +EGFR chloride 99 mmol/ L 96-106 Not Available [facility] ([facility]) [address] [facility] [place] [place], [address], 07/29/2025 08:35:12 07/28/2007/29/2025 CMP14 +EGFR carbon dioxide, total 24 mmol/ L 20-29 Not Available [facility] ([facility]) [address] [facility] [place] [place], [address], 07/29/2025 08:35:12 07/28/2007/29/2025 CMP14 +EGFR calcium 9.5 mg/dL 8.6-10 .2 Not Available [facility] ([facility]) [address] [place], [address], 07/29/2025 08:35:12 07/28/2007/29/2025 CMP14 +EGFR protein, total 7.5 g/dL 6.0-8. 5 Not Available [facility] ([facility]) [address] [place], [address], 07/29/2025 08:35:12 07/28/20 25 07/29/2025 CMP14 +EGFR albumin 4.8 g/dL 3.9-4. 9 Not Available [facility] ([facility]) [address] [facility], [place], [address], 07/29/2025 08:35:12 07/28/20 25 07/29/2025 CMP14 +EGFR globulin, total 2.7 g/dL 1.5-4. 5 Not Available [facility] ([facility]) [address] [facility], [place], [address], 07/29/2025 08:35:12 07/28/2007/29/2025 CMP14 +EGFR bilirubin, total 0.8 mg/dL 0.0-1. 2 Not Available [facility] ([facility]) [address] [facility], [place], [address], 07/29/2025 08:35:12 07/28/2007/29/2025 CMP14 +EGFR alkaline phosphatase 52 IU/L 44-121 Eff ectiv e Septe mb 2024 Alkal ine Phosp hatas e refer [...] 129 48 - 129 Not Available [facility] ([facility]) [address] [facility], [place], [address], 07/29/2025 08:35:12 07/28/2007/29/2025 CMP14 +EGFR AST (SGOT) 34 IU/L 0-40 Not Available [facility] ([facility]) [address] [facility], [place], [address], 07/29/2025 08:35:12 07/28/20 25 07/29/2025 CMP14 +EGFR ALT (SGPT) 30 IU/L 0-44 Not Available [facility] ([facility]) [address] [facility], [place], [address], 07/29/2025 08:35:12 07/28/2007/29/2025 VITAM IN B12 vitamin B12 1050 pg/mL 232-12 45 Not Available [facility] ([facility]) [address] [facility], [place], [address], 07/29/2025 08:35:13 07/28/2007/29/2025 MAGNE SIUM magnesium 2.0 mg/dL 1.6-2. 3 Not Available [facility] ([facility]) [address] [facility], [place], [address], 07/29/2025 08:35:14 07/28/2007/29/2025 TSH TSH 3.030 uIU/m L 0.450- 4.500 Not Available [facility] ([facility]) [address] [facility], [place], [address], 07/29/2025 08:35:14 07/28/2007/29/2025 CBC, PLATE LET, NO DIFFE RENTI AL WBC 10.3 x10e3 /uL 3.4-10 .8 Not Available [facility] ([facility]) [address] [facility], [place], [address], 07/29/2025 08:35:15 07/28/2007/29/2025 CBC, PLATE LET, NO DIFFE RENTI AL RBC 4.61 x10e6 /uL 4.14-5 .80 Not Available [facility] ([facility]) [address] [facility], [place], [address], 07/29/2025 08:35:15 07/28/2007/29/2025 CBC, PLATE LET, NO DIFFE RENTI AL hemoglobin 13.6 g/dL 13.0-1 7.7 Not Available [facility] ([facility]) [address] [facility], [place], [address], 07/29/2025 08:35:15 07/28/2007/29/2025 CBC, PLATE LET, NO DIFFE RENTI AL hematocrit 42.3 % 37.5-5 1.0 Not Available [facility] ([facility]) [address] [facility], [place], [address], 07/29/2025 08:35:15 07/28/2007/29/2025 CBC, PLATE LET, NO DIFFE RENTI AL MCV 92 fL 79-97 Not Available [facility] ([facility]) [address] [facility], [place], [address], 07/29/2025 08:35:15 07/28/2007/29/2025 CBC, PLATE LET, NO DIFFE RENTI AL MCH 29.5 pg 26.6-3 3.0 Not Available [facility] ([facility]) [address] [place], [address], 07/29/2025 08:35:15 07/28/2007/29/2025 CBC, PLATE LET, NO DIFFE RENTI AL MCHC 32.2 g/dL 31.5-3 5.7 Not Available [facility] ([facility]) [address] [facility], [place], [address], 07/29/2025 08:35:15 07/28/2007/29/2025 CBC, PLATE LET, NO DIFFE RENTI AL RDW 19.9 % 11.6-1 5.4 above high normal Not Available [facility] ([facility]) [address] [facility], [place], [address], 07/29/2025 08:35:15 07/28/2007/29/2025 CBC, PLATE LET, NO DIFFE RENTI AL platelets 251 x10e3 /uL 150-45 0 Not Available [facility] ([facility]) [address] [facility], [place], [address], 07/29/2025 08:35:15 09/13/2009/12/2025 nerve condu ction study /EMG, upper extre mity (PROC ) No observ ation record ed. [facility] [address], [place], [address], 09/27/2025 08:59:59 Result Notes None recorded. Problems Name Problem SNOMED Code Status Onset Date Resolution Date Notes Provider Name and Address Organization Details Recorded Time Impacted cerumen of bilateral ears 2795143320468 108 Active 2022 Johnnie Castillo MD Attn: Bob garner,[address] [place], [address], [facility] 3 19:07:35 Nicotine dependence 53688367 Active 2022 Johnnie Castillo MD Attn: Bob garner,[address] [place], [address], [facility] 3 19:07:48 Blind left eye 739181237 Active 2022 Johnnie Castillo MD Attn: Bob garner,[address] [place], [address], [facility] 3 19:08:12 History of head injury 851125427 Active 2022 Johnnie Castillo MD Attn: Bob garner,[address] [place], [address], [place] [facility] 3 19:08:13 Hearing loss 25214354 Active 2022 Johnnie Castillo MD Attn: Bob garner,[address] [facility], [place], [address], [place] [facility] 3 19:08:15 Primary erectile dysfunction 362154602 Active 2022 Johnnie Castillo MD Attn: Bob g,[address] [facility], [place], [address], [place] [facility] 3 19:08:17 History of SARS-CoV-2 2952817600450 78451 Active 2022 Johnnie Castillo MD Attn: Bob garner,[address] [facility], [place], [address], [place] [facility] 3 19:08:39 Calcificati on of coronary artery 049442672 Active 2022 Johnnie Castillo MD Attn: Bob garner,[address] [facility], [place], [address], [place] [facility] 3 10:51:51 Hepatitis C antibody detected 951727266 Active 2022 Johnnie Castillo MD Attn: Bob garner,[address] [place], [address], [place] [facility] 3 14:48:59 Chronic hepatitis C 057926262 Active 2022 Johnnie Castillo MD Attn: Bob garner,[address] [facility], [place], [address], [place] [facility] 3 14:52:55 SARS-CoV-2 vaccination declined 7067967309 Active 2023 Johnnie Castillo MD Attn: Bob garner,[address] [place], [address], [place] [facility] 4 16:17:19 Chronic cerebral ischemia 511758113 Active 2024 Johnnie Castillo MD Attn: Bob garner,[address] [facility], [place], [address], [place] [facility] 5 10:57:26 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 244174773 Active 2024 Johnnie Castillo MD Attn: Bob patsy,[address] [facility], [place], [address], [place] [facility] 5 13:10:28 Diastolic dysfunction 8825166 Active 2024 Johnnie Castillo MD Attn: Bob patsy,[address] [facility], [place], [address], [place] [facility] 14:55:18 Cervical spondylosis without myelopathy 932002058 Active 2024 Johnnie Castillo MD Attn: Calebshahid garner,[address] [facility], [place], [address], [place] [facility] 5 14:56:08 Ulnar neuropathy of left arm 9965929775274 07 Active 2024 Johnnie Castillo MD Attn: Calebshahid garner,[address] [facility], [place], [address], [place] [facility] 5 11:08:45 Carpal tunnel syndrome of left wrist 9127338268306 02 Active 2024 Johnnie Castillo MD Attn: Calebshahid garner,[address] [facility], [place], [address], [place] [facility] 5 11:08:46 Recurrent falls 313422545 Active 2024 Johnnie Castillo MD Attn: Calebshahid garner,[address] [facility], [place], [address], [place] [facility] 14:21:59 Problem Notes None recorded. Procedures Surgical History Date Name Laterality Status Provider Name and Address Organization Details Recorded Time Cerumen Removal completed Johnnie Castillo MD Attn: Accounting,[address] [facility], [place], [address], [facility] 08/24/2025 13:52:53 5 Cerumen Removal completed Johnnie Castillo MD Attn: Accounting,[address] [place], [address], [facility] 08/16/2025 19:01:40 3 Cerumen Removal completed Johnnie Castillo MD Attn: Accounting,[address] [place], [address], [facility] 12/02/2022 19:07:18 Imaging Results None recorded. Procedure Notes None recorded. Medical Equipment None Reported. Allergies Allergen ID Allergen Name Allergen Category Reaction Reaction Severity Criticality Documentation Date Start Date Code Code System Note Provider Name and Address Organization Details Recorded Time 989142 Product containin g penicilli n (product) medicatio n Not available Not available Not available 12/02/2022 54360 8001 SNOMED Knot jeanine up my veins when I was a kid Johnnie Castillo MD Attn: Accountin g,[address] [facility], [place], [address], [facility] 4 15:52:25 Medications Name Sig [...] ORAL ROUTE ONCE DAILY FOR 4 DAYS 01/30 /2025 completed Not Available Not Available Not Available [...] Not Available Not Jessica ilable Not Available [place] 3 active Not Available Not Avail able [...] Updated DateTime 5 179.07 cm 24 kg/m2 29248.9 1 g 66 /min 96 % 16 /min 140/84 mm[Hg] RIAN Jeff - [facility] 13:28:28 Social History Question Answer Notes LastModified by Organizat ion Details LastModified Time Tobacco Smoking Status Former Smoker has not smoked for a month now Elizabeth Cannon MA null, [facility] 11/17/2024 14:48:44 How Many Years Have You [...] Skin Problems N Anemia N Heart Attack (ND) N Anxiety Disorder N Diabetes N Muscle, [...] completed Johnnie Castillo MD Attn: Accounting,[address] [facility], [place], [address], [facility] 12/02/2022 18:54:59 Pneumococcal conjugate PCV20, polysaccharide CCL237 conjugate, adjuvant, PF 3 completed Johnnie Castillo MD Attn: Accounting,[address] [facility], [place], [address], [facility] 12/02/2022 18:54:59 Past Encounters Encounter ID Performer Location Encounter Start Date Encounter Closed Date Diagnosis/Indication Diagnosis SNOMED-CT Code Diagnosis ICD10 Code Diagnosis IMO Codes Diagnosis Note [id number] Johnnie Castillo MD [facility] ([facility]) [address] [place] [phone] 08/16/2025 15:02:12 08/21/2025 14:48:48 Impacted cerumen of bilateral ears 5483046323 417523 H61.23 [id number] Johnnie Castillo MD [facility] (Adult Med) [address] [place] [phone] 08/24/2025 13:17:30 08/25/2025 15:47:07 Primary erectile dysfunction 023501488 N52.9 Change to brand name Viagra Impacted c erumen of bilateral ears 4515570749 720475 H61.23 853609 Successful irrigation (L)Debrox to the right Health Concerns Section Related Observation LastModified by Organization Detai ls LastModified Time None Recorded Concern Status LastModified by Organization Details LastModified Time None Recorded Payers Encounter Date Sequence Insurance Name Policy Number Policy Wang Covered Member ID Wang Member ID Guarantor Name 08/24/2025 2 [place] WHEN MEDICARE OR MEDICARE REPLACEMENT PRIMARY) William Hackett [id number] William Hackett 08/24/2025 1 [facility] (MEDICARE REPLACEMENT/AD VANTAGE - HMO) [id number] William Hackett [id number] William Hackett Notes Date Note Type Note Provider Name and Address Organization Details Recorded Time 08/24/2025 text/html ROS as noted in the HPI That Sildenafil don't work like it used to Mr Lew is here for irrigation of his left ear, however his Sildenafil 50mg and 100 mg have been ineffective. Johnnie Castillo MD Attn: Accounting,[address] [facility], [place], [address], [place] [facility] 08/24/2025 14:03:18
--- OUTSIDE RECORDS SUMMARY | 2025-11-06 19:10 | XMS_ITS | Continuity of Care Document ---
Author Organization [facility] ([facility]) Address [address] [place] [address] Assessment No assessment recorded. Plan of Treatment [...] . Imaging None recorded . Medication Orders Debrox 6.5 % ear drops 2024 025 [id number], [address], [place], [id number], 09/14/2025 11:12:43 Patient TargetsNo targets recorded. Patient Instructions Encounter Date Encounter Id Patient Instructions Last Modified By Organization Details Last Modified Time 08/16/2025 [id number] Debrox Follow up next for repeat irrigation oajao Not available 08/16/2025 16:00:44 Reason for Referral None Reported. Results Created [...] ant featu res) is prese nt. The [facility], [place] e that a perso n with a [...] of ,00 0 indiv [place]ual s at [place] risk for color ectal cance r who were scree derrick with both Colog uard and colon oscop y. (Saurabh Ng et al, N Engl J Med 2014; 370(1 4):12 86-12 97) The antonella l value (refe rence range ) for this assay is negat kaitlyn. COLOG UARD RE-SC REEKRISTA NG RECOM MENDA TION: Perio dic color ectal cance r scree shania is an impor tant part of preve ntive healt hcare for asymp tomat ic indiv [place]ual s at [place] ge risk for color ectal cance r. Follo wing a negat kaitlyn Colog uard resul t, the Ameri can Cance r Socie ty and U.S. Multi -Soci ety Task Force scree shania guide lines recom mend a Colog uard re-sc reekrista castellano inter destinee of 3 years . Refer ences : Ameri can Cance r Socie ty Guide line for Color ectal Cance r Scree shania: https ://ww w.can cer.o rg/ca ncer/ colon -rect al-ca ncer/ detec tion- diagn osis- stagi ng/ac s-rec ommen datio ns.ht ml.; Lui SANCHEZ, Shashi ADEN, Jesús CALL, Color ectal Cance r Scree shania: Recom menda tions for Physi cians and Patie nts from the U.S. Multi -Soci ety Task Force on Color ectal Cance r Scree shania , Am J Rex oente rolog y 2017; 112:1 016-1 030. TEST DESCR IPTIO N: [place] site algor ithmi c deshawn sis of stool DNA-b manju brown with hemog lobin immun oassa y. Quant itati ve value s of indiv idual bioma rkers are not repor table and are not assoc iated with indiv idual bioma rker resul t refer ence range s. Colog uard is inten ded for color ectal cance r scree shania of adult s of eithe r sex, 45 years or older , who are at [facility] for color ectal cance r (CRC) . Colog uard has been appro irma for use by the U.S. FDA. The perfo rmanc e of Colog uard was estab lishe d in a cross secti onal study of [facility] adult s aged 50-84 . Colog uard [...] of 10,00 0 indiv idual s at [facility] risk for color ectal cance r who [...] inter destinee is every 3 years . (Amnicolle ican Cance r Socie ty and U.S. Multi -Soci ety Task Force ). Colog uard perfo rmanc e data in a 10,00 0 patie nt pivot al study using colon oscop y as the refer ence metho d can be acces sed at the follo wing locat ion: www.e xactl abs.c om/re sulyee . Addit ional descr iptio n of the Colog uard test proce ss, warni ngs and preca ution s can be found at www.c olmagalysu serafin.c om. Not Available [facility] [address], [place], [address], 08/01/2025 10:12:42 07/28/20 25 07/29/2025 CMP14 +EGFR glucose 84 mg/dL 70-99 Not Available [facility] ([facility]) [address] [place], [address], 07/29/2025 08:35:12 07/28/20 25 07/29/2025 CMP14 +EGFR BUN 14 mg/dL 8-27 Not Available [facility] ([facility]) [address] [place], [address], 07/29/2025 08:35:12 07/28/20 25 07/29/2025 CMP14 +EGFR creatinine 1.04 mg/dL 0.76-1 .27 Not Available [facility] ([facility]) [address] [place], [address], 07/29/2025 08:35:12 07/28/20 25 07/29/2025 CMP14 +EGFR eGFR 77 mL/mi n/1.7 3 >59 Not Available [facility] ([facility]) [address] [place], [address], 07/29/2025 08:35:12 07/28/2007/29/2025 CMP14 +EGFR BUN/creatini ne ratio 13 10-24 Not Available [facility] ([facility]) [address] [place], [address], 07/29/2025 08:35:12 07/28/2007/29/2025 CMP14 +EGFR sodium 141 mmol/ L 134-14 4 Not Available [facility] ([facility]) [address] [place], [address], 07/29/2025 08:35:12 07/28/2007/29/2025 CMP14 +EGFR potassium 4.6 mmol/ L 3.5-5. 2 Not Available [facility] ([facility]) [address] [place], [address], 07/29/2025 08:35:12 07/28/2007/29/2025 CMP14 +EGFR chloride 99 mmol/ L 96-106 Not Available [facility] ([facility]) [address] [place], [address], 07/29/2025 08:35:12 07/28/2007/29/2025 CMP14 +EGFR carbon dioxide, total 24 mmol/ L 20-29 Not Available [facility] ([facility]) [address] [place], [address], 07/29/2025 08:35:12 07/28/2007/29/2025 CMP14 +EGFR calcium 9.5 mg/dL 8.6-10 .2 Not Available [facility] ([facility]) [address] [place], [address], 07/29/2025 08:35:12 07/28/2007/29/2025 CMP14 +EGFR protein, total 7.5 g/dL 6.0-8. 5 Not Available [facility] ([facility]) [address] [place], [address], 07/29/2025 08:35:12 07/28/2007/29/2025 CMP14 +EGFR albumin 4.8 g/dL 3.9-4. 9 Not Available [facility] ([facility]) [address] [facility], [place], [address], 07/29/2025 08:35:12 07/28/2007/29/2025 CMP14 +EGFR globulin, total 2.7 g/dL 1.5-4. 5 Not Available [facility] ([facility]) [address] [facility], [place], [address], 07/29/2025 08:35:12 07/28/2007/29/2025 CMP14 +EGFR bilirubin, total 0.8 mg/dL 0.0-1. 2 Not Available [facility] ([facility]) [address] [facility], [place], [address], 07/29/2025 08:35:12 07/28/2007/29/2025 CMP14 +EGFR alkaline phosphatase [...] 129 48 - 129 Not Available [facility] ([facility]) [address] [facility], [place], [address], 07/29/2025 08:35:12 07/28/2007/29/2025 CMP14 +EGFR AST (SGOT) 34 IU/L 0-40 Not Available [facility] ([facility]) [address] [facility], [place], [address], 07/29/2025 08:35:12 07/28/2007/29/2025 CMP14 +EGFR ALT (SGPT) 30 IU/L 0-44 Not Available [facility] ([facility]) [address] [facility], [place], [address], 07/29/2025 08:35:12 07/28/2007/29/2025 VITAM IN B12 vitamin B12 1050 pg/mL 232-12 45 Not Available [facility] ([facility]) [address] [facility], [place], [address], 07/29/2025 08:35:13 07/28/2007/29/2025 MAGNE SIUM magnesium 2.0 mg/dL 1.6-2. 3 Not Available [facility] ([facility] [address] [facility], [place], [address], 07/29/2025 08:35:14 07/28/2007/29/2025 TSH TSH 3.030 uIU/m L 0.450- 4.500 Not Available [facility] ([facility]) [address] [facility], [place], [address], 07/29/2025 08:35:14 07/28/2007/29/2025 CBC, PLATE LET, NO DIFFE RENTI AL WBC 10.3 x10e3 /uL 3.4-10 .8 Not Available [facility] ([facility]) [address] [facility], [place], [address], 07/29/2025 08:35:15 07/28/2007/29/2025 CBC, PLATE LET, NO DIFFE RENTI AL RBC 4.61 x10e6 /uL 4.14-5 .80 Not Available [facility] ([facility]) [address] [facility], [place], [address], 07/29/2025 08:35:15 07/28/2007/29/2025 CBC, PLATE LET, NO DIFFE RENTI AL hemoglobin 13.6 g/dL 13.0-1 7.7 Not Available [facility] ([facility]) [address] [facility], [place], [address], 07/29/2025 08:35:15 07/28/2007/29/2025 CBC, PLATE LET, NO DIFFE RENTI AL hematocrit 42.3 % 37.5-5 1.0 Not Available [facility] ([facility] [address] [facility], [place], [address], 07/29/2025 08:35:15 07/28/2007/29/2025 CBC, PLATE LET, NO DIFFE RENTI AL MCV 92 fL 79-97 Not Available [facility] ([facility] [address] [facility], [place], [address], 07/29/2025 08:35:15 07/28/2007/29/2025 CBC, PLATE LET, NO DIFFE RENTI AL MCH 29.5 pg 26.6-3 3.0 Not Available [facility] ([facility]) [address] [place], [address], 07/29/2025 08:35:15 07/28/2007/29/2025 CBC, PLATE LET, NO DIFFE RENTI AL MCHC 32.2 g/dL 31.5-3 5.7 Not Available [facility] ([facility]) [address] [place], [address], 07/29/2025 08:35:15 07/28/20 25 07/29/2025 CBC, PLATE LET, NO DIFFE RENTI AL RDW 19.9 % 11.6-1 5.4 above high normal Not Available [facility] ([facility] [address] [facility], [place], [address], 07/29/2025 08:35:15 07/28/20 25 07/29/2025 CBC, PLATE LET, NO DIFFE RENTI AL platelets 251 x10e3 /uL 150-45 0 Not Available [facility] ([facility] [address] [facility], [place], [address], 07/29/2025 08:35:15 09/13/2009/12/2025 nerve condu ction study /EMG, upper extre mity (PROC ) No observ ation record ed. [facility] [address], [place], [address], 09/27/2025 08:59:59 Result Notes None recorded. Problems Name Problem SNOMED Code Status Onset Date Resolution Date Notes Provider Name and Address Organization Details Recorded Time Impacted cerumen of bilateral ears 4480266808244 108 Active 2022 Johnnie Castillo MD Attn: Bob garner,[address] [place], [address], [facility] 3 19:07:35 Nicotine dependence 33872750 Active 2022 Johnnie Castillo MD Attn: Bob garner,[address] [place], [address], [facility] 3 19:07:48 Blind left eye 608034069 Active 2022 Johnnie Castillo MD Attn: Bob garner,[address] [place], [address], [facility] 3 19:08:12 History of head injury 649739268 Active 2022 Johnnie Castillo MD Attn: Bob garner,[address] [facility], [place], [address], [place] [facility] 3 19:08:13 Hearing loss 18787743 Active 2022 Johnnie Castillo MD Attn: Calebin g,[address] [facility], [place], [address], [place] [facility] 3 19:08:15 Primary erectile dysfunction 791750890 Active 2022 Johnnie Castillo MD Attn: Accountin g,[address] [facility], [place], [address], [place] [facility] 3 19:08:17 History of SARS-CoV-2 9614162932070 52183 Active 2022 Johnnie Castillo MD Attn: Accountin g,[address] [facility], [place], [address], [place] [facility] 3 19:08:39 Calcificati on of coronary artery 051701875 Active 2022 Johnnie Castillo MD Attn: Accountin g,[address] [facility], [place], [address], [place] [facility] 3 10:51:51 Hepatitis C antibody detected 677402065 Active 2022 Johnnie Castillo MD Attn: Accountin g,[address] [facility], [place], [address], [place] [facility] 3 14:48:59 Chronic hepatitis C 096609051 Active 2022 Johnnie Castillo MD Attn: Bob g,[address] [facility], [place], [address], [place] [facility] 3 14:52:55 SARS-CoV-2 vaccination declined 4421549133 Active 2023 Johnnie Castillo MD Attn: Bob g,[address] [facility], [place], [address], [place] [facility] 4 16:17:19 Chronic cerebral ischemia 795709308 Active 2024 Johnnie Castillo MD Attn: Calebshahid garner,[address] [facility], [place], [address], [place] [facility] 5 10:57:26 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 182177633 Active 2024 Johnnie Castillo MD Attn: Accountshahid g,[address] [facility], [place], [address], [place] [facility] 5 13:10:28 Diastolic dysfunction 1392368 Active 2024 Johnnie Castillo MD Attn: Accountshahid garner,[address] [facility], [place], [address], [place] [facility] 5 14:55:18 Cervical spondylosis without myelopathy 887313906 Active 2024 Johnnie Castillo MD Attn: Calebshahid g,[address] [facility], [place], [address], [place] [facility] 5 14:56:08 Ulnar neuropathy of left arm 9198510948802 07 Active 2024 Johnnie Castillo MD Attn: Bob garner,[address] [facility], [place], [address], [place] [facility] 5 11:08:45 Carpal tunnel syndrome of left wrist 7057645892933 02 Active 2024 Johnnie Castillo MD Attn: Calebshahid garner,[address] [facility], [place], [address], [place] - [facility] 5 11:08:46 Recurrent falls 636437816 Active 2024 Johnnie Castillo MD Attn: Calebshahid garner,[address] [place], [address], [place] [facility] 14:21:59 Problem Notes None recorded. Procedures Surgical History Date Name Laterality Status Provider Name and Address Organization Details Recorded Time Cerumen Removal completed Johnnie Castillo MD Attn: Accounting,[address] [place], [address], [place] [facility] 08/24/2025 13:52:53 5 Cerumen Removal completed Johnnie Castillo MD Attn: Accounting,[address] [place], [address], [place] [facility] 08/16/2025 19:01:40 3 Cerumen Removal completed Johnnie Castillo MD Attn: Accounting,[address] [facility], [place], [address], [place] [facility] 12/02/2022 19:07:18 Imaging Results None recorded. Procedure Notes None recorded. Medical Equipment None Reported. Allergies Allergen ID Allergen Name Allergen Category Reaction Reaction Severity Criticality Documentation Date Start Date Code Code System Note Provider Name and Address Organization Details Recorded Time 578858 Product containin g penicilli n (product) medicatio n Not available Not available Not available 12/02/2022 77109 8001 SNOMED Knot jeanine up my veins when I was a kid Johnnie Castillo MD Attn: Accountin g,[address] [facility], [place], [address], [place] - [place] 4 15:52:25 Medications Name Sig [...] Not Available Not Jessica ilable Not Available [place] 3 active Not Available Not Avail able [...] Updated DateTime 5 179.07 cm 24 kg/m2 20041.9 1 g 95 % 72 /min 16 /min 140/80 mm[Hg] Elizabeth Cannon MA [place] - [facility] 5 15:22:03 Social History Question Answer Notes LastModified by Organizat ion Details LastModified Time Tobacco Smoking Status Former Smoker has not smoked for a month now Elizabeth Cannon MA null, [place] - [facility] 11/17/2024 14:48:44 How Many Years Have [...] Skin Problems N Anemia N Heart Attack (PR) N Diabetes N Anxiety Disorder N Muscle, Joint, or Bone Problems N Seizures/Epilepsy N Acid Reflux (GERD) N Cancer N Stroke Y Asthma N Allergies N High Cholesterol N Hepatitis N Liver Disease N Headaches N Osteoporosis N Heart Failure N Immunizations Vaccine Type Date Status Note Provider Nam e and Address Organization Details Recorded Time Tdap 3 completed Johnnie Castillo MD Attn: Accounting, [facility], [place], [address], [place] [facility] 12/02/2022 18:54:59 Pneumococcal conjugate PCV20, polysaccharide VDM178 conjugate, adjuvant, PF 3 completed Johnnie Castillo MD Attn: Accounting,[address] [facility], [place], [address], [place] [facility] 12/02/2022 18:54:59 Past Encounters Encounter ID Performer Location Encounter Start Date Encounter Closed Date Diagnosis/Indication Diagnosis SNOMED-CT Code Diagnosis ICD10 Code Diagnosis IMO Codes Diagnosis Note [id number] Johnnie Castillo MD [facility] ([facility]) [address] [place] [phone] 08/16/2025 15:02:12 08/21/2025 14:48:48 Impacted cerumen of bilateral ears 5690090889 544211 H61.23 676471 Health Concerns Section Related Observation LastModified by Organization Detai ls LastModified Time None Recorded Concern Status LastModified by Organization Details LastModified Time None Recorded Payers Encounter Date Sequence Insurance Name Policy Number Policy Wang Covered Member ID Wang Member ID Guarantor Name 08/16/2025 2 [place] WHEN MEDICARE OR MEDICARE REPLACEMENT PRIMARY) William Hackett [id number] William Hackett 08/16/2025 1 [facility] (MEDICARE REPLACEMENT/AD VANTAGE - HMO) [id number] William Hackett [id number] William Hackett Notes Date Note Type Note Provider Name and Address Organization Details Recorded Time 08/16/2025 text/html ROS as noted in the HPI They want me to get the wax out of my left ear Mr Hackett needs his ear canals irrigated, he has been using Hydrogen peroxide Johnnie Castillo MD Attn: Accounting,[address] [facility], [place], [address], [place] [facility] 08/16/2025 19:02:30
--- OUTSIDE RECORDS SUMMARY | 2025-11-06 22:35 | XMS_ITS | Data Portability ---
Author Organization [place] - [facility] [employer], Main Office Address [address] [place] [address] Care Team Providers Care Work Station Support Specialist Name Role Phone JOHNNIE CHIU Primary Care Provider JOHNNIE CHIU Referring Provider Assessment Encounter Date Assessment Date Assessment LastModified by Organization Details LastModified Time 12/15/2024 12/15/2024 Assessment: Nicotine smoke: 2 ppd [id number] = 80 pack years Cough Dyspnea Bibasilar [...] done as follows: Respiratory allergen panel for [facility] Serum IgE Serum total IgG, IgG1, IgG2, IgG3, IgG4 Nfrdn-1-mdrecavaxk n phenotype and level TB stimulated gamma [...] the plan. [email or web address] Not available 01/09/2025 12:17:29 03/14/2025 03/14/2025 69-year-old male presents for re-evaluation of his bilateral shoulders. This has been going on for several months, getting progressively worse over the past month. He has difficulty with lifting his left arm. He currently rates the pain 10/10. At his last appointment we ordered PT and meloxicam. He has not attended PT, he states the meloxicam helps some. He states the pain is getting worse and he is interested in starting PT now. He is being worked up by spine for cervical radiculopathy. Physical exam: He has tenderness over the anterolateral shoulders. He can actively elevate to 100 , passive to 140. Positive Neer and De Luna. He has weakness with resisted elevation. We will renew his physical therapy order, he can start the anti-inflammatorie s as well. He would like cortisone injections into both shoulders today. Those were given without issue. We can see him back as needed for pain. He is in agreement with this plan. [email or web address] Not available 03/15/2025 22:37:23 Plan of Treatment Reminders Order Date Submit Date Provider Last Modified By Organization Details Last Modified Time Details Appointments None recorded. Lab alpha-1-an titrypsin (aat) phenotype, serum 2024 025 [facility] (Lab), [address] [place], [address], 5 15:29:32 BNP (B-type natriureti c peptide), serum or plasma 2024 025 [facility] (Lab), [address] [place], [address], 16:16:26 ige, total, serum 2024 025 [facility] (Lab), [address] [place], [address], 5 13:23:56 tb (M tuberculos is), ifn-gamma sanjay, blood 2024 025 [facility] (Lab), [address] [place], [address], 5 13:23:56 igg subclasses 1+2+3+4, serum 2024 025 [facility] (Lab), [address] [place], [address], 5 13:23:57 respirator y allergen panel, [facility] A, serum 2024 025 [facility] (Lab), [address] [place], [address], 5 14:05:23 respirator y allergen panel - [facility] b 2024 025 [facility] (Lab), [address] [place], [address], 5 13:23:57 eosinophil s, quant, blood 2024 025 [facility] (Lab), [address] [place], [address], 5 13:23:57 Referral physical therapist referral - Please call patient to schedule apt for Pola shoulders 2024 025 [facility] (Outpatient Physical Therapy), [address], [place], [address], 5 16:11:08 physical therapist referral - Please contact pt to schedule apt for Pola shoulder. Thanks 2024 [facility] (Outpatient Physical Therapy), [address], [place], [address], 14:55:23 orthopedic spine surgeon referral - C-spine 2024 DALLIN Traore MD, [address], [place], [address], 16:50:34 Procedures injection/ aspiration joint/burs a (PROC) 2024 [email or web address] 1 In-Office Order, Internal Use Only DO Not Attach Compendium DO Not Attach Compendium, Do Not Delete/merge, [id number] 14:38:31 Surgeries None recorded. Imaging XR, shoulder, 2 or more view 2024 DALLIN [facility], [address] [place] [address], [address], [place], [address], 12:50:07 Medication Orders bupivacain e HCl 0.5 % (5 mg/mL) injection solution 2024 [place] [address] [facility], [address] [place], [place], [id number], 15:34:24 Kenalog 10 mg/mL suspension for injection 2024 025 [place] [address] [facility], [address] [place], [place], [id number], 15:34:24 Mobic 15 mg tablet 2024 025 [email or web address] [facility], [address], [place], [id number], 10:57:01 Patient TargetsNo targets recorded. Patient Instructions Encounter Date Encounter Id Patient Instructions Last Modified By Organization Details Last Modified Time 12/15/2024 [id number] complete PFT w/ post bronchodilator spirometry* - Please call patient to schedule. DAYSI [id number] per [facility] payor portal, ref #[id number]. Not available 01/25/2025 15:43:53 Reason for Referral Physical Therapist Referral for Bilateral shoulder osteoarthritis Pola Shoulders Please contact pt to schedule apt for Pola shoulder. Thanks Referring Physician: New Dumont, Orthopedic Surgery, Encounter Date: 01/09/2025 Orthopedic Spine Surgeon Ref erral for Bilateral shoulder osteoarthritis c-spine C-spine Referring Physician: New Dumont, Orthopedic Surgery, Encounter Date: 01/09/2025 Physical Therapist Referral for Bilateral shoulder osteoarthritis pola shoulders Please call patient to schedule apt for Pola shoulders Referring Physician: Kathryn Garcia, Orthopedic Surgery, Encounter Date: 03/14/2025 Results Created Date Observation Date Name Description [...] more view No observ ation record ed. [email or web address] [id number] [address] [facility], [address], [place], [address], 01/09/2025 10:17:03 Result Notes None recorded. Problems Name Problem SNOMED Code Status Onset Date Resolution Date Notes Provider Name and Address Organization Details Recorded Time Atelectasis 95111743 Active 2024 Arvin Howe MD [address] [facility], [address], [place], [address], [facility] 09:10:20 Pain of right shoulder joint 7848856765098 9100 Active 2024 LANA Singh, [facility] 5 10:16:16 Pain of left shoulder joint 5955615567881 9109 Active 2024 LANA Singh, [facility] 5 10:16:22 Bilateral shoulder osteoarthri tis 3165081568055 08 Active 2024 LANA Singh, [facility] 5 10:16:56 Cervical radiculopat hy 71105128 Active 2024 New Dumont MD [address], [place], [address], [facility] [employer] [facility] 12:16:59 Notes:[facility] Lab data 12/15/24 multiple environmental allergies, (+) Quantiferon TB Gold Medical History: Right Conecpcion's palsy Left blindness Bilateral tinnitus L>R hearing loss COVID infection 11/2022 Rhinitis to multiple environmental allergens IgE 169 IU/mL Eosinophils 290/uL (+) Quantiferon TB Gold AAT PiMM 110 mg% Bibasilar atelectasis BLL bronchiectasis Chronic Hepatitis C ED Procedure History: Skull fracturte repair 1982 Left eye surgery 1981 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 Procedures Surgical History Date Name Laterality Status Provider Name and Address Organization Details Recorded Time Ortho - Cortisone Injection completed Kathryn Garcia NP [address], [place], [address], [facility] [employer] [facility] 03/15/2025 22:37:35 Imaging Results None recorded. Procedure Notes None recorded. Medical Equipment None Reported. Allergies Allergen ID Allergen Name Allergen Category Reaction Reaction Severity Criticality Documentation Date Start Date Code Code System Note Provider Name and Address Organization Details Recorded Time 14745 Product containin g penicilli n (product) medicatio n Not available Not available Not available 12/09/2024 64777 6575 SNOMED Arvin Howe MD [address], [place], [address], [facility] 14:53:48 Medications Name Sig [...] TAKE 1 TABLET BY MOUTH ONCE DAILY 2024 active Not Available Not Available Not Avai lable bupivacaine HCl 0.5 % (5 mg/mL) injection solution Take 8 mL by injection route. 2024 active Not Available Not Available Not Avai lable prednisone 20 mg tablet TAKE 2 TABLETS BY MOUTH DAILY AT 8 AM active Not Available Not Available No t Available aspirin 81 mg tablet,braxton yed release TAKE 1 TABLET BY MOUTH EVERY DAY AROUND THE CLOCK FOR BLOOD THINNER active Not Available Not Available No t Available sildenafil 100 mg tablet TAKE 1/2 TABLET BY MOUTH EVERY DAY NEEDED FOR ERECTILE DYSFUNCTI ON active Not Available Not Available No t Available Kenalog 10 mg/mL suspension for injection Take 2 mL by injection route. 2024 active [facility]: 0003- 0494- 20 Not Available Not Available Not Available benzonatate 100 mg capsule TAKE 1 [...] Available No t Available Vitals Date Recorded Heart rate Respiratory rate Provider N tita and Address Organization Details Last Updated DateTime 12/15/2024 64 /min 15 /min Arvin Howe MD [address], [facility] [address], [place], [address], [facility] [employer] 12/15/2024 09:47:10 Date Recorded Body weight Body mass index (BMI) Body height Body temperature Heart rate Oxygen saturation Systolic And Diastolic Provider Name and Address Organization Details Last Updated DateTime 68485.3 7 g 21.8 kg/m2 182.88 cm 97.3 [degF] 64 /min 95 % 120/68 mm[Hg] Neema Morrell MA [facility] [employer] 09:32:35 Date Recorded Body height Body mass index (BMI) Body weight Pain severity - 0-10 verbal numeric rating [Score] - Reported Provider Name and Address Organization Details Last Updated DateTime 01/09/2025 182.88 cm 21.8 kg/m2 18307.37 g 6 Lyla Araya Fransico [place] [employer] [facility] [employer] 01/09/2025 10:13:27 Date Recorded Body height Body mass index (BMI) Body weight Provider Name and Address Organization Details Last Updated DateTime 03/14/2025 182.88 cm 21.8 kg/m2 37194.37 g Lyla Araya Fransico [place] [employer] [facility] [employer] 03/14/2025 13:56:56 Social History Question Answer Notes LastModified by Organizat ion Details LastModified Time Tobacco Smoking Status Former Smoker Neema Morrell MA null, [employer] [facility] [employer] 12/15/2024 09:27:45 What Is Your Level Of Caffeine Consumption? [...] Was Ill? No Information not available 12/15/2024 Do You [...] Information no t available 12/15/2024 Do You Use Sunscreen Routinely? No Information not available 12/15/2024 Have You Recently Traveled Abroad? No Information not available 12/15/2024 Sex: Unknown Functional Status Question Answer Note LastModified by Organizat ion Details LastModified Time Do you use any illicit or recreational drugs? No Information not available 12/15/2024 What is your level of alcohol consumption? None Information not available 12/15/2024 Are you currently employed? No Information not available 12/15/2024 Have you been exposed to chemicals or toxins? not that aware of Information not available 12/15/2024 Mental Status Question Answer Note LastModified by Organization D etails LastModified Time Do you feel stressed (tense, restless, nervous, or anxious, or unable to sleep at night)? [id number] Information not available 12/15/2024 Family History Relationship Description Onset Age of [...] ICD10 Code Diagnosis IMO Codes Diagnosis Note [id number] Arvin Howe MD [facility] Pulmonolo gy [address], [address] [place] [address] 12/15/2024 08:55:41 12/15/2024 10:45:20 Dyspnea on exertion 29195111 R06.09 R05.3 D89.9 T78.40XA Atelectasis 76681011 J98 .11 [id number] New Dumont MD [facility] [address] 01/09/2025 09:49:31 01/09/2025 10:52:56 Pain of right shoulder joint 9266395314 7060915 M25.511 Pain of le ft shoulder joint 3068863947 5743447 M25.512 Bilateral shoulder osteoarthritis 7274553707 95183 M25.519 Cervical radiculopathy 84970495 M54.12 [id number] New Dumont MD [facility]_[address], [address] [address] 03/14/2025 13:54:34 03/14/2025 14:45:23 Bilateral shoulder osteoarthritis 1682877327 65782 M25.519 Health Concerns Section Related Observation LastModified by Organization Detai ls LastModified Time None Recorded Concern Status LastModified by Organization Details LastModified Time None Recorded Advance Directives Directive None Recorded Payers Insurance Date Sequence Insurance Name Policy Number Policy Wang Covered Member ID Wang Member ID Guarantor Name 03/14/2025 2 [employer] (MEDICARE REPLACEMENT HMO) [id number] William Hackett [id number] William Hackett 06/15/[address] [facility] (MEDICARE REPLACEMENT/AD VANTAGE - PPO) [id number] William Hackett [id number] William Hackett 03/14/2025 1 [facility] (MEDICARE REPLACEMENT HMO) William Hackett [id number] William Hackett 03/14/2025 2 [place] William Raymond Lew [id number] William Raymond Lew 06/15/2025 2 [place] WHEN MEDICARE OR MEDICARE REPLACEMENT PRIMARY) William Raymond Lew [id number] William Raymond Lew Notes Date Note Type Note Provider Name [...] pedaling exerciseAlleviating factors: rest Modified [employer] [place] ([facility]C) Dyspnea Scale - Grade 2Grade 0 [...] noEdema: no Environmental exposures:Nicotine smoke: 2 ppd 5521-3401 = 80 pack yearsPaint: noDye: noDust mites: [...] slight chance of dozing. Arvin Howe MD [address] [place] [address] [address], [place], [address], [place] - [facility] 12/15/2024 11:55:27
--- NOTE | 2025-11-06 23:10 | ED.GENADULT ---
HPI - General Adult General Chief complaint: Skin/Abscess/Foreign Body Stated complaint: feet are infected Time Seen by Provider: 11/06/25 21:52 History of Present Illness HPI narrative: Patient is 69-year-old gentleman presents emergency department with chief complaint of lower extremity wounds. The patient reports that he has history of spinal stenosis and has had difficulty walking the patient states that is lower extremities developed blisters on his feet and reports that he has had redness the patient states he pop the blisters and has been applying Silvadene to his feet but they become progressively more painful red and swollen patient reports no prior history of vascular disease Related Data Home Medications ?Medication ?Instructions ?Recorded ?Confirmed ?Last Taken ?Type albuterol sulfate 2.5 mg/3 mL 2.5 mg inhalation Q4-6H PRN 01/26/25 03/02/25 03/02/25 History (0.083 %) solution for nebulization shortness of breath or wheezing albuterol sulfate 90 mcg/actuation 1 inh inhalation Q4H PRN shortness 01/26/25 03/02/25 03/02/25 History aerosol inhaler (Ventolin HFA) of breath or wheezing aspirin 81 mg tablet,delayed 81 mg PO DAILY 01/26/25 03/02/25 03/02/25 History release (Adult Aspirin Regimen) budesonide-formoterol HFA 160 2 puff inhalation Q12H 01/26/25 03/02/25 03/02/25 History mcg-4.5 mcg/actuation aerosol inhaler (Symbicort) meloxicam 15 mg tablet 15 mg PO DAILY 01/26/25 03/02/25 03/02/25 History sildenafil 100 mg tablet (Viagra) 100 mg PO DAILY PRN erectile 01/26/25 03/02/25 Unknown History dysfunction umeclidinium 62.5 mcg/actuation 1 inh inhalation DAILY 01/26/25 03/02/25 03/02/25 History blister powder for inhalation (Incruse Ellipta) atorvastatin 10 mg tablet 10 mg PO QPM 03/02/25 03/02/25 Unknown History Allergies Allergy/AdvReac Type Severity Reaction Status Date / Time Penicillins Allergy Mild Unknown Verified 11/06/25 19:08 atorvastatin AdvReac Intermediate Palpitation Verified 11/06/25 19:08 s Review of Systems Review of Systems: A 10 system review of systems was completed on the patient and is negative except for what is stated in the HPI. Nursing and ancillary documentation was reviewed. [facility] Past Medical History Medical History TIA (transient ischemic attack) Lung disease COPD (chronic obstructive pulmonary disease) Mild bibasilar atelectasis Erectile dysfunction Chronic hepatitis Hearing loss Bilateral tinnitus Blind left eye Right-sided Concepcion's palsy Surgical History Surgical History History of cranioplasty Social History Social History Smoking packs per day: 3 Smoking cigarettes per day: 60.0 Years smoked: 50 Smoking pack-years: 150.00 Smoking status: Former smoker Smoking end date: 07/15/24 Alcohol intake: never Substance use: never Substance use type: does not use Lack of Transportation: No Lack of Food: Never True Current Housing: I Have Housing Concerned About Future Housing: No Difficulty Paying Gas/Electric Bills: No Difficulty Paying for Meds: No Currently Unemployed: No Education: High School Diploma/GED Difficulty w/ Childcare or Family Care: No Spiritual care concerns: No Exam Narrative: GENERAL: Well-appearing, well-nourished, and in no acute distress. HEAD: Normocephalic, atraumatic. EYES: PERRLA and EOMI. ENT: Nares clear, no rhinorrhea or epistaxis. Mucous membranes moist. NECK: Supple. CHEST: Clear to auscultation. No respiratory distress. HEART: Regular rate and rhythm. No murmur heard. Normal peripheral pulses. ABDOMEN: Soft, nontender, nondistended, normal active bowel sounds. EXTREMITIES: Normal range of motion. No edema. SKIN: Warm, dry, redness, multiple vesicles present on bilateral feet, tender to palpation palpable pulses. NEURO: No focal deficits. Alert and oriented x3. PSYCH: Normal mood and affect. Course Vital Signs Vital signs: Vital Signs Temperature 36.6 C 11/06/25 19:26 Pulse Rate 81 11/06/25 19:26 Respiratory Rate 15 11/06/25 19:26 Blood Pressure 139/76 11/06/25 19:26 Pulse Oximetry 98 12/22/25 19:26 Oxygen Delivery Room Air 11/06/25 19:26 Temperature 37.1 C 11/06/25 23:09 Pulse Rate 77 11/06/25 23:09 Respiratory Rate 16 11/06/25 23:09 Blood Pressure 140/68 11/06/25 23:09 Pulse Oximetry 99 11/06/25 23:09 Oxygen Delivery Room Air 11/06/25 19:26 MDM Differential Diagnosis Differential Diagnosis: Cellulitis, abscess, vascular abnormality CT scan lower extremities showed no evidence of vascular abnormality Patient denies significant redness of his lower extremities due to the pain and also draining the blisters at the patient had performed the patient was empirically started on antibiotics the patient will be admitted for further care Lab Data 11/06/25 23:01 11/06/25 23:01 Labs: Lab Results 11/06/25 Range/Units 23:01 WBC 9.9 (4.5-10.0) K/mm3 RBC 4.47 L (4.6-6.20) M/mm3 Hgb 12.9 L (14.0-18.0) g/dL Hct 39.5 L (42.0-52.0) % MCV 88.4 (80-100) fl MCH 28.9 (26-34) pg MCHC 32.7 (32-36) g/dl RDW 23.9 H (11.5-14.5) % Plt Count 242 (150-375) k/mm3 MPV 9.9 (7.4-10.4) fl Immature Gran % (Auto) 0.5 (0-0.5) % Neut % (Auto) 67.5 (45.5-73.1) % Lymph % (Auto) 19.8 (18.3-44.2) % Gaines % (Auto) 9.2 H (2.6-8.5) % Eos % (Auto) 2.0 (0-4.4) % Baso % (Auto) 1.0 (0.2-1.2) % Lymph # (Auto) 1.95 (0.9-3.2) K/mm3 Gaines # (Auto) 0.9 H (0.1-0.6) K/mm3 Eos # (Auto) 0.2 (0-0.3) K/mm3 Baso # (Auto) 0.1 (0.0-0.1) K/mm3 Abs Immat Gran (auto) 0.05 H (0.00-0.031) K/mm3 Absolute Neuts (auto) 6.7 (1.3-6.7) K/mm3 Absolute Nucleated RBC 0.030 H (0.0-0.012) K/mm3 Band Neutrophils % Not Reportable Nucleated RBC % 0.3 H (0.0-0.2) % Platelet Estimate Adequate (Adequate) Hypochromasia 1+ Anisocytosis 1+ Macrocytosis 1+ (NORMAL) Target Cells 1+ Ovalocytes Occasional Schistocytes None seen ESR 16 (0-20) mm/hr PT 14.0 (11.1-14.7) Seconds INR 1.1 APTT 28.5 (22.3-36.8) Seconds Sodium 140 (137-145) mmol/L Potassium 3.4 (3.4-5.0) mmol/L Chloride 99 (98-107) mmol/L Carbon Dioxide 33 H (22-30) mmol/L Anion Gap 8 (4-12) mmol/L BUN 16 (9-20) mg/dL Creatinine 0.95 (0.7-1.3) mg/dL Estim Creat Clear Calc 70 ml/min Estimated GFR > 60 (59 - ) Glucose 77 (65-110) mg/dL Lactic Acid 1.5 (0.7-2.0) mmol/L Calcium 9.0 (8.4-10.2) mg/dL Magnesium 2.0 (1.6-2.3) mg/dL Total Bilirubin 0.9 (0.2-1.3) mg/dL AST 38 (17-59) U/L ALT 32 (6-50) U/L Alkaline Phosphatase 100 (38-126) U/L C-Reactive Protein 1.3 H (<1.0) mg/dL Total Protein 8.3 H (6.3-8.2) g/dL Albumin 4.6 (3.5-5.1) g/dL Procalcitonin 0.1 ng/mL Urine Color Octavia (Yellow) Urine Appearance Clear (Clear) Urine pH 5.0 (5.0-9.0) Ur Specific [place] 1.031 (1.001-1.035) Urine Protein Trace (Negative) mg/dL Urine Glucose (UA) Negative (Negative) mg/dL Urine Ketones Trace H (Negative) mg/dL Ur Blood (Man) Negative (Negative) Urine Nitrate Negative (Negative) Urine Bilirubin Negative (Negative) Urine Urobilinogen 1.0 (<2.0) mg/dL Leukocyte Esterase Rfl Negative (Negative) KORY/UL Urine RBC 0-2 (0-2) /hpf Urine WBC 0-5 (0-3) /hpf Ur Squamous Epith Cells None seen (Few) /hpf Urine Bacteria None seen /hpf Urine Casts 0-2 Imaging Data Radiologist's impression: ITS Impressions Foot X-Ray 11/06/25 22:47 Impression: 1: No acute bone or joint abnormality. Discharge Plan Discharge Clinical Impression: Cellulitis Qualifiers: Site of cellulitis of extremity: lower extremity Patient Disposition: Still a Patient Condition: Stable Patient Language: Malay Prescriptions: No Action albuterol sulfate 2.5 mg /3 mL (0.083 %) solution for nebulization 2.5 mg inhalation Q4-6H PRN (Reason: shortness of breath or wheezing) albuterol sulfate [Ventolin HFA] 90 mcg/actuation HFA aerosol inhaler 1 inh inhalation Q4H PRN (Reason: shortness of breath or wheezing) aspirin [Adult Aspirin Regimen] 81 mg tablet,delayed release (DR/EC) 81 mg PO DAILY Incruse Ellipta 62.5 mcg/actuation blister with device 1 inh inhalation DAILY meloxicam 15 mg tablet 15 mg PO DAILY sildenafil [Viagra] 100 mg tablet 100 mg PO DAILY PRN (Reason: erectile dysfunction) Rx Instructions: administer 30 minutes to 4 hours before activity budesonide-formoterol [Symbicort] 160-4.5 mcg/actuation HFA aerosol inhaler 2 puff inhalation Q12H atorvastatin 10 mg tablet 10 mg PO QPM prednisone 20 mg Tablet 40 mg PO DAILY@0800 Qty: 6 0RF Follow-up/Referrals: Kobi,Jessica Blair [Primary Care Provider] Time of Disposition: 02:25
[2025-11-06 23:13] LABS: Hematocrit 39.5 % (42.0-52.0); Hemoglobin 12.9 g/dL (14.0-18.0); Immature Granulocyte Percent A 0.5 % (0-0.5); Lymphocytes Absolute Auto 1.95 K/mm3 (0.9-3.2); Mean Corpuscular HGB Conc 32.7 g/dl (32-36); Mean Corpuscular Hemoglobin 28.9 pg (26-34); Mean Corpuscular Volume 88.4 fl (80-100); Nucleated Red Blood Cells Absolute Auto 0.030 K/mm3 (0.0-0.012); Nucleated Red Blood Cells Perc 0.3 % (0.0-0.2); Platelet Count Result 242 k/mm3 (150-375); Red Blood Count 4.47 M/mm3 (4.6-6.20); White Blood Count 9.9 K/mm3 (4.5-10.0)
[2025-11-06] MEDS: diazePAM INJ (*CRX) 10 MG/2 ML SYRINGE 5 MG IV PUSH (23:17)
[2025-11-06 23:18] LABS: Add Urine Microscopic? YES; Appearance Urine Clear (Clear); Glucose Urine UA Negative (Negative); Leukocyte Esterase Ur Negative LEU/UL (Negative); Nitrate Urine Negative (Negative); Non Pathogenic Casts 0-2; Specific Grav Ur 1.031 (1.001-1.035)
[2025-11-06 23:24] LABS: Alanine Aminotransferase 32 U/L (6-50); Albumin Level 4.6 g/dL (3.5-5.1); Alkaline Phosphatase 100 U/L (38-126); Anion Gap 8 mmol/L (4-12); Aspartate Amino Transferase 38 U/L (17-59); Bilirubin,Total 0.9 mg/dL (0.2-1.3); Blood Urea Nitrogen 16 mg/dL (9-20); CRP 1.3 mg/dL (<1.0); Calcium 9.0 mg/dL (8.4-10.2); Carbon Dioxide 33 mmol/L (22-30); Chloride 99 mmol/L (98-107); Estimated CRCL calculation 70 ml/min; Estimated Glomerular Filt Rate > 60; Glucose 77 mg/dL (65-110); Magnesium 2.0 mg/dL (1.6-2.3); Potassium 3.4 mmol/L (3.4-5.0); Sodium 140 mmol/L (137-145); Total Protein 8.3 g/dL (6.3-8.2)
[2025-11-06 23:25] LABS: INR 1.1; Partial Thromboplastin Time 28.5 Seconds (22.3-36.8); Prothrombin Time 14.0 Seconds (11.1-14.7)
[2025-11-06 23:34] LABS: Anisocytosis 1+; Hypochromasia 1+; Macrocytosis 1+ (NORMAL); Ovalocytes Occasional; Schistocytes None Seen; Target Cells 1+
[2025-11-06 23:38] LABS: Procalcitonin 0.1 ng/mL
[2025-11-07] VITALS (12 sets, daily range): BP systolic 112–130; BP diastolic 68–81; PULSE 76–93; RESP 16–23; TEMP 36.2–37.1; O2SAT 80–99
--- NOTE | 2025-11-07 | ECHO_ITS ---
Patient Info Name: William Hackett Age: 69 years : 1955 Gender: Male Ht: 72 in Wt: 172 lbs BSA: 1.99 m2 HR: 85 bpm BP: 129 / 80 mmHg Heart Rhythm: Sinus Rhythm Technical Quality: Poor Exam Date: 11/07/2025 2:06 PM Patient Status: O Admit Date: 11/07/2025 Exam Type: CA echo limited w contrast Limited two-dimensional transthoracic echocardiogram is performed with contrast. Staff Referring Physician: Stanton Ennis Developmental Mathematics Professor: Sheron Shah Attending Provider: Alyssa Reddy DO Contrast/Agitated Saline Contrast/Ag. Saline: Definity Amount: 2.00 ml Administered By: Sheron Shah Existing IV Access: Yes IV Access Condition: patent with no signs of infiltration Reason for Poor Study: poor echocardiographic windows Summary 1. Limited echo. Technically difficult study, poor image quality. Echo contrast was used. Normal LV size, concentric LV remodeling, hyperdynamic LV systolic function, ejection fraction more than 70%. Other cardiac chambers not well visualized. Valves not well visualized. Left Ventricle Left ventricular chamber dimension is normal. There is mildly increased left ventricular wall thickness. Right Ventricle Right ventricular chamber dimension is normal. Right ventricular systolic function is normal. Left Atria Left atrial chamber dimension is normal. Right Atria Right atrial chamber dimension is normal. Aortic Valve The aortic valve is not well visualized. Pulmonic Valve The pulmonic valve is not well visualized. Mitral Valve The mitral valve has not well visualized leaflets. Tricuspid Valve The tricuspid valve leaflets are not well visualized. Pericardium/Pleural The pericardium appears not well visualized. Aorta The aortic root size at the sinus of Valsalva is not well visualized. Ventricles Name Value Normal LV Fractional Shortening/Ejection Fraction 2D/MM LV Diastolic Volume (4C MOD) 63 ml LV EF (4C MOD) 61 % LV Diastolic Volume (2C MOD) 44 ml LV EF (2C MOD) 64 % LV Diastolic Volume (BP MOD) 56 ml 62-150 LV Diastolic Volume Index (BP MOD) 28 ml/m2 34-74 LV Systolic Volume (BP MOD) 20 ml 21-61 LV Systolic Volume Index (BP MOD) 10 ml/m2 11-31 LV EF (BP MOD) 64 % 52-72 LV Diastolic Length (4C) 7.8 cm LV Systolic Length (4C) 6.7 cm LV Stroke Volume (4C MOD) 39 ml Report Signatures
[2025-11-07] MEDS: diazePAM INJ (*CRX) 10 MG/2 ML SYRINGE 5 MG IV PUSH (01:22)
[2025-11-07] MEDS: CEFEPIME 2 GM in SODIUM CHLORIDE 0.9% IV 50 ML 100 ML IVPB ×2 (02:10→15:58)
[2025-11-07] MEDS: metroNIDAZOLE 500 MG/ISO 100ML 500 MG/100 ML BAG 100 MG IVPB ×2 (02:11→13:02)
[2025-11-07] MEDS: MORPHINE SULFATE (*CRX) 4 MG/ML INJ 2 MG IV PUSH ×3 (02:37→06:57)
[2025-11-07] MEDS: VANCOMYCIN 2,000 MG/NS 500 ML 2,000 MG/500 ML BAG 250 MG IVPB (03:24)
[2025-11-07] MEDS: ACETAMINOPHEN 325 MG TABLET 650 MG PO (03:29)
--- NOTE | 2025-11-07 03:46 | WPCEDHO ---
ED Hand Off Checklist All vitals saved:yes IV Site documented:yes All med administrations documented:yes Triage Note Triage Note Pt arrives from home with c/o 11/06/25 23:09 blisters and wounds on bilateral feet for approx 1 week. Pt reports that he has been treating it with Neosporin and has been unable to lay in a bed for over a month to elevate them d/t spinal stenosis pain. States he has a visiting nurse that comes 2-3 times a week and has been treating it with Silvadene cream. Reports could not tolerate the Silvadene cream and lanced his own blilssters, putting more Neosporin on. States that now it has blisters and peeling. Allergies Penicillins Allergy (Mild, Verified 11/06/25 19:08) Unknown Patient received ceftriaxone in February 2025 atorvastatin Adverse Reaction (Intermediate, Verified 11/06/25 19:08) Palpitations Active Medications including assessments/comments Acetaminophen (Acetaminophen 325 Mg Tablet) 650 mg PO Q4H PRN PRN Reason: Mild Pain (1-3) or Fever Last Admin: 11/07/25 03:29 Dose: 650 mg Documented By: TANNER MAR Pain Assessment Document 11/07/25 03:29 TANNER (Rec: 11/07/25 03:29 TANNER [id number]) Pain Evaluation Pain Evaluation Assessment Pain Scale Pain Scale Used Numeric (1 - 10) Self Report Pain Assessment Reported Pain Level 6 Pain Score Pain Score 6: Self Report Vancomycin HCl (Vancomycin 2,000 Mg/Ns 500 Ml) 2,000 mg in 500 mls @ 250 mls/hr IVPB ONCE ONE Stop: 11/07/25 04:59 Last Admin: 11/07/25 03:24 Dose: 250 mls/hr Documented By: TANNER Infusion/Titration Document 11/07/25 03:24 TANNER (Rec: 11/07/25 03:24 TANNER [id number]) Intake IV Site Peripheral Access Right Forearm Container Volume 500 Waste Amount 0 Dosing Infusion Rate 250 Increase/Decrease Started Elapsed Time Elapsed Time ( 0m minutes) Administered/Completed Medications Discontinued Medications Diazepam (Diazepam Inj (*Crx) 10 Mg/2 Ml Syringe) 5 mg IV PUSH ONCE ONE Stop: 11/06/25 23:03 Last Admin: 11/06/25 23:17 Dose: 5 mg Documented By: TANNER Diazepam (Diazepam Inj (*Crx) 10 Mg/2 Ml Syringe) 5 mg IV PUSH ONCE ONE Stop: 11/07/25 01:11 Last Admin: 11/07/25 01:22 Dose: 5 mg Documented By: TANNER Cefepime HCl 2 gm/ Sodium (Chloride) 50 mls @ 100 mls/hr IVPB ONCE STA Stop: 11/07/25 02:22 Last Infusion: 11/07/25 02:41 Dose: Infused Documented By: Admin: 11/07/25 02:10 Dose: 100 mls/hr Documented By: TANNER Metronidazole (Flagyl 500 Mg/Iso Soln 100 Ml) 500 mg in 100 mls @ 100 mls/hr IVPB ONCE STA Stop: 11/07/25 02:52 Last Infusion: 11/07/25 03:33 Dose: Infused Documented By: Admin: 11/07/25 02:11 Dose: 100 mls/hr Documented By: TANNER Morphine Sulfate (Morphine Sulfate (*Crx) 4 Mg/Ml Inj) 2 mg IV PUSH ONCE STA Stop: 11/07/25 02:32 Last Admin: 11/07/25 02:37 Dose: 2 mg Documented By: TANNER Interventions/Assessments IV / Saline Lock, Insert Start: 11/06/25 19:26 Freq: Status: Active Protocol: Document 11/06/25 23:15 TANNER (Rec: 11/06/25 23:16 TANNER [id number]) IV Assessment Peripheral Access Right Forearm IV Catheter Access Initiated IV Insertion Date 11/06/25 IV Insertion Time 23:16 Catheter Gauge 18 IV Insertion 1 Attempts IV Site Assessment WNL IV Care and WNL Maintenance Last Vital Signs Temperature 98.8 F 11/06/25 23:09 Pulse Rate 80 11/07/25 03:45 Respiratory Rate 20 11/07/25 03:45 Pulse Oximetry 80 L 11/07/25 00:15 Blood Pressure 130/81 11/07/25 03:01 Blood Pressure Mean 96 11/07/25 03:01 Blood Pressure Position Sitting 11/06/25 19:26 Oxygen Delivery Room Air 11/06/25 19:26 Weight 78.3 kg 11/06/25 23:09 Last Result - Abnormals Only RBC 4.47 M/mm3 (4.6-6.20) L 11/06/25 23:01 Hgb 12.9 g/dL (14.0-18.0) L 11/06/25 23:01 Hct 39.5 % (42.0-52.0) L 11/06/25 23:01 RDW 23.9 % (11.5-14.5) H 11/06/25 23:01 [place] % (Auto) 9.2 % (2.6-8.5) H 11/06/25 23:01 [place] # (Auto) 0.9 K/mm3 (0.1-0.6) H 11/06/25 23:01 Abs Immat Gran (auto) 0.05 K/mm3 (0.00-0.031) H 11/06/25 23:01 Absolute Nucleated RBC 0.030 K/mm3 (0.0-0.012) H 11/06/25 23:01 Nucleated RBC % 0.3 % (0.0-0.2) H 11/06/25 23:01 Carbon Dioxide 33 mmol/L (22-30) H 11/06/25 23:01 C-Reactive Protein 1.3 mg/dL (<1.0) H 11/06/25 23:01 Total Protein 8.3 g/dL (6.3-8.2) H 11/06/25 23:01 Urine Ketones Trace mg/dL (Negative) H 11/06/25 23:01 Most Recent Suicide Severity Rating Suicide Severity Rating NO RISK INDICATED 11/06/25 23:09
--- NOTE | 2025-11-07 09:21 | PC.NURSE ---
This patient, William Hackett, was admitted to 3 [facility] Surg Room 323-02. Patient/family oriented to hospital policies and general routines including ID bracelet, bed and alarms, visiting hours, pain management, procedures, bathroom and other care routines, personal items, smoking policy, room service/diet, and visiting hours. Information on how to activate the Rapid Response Team has been discussed. Patient/Family are encouraged to report perceived risks to care and to ask questions if they do not understand what they are told or what they should do. Patient arrived to floor at 0420.
[2025-11-07 11:20] LABS: MRSA (PCR) NOT DETECTED (NOT DETECTE)
--- NOTE | 2025-11-07 13:56 | PM.IMHP2 ---
H&P: HPI History of Present Illness Date/Time: 11/07/25 13:56 Chief Complaint: bilateral blisters to feet and swelling Narrative: 69 year old male with a past medical history of TIA, COPD, and chronic hepatitis presents to the ED with complaints of bilateral swelling and blister to both feet. He states it started about 7 days ago and that he has a history of his feet swelling. The patient [facility] he was losing feeling in his arms and legs. He stated that the plans were to do surgery, but before he could do a follow up his feet started swelling. He states that he has a nurse who comes to the house to help with his care and she put silvadene on his feet, but later that day blister started to form. He states he lanced the blisters himself and waited for the nurse to comeback to treat them again. He states he did put Neosporin on his feet after lancing them and it helped a little. The next day he states the nurse put more silvadene on his feet and more blister appeared so he was sent to the hospital. He states he can not walk because it is too painful. He denies recently being sick or puncture injuries. Review of Systems Review of Systems: All systems reviewed & are unremarkable except as noted in HPI and below PMFSH Past Medical History Medical History TIA (transient ischemic attack) Lung disease COPD (chronic obstructive pulmonary disease) Mild bibasilar atelectasis Erectile dysfunction Chronic hepatitis Hearing loss Bilateral tinnitus Blind left eye Right-sided Concepcion's palsy Surgical History Surgical History History of cranioplasty Family History Family History (Updated 11/07/25 @ 08:48 by Sherry Rasmussen RN) Mother Diabetes mellitus Social History Social History Smoking packs per day: 3 Smoking cigarettes per day: 60.0 Years smoked: 50 Smoking pack-years: 150.00 Smoking status: Former smoker Smoking end date: 07/15/24 Alcohol intake: never Substance use: never Substance use type: does not use Lack of Transportation: No Lack of Food: Never True Current Housing: I Have Housing Concerned About Future Housing: No Difficulty Paying Gas/Electric Bills: No Difficulty Paying for Meds: No Currently Unemployed: No Education: High School Diploma/GED Difficulty w/ Childcare or Family Care: No Spiritual care concerns: No Meds Home Medications and Allergies Home Medications ?Medication ?Instructions ?Recorded ?Confirmed ?Type albuterol sulfate 2.5 mg/3 mL 2.5 mg inhalation Q4-6H PRN 01/26/25 11/07/25 History (0.083 %) solution for nebulization shortness of breath or wheezing albuterol sulfate 90 mcg/actuation 1 inh inhalation Q4H PRN shortness 01/26/25 11/07/25 History aerosol inhaler (Ventolin HFA) of breath or wheezing aspirin 81 mg tablet,delayed 81 mg PO DAILY 01/26/25 11/07/25 History release (Adult Aspirin Regimen) budesonide-formoterol HFA 160 2 puff inhalation Q12H 01/26/25 11/07/25 History mcg-4.5 mcg/actuation aerosol inhaler (Symbicort) sildenafil 100 mg tablet (Viagra) 100 mg PO DAILY PRN erectile 01/26/25 11/07/25 History dysfunction umeclidinium 62.5 mcg/actuation 1 inh inhalation DAILY 01/26/25 11/07/25 History blister powder for inhalation (Incruse Ellipta) baclofen 10 mg tablet 10 mg PO Q8H 11/07/25 11/07/25 History oxycodone 10 mg tablet 10 mg PO Q6H PRN pain 11/07/25 11/07/25 History Allergies Allergy/AdvReac Type Severity Reaction Status Date / Time Penicillins Allergy Mild Unknown Verified 11/07/25 08:45 atorvastatin AdvReac Intermediate Palpitation Verified 11/07/25 08:45 s Vital Signs Vital Signs - 24 hr 11/06/25 19:26 11/06/25 21:02 11/06/25 21:15 Temperature 97.9 F Pulse Rate 81 77 75 Respiratory Rate 15 20 20 Blood Pressure 139/76 Pulse Oximetry 98 99 100 Oxygen Delivery Room Air 11/06/25 21:16 11/06/25 21:36 11/06/25 21:48 Temperature Pulse Rate 76 73 79 Respiratory Rate 21 H 20 22 H Blood Pressure 121/79 Pulse Oximetry 100 99 Oxygen Delivery 11/06/25 22:00 11/06/25 22:01 11/06/25 22:17 Temperature Pulse Rate 78 76 79 Respiratory Rate 24 H 19 21 H Blood Pressure 115/75 Pulse Oximetry 100 100 100 Oxygen Delivery 11/06/25 22:49 11/06/25 23:00 11/06/25 23:09 Temperature 98.8 F Pulse Rate 79 80 77 Respiratory Rate 29 H 22 H 16 Blood Pressure 140/68 Pulse Oximetry 99 Oxygen Delivery 11/06/25 23:15 11/06/25 23:18 11/06/25 23:30 Temperature Pulse Rate 81 86 Respiratory Rate 23 H 22 H 24 H Blood Pressure 129/79 Pulse Oximetry 97 94 Oxygen Delivery 11/06/25 23:31 11/07/25 00:13 11/07/25 00:15 Temperature Pulse Rate 88 93 90 Respiratory Rate 24 H 23 H 17 Blood Pressure 122/71 Pulse Oximetry 95 80 L Oxygen Delivery 11/07/25 02:43 11/07/25 02:45 11/07/25 02:46 Temperature Pulse Rate 93 91 91 Respiratory Rate 22 H 19 19 Blood Pressure 121/76 Pulse Oximetry Oxygen Delivery 11/07/25 03:00 11/07/25 03:01 11/07/25 03:38 Temperature Pulse Rate 88 90 84 Respiratory Rate 21 H 18 21 H Blood Pressure 130/81 Pulse Oximetry Oxygen Delivery 11/07/25 03:45 11/07/25 09:00 Temperature 97.1 F L Pulse Rate 80 85 Respiratory Rate 20 16 Blood Pressure 129/80 Pulse Oximetry 96 Oxygen Delivery Exam Const: General: comfortable and no acute distress Eyes: General: appearance normal, both eyes and all related structures Sclera: sclerae normal Pupils: Equal, round and reactive pupils present EOM: EOMs intact bilaterally Neck: Neck: supple and no JVD Thyroid: thyroid normal Resp: Effort & Inspection: normal respiratory effort Auscultation: clear to auscultation bilaterally Cardio: Rate: regular rate Rhythm: regular rhythm GI: GI Palp: Yes Soft to palpation Auscultation: normal bowel sounds Skin: General skin exam: dry skin, erythema and turgor decreased Lesions: other (bilateral blisters ruptured with some drainage) Neuro: General: No gait normal (blisters and swelling noted on BLE) Speech: normal speech Motor exam (neuro): 5/5 motor strength present throughout Sensory Exam: normal sensation Extrem: Right lower extremity: edema Left lower extremity: edema Psych: Mental Status: mental status grossly normal Affect: normal affect Results Labs Labs: Short CBC 11/06/25 Range/Units 23:01 WBC 9.9 (4.5-10.0) K/mm3 Hgb 12.9 L (14.0-18.0) g/dL Hct 39.5 L (42.0-52.0) % Plt Count 242 (150-375) k/mm3 BMP 11/06/25 23:01 Sodium 140 Potassium 3.4 Chloride 99 Carbon Dioxide 33 H BUN 16 Creatinine 0.95 Glucose 77 Calcium 9.0 Liver Function 11/06/25 Range/Units 23:01 Total Bilirubin 0.9 (0.2-1.3) mg/dL AST 38 (17-59) U/L ALT 32 (6-50) U/L Alkaline Phosphatase 100 (38-126) U/L Albumin 4.6 (3.5-5.1) g/dL Urine 11/06/25 Range/Units 23:01 Urine Color [place] (Yellow) Urine Appearance Clear (Clear) Urine pH 5.0 (5.0-9.0) Ur Specific [place] 1.031 (1.001-1.035) Urine Protein Trace (Negative) mg/dL Urine Glucose (UA) Negative (Negative) mg/dL Quality VTE Prophylaxis VTE prophylaxis: mechanical ordered Assessment and Plan Assessment and plan (1) Contact allergic reaction: Code(s): L23.9 - Allergic contact dermatitis, unspecified cause Status: Acute Assessment and Plan: Patient was using Neosporin which has a probably of contact dermatitis allergic reactions. Will rule out cellulitis Benadryl ordered Lasix ordered Wound nurse consulted (2) Cellulitis: Qualifiers: Site of cellulitis of extremity: lower extremity Code(s): L03.90 - Cellulitis, unspecified Status: Acute Assessment and Plan: WBC not elevated ESR not elevated Lactic Acid not elevated No systemic symptoms Low suspicion for cellulitis MRSA negative Consulted bull bucker Blood cultures pending Venous Doppler ordered Limited Echo with EF and wall motion ordered to rule out cardiac concerns Discontinued all antibiotics, will reassess pending cultures (3) Hypokalemia: Code(s): E87.6 - Hypokalemia Status: Acute Assessment and Plan: Potassium is 3.4, but will start the patient on Lasix Potassium 40mEq once Will monitor fluids Will monitor electrolytes and renal function (4) COPD exacerbation: Code(s): J44.1 - Chronic obstructive pulmonary disease with (acute) exacerbation Status: Acute Assessment and Plan: Chronic condition Continue home medications
[2025-11-07] MEDS: PERFLUTREN LIPID MICROSPHERES 1.5 ML VIAL DILUTED TO 10 ML TOTAL VOLUME IV PUSH (14:00)
--- NOTE | 2025-11-07 15:34 | IVDEFINITY ---
Prior to administration of IV Definity the patient was educated on the risks and benefits of the imaging enhancing agent including potential adverse side effects. The patient verbalized understanding. Allergies were verified. No exclusion criteria were identified and at least one of the following inclusion criteria were met: 1) physician request, 2) patient technically difficult to image (per the [place] [employer] guidelines of two or more segments not discernable within the apical view), or 3) questionable left ventricular function. ?
[2025-11-07] MEDS: FUROSEMIDE INJ 40 MG/4 ML VIAL IV PUSH (15:47)
[2025-11-07] MEDS: POTASSIUM CHLORIDE 20 MEQ ER TABLET 40 MEQ PO (15:47)
[2025-11-07] MEDS: diphenhydrAMINE HCl CAP 25 MG CAPSULE PO (15:48)
[2025-11-07] MEDS: BACLOFEN 10 MG TABLET PO (18:33)
[2025-11-07] MEDS: oxyCODONE HCL (*CRX) 5 MG TAB IR 10 MG PO (20:41)
[2025-11-08] MEDS: CEFEPIME 2 GM in SODIUM CHLORIDE 0.9% IV 50 ML 100 ML IVPB (02:15)
[2025-11-08] MEDS: BACLOFEN 10 MG TABLET PO ×2 (02:15→16:27)
[2025-11-08 05:55] VITALS: BP 121/78; PULSE 63; RESP 16; TEMP 36.9; O2SAT 96
[2025-11-08 06:04] LABS: Cannabinoid Screen Urine Negative (Negative)
[2025-11-08 06:34] LABS: Anion Gap 3 mmol/L (4-12); Blood Urea Nitrogen 13 mg/dL (9-20); Calcium 8.4 mg/dL (8.4-10.2); Carbon Dioxide 30 mmol/L (22-30); Chloride 104 mmol/L (98-107); Estimated CRCL calculation 80 ml/min; Estimated Glomerular Filt Rate > 60; Glucose 86 mg/dL (65-110); Potassium 3.4 mmol/L (3.4-5.0); Sodium 137 mmol/L (137-145)
[2025-11-08] MEDS: FLUTICASONE/SALMETEROL 115-21 MCG INHALER 1 PUFF 2 PUFF INHALATION ×2 (08:50→19:35)
[2025-11-08] MEDS: UMECLIDINIUM BROMIDE 62.5 MCG ELLIPTA 1 PUFF INHALATION (08:50)
[2025-11-08 08:51] VITALS: O2SAT 93
--- NOTE | 2025-11-08 09:05 | P.PNIM_ITS ---
Assessment and Plan Assessment and Plan (1) Contact allergic reaction: Code(s): L23.9 - Allergic contact dermatitis, unspecified cause Status: Acute Assessment and Plan: Edema much better today per yesterday charting and today's assessment Patient was using Neosporin on open wounds, likely cause Wound nurse consulted: No s/s of infection present. pt has orders for dressing to control exudate and legs/feet to be elevated when patient is sitting or in bed -Pt will be discharged with HH and therapy to maintain wounds MRSA negative BC pending Venous Doppler negative for DVT bilaterally Limited Echo with EF and wall motion ordered to rule out cardiac concerns, no acute change since last echo in 02/2025 Discontinued all antibiotics, will reassess pending cultures (2) Cellulitis: Qualifiers: Site of cellulitis of extremity: lower extremity Code(s): L03.90 - Cellulitis, unspecified Status: Acute Assessment and Plan: Unlikely, see above. (3) Hypokalemia: Code(s): E87.6 - Hypokalemia Status: Acute Assessment and Plan: Will continue to trend, stable now at baseline value -Lasix x1 on 11/07 (4) COPD exacerbation: Code(s): J44.1 - Chronic obstructive pulmonary disease with (acute) exacerbation Status: Acute Assessment and Plan: Chronic Continue home medications Plan Medically cleared, awaiting family transportation. CC following. Medical Record Review I have reviewed the following patient records and this information was taken into consideration when formulating the assessment and plan.: previous labs and previous hospitalizations Time Spent With Patient Time with patient: 25 - 35 minutes Subjective Date/time seen: 11/08/25 1225 Interval history: Pt sitting up in chair eating upon my arrival. Pt reports that he feels much better today, his legs feel better. Denies any other sx. Has a discussion with CC, pt son trying to figure out transportation for the pt to return home. He is trying to get ahold of his siblings with the transfer truck but there has been no response. Pt medically cleared to be discharged, awaiting transportation via family or EMS will be set up tomorrow AM. Review of Systems Review of Systems: All systems reviewed & are unremarkable except as noted in HPI and below Exam Const: General: comfortable and no acute distress HENMT: Face/Nose/Sinus: Normal nares present Mouth: Yes moist mucous membranes Eyes: General: appearance normal, both eyes and all related structures Sclera: sclerae normal Neck: Neck: supple and no JVD Resp: Effort & Inspection: normal respiratory effort Auscultation: clear to auscultation bilaterally Cardio: Rate: regular rate Rhythm: regular rhythm GI: Auscultation: normal bowel sounds Skin: General skin exam: dry skin, erythema and turgor decreased Lesions: other (bilateral blisters ruptured with some drainage) Neuro: General: No gait normal (blisters and swelling noted on BLE) Cranial nerves: Yes Equal, round and reactive pupils present Speech: normal speech Motor exam (neuro): Normal motor muscle tone present throughout Sensory Exam: normal sensation Extrem: Other: 1+ edema to BLE, ankle and below. Legs a re dressed with kerlex, CDI. PMS intact. Psych: Mental Status: mental status grossly normal Affect: normal affect Objective Data Vital Signs Vital Signs: Vital Signs - 24 hr 11/07/25 14:00 11/07/25 21:02 11/08/25 05:55 Temperature 97.2 F L 98.8 F 98.4 F Pulse Rate 77 76 63 Respiratory Rate 16 16 16 Blood Pressure 120/68 112/79 121/78 Pulse Oximetry 99 98 96 Oxygen Delivery 11/08/25 08:51 Temperature Pulse Rate Respiratory Rate Blood Pressure Pulse Oximetry 93 Oxygen Delivery Room Air Intake/Output Intake/Output: Intake & Output 11/05/25 11/06/25 11/07/25 11/08/25 23:59 23:59 23:59 23:59 Intake Total 920 540 Output Total 800 600 Balance 120 -60 Meds/Results Medications: Active Medications Generic Name Dose Route Start Last Admin Trade Name Freq PRN Reason Stop Dose Admin Acetaminophen 650 mg 11/07/25 02:25 11/07/25 03:29 Acetaminophen 325 Mg Tablet PO 650 mg Q4H PRN Administration Mild Pain (1-3) or Fever Albuterol 2.5 mg 11/07/25 14:21 Albuterol Sulfate Neb 2.5 Mg/3 Ml Inh INHALATION Q4-6H PRN Shortness Of Breath Or Wheezing Albuterol 1 puff 11/07/25 14:21 Albuterol Sulfate (*Sp) Aerosol 1 Puff INHALATION Q4H PRN Shortness Of Breath Or Wheezing Aspirin 81 mg 11/08/25 09:00 Aspirin 81 Mg Enteric Tablet PO DAILY PAGE Baclofen 10 mg 11/07/25 16:30 11/08/25 07:16 Baclofen 10 Mg Tablet PO Not Given 0230,0630,1630 [facility] Cefepime HCl 2 gm/ Sodium 50 mls @ 100 mls/hr 11/07/25 14:00 11/08/25 02:45 Chloride IVPB Infused Q12H PAGE Infusion Morphine Sulfate 2 mg 11/07/25 02:25 11/07/25 06:57 Morphine Sulfate (*Crx) 4 Mg/Ml Inj IV PUSH 2 mg Q2H PRN Administration Pain Rated 7-10 Ondansetron HCl 4 mg 11/07/25 02:25 Ondansetron Inj 4 Mg/2 Ml Vial IV PUSH Q4H PRN Nausea Oxycodone HCl 10 mg 11/07/25 14:21 11/07/25 20:41 Oxycodone Hcl (*Crx) 5 Mg Tab Ir PO 10 mg Q6H PRN Administration Pain 7-10 Fluticasone/Salmeterol 2 puff 11/07/25 20:00 11/08/25 08:50 Fluticasone/Salmeterol 115-21 Mcg Inhaler 1 Puff INHALATION 2 puff Q12HRT PAGE Administration Umeclidinium [place] 1 puff 11/08/25 08:00 11/08/25 08:50 Umeclidinium [place] 62.5 Mcg Ellipta INHALATION 1 puff DAILYRT PAGE Administration Radiology Results: ITS Impressions Foot X-Ray 11/06/25 22:47 Impression: 1: No acute bone or joint abnormality. Aorta w/Runoff CTA 11/07/25 07:58 IMPRESSION: 1. No significant arterial occlusive disease. The right knee joint line and proximal calf are obscured by motion artifact. Venous Doppler Study 11/07/25 15:42 IMPRESSION: 1. No deep venous thrombosis. Labs Labs: Laboratory Results - last 24 hr 11/07/25 11/08/25 11/08/25 09:33 05:29 05:57 Sodium 137 Potassium 3.4 Chloride 104 Carbon Dioxide 30 Anion Gap 3 L BUN 13 Creatinine 0.82 Estim Creat Clear Calc 80 Estimated GFR > 60 Glucose 86 Calcium 8.4 Nasal MRSA (PCR) Not detected Urine Opiates Screen Positive A Urine Methadone Screen Negative Ur Barbiturates Screen Negative Ur Phencyclidine Scrn Negative Ur Amphetamine Screen Negative U Benzodiazepines Scrn Positive A Urine Cocaine Screen Negative U Cannabinoids Screen Negative Quality VTE Prophylaxis VTE prophylaxis: mechanical ordered
[2025-11-08] MEDS: ASPIRIN 81 MG ENTERIC TABLET PO (09:07)
[2025-11-08 10:02] LABS: Hematocrit 34.0 % (42.0-52.0); Hemoglobin 11.2 g/dL (14.0-18.0); Immature Granulocyte Percent A 0.7 % (0-0.5); Lymphocytes Absolute Auto 1.28 K/mm3 (0.9-3.2); Mean Corpuscular HGB Conc 32.9 g/dl (32-36); Mean Corpuscular Hemoglobin 29.6 pg (26-34); Mean Corpuscular Volume 89.7 fl (80-100); Nucleated Red Blood Cells Absolute Auto 0.000 K/mm3 (0.0-0.012); Nucleated Red Blood Cells Perc 0.0 % (0.0-0.2); Platelet Count Result 214 k/mm3 (150-375); Red Blood Count 3.79 M/mm3 (4.6-6.20); White Blood Count 8.9 K/mm3 (4.5-10.0)
[2025-11-08 10:08] LABS: Alanine Aminotransferase 22 U/L (6-50); Albumin Level 3.4 g/dL (3.5-5.1); Alkaline Phosphatase 76 U/L (38-126); Aspartate Amino Transferase 34 U/L (17-59); Bilirubin,Total 0.9 mg/dL (0.2-1.3); Total Protein 6.3 g/dL (6.3-8.2)
[2025-11-08 10:17] LABS: Anisocytosis 1+
[2025-11-08 10:18] LABS: Hypochromasia 2+; Target Cells 2+
[2025-11-08 10:19] LABS: Macrocytosis 1+ (NORMAL); Schistocytes None Seen
[2025-11-08 14:00] VITALS: BP 111/69; PULSE 67; RESP 16; TEMP 37; O2SAT 95
[2025-11-08 19:35] VITALS: O2SAT 94
[2025-11-08] MEDS: oxyCODONE HCL (*CRX) 5 MG TAB IR 10 MG PO (19:53)
[2025-11-08 20:24] VITALS: BP 125/77; PULSE 77; RESP 16; TEMP 36.3; O2SAT 96
[2025-11-09] MEDS: BACLOFEN 10 MG TABLET PO ×2 (02:37→06:59)
[2025-11-09 05:37] VITALS: BP 117/76; PULSE 78; RESP 16; TEMP 36.7; O2SAT 98
[2025-11-09 06:29] LABS: Hematocrit 33.6 % (42.0-52.0); Hemoglobin 11.3 g/dL (14.0-18.0); Immature Granulocyte Percent A 0.6 % (0-0.5); Lymphocytes Absolute Auto 1.32 K/mm3 (0.9-3.2); Mean Corpuscular HGB Conc 33.6 g/dl (32-36); Mean Corpuscular Hemoglobin 29.7 pg (26-34); Mean Corpuscular Volume 88.2 fl (80-100); Nucleated Red Blood Cells Absolute Auto 0.020 K/mm3 (0.0-0.012); Nucleated Red Blood Cells Perc 0.2 % (0.0-0.2); Platelet Count Result 197 k/mm3 (150-375); Red Blood Count 3.81 M/mm3 (4.6-6.20); White Blood Count 8.1 K/mm3 (4.5-10.0)
[2025-11-09 06:55] LABS: Alanine Aminotransferase 23 U/L (6-50); Albumin Level 3.5 g/dL (3.5-5.1); Alkaline Phosphatase 70 U/L (38-126); Anion Gap 4 mmol/L (4-12); Aspartate Amino Transferase 35 U/L (17-59); Bilirubin,Total 0.8 mg/dL (0.2-1.3); Blood Urea Nitrogen 12 mg/dL (9-20); Calcium 8.5 mg/dL (8.4-10.2); Carbon Dioxide 28 mmol/L (22-30); Chloride 103 mmol/L (98-107); Estimated CRCL calculation 89 ml/min; Estimated Glomerular Filt Rate > 60; Glucose 87 mg/dL (65-110); Potassium 3.5 mmol/L (3.4-5.0); Sodium 135 mmol/L (137-145); Total Protein 6.4 g/dL (6.3-8.2)
[2025-11-09 07:06] LABS: Hypochromasia 2+
[2025-11-09 07:07] LABS: Anisocytosis 2+; Schistocytes None Seen; Target Cells 1+
[2025-11-09] MEDS: UMECLIDINIUM BROMIDE 62.5 MCG ELLIPTA 1 PUFF INHALATION (07:52)
[2025-11-09] MEDS: FLUTICASONE/SALMETEROL 115-21 MCG INHALER 1 PUFF 2 PUFF INHALATION ×2 (07:52→09:16)
--- NOTE | 2025-11-09 08:30 | PM.DS ---
DS: Admitting Diagnosis Discharge Date 11/09/2025 Admitting Diagnosis BLE edema / allergic reaction DS: Discharge Diagnosis Discharge Diagnosis (1) Contact allergic reaction: Code(s): L23.9 - Allergic contact dermatitis, unspecified cause Status: Acute Assessment and Plan: Edema continues to improve Patient was using Neosporin on open wounds, likely cause Wound nurse consulted: No s/s of infection present. pt has orders for dressing to control exudate and legs/feet to be elevated when patient is sitting or in bed -Pt will be discharged with HH and therapy to maintain wounds MRSA negative BC pending Venous Doppler negative for DVT bilaterally Limited Echo with EF and wall motion ordered to rule out cardiac concerns, no acute change since last echo in 02/2025 Discontinued all antibiotics (2) Hypokalemia: Code(s): E87.6 - Hypokalemia Status: Acute Assessment and Plan: Will continue to trend, stable now at baseline value -Lasix x1 on 11/07 (3) COPD exacerbation: Code(s): J44.1 - Chronic obstructive pulmonary disease with (acute) exacerbation Status: Acute Assessment and Plan: Chronic Continue home medications Plan Pt to be discharged home with HH today along with family help. DS: Summary Hospital Course Reason for hospitalization: BLE edema / allergic reaction Hospital Course: The patient is a 69-year-old male with a history of TIA, COPD, chronic hepatitis, and spinal stenosis who was admitted for evaluation of bilateral lower extremity edema and painful blistering wounds to both feet. He initially presented with concern for cellulitis after developing blisters following application of Silvadene and later Neosporin to his feet, which he subsequently lanced at home. On admission, he was afebrile and hemodynamically stable without leukocytosis or systemic signs of infection. Initial empiric antibiotics were started but later discontinued after further evaluation showed low suspicion for cellulitis, with normal inflammatory markers, negative MRSA screening, and negative blood cultures to date. Imaging, including bilateral lower extremity Doppler studies, was negative for DVT, and foot X-rays showed no acute osseous abnormality. Limited echocardiogram demonstrated no acute change in ejection fraction compared to prior study. The clinical picture was most consistent with allergic contact dermatitis, likely secondary to topical antibiotic use, with associated dependent edema. The patient was treated with leg elevation, a single dose of IV Lasix with improvement in edema, antihistamines, and local wound care. Wound care nursing evaluated the patient and recommended ongoing dressing changes and avoidance of topical irritants. Hypokalemia was noted and corrected with supplementation, remaining stable thereafter. His COPD remained stable on home inhaler therapy without evidence of acute respiratory compromise. Over the hospital stay, the patient?s lower extremity edema and pain improved, and wounds showed no signs of active infection. He was deemed medically stable for discharge home with home health services for wound care and PT/OT, with close outpatient follow-up arranged with his primary care provider. Status at Discharge Overall status at discharge: patient is progressing back to baseline Time Spent with Patient Time attestation: Total time spent providing and/or coordinating discharge services: Time spent: Greater than 30 minutes Exam Const: General: comfortable and no acute distress HENMT: Face/Nose/Sinus: Normal nares present Mouth: Yes moist mucous membranes Eyes: General: appearance normal, both eyes and all related structures Sclera: sclerae normal Neck: Neck: supple and no JVD Resp: Effort & Inspection: normal respiratory effort Auscultation: clear to auscultation bilaterally Cardio: Rate: regular rate Rhythm: regular rhythm GI: Auscultation: normal bowel sounds Skin: General skin exam: dry skin, erythema and turgor decreased Lesions: other (bilateral blisters ruptured with some drainage) Neuro: Speech: normal speech Motor exam (neuro): Normal motor muscle tone present throughout Sensory Exam: normal sensation Extrem: Right lower extremity: edema Left lower extremity: edema Other: 1+ edema to BLE, ankle and below. Legs are dressed with kerlex, some serous drainage noted. PMS intact. Psych: Mental Status: mental status grossly normal Affect: normal affect DS: Data Data Completed and Pending Completed studies during hospitalization: Labs, urine, imaging Labs on day of discharge: Labs from last 24 hours 11/09/25 11/08/25 11/08/25 06:14 14:50 05:57 WBC 8.1 RBC 3.81 L Hgb 11.3 L Hct 33.6 L MCV 88.2 MCH 29.7 MCHC 33.6 RDW 23.4 H Plt Count 197 MPV 10.3 Immature Gran % (Auto) 0.6 H Neut % (Auto) 67.0 Lymph % (Auto) 16.3 L [place] % (Auto) 11.5 H Eos % (Auto) 3.7 Baso % (Auto) 0.9 Lymph # (Auto) 1.32 [place] # (Auto) 0.9 H Eos # (Auto) 0.3 Baso # (Auto) 0.1 Abs Immat Gran (auto) 0.05 H Absolute Neuts (auto) 5.4 Absolute Nucleated RBC 0.020 H Band Neutrophils % Not Reportable Nucleated RBC % 0.2 Platelet Estimate Adequate Hypochromasia 2+ Anisocytosis 2+ Macrocytosis Target Cells 1+ Schistocytes None seen Sodium 135 L 137 Potassium 3.5 3.4 Chloride 103 104 Carbon Dioxide 28 30 Anion Gap 4 3 L BUN 12 13 Creatinine 0.72 0.82 Estim Creat Clear Calc 89 80 Estimated GFR > 60 > 60 Glucose 87 86 Calcium 8.5 8.4 Total Bilirubin 0.8 0.9 AST 35 34 ALT 23 22 Alkaline Phosphatase 70 76 Total Protein 6.4 6.3 Albumin 3.5 3.4 L Vancomycin Trough < 5.0 L 11/08/25 05:55 WBC 8.9 RBC 3.79 L Hgb 11.2 L Hct 34.0 L MCV 89.7 MCH 29.6 MCHC 32.9 RDW 23.5 H Plt Count 214 MPV 11.0 H Immature Gran % (Auto) 0.7 H Neut % (Auto) 70.6 Lymph % (Auto) 14.3 L [place] % (Auto) 10.0 H Eos % (Auto) 3.5 Baso % (Auto) 0.9 Lymph # (Auto) 1.28 [place] # (Auto) 0.9 H Eos # (Auto) 0.3 Baso # (Auto) 0.1 Abs Immat Gran (auto) 0.06 H Absolute Neuts (auto) 6.3 Absolute Nucleated RBC 0.000 Band Neutrophils % Not Reportable Nucleated RBC % 0.0 Platelet Estimate Adequate Hypochromasia 2+ Anisocytosis 1+ Macrocytosis 1+ Target Cells 2+ Schistocytes None seen Sodium Potassium Chloride Carbon Dioxide Anion Gap BUN Creatinine Estim Creat Clear Calc Estimated GFR Glucose Calcium Total Bilirubin AST ALT Alkaline Phosphatase Total Protein Albumin Vancomycin Trough Discharge Plan Discharge Attending physician on discharge: Anisa Kamara Consulting providers: Michelle Raman Discharging Clinician: Michelle Raman Anticipated Discharge Date/Time: 11/09/25 12:00 Patient Disposition: Home with Home Health Service Activity: as tolerated Diet: heart healthy Discharge Instructions: Continue to clean your foot wounds, do NOT carrie any more blisters and do NOT use Neosporin or anything like this on these wounds. Soap and water is the best way to clean your wounds. Skin care: Keep the area clean and dry. Use gentle, fragrance-free soap and lukewarm water. Avoid scrubbing. Itch relief: Apply cool compresses 10?15 minutes as needed. Oral antihistamines may help with itching, especially at night. Moisturize: Apply a bland, fragrance-free moisturizer after bathing and as needed to protect the skin barrier. Avoid scratching: Scratching can worsen inflammation and increase infection risk. Keep nails short. Expected course: Rash and itching should gradually improve over several days; full resolution may take 1?3 weeks after allergen avoidance. When to seek care: Call or return for worsening rash, spreading redness, signs of infection (increasing pain, warmth, pus, fever), facial or genital involvement, or no improvement as expected. Prevention: Patch test new products when possible and read labels carefully before future use. Continue to check your blood pressure and blood sugar at home if applicable. Keep your scheduled appts with your primary care provider and any specialist that you may see. Return to the emergency department if you develop sudden shortness of breath, chest pain, a fever of greater than 101.5, or nausea, vomiting, abd pain, or diarrhea that does not go away. Follow-up with your primary care provider within 1-2 weeks, they will want to be updated on your inpatient stay in the hospital. Thank you for [facility] for your healthcare needs. Per Care Coordination: [facility] will continue services at discharge. [facility] will follow for PT/OT eval and treat and direct support professional caregiver. [facility] can be contacted at [phone]. Nursing please fax discharge paperwork to [phone] Patient Instructions: Wound Infection (GEN), Chronic Wounds (GEN) Patient Language: Armenian Stand Alone Forms: General Discharge Information Follow-up/Referrals: Jonathan,Jessica Blair [Primary Care Provider] - 2 Weeks Discharge Medications: Continued albuterol sulfate 2.5 mg /3 mL (0.083 %) solution for nebulization 2.5 mg inhalation Q4-6H PRN (Reason: shortness of breath or wheezing) albuterol sulfate [Ventolin HFA] 90 mcg/actuation HFA aerosol inhaler 1 inh inhalation Q4H PRN (Reason: shortness of breath or wheezing) aspirin [Adult Aspirin Regimen] 81 mg tablet,delayed release (DR/EC) 81 mg PO DAILY Incruse Ellipta 62.5 mcg/actuation blister with device 1 inh inhalation DAILY sildenafil [Viagra] 100 mg tablet 100 mg PO DAILY PRN (Reason: erectile dysfunction) Rx Instructions: administer 30 minutes to 4 hours before activity budesonide-formoterol [Symbicort] 160-4.5 mcg/actuation HFA aerosol inhaler 2 puff inhalation Q12H baclofen 10 mg tablet 10 mg PO Q8H Patient Comments: takes 0630,1630,0230 oxycodone 10 mg tablet 10 mg PO Q6H PRN (Reason: pain) Date of admission: 11/07/25 02:26 Primary Care Provider: JonathanJohnnie Admitting Provider: Alyssa Reddy Attending physician on admission: Alyssa Reddy Condition: Stable Quality VTE Prophylaxis VTE prophylaxis: mechanical ordered Hospitalist MIPS Heart Failure (Exclusion) Patient has history of Heart Transplant or Left Ventricular Assistive Device?: No IF YES, STOP HERE Heart Failure (Qualifier) Patient has current or prior documentation of LVEF less than or equal to 40%, or mod/servere depressed LVSF?: No IF NO, STOP HERE
[2025-11-09] MEDS: ASPIRIN 81 MG ENTERIC TABLET PO (10:11)
== END 2025-11-09 13:23 | disposition home health service (06) ==
LOC: ANHED 11-07 02:27 → ANH3MEDSUR 11-08 07:13
PROVIDERS: Internal Medicine; Admitting Provider Internal Medicine; Emergency Provider Emergency Medicine; PCP Internal Medicine Infectious Disease; Visit Provider Internal Medicine
DX: L23.9 Allergic contact dermatitis, unspecified cause (principal); E87.6 Hypokalemia; J44.1 Chronic obstructive pulmonary disease with (acute) exacerbation; J98.11 Atelectasis; M48.00 Spinal stenosis, site unspecified; N52.9 Male erectile dysfunction, unspecified; H91.90 Unspecified hearing loss, unspecified ear; H93.13 Tinnitus, bilateral; H54.62 Unqualified visual loss, left eye, normal vision right eye; G51.0 Bell's palsy; Z87.891 Personal history of nicotine dependence; Z79.82 Long term (current) use of aspirin; Z79.891 Long term (current) use of opiate analgesic; Z79.51 Long term (current) use of inhaled steroids; Z86.73 Personal history of transient ischemic attack (TIA), and cerebral infarction without residual deficits; Z87.09 Personal history of other diseases of the respiratory system; Z87.19 Personal history of other diseases of the digestive system
CPT/HCPCS: 36415; 73620; 75635; 80048; 80053; 80202; 80307; 81001; 83605; 83735; 84145; 85025; 85610; 85652; 85730; 86140; 87040; 87641; 93308; 93970; 94640; 96365; 96366; 96367; 96375; 96376; 97161; 97165; 99212; 99285; A9270; C8924; G0378; G0463; J0692; J1836; J1938; J2270; J3360; J3373; Q9957; Q9967